=== PATIENT | female | born 2000 ===

== ENCOUNTER 2021-10-19 23:33 | Emergency (ER) | payer MEDICAID, SELFPAY ==
[2021-10-19 23:55] LABS: Glucose, Whole Blood 195 mg/dL (60-115)
--- NOTE | 2021-10-19 23:58 | ECG_ITS ---
Test Reason : CHEST PAIN Blood Pressure : / mmHG Vent. Rate : 106 BPM Atrial Rate : 106 BPM P-R Int : 120 ms QRS Dur : 082 ms QT Int : 368 ms P-R-T Axes : 074 085 017 degrees QTc Int : 488 ms Sinus tachycardia Otherwise normal ECG No previous ECGs available Referred By: Senthil Quintero Electronically Signed By:Orion Ortiz
[2021-10-19 23:59] VITALS: BP 152/102; PULSE 92; RESP 20; TEMP 36.1; O2SAT 100; BMI 28.3
--- NOTE | 2021-10-20 00:02 | ED_ITS ---
HPI - General Adult General Chief complaint: Nausea/Vomiting/Diarrhea Stated complaint: Vomiting Time Seen by Provider: 10/19/21 23:57 Source: patient Mode of arrival: ambulatory Limitations: no limitations History of Present Illness HPI narrative: 21-year-old female came in for evaluation of vomiting and anxiety. Patient is known to smoke marijuana, patient was evaluated for vomiting at [facility] yesterday, patient felt better but in the morning after she smoked marijuana just started vomiting again today, patient also suffer from anxiety with hyperventilation syndrome and stiffness of her joint when she has it, while patient in the ED start get anxious and hyperventilating, patient witnessed to have syncopal episode in the waiting room, patient was brought into room 17, patient appears very anxious, hyperventilating. Related Data Allergies Allergy/AdvReac Type Severity Reaction Status Date / Time No Known Allergies Allergy Verified 10/19/21 23:57 Review of Systems Review of Systems: All other systems are reviewed and are negative Constitutional: Reports as per HPI and Reports no additional constitutional complaints Eyes: Reports as per HPI and Reports no additional eye complaints Reports system reviewed and no additional complaints, except as documented Cardiovascular: Reports as per HPI and Reports no additional cardiovascular complaints Respiratory: Reports as per HPI and Reports no additional respiratory complaints Gastrointestinal: Reports as per HPI and Reports no additional gastrointestinal complaints Genitourinary: Reports no additional female genitourinary complaints Musculoskeletal: Reports no additional musculoskeletal complaints Skin/Breast: Reports system reviewed and no additional complaints, except as docu Psychiatric: Reports no additional psychiatric complaints Endocrine: Reports no additional endocrine complaints Hematologic/Lymphatic: Reports no additional hematologic/lymphatic complaints Allergic/Immunologic: Reports no additional allergic/immunologic complaints Reports system reviewed and no additional complaints, except as documented and Reports Abnormal speech present [facility] Past Medical History Medical History Anxiety Social History Social History (Updated 10/20/21 @ 07:51 by Oriana Webber DO) Patient Tobacco Use Status: Never used Tobacco Use of substances other than those prescribed or required for medical reasons: Yes Substance Use Type: Marijuana Advance Directives: No Physical Exam Vital Signs: Vital Signs: Last Vital Signs Temp 98.8 F 10/20/21 00:10 Pulse 95 10/20/21 00:10 Resp 14 10/20/21 00:10 BP 129/64 10/20/21 00:10 Pulse Ox 96 10/20/21 00:10 BMI result Body Mass Index 28.3 Vital signs have been reviewed as appeared to be correct. Blood pressure normal. Heart rate normal. Respiration rate normal. Temperature normal. Oxygen saturation normal. Appearance: Anxious, hyperventilating. Head: Normal external exam. Normocephalic. Atraumatic. No Lopez signs noted. No raccoon eyes noted Eyes: PERRLA. EOMI. Conjunctiva and sclera normal. Eyelids normal. ENT: TM's Normal. Pharynx normal. Uvula midline. Moist mucous membranes. No trismus noted. No drooling noted. No muffled voice noted. Neck: Normal inspection. Neck supple. FROM. No adenopathy. Thyroid Normal. No meningeal signs. No neck mass noted. CVS: Normal heart rate and rhythm. Heart sound normal. No murmurs noted. Pulses normal throughout. Respiratory: No respiratory distress. Painless inspiration. Breath sounds normal. No wheezes/rales/rhonchi noted. Chest nontender. No accessory muscle usage noted or decreased air movement noted. Abdomen: Soft and nontender. Bowel sounds normal in all 4 quadrants. No distention noted. No organomegaly noted. No visible injury noted. Back: No CVA tenderness. Full range of motion noted. Skin: Skin warm and dry. Normal skin color. Normal skin turgor. No rashes/lesions/lacerations noted. Extremities: No lower extremity edema. Extremities exhibit normal range of motion. Extremities nontender. Neuro: Oriented X 3. Cranial nerve exam: II-XII are grossly intact No motor deficit. No sensory deficit. Reflexes normal. Course Course Course Narrative: Assessment and plan. 21-year-old female history of anxiety and marijuana use with marijuana induced vomiting, patient was evaluated yesterday a [facility], patient appear anxious with hyperventilation and diffuse muscle spasm in the hands and feet, patient is improving with IV fluid and Ativan. Leukocytosis is likely secondary to anxiety and hyperventilation. Medical Decision Making Lab Data Lab results reviewed: Yes I reviewed the patient's lab results. Result diagrams: 10/20/21 00:05 10/20/21 00:05 Labs: Lab Results 10/19/21 10/20/21 10/20/21 Range/Units 23:51 00:05 00:05 WBC 22.4 H (4.8-10.8) X10*3/uL RBC 5.47 (4.20-5.50) X10*6/uL Hgb 16.2 H (12.0-16.0) g/dl Hct 46.1 (37.0-47.0) % MCV 84.3 (80.0-98.0) fL MCH 29.6 (27.0-33.0) pg MCHC 35.1 H (31.0-35.0) g/dl RDW 12.3 (11.0-16.0) % Plt Count 453 H (160-400) X10*3/uL MPV 10.0 (9.4-12.3) fL Immature Gran % (Auto) 0.3 (0.0-0.4) % Neut % (Auto) 82.7 H (45-73) % Lymph % (Auto) 11.2 L (20-40) % Wood % (Auto) 5.5 (2-11) % Eos % (Auto) 0.0 (0-4) % Baso % (Auto) 0.3 (0-2) % Lymph # (Auto) 2.5 (1.2-4.9) X10*3/uL [place] # (Auto) 1.2 (0.1-1.2) X10*3/uL Eos # (Auto) 0.0 (0.0-0.4) X10*3/uL Baso # (Auto) 0.1 (0.0-0.2) X10*3/uL Abs Immat Gran (auto) 0.06 H (0.00-0.03) X10*3/uL Absolute Neuts (auto) 18.5 H (2.0-8.3) x10*3/uL Absolute Nucleated RBC 0.000 (0.0-0.012) X10*3/uL Nucleated RBC % (auto) 0.0 (0.0-0.2) /100WBC Sodium 141 (135-145) mmol/L Potassium 3.6 (3.3-5.1) mmol/L Chloride 97 (96-108) mmol/L Carbon Dioxide 26 (22-29) mmol/L Anion Gap 22 H (12-20) BUN 10 (9-16) mg/dL Creatinine 0.95 (0.5-1.4) mg/dL Estim Creat Clear Calc 95.4 Estimated GFR > 60 POC Glucose 195 H (60-115) mg/dL Random Glucose 168 H (60-115) mg/dL Calcium 10.9 H (8.4-10.2) mg/dL Total Bilirubin 0.9 (0.0-1.0) mg/dL Direct Bilirubin 0.3 (0.0-0.5) mg/dL AST 38 H (5-31) U/L ALT 33 H (0-31) U/L Alkaline Phosphatase 103 (39-117) U/L Troponin I High Sens (<3.5-17.0) ng/L Total Protein 9.2 H (6.5-8.0) g/dL Albumin 5.1 H (3.5-5.0) g/dL Lipase 13 (8-78) U/L 10/20/21 Range/Units 00:05 WBC (4.8-10.8) X10*3/uL RBC (4.20-5.50) X10*6/uL Hgb (12.0-16.0) g/dl Hct (37.0-47.0) % MCV (80.0-98.0) fL MCH (27.0-33.0) pg MCHC (31.0-35.0) g/dl RDW (11.0-16.0) % Plt Count (160-400) X10*3/uL MPV (9.4-12.3) fL Immature Gran % (Auto) (0.0-0.4) % Neut % (Auto) (45-73) % Lymph % (Auto) (20-40) % [place] % (Auto) (2-11) % Eos % (Auto) (0-4) % Baso % (Auto) (0-2) % Lymph # (Auto) (1.2-4.9) X10*3/uL [place] # (Auto) (0.1-1.2) X10*3/uL Eos # (Auto) (0.0-0.4) X10*3/uL Baso # (Auto) (0.0-0.2) X10*3/uL Abs Immat Gran (auto) (0.00-0.03) X10*3/uL Absolute Neuts (auto) (2.0-8.3) x10*3/uL Absolute Nucleated RBC (0.0-0.012) X10*3/uL Nucleated RBC % (auto) (0.0-0.2) /100WBC Sodium (135-145) mmol/L Potassium (3.3-5.1) mmol/L Chloride (96-108) mmol/L Carbon Dioxide (22-29) mmol/L Anion Gap (12-20) BUN (9-16) mg/dL Creatinine (0.5-1.4) mg/dL Estim Creat Clear Calc Estimated GFR POC Glucose (60-115) mg/dL Random Glucose (60-115) mg/dL Calcium (8.4-10.2) mg/dL Total Bilirubin (0.0-1.0) mg/dL Direct Bilirubin (0.0-0.5) mg/dL AST (5-31) U/L ALT (0-31) U/L Alkaline Phosphatase (39-117) U/L Troponin I High Sens < 3.5 (<3.5-17.0) ng/L Total Protein (6.5-8.0) g/dL Albumin (3.5-5.0) g/dL Lipase (8-78) U/L Discharge Plan Discharge Clinical Impression: Drug-induced nausea and vomiting, Anxiety Patient Disposition: Home, Self-Care Instructions: Anxiety (ED) Referrals: Physician,Nonstaff [Primary Care Provider] - 2 days Stand Alone Forms: Work/School Release Interventions: ED Discharge Assessment Last Done: 10/20/21 02:53 Discharge Date/Time: 10/20/21 02:55
[2021-10-20] MEDS: ondansetron HCL 4 MG/2 ML VIAL IVPUSH (00:06)
[2021-10-20] MEDS: LORazepam 2 MG/ML VIAL 1 MG IVPUSH (00:06)
[2021-10-20] MEDS: 0.9 % Sodium Chloride 1,000 ML 999 ML IVCONT ×2 (00:06→01:28)
[2021-10-20] MEDS: Famotidine/PF 20 MG/2 ML VIAL IVPUSH (00:06)
[2021-10-20 00:10] VITALS: BP 129/64; PULSE 95; RESP 14; TEMP 37.1; O2SAT 96
[2021-10-20 00:11] LABS: MANUAL DIFF FLAG NO
[2021-10-20 00:12] LABS: Basophils Absolute Auto 0.1 X10*3/uL (0.0-0.2); Basophils Percent Auto 0.3 % (0-2); Hematocrit 46.1 % (37.0-47.0); Hemoglobin 16.2 g/dl (12.0-16.0); Imm Gran Abs Auto 0.06 X10*3/uL (0.00-0.03); Imm Gran Pct Auto 0.3 % (0.0-0.4); Lymphocytes Absolute Auto 2.5 X10*3/uL (1.2-4.9); Lymphocytes Percent Auto 11.2 % (20-40); Mean Corpuscular HGB Conc 35.1 g/dl (31.0-35.0); Mean Corpuscular Hemoglobin 29.6 pg (27.0-33.0); Mean Corpuscular Volume 84.3 fL (80.0-98.0); Monocytes Absolute Auto 1.2 X10*3/uL (0.1-1.2); Monocytes Percent Auto 5.5 % (2-11); Neutrophils Absolute Auto 18.5 x10*3/uL (2.0-8.3); Neutrophils Percent Auto 82.7 % (45-73); Platelet Count 453 X10*3/uL (160-400); Red Blood Count 5.47 X10*6/uL (4.20-5.50); Red Cell Distribution Width 12.3 % (11.0-16.0); White Blood Count 22.4 X10*3/uL (4.8-10.8)
[2021-10-20 00:35] LABS: Alanine Aminotransferase 33 U/L (0-31); Albumin Level 5.1 g/dL (3.5-5.0); Alkaline Phosphatase 103 U/L (39-117); Anion Gap 22 (12-20); Aspartate Amino Transferase 38 U/L (5-31); Bilirubin Direct 0.3 mg/dL (0.0-0.5); Bilirubin Total 0.9 mg/dL (0.0-1.0); Blood Urea Nitrogen 10 mg/dL (9-16); Calcium 10.9 mg/dL (8.4-10.2); Carbon Dioxide 26 mmol/L (22-29); Chloride 97 mmol/L (96-108); Creatinine Clr Calc Pharmacy 95.4; Estimated Glomerular Filt Rate > 60; Glucose Random 168 mg/dL (60-115); Lipase 13 U/L (8-78); Potassium 3.6 mmol/L (3.3-5.1); Sodium 141 mmol/L (135-145); Total Protein 9.2 g/dL (6.5-8.0)
[2021-10-20 00:46] LABS: Troponin-I High Sensitivity < 3.5 ng/L (<3.5-17.0)
== END 2021-10-20 02:55 | disposition home or self-care (01) ==
PROVIDERS: Emergency Provider Emergency Medicine
DX: T40.711A Poisoning by cannabis, accidental (unintentional), initial encounter (principal); R11.2 Nausea with vomiting, unspecified; Y92.9 Unspecified place or not applicable; F41.9 Anxiety disorder, unspecified
CPT/HCPCS: 36415; 80048; 80076; 82947; 83690; 84484; 85025; 93005; 96361; 96374; 96375; 99283; 99284; J2060; J2405

== ENCOUNTER 2021-10-20 06:49 | Emergency (ER) | payer MEDICAID, SELFPAY ==
[2021-10-20 07:09] VITALS: BP 141/104; PULSE 95; RESP 18; TEMP 37; O2SAT 98; BMI 28.3
--- NOTE | 2021-10-20 07:28 | ED_ITS ---
HPI - Nausea/Vomiting/Diarrhea General Chief complaint: Nausea/Vomiting/Diarrhea Stated complaint: Vomiting Time Seen by Provider: 10/20/21 07:12 Source: patient and old records reviewed Mode of arrival: ambulatory Limitations: no limitations History of Present Illness MD elicited complaint: nausea and vomiting Pertinent past history: cyclical vomiting Onset (ago): day(s) (3) Description of vomiting: watery Associated nausea: Yes Associated abdominal pain: No Severity: moderate Exacerbating factors: other (anxiety) Relieving factors: none Context: marijuana use and other (hx of cyclical vomiting brought on by anxiety and depression) Associated symptoms: loss of appetite, nausea/vomiting and anxiety Treatment prior to arrival: other (went to [facility] yesterday received fluids, last night in our ED zofran and ativan) Related Data Previous Rx's Medication Instructions Recorded ondansetron 4 mg disintegrating 4 mg PO Q8H PRN #20 tab 10/20/21 tablet promethazine 25 mg rectal 25 mg NM Q6H PRN #12 ea 10/20/21 suppository Allergies Allergy/AdvReac Type Severity Reaction Status Date / Time No Known Allergies Allergy Verified 10/19/21 23:57 Review of Systems Review of Systems: Constitutional : No Fever, No Chills ENT/Mouth : No Ear Pain, No Nasal Congestion, No sore throat Eyes: No Eye Pain, No Swelling, No Redness Cardiovascular : No Chest Pain, No SOB Respiratory : No Cough, No Sputum, No Dyspnea Gastrointestinal : pos Nausea, pos Vomiting, No Diarrhea, No Hematochezia, No Melena Genitourinary : No Dysuria, No Urinary Frequency, No Hematuria Musculoskeletal : No Myalgias Skin : No Skin Lesions, No rash Neuro : pos diffuse Weakness, No Numbness, No Paresthesias, No Dizziness, No Headache Psych : positive Anxiety, positive Depression, no SI/HI Heme/Lymph: No Lymphadenopathy Endocrine : No Polyuria, No Polydipsia All other systems reviewed and are negative Gastrointestinal: Gastrointestinal: Reports nausea PMFSH Past Medical History Medical History Anxiety Social History Social History (Updated 10/20/21 @ 07:51 by Oriana Webber DO) Patient Tobacco Use Status: Never used Tobacco Use of substances other than those prescribed or required for medical reasons: Yes Substance Use Type: Marijuana Advance Directives: No Physical Exam Vital Signs: Vital Signs: Last Vital Signs Temp 98.6 F 10/20/21 07:09 Pulse 95 10/20/21 07:09 Resp 18 10/20/21 07:09 BP 141/104 H 10/20/21 07:09 Pulse Ox 98 10/20/21 07:09 BMI result Body Mass Index 28.3 Appearance: Alert. Oriented X3. No acute distress. Very anxious and tearful Eyes: Pupils equal, round and reactive to light. ENT: Pharynx normal. Neck: Normal inspection. Neck supple. CVS: Normal heart rate and rhythm. Pulses normal. Respiratory: No respiratory distress. Breath sounds normal. Abdomen: Soft and non-tender. Skin: Skin warm and dry. Normal skin color. Normal skin turgor. Extremities: No lower extremity edema. No calf ttp Neuro: Oriented X 3. No motor deficit. No sensory deficit. CN2-12 intact Psych: crying, anxious, frustrated at some times Course Course Course Narrative: repleted K has not vomited in the ED medically cleared for BHN at this time patient states she feels much better and doesn't want to wait for BHN she wants to go home MDM - Nausea/Vomiting/Diarrhea MDM Narrative Medical decision making narrative: 21 yo female with hx of anxiety and cyclical vomiting brought on by anxiety comes in and states she has severe anxiety/depression due to her living situation but she has safe housing - she is not on any medications. She reports no SI. At this time this is her 3rd visit in 3 days will obtain basic labs, hydrate, IM haldol for vomiting, BHN consult given her severe anxiety and patient has had to go inpatient for this in the past. I have not seen her vomit and I suspect this is mostly anxiety/depression. Lab Data Result diagrams: 10/20/21 07:56 10/20/21 07:56 Labs: Lab Results 10/20/21 10/20/21 10/20/21 Range/Units 07:56 07:56 07:56 WBC 17.2 H (4.8-10.8) X10*3/uL RBC 4.58 (4.20-5.50) X10*6/uL Hgb 13.5 (12.0-16.0) g/dl Hct 38.8 (37.0-47.0) % MCV 84.7 (80.0-98.0) fL MCH 29.5 (27.0-33.0) pg MCHC 34.8 (31.0-35.0) g/dl RDW 12.5 (11.0-16.0) % Plt Count 330 D (160-400) X10*3/uL MPV 10.0 (9.4-12.3) fL Immature Gran % (Auto) 0.5 H (0.0-0.4) % Neut % (Auto) 78.9 H (45-73) % Lymph % (Auto) 13.7 L (20-40) % [place] % (Auto) 6.6 (2-11) % Eos % (Auto) 0.1 (0-4) % Baso % (Auto) 0.2 (0-2) % Lymph # (Auto) 2.4 (1.2-4.9) X10*3/uL [place] # (Auto) 1.1 (0.1-1.2) X10*3/uL Eos # (Auto) 0.0 (0.0-0.4) X10*3/uL Baso # (Auto) 0.0 (0.0-0.2) X10*3/uL Abs Immat Gran (auto) 0.08 H (0.00-0.03) X10*3/uL Absolute Neuts (auto) 13.6 H (2.0-8.3) x10*3/uL Absolute Nucleated RBC 0.000 (0.0-0.012) X10*3/uL Nucleated RBC % (auto) 0.0 (0.0-0.2) /100WBC Sodium 140 (135-145) mmol/L Potassium 3.1 L (3.3-5.1) mmol/L Chloride 102 (96-108) mmol/L Carbon Dioxide 26 (22-29) mmol/L Anion Gap 15 (12-20) BUN 8 L (9-16) mg/dL Creatinine 0.69 (0.5-1.4) mg/dL Estim Creat Clear Calc 131.2 Estimated GFR > 60 Random Glucose 122 H (60-115) mg/dL Calcium 9.6 D (8.4-10.2) mg/dL Magnesium 2.0 (1.6-2.6) mg/dL Total Bilirubin 0.7 (0.0-1.0) mg/dL Direct Bilirubin 0.3 (0.0-0.5) mg/dL AST 32 H (5-31) U/L ALT 25 (0-31) U/L Alkaline Phosphatase 86 (39-117) U/L Total Protein 7.6 (6.5-8.0) g/dL Albumin 4.3 (3.5-5.0) g/dL Lipase 16 (8-78) U/L Beta HCG, Quant < 2 mIU/mL Urine Color Urine Appearance Urine pH (5.0-8.0) Ur Specific [place] (1.005-1.025) Urine Protein (NEG-TRACE) MG/DL Urine Glucose (UA) (NEG) MG/DL Urine Ketones (NEG) MG/DL Urine Blood (NEG) Urine Nitrite (NEG) Ur Leukocyte Esterase (NEG) Urine Opiates Screen (Not Detect) Urine Fentanyl Screen (Not Detect) Ur Barbiturates Screen (Not Detect) Ur Phencyclidine Scrn (Not Detect) Ur Amphetamines Screen (Not Detect) U Benzodiazepines Scrn (Not Detect) Urine Cocaine Screen (Not Detect) U Marijuana (THC) Screen (Not Detect) COVID-19 (ETHAN) Negative (Negative) COVID-19 Clin Com See Note 10/20/21 10/20/21 Range/Units 10:18 10:18 WBC (4.8-10.8) X10*3/uL RBC (4.20-5.50) X10*6/uL Hgb (12.0-16.0) g/dl Hct (37.0-47.0) % MCV (80.0-98.0) fL MCH (27.0-33.0) pg MCHC (31.0-35.0) g/dl RDW (11.0-16.0) % Plt Count (160-400) X10*3/uL MPV (9.4-12.3) fL Immature Gran % (Auto) (0.0-0.4) % Neut % (Auto) (45-73) % Lymph % (Auto) (20-40) % [place] % (Auto) (2-11) % Eos % (Auto) (0-4) % Baso % (Auto) (0-2) % Lymph # (Auto) (1.2-4.9) X10*3/uL [place] # (Auto) (0.1-1.2) X10*3/uL Eos # (Auto) (0.0-0.4) X10*3/uL Baso # (Auto) (0.0-0.2) X10*3/uL Abs Immat Gran (auto) (0.00-0.03) X10*3/uL Absolute Neuts (auto) (2.0-8.3) x10*3/uL Absolute Nucleated RBC (0.0-0.012) X10*3/uL Nucleated RBC % (auto) (0.0-0.2) /100WBC Sodium (135-145) mmol/L Potassium (3.3-5.1) mmol/L Chloride (96-108) mmol/L Carbon Dioxide (22-29) mmol/L Anion Gap (12-20) BUN (9-16) mg/dL Creatinine (0.5-1.4) mg/dL Estim Creat Clear Calc Estimated GFR Random Glucose (60-115) mg/dL Calcium (8.4-10.2) mg/dL Magnesium (1.6-2.6) mg/dL Total Bilirubin (0.0-1.0) mg/dL Direct Bilirubin (0.0-0.5) mg/dL AST (5-31) U/L ALT (0-31) U/L Alkaline Phosphatase (39-117) U/L Total Protein (6.5-8.0) g/dL Albumin (3.5-5.0) g/dL Lipase (8-78) U/L Beta HCG, Quant mIU/mL Urine Color YELLOW Urine Appearance CLEAR Urine pH 6.5 (5.0-8.0) Ur Specific [place] 1.010 (1.005-1.025) Urine Protein NEG (NEG-TRACE) MG/DL Urine Glucose (UA) NEG (NEG) MG/DL Urine Ketones 15 (NEG) MG/DL Urine Blood NEG (NEG) Urine Nitrite NEG (NEG) Ur Leukocyte Esterase NEG (NEG) Urine Opiates Screen Not Detected (Not Detect) Urine Fentanyl Screen Not Detected (Not Detect) Ur Barbiturates Screen Not Detected (Not Detect) Ur Phencyclidine Scrn Not Detected (Not Detect) Ur Amphetamines Screen Not Detected (Not Detect) U Benzodiazepines Scrn Not Detected (Not Detect) Urine Cocaine Screen POSITIVE H (Not Detect) U Marijuana (THC) Screen POSITIVE H (Not Detect) COVID-19 ([facility]AN) (Negative) COVID-19 Clin Com Discharge Plan Discharge Clinical Impression: Anxiety, Acute hypokalemia Patient Disposition: Home, Self-Care Instructions: Hypokalemia (ED), Acute Nausea and Vomiting (ED), Anxiety (ED) Additional Instructions: you tested positive for marijuana but also cocaine - please be careful of where you get your marijuana from Prescriptions: New promethazine 25 mg suppository 25 mg NM Q6H PRN (Reason: nausea and vomiting) Qty: 12 RF: 0 ondansetron 4 mg tablet,disintegrating 4 mg PO Q8H PRN (Reason: nausea and vomiting) Qty: 20 RF: 0 Referrals: [facility] [Physician] - 2 days
[2021-10-20] MEDS: diphenhydrAMINE HCL 50 MG/ML VIAL 25 MG IVPUSH (08:04)
[2021-10-20] MEDS: Haloperidol Lactate 5 MG/ML VIAL IM (08:05)
[2021-10-20] MEDS: 0.9 % Sodium Chloride 1,000 ML 999 ML IVCONT (08:05)
[2021-10-20 08:14] LABS: Basophils Percent Auto 0.2 % (0-2); Eosinophils Percent Auto 0.1 % (0-4); Hematocrit 38.8 % (37.0-47.0); Hemoglobin 13.5 g/dl (12.0-16.0); Imm Gran Abs Auto 0.08 X10*3/uL (0.00-0.03); Imm Gran Pct Auto 0.5 % (0.0-0.4); Lymphocytes Absolute Auto 2.4 X10*3/uL (1.2-4.9); Lymphocytes Percent Auto 13.7 % (20-40); MANUAL DIFF FLAG NO; Mean Corpuscular HGB Conc 34.8 g/dl (31.0-35.0); Mean Corpuscular Hemoglobin 29.5 pg (27.0-33.0); Mean Corpuscular Volume 84.7 fL (80.0-98.0); Monocytes Absolute Auto 1.1 X10*3/uL (0.1-1.2); Monocytes Percent Auto 6.6 % (2-11); Neutrophils Absolute Auto 13.6 x10*3/uL (2.0-8.3); Neutrophils Percent Auto 78.9 % (45-73); Platelet Count 330 X10*3/uL (160-400); Red Blood Count 4.58 X10*6/uL (4.20-5.50); Red Cell Distribution Width 12.5 % (11.0-16.0); White Blood Count 17.2 X10*3/uL (4.8-10.8)
[2021-10-20 08:35] LABS: COVID-19 Test Negative (Negative); IDNOW Serial# 08D9AD1C
[2021-10-20 08:36] LABS: Alanine Aminotransferase 25 U/L (0-31); Albumin Level 4.3 g/dL (3.5-5.0); Alkaline Phosphatase 86 U/L (39-117); Anion Gap 15 (12-20); Aspartate Amino Transferase 32 U/L (5-31); Bilirubin Direct 0.3 mg/dL (0.0-0.5); Bilirubin Total 0.7 mg/dL (0.0-1.0); Blood Urea Nitrogen 8 mg/dL (9-16); Calcium 9.6 mg/dL (8.4-10.2); Carbon Dioxide 26 mmol/L (22-29); Chloride 102 mmol/L (96-108); Creatinine Clr Calc Pharmacy 131.2; Estimated Glomerular Filt Rate > 60; Glucose Random 122 mg/dL (60-115); Lipase 16 U/L (8-78); Potassium 3.1 mmol/L (3.3-5.1); Sodium 140 mmol/L (135-145); Total Protein 7.6 g/dL (6.5-8.0)
[2021-10-20 08:41] LABS: HCG Quantitative < 2 mIU/mL
[2021-10-20] MEDS: Potassium Chloride ER 20 MEQ TAB.ER.PRT PO (08:47)
[2021-10-20] MEDS: Potassium Chloride/H20 10 MEQ/100 ML PIGGYBACK 100 MEQ IV ×2 (08:48→10:17)
--- NOTE | 2021-10-20 08:53 | PC.NURSE ---
pt placed on heart monitor while receiving potassium. states her nausea is a little better. Pt reminded she needs to provide a urine sample.
[2021-10-20 10:53] LABS: Appearance Urine CLEAR; Color Urine YELLOW; Glucose Urine UA NEG (NEG); Leukocyte Esterase Urine NEG (NEG); Nitrite Urine NEG (NEG); PH 6.5 (5.0-8.0); Urine Blood NEG (NEG); Urine Ketones 15 MG/DL (NEG); Urine Protein NEG (NEG-TRACE)
[2021-10-20 11:12] LABS: Amphetamine Screen Urine Not Detected (Not Detect); Barbiturates, Urine Not Detected (Not Detect); Benzodiazepines Screen Urine Not Detected (Not Detect); Cannabinoid Screen Urine POSITIVE (Not Detect); Cocaine Screen Urine POSITIVE (Not Detect); Fentanyl, urine Not Detected (Not Detect); Opiate Screen Urine Not Detected (Not Detect); Phencyclidine Screen Urine Not Detected (Not Detect)
== END 2021-10-20 15:13 | disposition home or self-care (01) ==
PROVIDERS: Emergency Provider Emergency Medicine
DX: F41.9 Anxiety disorder, unspecified (principal); E87.6 Hypokalemia; F32.A Depression, unspecified; Z79.899 Other long term (current) drug therapy; Z20.822 Contact with and (suspected) exposure to COVID-19
CPT/HCPCS: 36415; 80048; 80076; 80307; 81003; 83690; 83735; 84702; 85025; 87635; 96361; 96365; 96366; 96372; 96375; 99285; J1200

== ENCOUNTER 2021-11-29 00:42 | Emergency (ER) | payer MEDICAID, SELFPAY ==
[2021-11-29 00:51] VITALS: BP 143/84; BP 170/106; PULSE 88; RESP 20; TEMP 37.9; O2SAT 95; O2SAT 98; BMI 29.9
--- NOTE | 2021-11-29 01:02 | ED.NAVMDI ---
HPI - Nausea/Vomiting/Diarrhea General Chief complaint: General Medical Stated complaint: WEAKNESS,AMS,COVID+ Time Seen by Provider: 11/29/21 00:54 Source: patient Mode of arrival: EMS Limitations: no limitations History of Present Illness HPI Narrative: Patient's anxiety med around into his cyclic vomiting already been vaccinated against COVID including booster dose started vomiting with diarrhea today did home test for COVID which was positive Related Data Previous Rx's Medication Instructions Recorded ondansetron 4 mg disintegrating 4 mg PO Q8H PRN #20 tab 10/20/21 tablet promethazine 25 mg rectal 25 mg [place] Q6H PRN #12 ea 10/20/21 suppository Allergies Allergy/AdvReac Type Severity Reaction Status Date / Time No Known Allergies Allergy Verified 10/19/21 23:57 Review of Systems Review of Systems: Yes all other systems are reviewed and are negative [facility] Past Medical History Medical History Anxiety Social History Social History Patient Tobacco Use Status: Never used Tobacco Substance Use Type: Marijuana Advance Directives: No Advance Directives Information Provided: Yes Physical Exam Vital Signs: Vital Signs: Last Vital Signs Temp 100.2 F 11/29/21 00:51 Pulse 88 11/29/21 00:51 Resp 20 11/29/21 00:51 BP 143/84 H 11/29/21 00:51 Pulse Ox 98 11/29/21 00:51 BMI result Body Mass Index 29.9 Appearance: Alert. Oriented X3. No acute distress. Anxious febrile temperature 100.2 degrees Eyes: No pallor/ icterus ENT: Pharynx normal. Oral Mucosa moist Neck: Normal inspection. Neck supple. CVS: Normal heart rate and rhythm. Pulses normal. Respiratory: No respiratory distress. Equal air entry bilateral, no wheezing/rales/rhonchi Abdomen: Soft and nontender. Bowel sounds are present, no mass palpable, no CVA tenderness Skin: Skin warm and dry. Normal skin color. Normal skin turgor. Extremities: No lower extremity edema. No calf tenderness Neuro: Oriented X 3 MDM - Nausea/Vomiting/Diarrhea MDM Narrative Medical decision making narrative: Patient has cyclic vomiting syndrome with COVID-19 with chronic leukocytosis during episodes of vomiting as in the past abdomen is soft nontender will check for lactic acid and procalcitonin. Medical Records Attestation: I reviewed the patient's medical records. Lab Data Attestation: I reviewed the patient's lab results. Result diagrams: 11/29/21 01:33 11/29/21 01:33 Labs: Lab Results 11/29/21 11/29/21 Range/Units 01:33 01:33 WBC 22.6 H (4.8-10.8) X10*3/uL RBC 4.84 (4.20-5.50) X10*6/uL Hgb 14.2 (12.0-16.0) g/dl Hct 40.3 (37.0-47.0) % MCV 83.3 (80.0-98.0) fL MCH 29.3 (27.0-33.0) pg MCHC 35.2 H (31.0-35.0) g/dl RDW 12.8 (11.0-16.0) % Plt Count 381 (160-400) X10*3/uL MPV 10.4 (9.4-12.3) fL Immature Gran % (Auto) 0.5 H (0.0-0.4) % Neut % (Auto) 85.5 H (45-73) % Lymph % (Auto) 8.1 L (20-40) % [place] % (Auto) 5.8 (2-11) % Eos % (Auto) 0.0 (0-4) % Baso % (Auto) 0.1 (0-2) % Lymph # (Auto) 1.8 (1.2-4.9) X10*3/uL [place] # (Auto) 1.3 H (0.1-1.2) X10*3/uL Eos # (Auto) 0.0 (0.0-0.4) X10*3/uL Baso # (Auto) 0.0 (0.0-0.2) X10*3/uL Abs Immat Gran (auto) 0.12 H (0.00-0.03) X10*3/uL Absolute Neuts (auto) 19.3 H (2.0-8.3) x10*3/uL Absolute Nucleated RBC 0.000 (0.0-0.012) X10*3/uL Nucleated RBC % (auto) 0.0 (0.0-0.2) /100WBC COVID-19 ([facility]AN) Positive A (Negative) COVID-19 Clin Com See Note Discharge Plan Discharge Clinical Impression: COVID-19, Cyclic vomiting syndrome Leukocytosis Qualifiers: Leukocytosis type: leukemoid reaction Qualified Code(s): D72.823 - Leukemoid reaction Patient Disposition: Home, Self-Care Instructions: Acute Nausea and Vomiting (ED), Leukocytosis (ED), COVID-19 (Coronavirus Disease 2019) (ED) Additional Instructions: Drink plenty of fluids Stop using marijuana Take medication for anxiety Social distancing Report to the ER if increased shortness of breath Prescriptions: No Action promethazine 25 mg suppository 25 mg [place] Q6H PRN (Reason: nausea and vomiting) Qty: 12 RF: 0 ondansetron 4 mg tablet,disintegrating 4 mg PO Q8H PRN (Reason: nausea and vomiting) Qty: 20 RF: 0
[2021-11-29 01:38] LABS: MANUAL DIFF FLAG NO
[2021-11-29 01:39] LABS: Basophils Percent Auto 0.1 % (0-2); Hematocrit 40.3 % (37.0-47.0); Hemoglobin 14.2 g/dl (12.0-16.0); Imm Gran Abs Auto 0.12 X10*3/uL (0.00-0.03); Imm Gran Pct Auto 0.5 % (0.0-0.4); Lymphocytes Absolute Auto 1.8 X10*3/uL (1.2-4.9); Lymphocytes Percent Auto 8.1 % (20-40); Mean Corpuscular HGB Conc 35.2 g/dl (31.0-35.0); Mean Corpuscular Hemoglobin 29.3 pg (27.0-33.0); Mean Corpuscular Volume 83.3 fL (80.0-98.0); Mean Platelet Volume 10.4 fL (9.4-12.3); Monocytes Absolute Auto 1.3 X10*3/uL (0.1-1.2); Monocytes Percent Auto 5.8 % (2-11); Neutrophils Absolute Auto 19.3 x10*3/uL (2.0-8.3); Neutrophils Percent Auto 85.5 % (45-73); Platelet Count 381 X10*3/uL (160-400); Red Blood Count 4.84 X10*6/uL (4.20-5.50); Red Cell Distribution Width 12.8 % (11.0-16.0); White Blood Count 22.6 X10*3/uL (4.8-10.8)
[2021-11-29 01:44] LABS: COVID-19 Test Positive (Negative)
[2021-11-29] MEDS: 0.9 % Sodium Chloride 1,000 ML 999 ML IV ×2 (02:00)
[2021-11-29] MEDS: Acetaminophen 325 MG TABLET 650 MG PO (02:00)
[2021-11-29] MEDS: Prochlorperazine Edisylate 10 MG/2 ML VIAL IVPUSH (02:33)
[2021-11-29 02:44] LABS: Alanine Aminotransferase 10 U/L (0-31); Albumin Level 4.2 g/dL (3.5-5.0); Alkaline Phosphatase 80 U/L (39-117); Anion Gap 15 (12-20); Aspartate Amino Transferase 12 U/L (5-31); Bilirubin Direct 0.2 mg/dL (0.0-0.5); Bilirubin Total 0.5 mg/dL (0.0-1.0); Blood Urea Nitrogen 8 mg/dL (9-16); Calcium 9.1 mg/dL (8.4-10.2); Carbon Dioxide 20 mmol/L (22-29); Chloride 108 mmol/L (96-108); Creatinine Clr Calc Pharmacy 125.8; Estimated Glomerular Filt Rate > 60; Glucose Random 129 mg/dL (60-115); Lipase 6 U/L (8-78); Potassium 3.1 mmol/L (3.3-5.1); Sodium 140 mmol/L (135-145); Total Protein 7.4 g/dL (6.5-8.0)
[2021-11-29 03:03] LABS: Procalcitonin < 0.02 ng/mL
--- NOTE | 2021-11-29 04:07 | ED.GENADULT ---
HPI - General Adult General Chief complaint: General Medical Stated complaint: WEAKNESS,AMS,COVID+ Time Seen by Provider: 11/29/21 00:54 Source: patient Mode of arrival: EMS Limitations: no limitations Related Data Previous Rx's Medication Instructions Recorded ondansetron 4 mg disintegrating 4 mg PO Q8H PRN #20 tab 10/20/21 tablet promethazine 25 mg rectal 25 mg NE Q6H PRN #12 ea 10/20/21 suppository Allergies Allergy/AdvReac Type Severity Reaction Status Date / Time No Known Allergies Allergy Verified 10/19/21 23:57 [facility] Past Medical History Medical History Anxiety Social History Social History Patient Tobacco Use Status: Never used Tobacco Substance Use Type: Marijuana Advance Directives: No Advance Directives Information Provided: Yes Physical Exam Vital Signs: Vital Signs: Last Vital Signs Temp 100.2 F 11/29/21 00:51 Pulse 88 11/29/21 00:51 Resp 20 11/29/21 00:51 BP 143/84 H 11/29/21 00:51 Pulse Ox 98 11/29/21 00:51 BMI result Body Mass Index 29.9 Course Course Course Narrative: 0412: I assumed care of this patient from my colleague, Dr. Bateman at 2:00 a.m.. The patient's laboratory evaluation did reveal positive COVID-19, elevated WBC 25009, slightly low potassium at 3.1, low bicarb of 20, elevated glucose of 129. Procalcitonin was below detectable limits. At this time these values are consistent with vomiting and viral illness. The patient will be discharged home with printed and verbal instructions. Medical Decision Making Lab Data Result diagrams: 11/29/21 01:11/29/21 02:13 Labs: Lab Results 11/29/21 11/29/21 11/29/21 Range/Units : 01: 02:13 WBC 22.6 H (4.8-10.8) X10*3/uL RBC 4.84 (4.20-5.50) X10*6/uL Hgb 14.2 (12.0-16.0) g/dl Hct 40.3 (37.0-47.0) % MCV 83.3 (80.0-98.0) fL MCH 29.3 (27.0-33.0) pg MCHC 35.2 H (31.0-35.0) g/dl RDW 12.8 (11.0-16.0) % Plt Count 381 (160-400) X10*3/uL MPV 10.4 (9.4-12.3) fL Immature Gran % (Auto) 0.5 H (0.0-0.4) % Neut % (Auto) 85.5 H (45-73) % Lymph % (Auto) 8.1 L (20-40) % [place] % (Auto) 5.8 (2-11) % Eos % (Auto) 0.0 (0-4) % Baso % (Auto) 0.1 (0-2) % Lymph # (Auto) 1.8 (1.2-4.9) X10*3/uL [place] # (Auto) 1.3 H (0.1-1.2) X10*3/uL Eos # (Auto) 0.0 (0.0-0.4) X10*3/uL Baso # (Auto) 0.0 (0.0-0.2) X10*3/uL Abs Immat Gran (auto) 0.12 H (0.00-0.03) X10*3/uL Absolute Neuts (auto) 19.3 H (2.0-8.3) x10*3/uL Absolute Nucleated RBC 0.000 (0.0-0.012) X10*3/uL Nucleated RBC % (auto) 0.0 (0.0-0.2) /100WBC Sodium 140 (135-145) mmol/L Potassium 3.1 L (3.3-5.1) mmol/L Chloride 108 (96-108) mmol/L Carbon Dioxide 20 L (22-29) mmol/L Anion Gap 15 (12-20) BUN 8 L (9-16) mg/dL Creatinine 0.74 (0.5-1.4) mg/dL Estim Creat Clear Calc 125.8 Estimated GFR > 60 Random Glucose 129 H (60-115) mg/dL Lactic Acid (0.5-2.0) mmol/L Calcium 9.1 (8.4-10.2) mg/dL Total Bilirubin 0.5 (0.0-1.0) mg/dL Direct Bilirubin 0.2 (0.0-0.5) mg/dL AST 12 D (5-31) U/L ALT 10 (0-31) U/L Alkaline Phosphatase 80 (39-117) U/L Total Protein 7.4 (6.5-8.0) g/dL Albumin 4.2 (3.5-5.0) g/dL Lipase 6 L (8-78) U/L Procalcitonin ng/mL COVID-19 (ETHAN) Positive A (Negative) COVID-19 Clin Com See Note 11/29/21 11/29/21 Range/Units 02:13 02:13 WBC (4.8-10.8) X10*3/uL RBC (4.20-5.50) X10*6/uL Hgb (12.0-16.0) g/dl Hct (37.0-47.0) % MCV (80.0-98.0) fL MCH (27.0-33.0) pg MCHC (31.0-35.0) g/dl RDW (11.0-16.0) % Plt Count (160-400) X10*3/uL MPV (9.4-12.3) fL Immature Gran % (Auto) (0.0-0.4) % Neut % (Auto) (45-73) % Lymph % (Auto) (20-40) % [place] % (Auto) (2-11) % Eos % (Auto) (0-4) % Baso % (Auto) (0-2) % Lymph # (Auto) (1.2-4.9) X10*3/uL [place] # (Auto) (0.1-1.2) X10*3/uL Eos # (Auto) (0.0-0.4) X10*3/uL Baso # (Auto) (0.0-0.2) X10*3/uL Abs Immat Gran (auto) (0.00-0.03) X10*3/uL Absolute Neuts (auto) (2.0-8.3) x10*3/uL Absolute Nucleated RBC (0.0-0.012) X10*3/uL Nucleated RBC % (auto) (0.0-0.2) /100WBC Sodium (135-145) mmol/L Potassium (3.3-5.1) mmol/L Chloride (96-108) mmol/L Carbon Dioxide (22-29) mmol/L Anion Gap (12-20) BUN (9-16) mg/dL Creatinine (0.5-1.4) mg/dL Estim Creat Clear Calc Estimated GFR Random Glucose (60-115) mg/dL Lactic Acid 1.0 (0.5-2.0) mmol/L Calcium (8.4-10.2) mg/dL Total Bilirubin (0.0-1.0) mg/dL Direct Bilirubin (0.0-0.5) mg/dL AST (5-31) U/L ALT (0-31) U/L Alkaline Phosphatase (39-117) U/L Total Protein (6.5-8.0) g/dL Albumin (3.5-5.0) g/dL Lipase (8-78) U/L Procalcitonin < 0.02 ng/mL COVID-19 (ETHAN) (Negative) COVID-19 Clin Com Discharge Plan Discharge Clinical Impression: COVID-19, Cyclic vomiting syndrome Leukocytosis Qualifiers: Leukocytosis type: leukemoid reaction Qualified Code(s): D72.823 - Leukemoid reaction Patient Disposition: Home, Self-Care Instructions: Acute Nausea and Vomiting (ED), Leukocytosis (ED), COVID-19 (Coronavirus Disease 2019) (ED) Additional Instructions: Drink plenty of fluids Stop using marijuana Take medication for anxiety Social distancing Report to the ER if increased shortness of breath Prescriptions: No Action promethazine 25 mg suppository 25 mg NE Q6H PRN (Reason: nausea and vomiting) Qty: 12 RF: 0 ondansetron 4 mg tablet,disintegrating 4 mg PO Q8H PRN (Reason: nausea and vomiting) Qty: 20 RF: 0
[2021-11-29 04:24] VITALS: BP 129/68; PULSE 102; RESP 20; TEMP 36.5; O2SAT 99
== END 2021-11-29 04:35 | disposition home or self-care (01) ==
PROVIDERS: Internal Medicine; Emergency Provider Emergency Medicine Emergency Medical Services
DX: U07.1 COVID-19 (principal); R11.15 Cyclical vomiting syndrome unrelated to migraine; D72.823 Leukemoid reaction; F12.90 Cannabis use, unspecified, uncomplicated
CPT/HCPCS: 36415; 80048; 80076; 83605; 83690; 84145; 85025; 87040; 87635; 96361; 96374; 99283; 99284

== ENCOUNTER 2021-12-01 01:10 | Emergency (ER) | payer MEDICAID, SELFPAY ==
--- NOTE | ~2021-12-01 | XR_ITS ---
EXAMINATION: XR CHEST CLINICAL INFORMATION: Chest pain COMPARISON: None TECHNIQUE: Frontal view of the chest was obtained. FINDINGS: The lungs are well expanded. There is no focal consolidation, edema, or effusion. No pneumothorax. The cardiomediastinal silhouette is within normal limits. No acute osseous abnormality. XR/XR chest 1V IMPRESSION: Clear lungs.
--- NOTE | 2021-12-01 01:25 | ECG_ITS ---
Test Reason : CHEST PAIN Blood Pressure : / mmHG Vent. Rate : 070 BPM Atrial Rate : 070 BPM P-R Int : 144 ms QRS Dur : 092 ms QT Int : 396 ms P-R-T Axes : 038 068 010 degrees QTc Int : 427 ms Sinus rhythm with marked sinus arrhythmia Otherwise normal ECG When compared with ECG of 19-OCT-2021 23:57, Vent. rate has decreased BY 36 BPM QT has shortened Referred By: Siomara Allison Electronically Signed By:Orion Ortiz
[2021-12-01 01:29] VITALS: BP 172/85; PULSE 92; RESP 14; TEMP 36.9; O2SAT 100; BMI 29.9
--- NOTE | 2021-12-01 01:32 | ED.SOB ---
HPI - SOB/Dyspnea General Chief Complaint: Nausea/Vomiting/Diarrhea Stated Complaint: chest pain Time Seen by Provider: 12/01/21 01:26 History of Present Illness HPI Narrative: Patient is a 21-year-old female with a history of anxiety history of COVID infection. Recently diagnosed on November 29. Presented with sudden onset of increased respiratory rate. Altered mental status. Appeared extremely anxious. Patient unable to give detailed history. History of anxiety in the past. Positive history of marijuana use Related Data Previous Rx's Medication Instructions Recorded ondansetron 4 mg disintegrating 4 mg PO Q8H PRN #20 tab 10/20/21 tablet promethazine 25 mg rectal 25 mg DC Q6H PRN #12 ea 10/20/21 suppository Allergies Allergy/AdvReac Type Severity Reaction Status Date / Time No Known Allergies Allergy Verified 10/19/21 23:57 Review of Systems Review of Systems: Unable to obtain review systems secondary to patient's condition PMFSH Past Medical History Medical History Anxiety Social History Social History Alcohol intake: never Patient Tobacco Use Status: Never used Tobacco Use of substances other than those prescribed or required for medical reasons: No Substance Use Type: Marijuana Advance Directives: No Patient : Yes Physical Exam Vital Signs: Vital Signs: Last Vital Signs Temp 98.4 F 12/01/21 01:29 Pulse 108 H 12/01/21 04:07 Resp 14 12/01/21 01:29 BP 165/115 H 12/01/21 04:07 Pulse Ox 100 12/01/21 04:07 Oxygen Flow Rate 2 12/01/21 01:29 BMI result Body Mass Index 29.9 Appearance: Sick-appearing breathing heavily, Eyes: Pupils equal, round and reactive to light. ENT: Pharynx normal. Neck: Normal inspection. Neck supple. No lymph nodes noted. No crepitus CVS: Normal heart rate and rhythm. Pulses normal. Normal S1 and S2 Respiratory: Increased respiratory rate but clear bilaterally to auscultation Abdomen: Soft and nontender. No rigidity. No distention. good BS x4 Skin: Skin warm and dry. Normal skin color. Normal skin turgor. Extremities: No lower extremity edema. Neurovascular intact to all extremities. No Lacerations. No Rash Neuro: Oriented X 0 moving all extremities No sensory deficit. MDM - SOB/Dyspnea MDM Narrative Medical decision making narrative: Patient's symptom improved with Ativan. History of anxiety. White count was elevated the history of the same in the past. Urine showed no signs of infection. Electrolytes are unremarkable. Patient in no distress. Will discharge patient home. Patient's EKG showed a sinus pattern heart rate was 70 DC QRS QT within normal limits there is no acute ST segment elevation. Medical Records Attestation: I reviewed the patient's medical records. Lab Data Result diagrams: 12/01/21 01:43 12/01/21 01:43 Labs: Lab Results 12/01/21 12/01/21 12/01/21 Range/Units 01:18 01:43 01:43 WBC 21.4 H (4.8-10.8) X10*3/uL RBC 5.04 (4.20-5.50) X10*6/uL Hgb 15.0 (12.0-16.0) g/dl Hct 43.5 (37.0-47.0) % MCV 86.3 (80.0-98.0) fL MCH 29.8 (27.0-33.0) pg MCHC 34.5 (31.0-35.0) g/dl RDW 12.6 (11.0-16.0) % Plt Count 403 H (160-400) X10*3/uL MPV 10.1 (9.4-12.3) fL Immature Gran % (Auto) 0.7 H (0.0-0.4) % Neut % (Auto) 72.6 (45-73) % Lymph % (Auto) 20.3 (20-40) % [place] % (Auto) 5.0 (2-11) % Eos % (Auto) 1.0 (0-4) % Baso % (Auto) 0.4 (0-2) % Lymph # (Auto) 4.4 (1.2-4.9) X10*3/uL [place] # (Auto) 1.1 (0.1-1.2) X10*3/uL Eos # (Auto) 0.2 (0.0-0.4) X10*3/uL Baso # (Auto) 0.1 (0.0-0.2) X10*3/uL Abs Immat Gran (auto) 0.14 H (0.00-0.03) X10*3/uL Absolute Neuts (auto) 15.6 H (2.0-8.3) x10*3/uL Absolute Nucleated RBC 0.000 (0.0-0.012) X10*3/uL Nucleated RBC % (auto) 0.0 (0.0-0.2) /100WBC Hold Purple Top SEE NOTE PT (9.9-13.0) SEC INR (0.9-1.1) Sodium (135-145) mmol/L Potassium (3.3-5.1) mmol/L Chloride (96-108) mmol/L Carbon Dioxide (22-29) mmol/L Anion Gap (12-20) BUN (9-16) mg/dL Creatinine (0.5-1.4) mg/dL Estim Creat Clear Calc Estimated GFR POC Glucose 138 H (60-115) mg/dL Random Glucose (60-115) mg/dL Calcium (8.4-10.2) mg/dL Magnesium (1.6-2.6) mg/dL Total Bilirubin (0.0-1.0) mg/dL AST (5-31) U/L ALT (0-31) U/L Alkaline Phosphatase (39-117) U/L Total Creatine Kinase (26-140) U/L Total Protein (6.5-8.0) g/dL Albumin (3.5-5.0) g/dL Beta HCG, Quant mIU/mL Urine Color Urine Appearance Urine pH (5.0-8.0) Ur Specific [place] (1.005-1.025) Urine Protein (NEG-TRACE) MG/DL Urine Glucose (UA) (NEG) MG/DL Urine Ketones (NEG) MG/DL Urine Blood (NEG) Urine Nitrite (NEG) Ur Leukocyte Esterase (NEG) 12/01/21 12/01/21 12/01/21 Range/Units 01:43 01:43 02:11 WBC (4.8-10.8) X10*3/uL RBC (4.20-5.50) X10*6/uL Hgb (12.0-16.0) g/dl Hct (37.0-47.0) % MCV (80.0-98.0) fL MCH (27.0-33.0) pg MCHC (31.0-35.0) g/dl RDW (11.0-16.0) % Plt Count (160-400) X10*3/uL MPV (9.4-12.3) fL Immature Gran % (Auto) (0.0-0.4) % Neut % (Auto) (45-73) % Lymph % (Auto) (20-40) % [place] % (Auto) (2-11) % Eos % (Auto) (0-4) % Baso % (Auto) (0-2) % Lymph # (Auto) (1.2-4.9) X10*3/uL [place] # (Auto) (0.1-1.2) X10*3/uL Eos # (Auto) (0.0-0.4) X10*3/uL Baso # (Auto) (0.0-0.2) X10*3/uL Abs Immat Gran (auto) (0.00-0.03) X10*3/uL Absolute Neuts (auto) (2.0-8.3) x10*3/uL Absolute Nucleated RBC (0.0-0.012) X10*3/uL Nucleated RBC % (auto) (0.0-0.2) /100WBC Hold Purple Top PT 10.7 (9.9-13.0) SEC INR 0.9 (0.9-1.1) Sodium 141 (135-145) mmol/L Potassium 3.5 (3.3-5.1) mmol/L Chloride 105 (96-108) mmol/L Carbon Dioxide 21 L (22-29) mmol/L Anion Gap 19 (12-20) BUN 8 L (9-16) mg/dL Creatinine 0.77 (0.5-1.4) mg/dL Estim Creat Clear Calc 121.0 Estimated GFR > 60 POC Glucose (60-115) mg/dL Random Glucose 140 H (60-115) mg/dL Calcium 10.0 D (8.4-10.2) mg/dL Magnesium 2.1 (1.6-2.6) mg/dL Total Bilirubin 0.3 (0.0-1.0) mg/dL AST 15 (5-31) U/L ALT 14 (0-31) U/L Alkaline Phosphatase 89 (39-117) U/L Total Creatine Kinase 79 Cancelled (26-140) U/L Total Protein 8.0 (6.5-8.0) g/dL Albumin 4.6 (3.5-5.0) g/dL Beta HCG, Quant < 2 Cancelled mIU/mL Urine Color Urine Appearance Urine pH (5.0-8.0) Ur Specific [place] (1.005-1.025) Urine Protein (NEG-TRACE) MG/DL Urine Glucose (UA) (NEG) MG/DL Urine Ketones (NEG) MG/DL Urine Blood (NEG) Urine Nitrite (NEG) Ur Leukocyte Esterase (NEG) 12/01/21 Range/Units 02:52 WBC (4.8-10.8) X10*3/uL RBC (4.20-5.50) X10*6/uL Hgb (12.0-16.0) g/dl Hct (37.0-47.0) % MCV (80.0-98.0) fL MCH (27.0-33.0) pg MCHC (31.0-35.0) g/dl RDW (11.0-16.0) % Plt Count (160-400) X10*3/uL MPV (9.4-12.3) fL Immature Gran % (Auto) (0.0-0.4) % Neut % (Auto) (45-73) % Lymph % (Auto) (20-40) % [place] % (Auto) (2-11) % Eos % (Auto) (0-4) % Baso % (Auto) (0-2) % Lymph # (Auto) (1.2-4.9) X10*3/uL [place] # (Auto) (0.1-1.2) X10*3/uL Eos # (Auto) (0.0-0.4) X10*3/uL Baso # (Auto) (0.0-0.2) X10*3/uL Abs Immat Gran (auto) (0.00-0.03) X10*3/uL Absolute Neuts (auto) (2.0-8.3) x10*3/uL Absolute Nucleated RBC (0.0-0.012) X10*3/uL Nucleated RBC % (auto) (0.0-0.2) /100WBC Hold Purple Top PT (9.9-13.0) SEC INR (0.9-1.1) Sodium (135-145) mmol/L Potassium (3.3-5.1) mmol/L Chloride (96-108) mmol/L Carbon Dioxide (22-29) mmol/L Anion Gap (12-20) BUN (9-16) mg/dL Creatinine (0.5-1.4) mg/dL Estim Creat Clear Calc Estimated GFR POC Glucose (60-115) mg/dL Random Glucose (60-115) mg/dL Calcium (8.4-10.2) mg/dL Magnesium (1.6-2.6) mg/dL Total Bilirubin (0.0-1.0) mg/dL AST (5-31) U/L ALT (0-31) U/L Alkaline Phosphatase (39-117) U/L Total Creatine Kinase (26-140) U/L Total Protein (6.5-8.0) g/dL Albumin (3.5-5.0) g/dL Beta HCG, Quant mIU/mL Urine Color DK YELLOW Urine Appearance CLEAR Urine pH 6.0 (5.0-8.0) Ur Specific [place] >= 1.030 H (1.005-1.025) Urine Protein NEG (NEG-TRACE) MG/DL Urine Glucose (UA) NEG (NEG) MG/DL Urine Ketones 5 (NEG) MG/DL Urine Blood NEG (NEG) Urine Nitrite NEG (NEG) Ur Leukocyte Esterase NEG (NEG) Discharge Plan Discharge Clinical Impression: Anxiety Patient Disposition: Home, Self-Care Instructions: Anxiety (ED) Prescriptions: No Action promethazine 25 mg suppository 25 mg DC Q6H PRN (Reason: nausea and vomiting) Qty: 12 RF: 0 ondansetron 4 mg tablet,disintegrating 4 mg PO Q8H PRN (Reason: nausea and vomiting) Qty: 20 RF: 0 Referrals: Physician,Unknown J [Primary Care Provider] - 2 days Interventions: ED Discharge Assessment Last Done: 12/01/21 03:47
[2021-12-01] MEDS: ondansetron HCL 4 MG/2 ML VIAL IVPUSH (01:47)
[2021-12-01] MEDS: LORazepam 2 MG/ML VIAL IVPUSH (01:47)
[2021-12-01] MEDS: 0.9 % Sodium Chloride 1,000 ML 999 ML IV ×2 (01:48→01:49)
[2021-12-01 01:54] LABS: Glucose, Whole Blood 138 mg/dL (60-115)
[2021-12-01 01:54] LABS: MANUAL DIFF FLAG NO
[2021-12-01 01:56] LABS: Basophils Absolute Auto 0.1 X10*3/uL (0.0-0.2); Basophils Percent Auto 0.4 % (0-2); Eosinophils Absolute Auto 0.2 X10*3/uL (0.0-0.4); Hematocrit 43.5 % (37.0-47.0); Imm Gran Abs Auto 0.14 X10*3/uL (0.00-0.03); Imm Gran Pct Auto 0.7 % (0.0-0.4); Lymphocytes Absolute Auto 4.4 X10*3/uL (1.2-4.9); Lymphocytes Percent Auto 20.3 % (20-40); Mean Corpuscular HGB Conc 34.5 g/dl (31.0-35.0); Mean Corpuscular Hemoglobin 29.8 pg (27.0-33.0); Mean Corpuscular Volume 86.3 fL (80.0-98.0); Mean Platelet Volume 10.1 fL (9.4-12.3); Monocytes Absolute Auto 1.1 X10*3/uL (0.1-1.2); Neutrophils Absolute Auto 15.6 x10*3/uL (2.0-8.3); Neutrophils Percent Auto 72.6 % (45-73); Platelet Count 403 X10*3/uL (160-400); Red Blood Count 5.04 X10*6/uL (4.20-5.50); Red Cell Distribution Width 12.6 % (11.0-16.0); White Blood Count 21.4 X10*3/uL (4.8-10.8)
[2021-12-01 02:16] LABS: Alanine Aminotransferase 14 U/L (0-31); Albumin Level 4.6 g/dL (3.5-5.0); Alkaline Phosphatase 89 U/L (39-117); Anion Gap 19 (12-20); Aspartate Amino Transferase 15 U/L (5-31); Bilirubin Total 0.3 mg/dL (0.0-1.0); Blood Urea Nitrogen 8 mg/dL (9-16); Carbon Dioxide 21 mmol/L (22-29); Chloride 105 mmol/L (96-108); Estimated Glomerular Filt Rate > 60; Glucose Random 140 mg/dL (60-115); Magnesium 2.1 mg/dL (1.6-2.6); Potassium 3.5 mmol/L (3.3-5.1); Sodium 141 mmol/L (135-145)
[2021-12-01 02:22] LABS: HCG Quantitative < 2 mIU/mL
[2021-12-01 02:36] LABS: INTERNATIONAL NORM RATIO 0.9 (0.9-1.1); Prothrombin Time 10.7 SEC (9.9-13.0)
[2021-12-01 03:26] LABS: Appearance Urine CLEAR; Color Urine DK YELLOW; Glucose Urine UA NEG (NEG); Leukocyte Esterase Urine NEG (NEG); Nitrite Urine NEG (NEG); Specific Gravity - Urine >= 1.030 (1.005-1.025); Urine Blood NEG (NEG); Urine Ketones 5 MG/DL (NEG); Urine Protein NEG (NEG-TRACE)
[2021-12-01] MEDS: Ondansetron ODT 4 MG TAB.RAPDIS TRANSLINGU (03:45)
[2021-12-01 04:07] VITALS: BP 165/115; PULSE 108; O2SAT 100
--- NOTE | 2021-12-01 04:46 | PC.NURSE ---
Addendum entered by Hannah Hauser 12/01/21 04:48: Patients potassium level was 3.5 and all other electrolytes were within normal limits. Oxygen saturation at 99 perecent on room air. Patient ask for cup of water at discharge which RN gave her and she vomited up the water. She was medicated with sublingual zofran and waited 10 min. Patient reluctant to leave insisting that her potassium was low and it was explained that it was not. Original Note: Patient questioned what her potassium level was and kept stating that we needed to test her potassium level. Potassium level was 3.
== END 2021-12-01 05:25 | disposition home or self-care (01) ==
PROVIDERS: Physician Assistant Medical; Emergency Provider Emergency Medicine Emergency Medical Services
DX: R11.2 Nausea with vomiting, unspecified (principal); R07.89 Other chest pain; F41.1 Generalized anxiety disorder; F43.0 Acute stress reaction; Z79.899 Other long term (current) drug therapy
CPT/HCPCS: 36415; 71045; 80053; 81003; 82550; 82947; 83735; 84702; 85025; 85610; 93005; 96361; 96374; 96375; 99284; 99285; J2060; J2405

== ENCOUNTER 2022-01-09 09:42 | Emergency (ER) | payer MEDICAID, SELFPAY ==
[2022-01-09] MEDS: LORazepam 2 MG/ML VIAL 1 MG IVPUSH ×2 (09:54→09:56)
[2022-01-09] MEDS: ondansetron HCL 4 MG/2 ML VIAL IVPUSH (09:55)
[2022-01-09] MEDS: 0.9 % Sodium Chloride 1,000 ML 999 ML IV (09:55)
[2022-01-09 09:57] VITALS: BP 130/94; BP 136/77; PULSE 100; PULSE 68; RESP 12; TEMP 36.4; O2SAT 100; O2SAT 97; BMI 31.0
[2022-01-09 10:07] LABS: MANUAL DIFF FLAG NO
[2022-01-09 10:09] LABS: Basophils Percent Auto 0.3 % (0-2); Eosinophils Percent Auto 0.1 % (0-4); Hemoglobin 13.9 g/dl (12.0-16.0); Imm Gran Abs Auto 0.05 X10*3/uL (0.00-0.03); Imm Gran Pct Auto 0.4 % (0.0-0.4); Lymphocytes Absolute Auto 1.5 X10*3/uL (1.2-4.9); Lymphocytes Percent Auto 10.6 % (20-40); Mean Corpuscular HGB Conc 34.8 g/dl (31.0-35.0); Mean Corpuscular Hemoglobin 29.6 pg (27.0-33.0); Mean Corpuscular Volume 85.3 fL (80.0-98.0); Monocytes Absolute Auto 0.7 X10*3/uL (0.1-1.2); Monocytes Percent Auto 4.8 % (2-11); Neutrophils Absolute Auto 11.6 x10*3/uL (2.0-8.3); Neutrophils Percent Auto 83.8 % (45-73); Platelet Count 387 X10*3/uL (160-400); Red Blood Count 4.69 X10*6/uL (4.20-5.50); Red Cell Distribution Width 12.5 % (11.0-16.0); White Blood Count 13.9 X10*3/uL (4.8-10.8)
--- NOTE | 2022-01-09 10:18 | ED.AMS ---
HPI - Altered Mental Status General Chief Complaint: Altered Mental Status Stated Complaint: NOT VERBALLY RESP,HYPEVENT,POSTURING PER EMS Time Seen by Provider: 01/09/22 09:49 Source: EMS Mode of arrival: EMS Limitations: altered mental status History of Present Illness HPI narrative: 21-year-old female who was brought to the emergency department by ambulance for evaluation nausea and vomiting. Information was obtained from the paramedics since the patient was hyperventilating and was unable to answer questions. According to the paramedics the patient has had nausea and vomiting for 3 days. This often happens around her menstrual periods. She also complained of feeling very fatigued, weak, short of breath and lightheaded. Paramedics state that the patient was recently hospitalized for similar symptoms and had a low potassium. The patient was given Ativan 2 mg IV and Zofran 4 mg IV with improvement of her hyperventilation syndrome. She was able to give me a history. She states that she has had continual vomiting for 3 days. She states that she has nausea and diffuse abdominal pain which she describes as a moderate cramping sensation. She denied fever, chills, rhinorrhea, sore throat, cough, chest pain, shortness of breath, diarrhea. The patient states that she is tired of vomiting all the time. She continues to smoke marijuana multiple times daily and states that she stop smoking marijuana for 6 months and continued to vomit despite quitting. Related Data Previous Rx's Medication Instructions Recorded ondansetron 4 mg disintegrating 4 mg PO Q8H PRN #20 tab 10/20/21 tablet promethazine 25 mg rectal 25 mg SD Q6H PRN #12 ea 10/20/21 suppository Allergies Allergy/AdvReac Type Severity Reaction Status Date / Time No Known Allergies Allergy Verified 10/19/21 23:57 Review of Systems Review of Systems: Yes all other systems are reviewed and are negative [facility] Past Medical History [facility] Narrative: Past medical history: Anxiety, hyperventilation syndrome, COVID-19 infection 11/29/2021, marijuana use, cyclic vomiting syndrome. Social history: The patient denies tobacco use. She denies alcohol use. She smokes marijuana multiple times daily. Medical History Anxiety Social History Social History Alcohol intake: never Patient Tobacco Use Status: Never used Tobacco Substance Use Type: Marijuana Advance Directives: No Advance Directives Information Provided: No Patient : No Physical Exam ED Vital Signs: Vital Signs - 24 hr 01/09/22 09:57 01/09/22 14:13 Temperature 97.5 F Pulse Rate 68 72 Respiratory Rate 12 14 Blood Pressure 136/77 106/59 L Pulse Oximetry 97 97 BMI result Body Mass Index 31.0 Const Other: Awake female, the patient is hyperventilating, she has carpal pedal spasm and is not able to speak, she does respond to verbal commands. HENMT Head: Yes normal to inspection, Yes normocephalic and Yes atraumatic Ears: external ears normal General nose exam: Normal external nose present Face and sinus: Yes normal facial exam Mouth: Normal oral and palatal mucosa present Throat: Yes posterior oropharynx normal Eyes General: appearance normal, both eyes and all related structures Pupils: Equal, round and reactive pupils present Neck Neck: Yes normal visual inspection, Yes no lymphadenopathy, Yes trachea midline and Yes supple Chest Chest palpation & inspection: normal inspection of the chest and normal palpation of entire chest wall Resp Effort & Inspection: tachypneic Auscultation: clear to auscultation bilaterally Cardio Rate: tachycardic Rhythm: regular rhythm Heart sounds: S1 normal heart sound present, S2 normal heart sound present and no murmurs GI Inspection: Yes normal to inspection Palpation (GI): Soft to palpation, nontender and no guarding Auscultation: normal bowel sounds General: Yes no CVA tenderness Back/Spine/Pelvis Back: no CVA tenderness Skin General skin exam: no rashes or lesions noted Neuro Other: Patient is altered secondary to hyperventilation, she has carpal pedal spasm, she does follow simple commands Cranial nerves: Yes Equal, round and reactive pupils present Extrem Other: Carpal pedal spasm, neurovascular intact Psych Other: Very anxious appearing, hyperventilating, carpal pedal spasm, nonverbal but does respond to verbal commands Course Course Course Narrative: 21-year-old female presents emergency department for evaluation of nausea and vomiting x3 days who was altered secondary to hyperventilation/anxiety attack. Patient has had similar presentations in the past and she has a diagnosis of cyclic vomiting syndrome caused by marijuana use. The patient's examination is consistent with acute hyperventilation syndrome. She was ordered to get Ativan 2 mg IV, Zofran 4 mg IV and normal saline x1 1600: Laboratory evaluation: WBC elevated 13.9, potassium was low at 3.0, CO2 was low at 19, glucose was elevated 142, bilirubin is elevated 1.5. Lipase was normal at 14. COVID was negative. Serum quantitative beta-hCG was negative. The patient did improve after receiving the IV Ativan Zofran however she continues to complain of nausea therefore she was given droperidol 1.25 mg IV. The patient is concerned that her potassium was low and this is made her feel bad in the past. She was ordered to get potassium chloride 10 mEq IV over 1 hour x2 and potassium chloride 40 mEq orally. At the end of my shift, patient's care will be turned over to my colleague, Dr. Bateman. MDM - Altered Mental Status Lab Data Result diagrams: 01/09/22 10:01 01/09/22 10:01 Labs: Lab Results 01/09/22 01/09/22 01/09/22 Range/Units 10:01 10:01 10:01 WBC 13.9 H (4.8-10.8) X10*3/uL RBC 4.69 (4.20-5.50) X10*6/uL Hgb 13.9 (12.0-16.0) g/dl Hct 40.0 (37.0-47.0) % MCV 85.3 (80.0-98.0) fL MCH 29.6 (27.0-33.0) pg MCHC 34.8 (31.0-35.0) g/dl RDW 12.5 (11.0-16.0) % Plt Count 387 (160-400) X10*3/uL MPV 10.0 (9.4-12.3) fL Immature Gran % (Auto) 0.4 (0.0-0.4) % Neut % (Auto) 83.8 H (45-73) % Lymph % (Auto) 10.6 L (20-40) % [place] % (Auto) 4.8 (2-11) % Eos % (Auto) 0.1 (0-4) % Baso % (Auto) 0.3 (0-2) % Lymph # (Auto) 1.5 (1.2-4.9) X10*3/uL [place] # (Auto) 0.7 (0.1-1.2) X10*3/uL Eos # (Auto) 0.0 (0.0-0.4) X10*3/uL Baso # (Auto) 0.0 (0.0-0.2) X10*3/uL Abs Immat Gran (auto) 0.05 H (0.00-0.03) X10*3/uL Absolute Neuts (auto) 11.6 H (2.0-8.3) x10*3/uL Absolute Nucleated RBC 0.000 (0.0-0.012) X10*3/uL Nucleated RBC % (auto) 0.0 (0.0-0.2) /100WBC Sodium 138 (135-145) mmol/L Potassium 3.0 L (3.3-5.1) mmol/L Chloride 100 (96-108) mmol/L Carbon Dioxide 19 L (22-29) mmol/L Anion Gap 22 H (12-20) BUN 7 L (9-16) mg/dL Creatinine 0.80 (0.5-1.4) mg/dL Estim Creat Clear Calc 114.3 Estimated GFR > 60 Random Glucose 142 H (60-115) mg/dL Calcium 9.8 (8.4-10.2) mg/dL Total Bilirubin 1.5 H (0.0-1.0) mg/dL AST 13 (5-31) U/L ALT 10 (0-31) U/L Alkaline Phosphatase 79 (39-117) U/L Total Protein 7.9 (6.5-8.0) g/dL Albumin 4.6 (3.5-5.0) g/dL Lipase 14 (8-78) U/L Beta HCG, Quant < 2 mIU/mL COVID-19 (ETHAN) Negative (Negative) COVID-19 Clin Com See Note Discharge Plan Discharge Clinical Impression: Cyclic vomiting syndrome, Abdominal pain, Dehydrated hereditary stomatocytosis, Acute hypokalemia Patient Disposition: Still a Patient Prescriptions: No Action promethazine 25 mg suppository 25 mg SD Q6H PRN (Reason: nausea and vomiting) Qty: 12 0RF ondansetron 4 mg tablet,disintegrating 4 mg PO Q8H PRN (Reason: nausea and vomiting) Qty: 20 0RF
[2022-01-09 10:24] LABS: Alanine Aminotransferase 10 U/L (0-31); Albumin Level 4.6 g/dL (3.5-5.0); Alkaline Phosphatase 79 U/L (39-117); Anion Gap 22 (12-20); Aspartate Amino Transferase 13 U/L (5-31); Bilirubin Total 1.5 mg/dL (0.0-1.0); Blood Urea Nitrogen 7 mg/dL (9-16); Calcium 9.8 mg/dL (8.4-10.2); Carbon Dioxide 19 mmol/L (22-29); Chloride 100 mmol/L (96-108); Creatinine Clr Calc Pharmacy 114.3; Estimated Glomerular Filt Rate > 60; Glucose Random 142 mg/dL (60-115); Lipase 14 U/L (8-78); Sodium 138 mmol/L (135-145); Total Protein 7.9 g/dL (6.5-8.0)
[2022-01-09 10:28] LABS: HCG Quantitative < 2 mIU/mL
[2022-01-09 10:31] LABS: COVID-19 Test Negative (Negative)
[2022-01-09 14:13] VITALS: BP 106/59; PULSE 72; RESP 14; O2SAT 97
--- NOTE | 2022-01-09 14:56 | PC.NURSE ---
PATIENT AWAKE AT THIS TIME, SPEAKING CLEARLY AND ORIENTED. FAMILY AT BEDSIDE. PROVIDED UPDATE ON PLAN OF CARE, PROVIDER AWARE. NO OBVIOUS DISTRESS. WILL CONTINUE TO MONITOR
[2022-01-09] MEDS: Potassium Chloride Packet 20 MEQ PACKET 40 MEQ PO (15:55)
[2022-01-09 16:09] VITALS: BP 159/98; PULSE 114; RESP 28; TEMP 37.1; O2SAT 100
[2022-01-09] MEDS: Potassium Chloride/H20 10 MEQ/100 ML PIGGYBACK 100 MEQ IV ×2 (16:55→18:16)
[2022-01-09 19:01] LABS: UPreg QC Valid YES; Urine Pregnancy NEGATIVE (NEGATIVE)
[2022-01-09 19:36] VITALS: BP 105/60; PULSE 70; RESP 16; O2SAT 98
== END 2022-01-09 19:40 | disposition home or self-care (01) ==
PROVIDERS: Emergency Provider Emergency Medicine Emergency Medical Services
DX: R11.15 Cyclical vomiting syndrome unrelated to migraine (principal); R10.9 Unspecified abdominal pain; E86.0 Dehydration; E87.6 Hypokalemia; F12.90 Cannabis use, unspecified, uncomplicated; Z20.822 Contact with and (suspected) exposure to COVID-19; Z79.899 Other long term (current) drug therapy
CPT/HCPCS: 80053; 81025; 83690; 84702; 85025; 87635; 96374; 96376; 99284; J1790; J2060; J2405

== ENCOUNTER 2022-01-11 00:21 | Inpatient (IN) | payer MEDICAID, SELFPAY ==
[2022-01-11] VITALS (8 sets, daily range): BP systolic 115–168; BP diastolic 68–109; PULSE 65–90; RESP 12–18; TEMP 36.5–37.4; O2SAT 99–100; BMI 29.9
[2022-01-11 00:34] LABS: MANUAL DIFF FLAG NO
[2022-01-11 00:41] LABS: Basophils Absolute Auto 0.1 X10*3/uL (0.0-0.2); Basophils Percent Auto 0.5 % (0-2); Eosinophils Percent Auto 0.2 % (0-4); Hematocrit 41.6 % (37.0-47.0); Hemoglobin 14.3 g/dl (12.0-16.0); Imm Gran Abs Auto 0.06 X10*3/uL (0.00-0.03); Imm Gran Pct Auto 0.3 % (0.0-0.4); Lymphocytes Absolute Auto 4.2 X10*3/uL (1.2-4.9); Lymphocytes Percent Auto 24.2 % (20-40); Mean Corpuscular HGB Conc 34.4 g/dl (31.0-35.0); Mean Corpuscular Hemoglobin 29.8 pg (27.0-33.0); Mean Corpuscular Volume 86.7 fL (80.0-98.0); Mean Platelet Volume 9.9 fL (9.4-12.3); Monocytes Absolute Auto 1.1 X10*3/uL (0.1-1.2); Monocytes Percent Auto 6.4 % (2-11); Neutrophils Absolute Auto 11.8 x10*3/uL (2.0-8.3); Neutrophils Percent Auto 68.4 % (45-73); Platelet Count 383 X10*3/uL (160-400); Red Cell Distribution Width 12.3 % (11.0-16.0); White Blood Count 17.2 X10*3/uL (4.8-10.8)
[2022-01-11 00:54] LABS: Anion Gap 17 (12-20); Blood Urea Nitrogen 5 mg/dL (9-16); Calcium 10.1 mg/dL (8.4-10.2); Carbon Dioxide 25 mmol/L (22-29); Chloride 102 mmol/L (96-108); Creatinine Clr Calc Pharmacy 125.8; Estimated Glomerular Filt Rate > 60; Glucose Random 115 mg/dL (60-115); Lipase 13 U/L (8-78); Potassium 3.1 mmol/L (3.3-5.1); Sodium 141 mmol/L (135-145)
[2022-01-11 01:04] LABS: Alanine Aminotransferase 10 U/L (0-31); Albumin Level 4.6 g/dL (3.5-5.0); Alkaline Phosphatase 77 U/L (39-117); Aspartate Amino Transferase 14 U/L (5-31); Bilirubin Direct 0.6 mg/dL (0.0-0.5); Bilirubin Total 1.7 mg/dL (0.0-1.0); Total Protein 7.9 g/dL (6.5-8.0)
--- NOTE | 2022-01-11 03:11 | ED_ITS ---
HPI - Nausea/Vomiting/Diarrhea General Chief complaint: Nausea/Vomiting/Diarrhea Stated complaint: Vomiting Time Seen by Provider: 01/11/22 00:49 Source: patient Mode of arrival: ambulatory Limitations: no limitations History of Present Illness HPI Narrative: Patient comes to emergency room complaining of nausea vomiting. Patient denies diarrhea. Patient is known to have cyclical vomiting secondary to marijuana abuse. Patient was seen here yesterday for the same issue. Patient states that after she went home, throughout the day she was feeling well, at night she started vomiting again and came to the hospital. Patient denies abdominal pain, just discomfort from vomiting. No fever chills Related Data Previous Rx's Medication Instructions Recorded ondansetron 4 mg disintegrating 4 mg PO Q8H PRN #20 tab 10/20/21 tablet promethazine 25 mg rectal 25 mg MO Q6H PRN #12 ea 10/20/21 suppository metoclopramide HCl 10 mg tablet 10 mg PO Q6H PRN #20 tab 01/09/22 (Reglan) Allergies Allergy/AdvReac Type Severity Reaction Status Date / Time No Known Allergies Allergy Verified 01/11/22 00:23 Review of Systems Review of Systems: Constitutional : No Weight loss, No Fever, No Chills, No Night Sweats, No Fatigue, No Malaise ENT/Mouth : No Hearing loss, No Ear Pain, No Nasal Congestion, No Sinus Pain, No Hoarseness, No sore throat, No Rhinorrhea, No Swallowing Difficulty Eyes: No Eye Pain, No Swelling, No Redness, No Foreign Body, No Discharge, No Vision Changes Cardiovascular : No Chest Pain, No SOB, No Dyspnea on Exertion, No Orthopnea, No Edema, No Palpitations Respiratory : No Cough, No Sputum, No Wheezing, No Smoke Exposure, No Dyspnea Gastrointestinal : Complaining of nausea and vomiting, No Diarrhea, No Constipation, No abdominal Pain, No Hematochezia, No Melena Genitourinary : no irregular bleeding, No Dysuria, No Urinary Frequency, No Hematuria, No Urinary Incontinence, No Urgency, No Flank Pain, No Urinary Flow Changes, No Hesitancy Musculoskeletal : No joint pain, No Myalgias, No Joint Swelling Skin : No Skin Lesions, No rash Neuro : No Weakness, No Numbness, No Paresthesias, No Loss of Consciousness, No Dizziness, No Headache Psych : No Anxiety/Panic, No Depression, No SI/HI/AH/VH, admits to marijuana abuse Heme/Lymph: No Bruising, No Bleeding,No Lymphadenopathy Endocrine : No Polyuria, No Polydipsia, No Temperature Intolerance [facility] Past Medical History Medical History Anxiety Cyclical vomiting Social History Social History Alcohol intake: never Patient Tobacco Use Status: Never used Tobacco Substance Use Type: Marijuana Advance Directives: No Patient : No Physical Exam Vital Signs: Vital Signs: Last Vital Signs Temp 99.0 F 01/11/22 04:19 Pulse 79 01/11/22 05:01 Resp 16 01/11/22 05:01 BP 146/90 H 01/11/22 05:01 Pulse Ox 100 01/11/22 05:01 BMI result Body Mass Index 29.9 Const: Other: Appearance: Alert. Oriented X3. Seems uncomfortable Eyes: Pupils equal, round and reactive to light. ENT: Pharynx normal. Neck: Normal inspection. Neck supple. No lymph nodes noted. No crepitus CVS: Normal heart rate and rhythm. Pulses normal. Normal S1 and S2 Respiratory: No respiratory distress. Breath sounds normal. No Wheezing. No rales Abdomen: Soft and nontender. No rigidity. No distention. Skin: Skin warm , a bit clammy, pale Extremities: No lower extremity edema. No Lacerations. No Rash Neuro: Oriented X 3. No motor deficit. No sensory deficit. Moving all extermities. No slurred speech. Course Course Course Narrative: Patient is being given IV fluids, 10 mEq of potassium, Zofran. Then we will reassess and p.o. challenge the patient. Patient received referral IV. Patient was p.o. challenged, patient continues vomiting. Patient will be admitted for cyclical vomiting. MDM - Nausea/Vomiting/Diarrhea Lab Data Result diagrams: 01/11/22 00:30 01/11/22 00:30 Labs: Lab Results 01/11/22 01/11/22 Range/Units 00:30 00:30 WBC 17.2 H (4.8-10.8) X10*3/uL RBC 4.80 (4.20-5.50) X10*6/uL Hgb 14.3 (12.0-16.0) g/dl Hct 41.6 (37.0-47.0) % MCV 86.7 (80.0-98.0) fL MCH 29.8 (27.0-33.0) pg MCHC 34.4 (31.0-35.0) g/dl RDW 12.3 (11.0-16.0) % Plt Count 383 (160-400) X10*3/uL MPV 9.9 (9.4-12.3) fL Immature Gran % (Auto) 0.3 (0.0-0.4) % Neut % (Auto) 68.4 (45-73) % Lymph % (Auto) 24.2 (20-40) % [place] % (Auto) 6.4 (2-11) % Eos % (Auto) 0.2 (0-4) % Baso % (Auto) 0.5 (0-2) % Lymph # (Auto) 4.2 (1.2-4.9) X10*3/uL [place] # (Auto) 1.1 (0.1-1.2) X10*3/uL Eos # (Auto) 0.0 (0.0-0.4) X10*3/uL Baso # (Auto) 0.1 (0.0-0.2) X10*3/uL Abs Immat Gran (auto) 0.06 H (0.00-0.03) X10*3/uL Absolute Neuts (auto) 11.8 H (2.0-8.3) x10*3/uL Absolute Nucleated RBC 0.000 (0.0-0.012) X10*3/uL Nucleated RBC % (auto) 0.0 (0.0-0.2) /100WBC Sodium 141 (135-145) mmol/L Potassium 3.1 L (3.3-5.1) mmol/L Chloride 102 (96-108) mmol/L Carbon Dioxide 25 (22-29) mmol/L Anion Gap 17 (12-20) BUN 5 L (9-16) mg/dL Creatinine 0.74 (0.5-1.4) mg/dL Estim Creat Clear Calc 125.8 Estimated GFR > 60 Random Glucose 115 (60-115) mg/dL Calcium 10.1 (8.4-10.2) mg/dL Total Bilirubin 1.7 H (0.0-1.0) mg/dL Direct Bilirubin 0.6 H (0.0-0.5) mg/dL AST 14 (5-31) U/L ALT 10 (0-31) U/L Alkaline Phosphatase 77 (39-117) U/L Total Protein 7.9 (6.5-8.0) g/dL Albumin 4.6 (3.5-5.0) g/dL Lipase 13 (8-78) U/L Discharge Plan Discharge Clinical Impression: Cyclical vomiting, Acute hypokalemia Patient Disposition: Admitted As Inpatient Prescriptions: No Action metoclopramide HCl [Reglan] 10 mg tablet 10 mg PO Q6H PRN (Reason: nausea and vomiting) Qty: 20 0RF promethazine 25 mg suppository 25 mg MO Q6H PRN (Reason: nausea and vomiting) Qty: 12 0RF ondansetron 4 mg tablet,disintegrating 4 mg PO Q8H PRN (Reason: nausea and vomiting) Qty: 20 0RF
[2022-01-11] MEDS: 0.9 % Sodium Chloride 1,000 ML 999 ML IVCONT (03:36)
[2022-01-11] MEDS: ondansetron HCL 4 MG/2 ML VIAL IVPUSH (03:38)
[2022-01-11] MEDS: Potassium Chloride/H20 10 MEQ/100 ML PIGGYBACK 100 MEQ IV (03:38)
--- NOTE | 2022-01-11 05:45 | P.HPHOSP_ITS ---
History of Present Illness Date of Service: 01/11/22 Chief Complaint: nausea/vomiting 21-year-old female with a past medical history of anxiety, history of cyclic vomiting syndrome secondary to cannabis use; presented to the hospital today with a chief complaint of nausea and vomiting. Patient reports that over the past few days she has been having nausea vomiting and unable to keep anything down. Complains of post vomiting abdominal discomfort. Denies any diarrhea. Denies any chest pain or palpitations. Denies any urinary symptoms. Denies any fever chills cough. Patient reported that she was recently presented to the ER on 01/09 and was subsequently discharged home; initially was doing okay but started to have symptoms again for the past couple days. Hence presented for further evaluatio n. Review of all other systems is negative except mentioned above ER course: Per ER team patient noted to have multiple source of vomiting; was given symptomatic management with no significant improvement. Failed p.o. challenge. Admitted to the hospital for Further management PMFSH Medical History Anxiety Cyclical vomiting Pertinent family history: reviewed Social History Alcohol intake: never Patient Tobacco Use Status: Never used Tobacco Substance Use Type: Marijuana Advance Directives: No Patient : No Meds Allergies Allergy/AdvReac Type Severity Reaction Status Date / Time No Known Allergies Allergy Verified 01/11/22 00:23 Physical Exam Vital Signs and Narrative: Vital Signs: Last Vital Signs Temp 99.0 F 01/11/22 04:19 Pulse 79 01/11/22 05:01 Resp 16 01/11/22 05:01 BP 146/90 H 01/11/22 05:01 Pulse Ox 100 01/11/22 05:01 BMI result Body Mass Index 29.9 Gen: Appears be in no acute distress HEENT: NCAT, Moist mucosa. Pulmonary: Vesicular breath sounds, fair air entry CVS: Normal S1-S2 Abdomen: BS+, Soft, Nontender Extremities: Warm well perfused Neuro: Alert and awake. Results Labs CBC and Chem 7: 01/11/22 00:30 01/11/22 00:30 Labs: Laboratory Results - last 24 hr 01/11/22 01/11/22 00:30 00:30 MCV 86.7 MCH 29.8 MCHC 34.4 RDW 12.3 Plt Count 383 MPV 9.9 Immature Gran % (Auto) 0.3 Neut % (Auto) 68.4 Lymph % (Auto) 24.2 [place] % (Auto) 6.4 Eos % (Auto) 0.2 Baso % (Auto) 0.5 Lymph # (Auto) 4.2 [place] # (Auto) 1.1 Eos # (Auto) 0.0 Baso # (Auto) 0.1 Abs Immat Gran (auto) 0.06 H Absolute Neuts (auto) 11.8 H Absolute Nucleated RBC 0.000 Nucleated RBC % (auto) 0.0 Anion Gap 17 Estim Creat Clear Calc 125.8 Estimated GFR > 60 Random Glucose 115 Calcium 10.1 Total Bilirubin 1.7 H Direct Bilirubin 0.6 H AST 14 ALT 10 Alkaline Phosphatase 77 Total Protein 7.9 Albumin 4.6 Lipase 13 Assessment and Plan (1) Cyclical vomiting: Status: Acute Plan 21-year-old female with a past medical history of anxiety, history of cyclic vomiting syndrome secondary to cannabis use; presented to the hospital today with a chief complaint of nausea and vomiting. admitted for following Cyclic vomiting syndrome: NPO IV fluids Zofran p.r.n. Supportive care Advanced diet as tolerated Hypokalemia: Repleted in the ER. Follow-up BMP. DVT prophylaxis: Lovenox Code status: Full code Quality Stroke Does the patient have a stroke diagnosis?: No VTE Prior VTE?: No VTE Risk Level:: Medical - moderate - high VTE Device Contraindication: Treatment Not Indicated VTE Drug Contraindication: N/A - Med Ordered
[2022-01-11] MEDS: Dextrose 5 % and 0.45 % NaCl 1,000 ML 75 ML IVCONT (05:54)
[2022-01-11] MEDS: Enoxaparin Sodium 40 MG/0.4 ML SYRINGE SUBCUT (06:01)
[2022-01-11 07:28] LABS: Magnesium 1.9 mg/dL (1.6-2.6)
[2022-01-11] MEDS: 0.9 % Sodium Chloride Flush 3 ML SYRINGE IVFLUSH (08:08)
--- NOTE | 2022-01-11 08:08 | PC.NURSE ---
pt a/o x 3 o sob/christin noted skin pink warm dry speaks in full sentences. amb (i) gait steady to br and btb. no n/v. pt seen by dr. vo aware of plan of care. pt ate 50% of breakfast
[2022-01-11 08:22] LABS: Appearance Urine CLOUDY; Color Urine YELLOW; Glucose Urine UA NEG (NEG); Leukocyte Esterase Urine NEG (NEG); Nitrite Urine NEG (NEG); Specific Gravity - Urine 1.015 (1.005-1.025); UACC Culture Trigger NO; Urine Blood 1+ (NEG); Urine Ketones >=80 MG/DL (NEG); Urine Protein 1+ MG/DL (NEG-TRACE)
--- NOTE | 2022-01-11 08:23 | PHA.MEDREC ---
Pharmacy Consult ? Medication Reconciliation Pharmacy has completed the medication reconciliation. Patient has RX bottle. She recently started the Abilify and Lexapro. Leeanna Dsouza, StacyD
[2022-01-11 08:24] LABS: UPreg QC Valid YES; Urine Pregnancy NEGATIVE (NEGATIVE)
[2022-01-11 08:30] LABS: Amorphous Sediment Urine 4+ /LPF; Mucus Urine TRACE /LPF; RBC Urine 0-2 /HPF (0); Squamous Epithelial Cell Urine TRACE /LPF; WBC Urine 0 /HPF (0-4)
--- NOTE | 2022-01-11 09:23 | P.DS_ITS ---
DS: Providers Provider Date of Service: 01/11/22 Date of admission: 01/11/22 05:43 Primary care physician: Nonstaff Physician DS: Diagnosis Discharge Diagnosis (1) Cyclical vomiting: Status: Acute DS: Summary Hospital Course Hospital Course: Chief Complaint:? nausea/vomiting 21-year-old female with a past medical history of anxiety, history of cyclic vomiting syndrome secondary to cannabis use; presented to the hospital today with a chief complaint of nausea and vomiting.? Patient reports that over the past few days she has been having nausea vomiting and unable to keep anything down.? Complains of post vomiting abdominal discomfort.? Denies any diarrhea.? Denies any chest pain or palpitations.? Denies any urinary symptoms.? Denies any fever chills cough.? Patient reported that she was recently presented to the ER on 01/09 and was subsequently discharged home; initially was doing okay but started to have symptoms again for the past couple days.? Hence presented for further evaluation.? Review of all other systems is negative except mentioned above Hospital course: patient was admitted due to cyclical vomiting episode associated with cannabis use and was treated symptomatically with hydration and antiemetics and has rapidly improved and is tolerating diet and which is to go home. She get these episodes frequently and usually manages at home but his time didn't get better. She has rapidly improve here and wishes to go home. We discussed the need to refrain from using cannabis and she voices understanding and will work on it. Time Spent with Patient Time attestation: Total time spent providing and/or coordinating discharge services: Discharge coordination time: Greater than 30 minutes Quality: Stroke Does the patient have a stroke diagnosis?: No Physical Exam Vital Signs: Vital Signs: Last Vital Signs Temp 99.1 F 01/11/22 07:03 Pulse 80 01/11/22 09:21 Resp 15 01/11/22 09:21 BP 147/88 H 01/11/22 09:21 Pulse Ox 100 01/11/22 09:21 BMI result Body Mass Index 29.9 DS: Data Data Completed and Pending Labs on day of discharge: Laboratory Results - last 24 hr 01/11/22 01/11/22 01/11/22 00:30 00:30 06:45 WBC 17.2 H RBC 4.80 Hgb 14.3 Hct 41.6 MCV 86.7 MCH 29.8 MCHC 34.4 RDW 12.3 Plt Count 383 MPV 9.9 Immature Gran % (Auto) 0.3 Neut % (Auto) 68.4 Lymph % (Auto) 24.2 [place] % (Auto) 6.4 Eos % (Auto) 0.2 Baso % (Auto) 0.5 Lymph # (Auto) 4.2 [place] # (Auto) 1.1 Eos # (Auto) 0.0 Baso # (Auto) 0.1 Abs Immat Gran (auto) 0.06 H Absolute Neuts (auto) 11.8 H Absolute Nucleated RBC 0.000 Nucleated RBC % (auto) 0.0 Sodium 141 Potassium 3.1 L Chloride 102 Carbon Dioxide 25 Anion Gap 17 BUN 5 L Creatinine 0.74 Estim Creat Clear Calc 125.8 Estimated GFR > 60 Random Glucose 115 Calcium 10.1 Magnesium 1.9 Total Bilirubin 1.7 H Direct Bilirubin 0.6 H AST 14 ALT 10 Alkaline Phosphatase 77 Total Protein 7.9 Albumin 4.6 Lipase 13 Urine Color Urine Appearance Urine pH Ur Specific [place] Urine Protein Urine Glucose (UA) Urine Ketones Urine Blood Urine Nitrite Ur Leukocyte Esterase Urine RBC Urine WBC Ur Squamous Epith Cells Amorphous Sediment Urine Bacteria Urine Mucus Urine Test 01/11/22 01/11/22 08:14 08:15 WBC RBC Hgb Hct MCV MCH MCHC RDW Plt Count MPV Immature Gran % (Auto) Neut % (Auto) Lymph % (Auto) [place] % (Auto) Eos % (Auto) Baso % (Auto) Lymph # (Auto) [place] # (Auto) Eos # (Auto) Baso # (Auto) Abs Immat Gran (auto) Absolute Neuts (auto) Absolute Nucleated RBC Nucleated RBC % (auto) Sodium Potassium Chloride Carbon Dioxide Anion Gap BUN Creatinine Estim Creat Clear Calc Estimated GFR Random Glucose Calcium Magnesium Total Bilirubin Direct Bilirubin AST ALT Alkaline Phosphatase Total Protein Albumin Lipase Urine Color YELLOW Urine Appearance CLOUDY Urine pH 7.0 Ur Specific [place] 1.015 Urine Protein 1+ H Urine Glucose (UA) NEG Urine Ketones >=80 Urine Blood 1+ H Urine Nitrite NEG Ur Leukocyte Esterase NEG Urine RBC 0-2 Urine WBC 0 Ur Squamous Epith Cells TRACE Amorphous Sediment 4+ Urine Bacteria NONE Urine Mucus TRACE Urine Test NEGATIVE Discharge Plan Discharge Anticipated Discharge Date/Time: 01/11/22 09:21 Patient Disposition: Home, Self-Care Discharge Diagnosis: Cyclical vomiting's syndrome Referrals: Physician,Nonstaff [Physician] - 1 Week Discharge Medications: Continued metoclopramide HCl [Reglan] 10 mg tablet 10 mg PO Q6H PRN (Reason: nausea and vomiting) Qty: 20 0RF escitalopram oxalate [Lexapro] 10 mg Tablet 10 mg PO BEDTIME 0RF aripiprazole 5 mg Tablet 5 mg PO BEDTIME 0RF No Action lorazepam [Ativan] 1 mg tablet 1 mg PO TID PRN (Reason: anxiety, nausea/vomiting) Qty: 14 0RF ondansetron 4 mg tablet,disintegrating 4 mg PO Q6-8H PRN (Reason: nausea and vomiting) Qty: 20 0RF Discharge Orders: Discharge Order (Routine); Ordered 01/11/22 Ordered By: Kennedy Gaytan Diet: advance to usual diet Activity on Discharge: As tolerated Stand Alone Forms: Patient Portal Discharge page Care Plan Goals: prevent rehospitalization from cyclical vomitting Health Concerns: recurrent cyclical vomitting syndrome Plan of Treatment: Avoid using cannabis and follow up with your Doctor sylvester week Assessment: as above Discharge Date/Time: 01/11/22 10:46
[2022-01-11 10:17] LABS: Anion Gap 12 (12-20); Carbon Dioxide 27 mmol/L (22-29); Chloride 103 mmol/L (96-108); Potassium 3.5 mmol/L (3.3-5.1); Sodium 138 mmol/L (135-145)
--- NOTE | 2022-01-11 11:10 | MHC.CM.PN ---
Patient discharged home before being seen by case management.
== END 2022-01-11 10:46 | disposition home or self-care (01) | DRG 249 ==
LOC: HO.ED 05:59 → HO.EDOVER 06:07
PROVIDERS: Admitting Provider Hospitalist; Emergency Provider Emergency Medicine; PCP Nurse Practitioner Family; Visit Provider Internal Medicine
DX: R11.2 Nausea with vomiting, unspecified (principal); E87.6 Hypokalemia; F12.90 Cannabis use, unspecified, uncomplicated; F41.9 Anxiety disorder, unspecified; Z79.899 Other long term (current) drug therapy
CPT/HCPCS: 36415; 80048; 80051; 80076; 81001; 81025; 83690; 83735; 85025; 96361; 96374; 96375; 99285; J1650; J1790; J2405

== ENCOUNTER 2022-01-12 02:32 | Emergency (ER) | payer MEDICAID, SELFPAY ==
[2022-01-12 02:53] VITALS: BP 148/107; PULSE 84; RESP 22; TEMP 37.2; O2SAT 100; BMI 29.9
--- NOTE | 2022-01-12 03:04 | ED_ITS ---
HPI - Nausea/Vomiting/Diarrhea General Chief complaint: Nausea/Vomiting/Diarrhea Stated complaint: vomiting Time Seen by Provider: 01/12/22 03:02 Source: patient Mode of arrival: ambulatory Limitations: no limitations History of Present Illness HPI Narrative: Patient with cyclic vomiting syndrome been here multiple times for vomiting was seen here yesterday for same comes back as a patient smokes marijuana unable to hold down any liquids Related Data Home Medications Medication Instructions Recorded Confirmed aripiprazole 5 mg tablet 5 mg PO BEDTIME 01/11/22 01/11/22 escitalopram oxalate 10 mg tablet 10 mg PO BEDTIME 01/11/22 01/11/22 (Lexapro) Previous Rx's Medication Instructions Recorded metoclopramide HCl 10 mg tablet 10 mg PO Q6H PRN #20 tab 01/09/22 (Reglan) lorazepam 1 mg tablet (Ativan) 1 mg PO TID PRN #14 tab 01/12/22 ondansetron 4 mg disintegrating 4 mg PO Q6-8H PRN #20 tab 01/12/22 tablet Allergies Allergy/AdvReac Type Severity Reaction Status Date / Time No Known Allergies Allergy Verified 01/11/22 00:23 Review of Systems Review of Systems: Yes all other systems are reviewed and are negative PMFSH Past Medical History Medical History Anxiety Cyclical vomiting Social History Social History Alcohol intake: never Patient Tobacco Use Status: Never used Tobacco Substance Use Type: Marijuana Advance Directives: No Patient : No Physical Exam Vital Signs: Vital Signs: Last Vital Signs Temp 97.7 F 01/12/22 06:00 Pulse 85 01/12/22 06:00 Resp 16 01/12/22 06:00 BP 111/52 L 01/12/22 06:00 Pulse Ox 97 01/12/22 06:00 BMI result Body Mass Index 29.9 Appearance: Alert. Oriented X3. Anxious Eyes: No pallor icterus ENT: Pharynx normal. Oral Mucosa moist Neck: Normal inspection. Neck supple. CVS: Normal heart rate and rhythm. Pulses normal. Respiratory: No respiratory distress. Equal air entry bilateral, Abdomen: Soft, mild diffuse tenderness Bowel sounds are present, no mass palpable, no CVA tenderness Skin: Skin warm and dry. Normal skin color. Normal skin turgor. Extremities: No lower extremity edema. No calf tenderness Neuro: Oriented X 3. MDM - Nausea/Vomiting/Diarrhea MDM Narrative Medical decision making narrative: Patient feeling much better after IV hydration and medications for nausea vomiting advised to stop smoking marijuana Lab Data Attestation: I reviewed the patient's lab results. Result diagrams: 01/12/22 03:09 01/12/22 03:09 Labs: Lab Results 01/12/22 01/12/22 Range/Units 03:09 03:09 WBC 18.6 H (4.8-10.8) X10*3/uL RBC 4.57 (4.20-5.50) X10*6/uL Hgb 13.5 (12.0-16.0) g/dl Hct 39.1 (37.0-47.0) % MCV 85.6 (80.0-98.0) fL MCH 29.5 (27.0-33.0) pg MCHC 34.5 (31.0-35.0) g/dl RDW 12.1 (11.0-16.0) % Plt Count 364 (160-400) X10*3/uL MPV 10.1 (9.4-12.3) fL Immature Gran % (Auto) 0.3 (0.0-0.4) % Neut % (Auto) 83.2 H (45-73) % Lymph % (Auto) 11.1 L (20-40) % [place] % (Auto) 4.8 (2-11) % Eos % (Auto) 0.2 (0-4) % Baso % (Auto) 0.4 (0-2) % Lymph # (Auto) 2.1 (1.2-4.9) X10*3/uL [place] # (Auto) 0.9 (0.1-1.2) X10*3/uL Eos # (Auto) 0.0 (0.0-0.4) X10*3/uL Baso # (Auto) 0.1 (0.0-0.2) X10*3/uL Abs Immat Gran (auto) 0.06 H (0.00-0.03) X10*3/uL Absolute Neuts (auto) 15.5 H (2.0-8.3) x10*3/uL Absolute Nucleated RBC 0.000 (0.0-0.012) X10*3/uL Nucleated RBC % (auto) 0.0 (0.0-0.2) /100WBC Sodium 138 (135-145) mmol/L Potassium 3.3 (3.3-5.1) mmol/L Chloride 104 (96-108) mmol/L Carbon Dioxide 19 L (22-29) mmol/L Anion Gap 18 (12-20) BUN 4 L (9-16) mg/dL Creatinine 0.71 (0.5-1.4) mg/dL Estim Creat Clear Calc 131.1 Estimated GFR > 60 Random Glucose 156 H (60-115) mg/dL Calcium 9.9 (8.4-10.2) mg/dL Total Bilirubin 1.6 H (0.0-1.0) mg/dL Direct Bilirubin 0.6 H (0.0-0.5) mg/dL AST 17 (5-31) U/L ALT 20 (0-31) U/L Alkaline Phosphatase 77 (39-117) U/L Total Protein 7.6 (6.5-8.0) g/dL Albumin 4.4 (3.5-5.0) g/dL Lipase 16 (8-78) U/L Discharge Plan Discharge Clinical Impression: Cyclical vomiting, Cannabinoid hyperemesis syndrome Patient Disposition: Home, Self-Care Instructions: Cannabis Abuse (ED), Cyclic Vomiting Syndrome (ED) Additional Instructions: Take medication as prescribed. stop Smoking marijuana Ativan for anxiety Prescriptions: New lorazepam [Ativan] 1 mg tablet 1 mg PO TID PRN (Reason: anxiety, nausea/vomiting) Qty: 14 0RF ondansetron 4 mg tablet,disintegrating 4 mg PO Q6-8H PRN (Reason: nausea and vomiting) Qty: 20 0RF No Action metoclopramide HCl [Reglan] 10 mg tablet 10 mg PO Q6H PRN (Reason: nausea and vomiting) Qty: 20 0RF escitalopram oxalate [Lexapro] 10 mg Tablet 10 mg PO BEDTIME 0RF aripiprazole 5 mg Tablet 5 mg PO BEDTIME 0RF
[2022-01-12 03:11] VITALS: BP 157/100; PULSE 67; RESP 16; O2SAT 100
[2022-01-12 03:12] LABS: MANUAL DIFF FLAG NO
[2022-01-12 03:13] LABS: Basophils Absolute Auto 0.1 X10*3/uL (0.0-0.2); Basophils Percent Auto 0.4 % (0-2); Eosinophils Percent Auto 0.2 % (0-4); Hematocrit 39.1 % (37.0-47.0); Hemoglobin 13.5 g/dl (12.0-16.0); Imm Gran Abs Auto 0.06 X10*3/uL (0.00-0.03); Imm Gran Pct Auto 0.3 % (0.0-0.4); Lymphocytes Absolute Auto 2.1 X10*3/uL (1.2-4.9); Lymphocytes Percent Auto 11.1 % (20-40); Mean Corpuscular HGB Conc 34.5 g/dl (31.0-35.0); Mean Corpuscular Hemoglobin 29.5 pg (27.0-33.0); Mean Corpuscular Volume 85.6 fL (80.0-98.0); Mean Platelet Volume 10.1 fL (9.4-12.3); Monocytes Absolute Auto 0.9 X10*3/uL (0.1-1.2); Monocytes Percent Auto 4.8 % (2-11); Neutrophils Absolute Auto 15.5 x10*3/uL (2.0-8.3); Neutrophils Percent Auto 83.2 % (45-73); Platelet Count 364 X10*3/uL (160-400); Red Blood Count 4.57 X10*6/uL (4.20-5.50); Red Cell Distribution Width 12.1 % (11.0-16.0); White Blood Count 18.6 X10*3/uL (4.8-10.8)
[2022-01-12] MEDS: LORazepam 2 MG/ML VIAL IVPUSH (03:16)
[2022-01-12] MEDS: 0.9 % Sodium Chloride 1,000 ML 999 ML IV (03:16)
[2022-01-12] MEDS: Prochlorperazine Edisylate 10 MG/2 ML VIAL IVPUSH (03:16)
[2022-01-12 03:41] LABS: Alanine Aminotransferase 20 U/L (0-31); Albumin Level 4.4 g/dL (3.5-5.0); Alkaline Phosphatase 77 U/L (39-117); Anion Gap 18 (12-20); Aspartate Amino Transferase 17 U/L (5-31); Bilirubin Direct 0.6 mg/dL (0.0-0.5); Bilirubin Total 1.6 mg/dL (0.0-1.0); Blood Urea Nitrogen 4 mg/dL (9-16); Calcium 9.9 mg/dL (8.4-10.2); Carbon Dioxide 19 mmol/L (22-29); Chloride 104 mmol/L (96-108); Creatinine Clr Calc Pharmacy 131.1; Estimated Glomerular Filt Rate > 60; Glucose Random 156 mg/dL (60-115); Lipase 16 U/L (8-78); Potassium 3.3 mmol/L (3.3-5.1); Sodium 138 mmol/L (135-145); Total Protein 7.6 g/dL (6.5-8.0)
[2022-01-12 04:55] VITALS: BP 132/75; PULSE 84; RESP 16; TEMP 37.2; O2SAT 98
[2022-01-12 06:00] VITALS: BP 111/52; PULSE 85; RESP 16; TEMP 36.5; O2SAT 97
[2022-01-12 07:42] VITALS: BP 145/82; PULSE 97; RESP 14; O2SAT 99
== END 2022-01-12 08:08 | disposition home or self-care (01) ==
PROVIDERS: Emergency Provider Internal Medicine
DX: R11.15 Cyclical vomiting syndrome unrelated to migraine (principal); R11.2 Nausea with vomiting, unspecified; F12.90 Cannabis use, unspecified, uncomplicated
CPT/HCPCS: 36415; 80048; 80076; 83690; 85025; 96361; 96374; 96375; 99284; J2060

== ENCOUNTER 2022-01-13 22:43 | Emergency (ER) | payer MEDICAID, SELFPAY ==
[2022-01-13 23:01] VITALS: BP 161/103; PULSE 82; RESP 18; TEMP 36.9; O2SAT 100; BMI 28.9
[2022-01-14 00:59] LABS: MANUAL DIFF FLAG NO
[2022-01-14 01:00] LABS: Basophils Absolute Auto 0.1 X10*3/uL (0.0-0.2); Basophils Percent Auto 0.3 % (0-2); Eosinophils Percent Auto 0.2 % (0-4); Hematocrit 39.8 % (37.0-47.0); Hemoglobin 14.3 g/dl (12.0-16.0); Imm Gran Abs Auto 0.07 X10*3/uL (0.00-0.03); Imm Gran Pct Auto 0.4 % (0.0-0.4); Lymphocytes Absolute Auto 2.8 X10*3/uL (1.2-4.9); Lymphocytes Percent Auto 16.7 % (20-40); Mean Corpuscular HGB Conc 35.9 g/dl (31.0-35.0); Mean Corpuscular Volume 83.4 fL (80.0-98.0); Monocytes Absolute Auto 1.2 X10*3/uL (0.1-1.2); Monocytes Percent Auto 7.1 % (2-11); Neutrophils Absolute Auto 12.7 x10*3/uL (2.0-8.3); Neutrophils Percent Auto 75.3 % (45-73); Platelet Count 394 X10*3/uL (160-400); Red Blood Count 4.77 X10*6/uL (4.20-5.50); Red Cell Distribution Width 12.1 % (11.0-16.0); White Blood Count 16.8 X10*3/uL (4.8-10.8)
[2022-01-14] MEDS: 0.9 % Sodium Chloride 1,000 ML 999 ML IV ×2 (01:00)
--- NOTE | 2022-01-14 01:00 | PC.NURSE ---
Iv placed and labs collected and sent. Reported to MIKAYLA Holguin.
[2022-01-14 01:16] LABS: Alanine Aminotransferase 19 U/L (0-31); Albumin Level 4.6 g/dL (3.5-5.0); Alkaline Phosphatase 77 U/L (39-117); Anion Gap 16 (12-20); Aspartate Amino Transferase 15 U/L (5-31); Bilirubin Total 1.8 mg/dL (0.0-1.0); Blood Urea Nitrogen 7 mg/dL (9-16); Calcium 10.2 mg/dL (8.4-10.2); Carbon Dioxide 28 mmol/L (22-29); Chloride 98 mmol/L (96-108); Creatinine Clr Calc Pharmacy 130.7; Estimated Glomerular Filt Rate > 60; Glucose Random 116 mg/dL (60-115); Potassium 2.8 mmol/L (3.3-5.1); Sodium 139 mmol/L (135-145); Total Protein 7.9 g/dL (6.5-8.0)
--- NOTE | 2022-01-14 01:18 | ED_ITS ---
HPI - General Adult General Chief complaint: Nausea/Vomiting/Diarrhea Stated complaint: vomiting Time Seen by Provider: 01/14/22 00:17 Source: patient Mode of arrival: ambulatory History of Present Illness HPI narrative: 21-year-old female with presentation for persistent nausea vomiting for 7 days and patient endorses she last smoked marijuana 7 days ago. Otherwise, she denies any fever, chills, shortness of breath, chest pain/palpitations, GI or symptoms. Related Data Home Medications Medication Instructions Recorded Confirmed aripiprazole 5 mg tablet 5 mg PO BEDTIME 01/11/22 01/11/22 escitalopram oxalate 10 mg tablet 10 mg PO BEDTIME 01/11/22 01/11/22 (Lexapro) Previous Rx's Medication Instructions Recorded metoclopramide HCl 10 mg tablet 10 mg PO Q6H PRN #20 tab 01/09/22 (Reglan) lorazepam 1 mg tablet (Ativan) 1 mg PO TID PRN #14 tab 01/12/22 ondansetron 4 mg disintegrating 4 mg PO Q6-8H PRN #20 tab 01/12/22 tablet Allergies Allergy/AdvReac Type Severity Reaction Status Date / Time No Known Allergies Allergy Verified 01/13/22 23:01 Review of Systems Review of Systems: Pertinent positives and negatives as stated in HPI 10 point review systems is otherwise negative. PMFSH Past Medical History Source: nursing notes reviewed Medical History Anxiety Cyclical vomiting Social History Social History Alcohol intake: never Patient Tobacco Use Status: Never used Tobacco Substance Use Type: Marijuana Advance Directives: No Advance Directives Information Provided: Yes Patient : No Physical Exam ED Vital Signs: Vital Signs - 24 hr 01/13/22 23:01 01/14/22 02:34 Temperature 98.4 F 98.3 F Pulse Rate 82 61 Respiratory Rate 18 41 H Blood Pressure 161/103 H 167/90 H Pulse Oximetry 100 100 BMI result Body Mass Index 28.9 VITAL SIGNS: Reviewed. GENERAL: Well developed, well nourished, in no acute distress. HEAD: Normocephalic/atraumatic EYES: PERRLA, EOMI EARS: Ext canals without abnormality OROPHARYNX: no oral lesions noted, posterior pharynx clear, dry mucosa NECK: Supple, no adenopathy LUNGS: Normal breath sounds. No adventitious sounds or accessory muscle use. SpO2<100> CARDIOVASCULAR: Regular rate and rhythm without noted murmurs ABDOMEN: Soft, non-tender, non-distended with bowel sounds. SKIN: Inspection of the skin reveals no rashes NEUROLOGIC: Alert and oriented x 4. Strength and sensation to light touch were grossly intact x 4. Course Course Course Narrative: 21-year-old female with history and clinical presentation consistent with cyclical vomiting likely secondary to cannabis use. Patient has been seen here 4 times since 01/09/2022. Patient will receive IV fluid resuscitation, antie metics, as well as potassium repletion. On review of all investigations the leukocytosis secondary to stress response from the nausea and vomiting, patient responded well to IV fluid resuscitation and antiemetics and is now tolerating oral intake. She will be provided with a GI cocktail and oral potassium and discharged home in stable condition. Medical Decision Making Lab Data Result diagrams: 01/14/22 00:54 01/14/22 00:54 Labs: Lab Results 01/14/22 01/14/22 01/14/22 Range/Units 00:54 00:54 02:05 WBC 16.8 H (4.8-10.8) X10*3/uL RBC 4.77 (4.20-5.50) X10*6/uL Hgb 14.3 (12.0-16.0) g/dl Hct 39.8 (37.0-47.0) % MCV 83.4 (80.0-98.0) fL MCH 30.0 (27.0-33.0) pg MCHC 35.9 H (31.0-35.0) g/dl RDW 12.1 (11.0-16.0) % Plt Count 394 (160-400) X10*3/uL MPV 10.0 (9.4-12.3) fL Immature Gran % (Auto) 0.4 (0.0-0.4) % Neut % (Auto) 75.3 H (45-73) % Lymph % (Auto) 16.7 L (20-40) % [place] % (Auto) 7.1 (2-11) % Eos % (Auto) 0.2 (0-4) % Baso % (Auto) 0.3 (0-2) % Lymph # (Auto) 2.8 (1.2-4.9) X10*3/uL [place] # (Auto) 1.2 (0.1-1.2) X10*3/uL Eos # (Auto) 0.0 (0.0-0.4) X10*3/uL Baso # (Auto) 0.1 (0.0-0.2) X10*3/uL Abs Immat Gran (auto) 0.07 H (0.00-0.03) X10*3/uL Absolute Neuts (auto) 12.7 H (2.0-8.3) x10*3/uL Absolute Nucleated RBC 0.000 (0.0-0.012) X10*3/uL Nucleated RBC % (auto) 0.0 (0.0-0.2) /100WBC Sodium 139 (135-145) mmol/L Potassium 2.8 L (3.3-5.1) mmol/L Chloride 98 (96-108) mmol/L Carbon Dioxide 28 (22-29) mmol/L Anion Gap 16 (12-20) BUN 7 L D (9-16) mg/dL Creatinine 0.70 (0.5-1.4) mg/dL Estim Creat Clear Calc 130.7 Estimated GFR > 60 Random Glucose 116 H (60-115) mg/dL Calcium 10.2 (8.4-10.2) mg/dL Total Bilirubin 1.8 H (0.0-1.0) mg/dL AST 15 (5-31) U/L ALT 19 (0-31) U/L Alkaline Phosphatase 77 (39-117) U/L Total Protein 7.9 (6.5-8.0) g/dL Albumin 4.6 (3.5-5.0) g/dL Urine Color DK YELLOW Urine Appearance HAZY Urine pH 7.5 (5.0-8.0) Ur Specific [place] 1.015 (1.005-1.025) Urine Protein 2+ H (NEG-TRACE) MG/DL Urine Glucose (UA) NEG (NEG) MG/DL Urine Ketones >=80 (NEG) MG/DL Urine Blood NEG (NEG) Urine Nitrite NEG (NEG) Ur Leukocyte Esterase NEG (NEG) Urine RBC 0-2 (0) /HPF Urine WBC 0 (0-4) /HPF Ur Squamous Epith Cells 1+ /LPF Amorphous Sediment TRACE /LPF Urine Bacteria TRACE /LPF Urine Mucus 4+ /LPF Urine Test (NEGATIVE) 01/14/22 Range/Units 02:05 WBC (4.8-10.8) X10*3/uL RBC (4.20-5.50) X10*6/uL Hgb (12.0-16.0) g/dl Hct (37.0-47.0) % MCV (80.0-98.0) fL MCH (27.0-33.0) pg MCHC (31.0-35.0) g/dl RDW (11.0-16.0) % Plt Count (160-400) X10*3/uL MPV (9.4-12.3) fL Immature Gran % (Auto) (0.0-0.4) % Neut % (Auto) (45-73) % Lymph % (Auto) (20-40) % [place] % (Auto) (2-11) % Eos % (Auto) (0-4) % Baso % (Auto) (0-2) % Lymph # (Auto) (1.2-4.9) X10*3/uL [place] # (Auto) (0.1-1.2) X10*3/uL Eos # (Auto) (0.0-0.4) X10*3/uL Baso # (Auto) (0.0-0.2) X10*3/uL Abs Immat Gran (auto) (0.00-0.03) X10*3/uL Absolute Neuts (auto) (2.0-8.3) x10*3/uL Absolute Nucleated RBC (0.0-0.012) X10*3/uL Nucleated RBC % (auto) (0.0-0.2) /100WBC Sodium (135-145) mmol/L Potassium (3.3-5.1) mmol/L Chloride (96-108) mmol/L Carbon Dioxide (22-29) mmol/L Anion Gap (12-20) BUN (9-16) mg/dL Creatinine (0.5-1.4) mg/dL Estim Creat Clear Calc Estimated GFR Random Glucose (60-115) mg/dL Calcium (8.4-10.2) mg/dL Total Bilirubin (0.0-1.0) mg/dL AST (5-31) U/L ALT (0-31) U/L Alkaline Phosphatase (39-117) U/L Total Protein (6.5-8.0) g/dL Albumin (3.5-5.0) g/dL Urine Color Urine Appearance Urine pH (5.0-8.0) Ur Specific [place] (1.005-1.025) Urine Protein (NEG-TRACE) MG/DL Urine Glucose (UA) (NEG) MG/DL Urine Ketones (NEG) MG/DL Urine Blood (NEG) Urine Nitrite (NEG) Ur Leukocyte Esterase (NEG) Urine RBC (0) /HPF Urine WBC (0-4) /HPF Ur Squamous Epith Cells /LPF Amorphous Sediment /LPF Urine Bacteria /LPF Urine Mucus /LPF Urine Test NEGATIVE (NEGATIVE) Discharge Plan Discharge Clinical Impression: Cyclical vomiting, Hypokalemia Patient Disposition: Home, Self-Care Instructions: Hypokalemia (ED), Potassium Content of Foods List (ED), Acute Nausea and Vomiting (ED) Additional Instructions: 1. Stop taking marijuana. 2. Continue to increase fluid hydration especially with water. 3. Follow-up with your primary care provider. Return to the ER for worsening symptoms. Prescriptions: No Action metoclopramide HCl [Reglan] 10 mg tablet 10 mg PO Q6H PRN (Reason: nausea and vomiting) Qty: 20 0RF escitalopram oxalate [Lexapro] 10 mg Tablet 10 mg PO BEDTIME 0RF aripiprazole 5 mg Tablet 5 mg PO BEDTIME 0RF lorazepam [Ativan] 1 mg tablet 1 mg PO TID PRN (Reason: anxiety, nausea/vomiting) Qty: 14 0RF ondansetron 4 mg tablet,disintegrating 4 mg PO Q6-8H PRN (Reason: nausea and vomiting) Qty: 20 0RF
[2022-01-14] MEDS: diphenhydrAMINE HCL 50 MG/ML VIAL 25 MG IVPUSH (01:19)
[2022-01-14] MEDS: ondansetron HCL 4 MG/2 ML VIAL IVPUSH (01:20)
[2022-01-14] MEDS: Metoclopramide HCl 10 MG/2 ML VIAL IVPUSH (01:20)
--- NOTE | 2022-01-14 01:27 | PC.NURSE ---
iv inserted w/o difficulty, site intact, pt medicated as per emar.
[2022-01-14] MEDS: Potassium Chloride/H20 10 MEQ/100 ML PIGGYBACK 100 MEQ IV ×2 (02:01→02:50)
[2022-01-14 02:13] LABS: Appearance Urine HAZY; Color Urine DK YELLOW; Glucose Urine UA NEG (NEG); Leukocyte Esterase Urine NEG (NEG); Nitrite Urine NEG (NEG); PH 7.5 (5.0-8.0); Specific Gravity - Urine 1.015 (1.005-1.025); UACC Culture Trigger NO; Urine Blood NEG (NEG); Urine Ketones >=80 MG/DL (NEG); Urine Protein 2+ MG/DL (NEG-TRACE)
[2022-01-14 02:14] LABS: UPreg QC Valid YES; Urine Pregnancy NEGATIVE (NEGATIVE)
[2022-01-14 02:21] LABS: WBC Urine 0 /HPF (0-4)
[2022-01-14 02:22] LABS: Amorphous Sediment Urine TRACE /LPF; Bacteria Urine TRACE /LPF; Mucus Urine 4+ /LPF; RBC Urine 0-2 /HPF (0); Squamous Epithelial Cell Urine 1+ /LPF
[2022-01-14 02:34] VITALS: BP 167/90; PULSE 61; RESP 41; TEMP 36.8; O2SAT 100
[2022-01-14 02:50] VITALS: PULSE 81; RESP 18; O2SAT 99
--- NOTE | 2022-01-14 03:31 | PC.NURSE ---
po challange and pt tolerating well. pt awaiting for dispo
[2022-01-14] MEDS: Potassium Chloride ER 20 MEQ TAB.ER.PRT 60 MEQ PO (04:04)
[2022-01-14] MEDS: Lidocaine HCl Viscous 2 % 15 ML SOLUTION 10 ML MUCOUS MEM (04:04)
[2022-01-14] MEDS: Magnesium Hydrox/Alum Hydrox 30 ML ORAL.SUSP PO (04:04)
== END 2022-01-14 04:12 | disposition home or self-care (01) ==
PROVIDERS: Emergency Provider Student in an Organized Health Care Education/Training Program
DX: R11.15 Cyclical vomiting syndrome unrelated to migraine (principal); E87.6 Hypokalemia; F12.90 Cannabis use, unspecified, uncomplicated; Z79.899 Other long term (current) drug therapy
CPT/HCPCS: 36415; 80053; 81001; 81025; 85025; 96361; 96365; 96375; 99283; 99284; J1200; J2405; J2765

== ENCOUNTER 2022-01-16 15:39 | Emergency (ER) | payer MEDICAID, SELFPAY ==
--- NOTE | ~2022-01-16 | XR_ITS ---
EXAMINATION: XR CHEST CLINICAL INFORMATION: Shortness of breath COMPARISON: Previous chest x-ray most recent November 2021 TECHNIQUE: Frontal view of the chest was obtained. FINDINGS: No significant abnormality is noted involving the heart, lungs, mediastinum, bony thorax or soft tissues. XR/XR chest 1V IMPRESSION: Unremarkable examination.
[2022-01-16 15:48] VITALS: BP 142/87; PULSE 104; RESP 20; O2SAT 100; BMI 25.8
--- NOTE | 2022-01-16 16:03 | ED.SEIZURE ---
HPI - Seizure General Chief Complaint: General Medical Stated Complaint: vomiting/seizure Time Seen by Provider: 01/16/22 16:02 Source: patient and family Mode of arrival: ambulatory Limitations: altered mental status History of Present Illness HPI Narrative: 21 year old female past medical histoy significant for anxiety, seziures, cyclic vomiting presnts to the ED with what mom things is a panic attack, anxiety attack. Patient is not answering any of my questions. Mom states daughter was vomiting, a lot this morning. She has a history of cyclic vomiting but according to mother she has not smoked in 10 days. Patient appears diaphoretic, tachypneic, tachycardic upon her arrival. Mom tells me that this does not appear to be like her typical seizure. She never fell, hit her head or loss consciousness. Immediately upon her arrival we put her on 2 L of oxygen for comfort. Mom tells me she is finishing her., she has been on it for 9 days. She tells me at times this happens after her menses. Patient is answering my review of systems with a head nod yes or no. However not speaking in sentences. MD complaint: other (Vomiting/Panic) Onset (ago): day(s) Witnessed: No Trauma: No Seizure History: Yes Place: Home Possible Precipitating Event: none Related Data Home Medications Medication Instructions Recorded Confirmed aripiprazole 5 mg tablet 5 mg PO BEDTIME 01/11/22 01/11/22 escitalopram oxalate 10 mg tablet 10 mg PO BEDTIME 01/11/22 01/11/22 (Lexapro) Previous Rx's Medication Instructions Recorded metoclopramide HCl 10 mg tablet 10 mg PO Q6H PRN #20 tab 01/09/22 (Reglan) lorazepam 1 mg tablet (Ativan) 1 mg PO TID PRN #14 tab 01/12/22 ondansetron 4 mg disintegrating 4 mg PO Q6-8H PRN #20 tab 01/12/22 tablet Allergies Allergy/AdvReac Type Severity Reaction Status Date / Time No Known Allergies Allergy Verified 01/16/22 15:55 Review of Systems Review of Systems: Constitutional : No Weight loss, No Fever, No Chills, No Fatigue, No Malaise ENT/Mouth : No sore throat, No Rhinorrhea Eyes: No Eye Pain, No Swelling, No Redness Cardiovascular : No Chest Pain, No SOB, No Dyspnea on Exertion, No Orthopnea, No Edema, No Palpitations Respiratory : No Cough, No Sputum, No Wheezing Gastrointestinal : No Nausea, No Vomiting, No Diarrhea, No Constipation, No abdominal Pain, No Hematochezia, No Melena Genitourinary : No Dysuria, No Urinary Frequency, No Hematuria, Musculoskeletal : No joint pain, No Myalgias, No Joint Swelling Skin : No Skin Lesions, No rash Neuro : No Weakness, No Numbness, No Dizziness, No Headache Psych : No Anxiety/Panic, No Depression All other systems reviewed and are negative Yes all other systems are reviewed and are negative FORMERLY [facility], [facility] Past Medical History Attestation statement: The following information was validated with the patient. Source: old records reviewed and nursing notes reviewed Medical History Anxiety Cyclical vomiting Seizure Social History Social History Alcohol intake: never Patient Tobacco Use Status: Never used Tobacco Substance Use Type: Marijuana Advance Directives: No Advance Directives Information Provided: No Patient : No Physical Exam Vital Signs: Vital Signs: Last Vital Signs Temp 98.3 F 01/16/22 21:43 Pulse 77 01/16/22 21:43 Resp 11 L 01/16/22 21:43 BP 124/89 01/16/22 21:43 Pulse Ox 100 01/16/22 21:43 BMI result Body Mass Index 25.8 VSS Appearance: Alert.? Oriented X3.? No acute distress.? Head: Normocephalic, atraumatic, no step-offs or deformities Eyes: Pupils equal, round and reactive to light.? ENT: Pharynx normal.? Neck: Normal inspection.? Neck supple.? CVS: Normal heart rate and rhythm.? Pulses normal.? Respiratory: No respiratory distress.? Breath sounds normal.? Abdomen: Soft and nontender.? Skin: Skin warm and dry.? Normal skin color.? Normal skin turgor.? Extremities: No lower extremity edema.? No calf ttp. 5/5 strength to bilateral upper and lower extremities Back: No midline tenderness, no C-spine tenderness, full range of motion, no CVA tenderness bilaterally Neuro: Oriented X 3.? No motor deficit.? No sensory deficit. CN 2-12 intact Course Reevaluation(s) Reevaluation #1: Patient was given 2 mg of Ativan IV, patient agreed to this for anxiety/panic. When this is given patient's desatted while she was sleeping, put her on a non-rebreather. She is saturating 100% now. She has no complaints of chest pain or shortness of breath. She is much more alert, and awake at this time. Much more calm. This is likely anxiety/panic. Unlikely PE or ACS. Patient is noted to have a leukocytosis likely secondary to vomiting. Unlikely infectious. No acute electrolyte abnormalities. She is slightly dehydrated will be hydrated with fluids. Total bilirubin slightly chronically elevated. Pending drug tox. Time: 17:40 Reevaluation #2: Drug tox positive for marijuana. UA clean. Dimer negative unlikely PE.. At this time patient improving. Neuro exam nonfocal. Vital signs are stable. Patient feeling better, ambulating around department with no issues. I will advise patient to not drive as this can be dangerous until she follows up with Neurology. 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 Eating, drinking, walking around. This time I feel comfortable with discharge home with PCP and neurology follow-up. Time: 22:27 MDM - Seizure MDM Narrative Medical decision making narrative: 1604 21 yo f pmhx anxiety, cyclic vomiting, seziure presents to ED w/ what mom thinks is a panic attack anxiety s/p large volume of vomit. No head trauma. I immediately evaluated patient upon her arrival. She does not appear to be postictal however she does appear to be hyperventilating, tachycardic. She appears to be having an acute panic attack. Patient is still insert my questions with yes or no answers. Mom tells me that this happens frequently. Unlikely that this was a seizure however will continue to monitor. PE anxious individual initially hyperventilating, tachycardic. Following commands. Neuro nonfocal. Lungs clear regular rate and rhythm. Plan at this time is basic labs, drug tox, EKG, chest x-ray. Medical Records Attestation: I reviewed the patient's medical records. Lab Data Attestation: I reviewed the patient's lab results. Result diagrams: 01/16/22 16:16 01/16/22 16:16 Labs: Lab Results 01/16/22 01/16/22 01/16/22 Range/Units 16:16 16:16 16:33 WBC 17.6 H (4.8-10.8) X10*3/uL RBC 5.39 (4.20-5.50) X10*6/uL Hgb 16.1 H (12.0-16.0) g/dl Hct 45.2 (37.0-47.0) % MCV 83.9 (80.0-98.0) fL MCH 29.9 (27.0-33.0) pg MCHC 35.6 H (31.0-35.0) g/dl RDW 12.6 (11.0-16.0) % Plt Count 443 H (160-400) X10*3/uL MPV 10.4 (9.4-12.3) fL Immature Gran % (Auto) 0.4 (0.0-0.4) % Neut % (Auto) 67.3 (45-73) % Lymph % (Auto) 22.7 (20-40) % [place] % (Auto) 9.1 (2-11) % Eos % (Auto) 0.2 (0-4) % Baso % (Auto) 0.3 (0-2) % Lymph # (Auto) 4.0 (1.2-4.9) X10*3/uL [place] # (Auto) 1.6 H (0.1-1.2) X10*3/uL Eos # (Auto) 0.0 (0.0-0.4) X10*3/uL Baso # (Auto) 0.1 (0.0-0.2) X10*3/uL Abs Immat Gran (auto) 0.07 H (0.00-0.03) X10*3/uL Absolute Neuts (auto) 11.9 H (2.0-8.3) x10*3/uL Absolute Nucleated RBC 0.000 (0.0-0.012) X10*3/uL Nucleated RBC % (auto) 0.0 (0.0-0.2) /100WBC D-Dimer High Sensitivty NG/ML Sodium 139 (135-145) mmol/L Potassium 3.4 D (3.3-5.1) mmol/L Chloride 93 L (96-108) mmol/L Carbon Dioxide 28 (22-29) mmol/L Anion Gap 21 H (12-20) BUN 7 L (9-16) mg/dL Creatinine 0.94 (0.5-1.4) mg/dL Estim Creat Clear Calc 95.7 Estimated GFR > 60 Random Glucose 113 (60-115) mg/dL Calcium 11.6 H D (8.4-10.2) mg/dL Magnesium 2.0 (1.6-2.6) mg/dL Total Bilirubin 1.9 H (0.0-1.0) mg/dL AST 30 D (5-31) U/L ALT 54 H (0-31) U/L Alkaline Phosphatase 90 (39-117) U/L Total Protein 8.7 H (6.5-8.0) g/dL Albumin 5.0 (3.5-5.0) g/dL Urine Color Urine Appearance Urine pH (5.0-8.0) Ur Specific [place] (1.005-1.025) Urine Protein (NEG-TRACE) MG/DL Urine Glucose (UA) (NEG) MG/DL Urine Ketones (NEG) MG/DL Urine Blood (NEG) Urine Nitrite (NEG) Ur Leukocyte Esterase (NEG) Urine RBC (0) /HPF Urine WBC (0-4) /HPF Ur Squamous Epith Cells /LPF Urine Bacteria /LPF Urine Mucus /LPF Urine Test (NEGATIVE) Urine Opiates Screen (Not Detect) Urine Fentanyl Screen (Not Detect) Ur Barbiturates Screen (Not Detect) Ur Phencyclidine Scrn (Not Detect) Ur Amphetamines Screen (Not Detect) U Benzodiazepines Scrn (Not Detect) Urine Cocaine Screen (Not Detect) U Marijuana (THC) Screen (Not Detect) Ethyl Alcohol < 10 mg/dL 01/16/22 01/16/22 01/16/22 Range/Units 17:48 17:48 17:48 WBC (4.8-10.8) X10*3/uL RBC (4.20-5.50) X10*6/uL Hgb (12.0-16.0) g/dl Hct (37.0-47.0) % MCV (80.0-98.0) fL MCH (27.0-33.0) pg MCHC (31.0-35.0) g/dl RDW (11.0-16.0) % Plt Count (160-400) X10*3/uL MPV (9.4-12.3) fL Immature Gran % (Auto) (0.0-0.4) % Neut % (Auto) (45-73) % Lymph % (Auto) (20-40) % [place] % (Auto) (2-11) % Eos % (Auto) (0-4) % Baso % (Auto) (0-2) % Lymph # (Auto) (1.2-4.9) X10*3/uL [place] # (Auto) (0.1-1.2) X10*3/uL Eos # (Auto) (0.0-0.4) X10*3/uL Baso # (Auto) (0.0-0.2) X10*3/uL Abs Immat Gran (auto) (0.00-0.03) X10*3/uL Absolute Neuts (auto) (2.0-8.3) x10*3/uL Absolute Nucleated RBC (0.0-0.012) X10*3/uL Nucleated RBC % (auto) (0.0-0.2) /100WBC D-Dimer High Sensitivty NG/ML Sodium (135-145) mmol/L Potassium (3.3-5.1) mmol/L Chloride (96-108) mmol/L Carbon Dioxide (22-29) mmol/L Anion Gap (12-20) BUN (9-16) mg/dL Creatinine (0.5-1.4) mg/dL Estim Creat Clear Calc Estimated GFR Random Glucose (60-115) mg/dL Calcium (8.4-10.2) mg/dL Magnesium (1.6-2.6) mg/dL Total Bilirubin (0.0-1.0) mg/dL AST (5-31) U/L ALT (0-31) U/L Alkaline Phosphatase (39-117) U/L Total Protein (6.5-8.0) g/dL Albumin (3.5-5.0) g/dL Urine Color DK YELLOW Urine Appearance HAZY Urine pH 7.0 (5.0-8.0) Ur Specific [place] 1.015 (1.005-1.025) Urine Protein 2+ H (NEG-TRACE) MG/DL Urine Glucose (UA) 100 H (NEG) MG/DL Urine Ketones >=80 (NEG) MG/DL Urine Blood NEG (NEG) Urine Nitrite NEG (NEG) Ur Leukocyte Esterase NEG (NEG) Urine RBC 1-4 (0) /HPF Urine WBC 1-4 (0-4) /HPF Ur Squamous Epith Cells 3+ /LPF Urine Bacteria 1+ /LPF Urine Mucus 1+ /LPF Urine Test NEGATIVE (NEGATIVE) Urine Opiates Screen Not Detected (Not Detect) Urine Fentanyl Screen Not Detected (Not Detect) Ur Barbiturates Screen Not Detected (Not Detect) Ur Phencyclidine Scrn Not Detected (Not Detect) Ur Amphetamines Screen Not Detected (Not Detect) U Benzodiazepines Scrn Not Detected (Not Detect) Urine Cocaine Screen Not Detected (Not Detect) U Marijuana (THC) Screen POSITIVE H (Not Detect) Ethyl Alcohol mg/dL 01/16/22 Range/Units 21:21 WBC (4.8-10.8) X10*3/uL RBC (4.20-5.50) X10*6/uL Hgb (12.0-16.0) g/dl Hct (37.0-47.0) % MCV (80.0-98.0) fL MCH (27.0-33.0) pg MCHC (31.0-35.0) g/dl RDW (11.0-16.0) % Plt Count (160-400) X10*3/uL MPV (9.4-12.3) fL Immature Gran % (Auto) (0.0-0.4) % Neut % (Auto) (45-73) % Lymph % (Auto) (20-40) % [place] % (Auto) (2-11) % Eos % (Auto) (0-4) % Baso % (Auto) (0-2) % Lymph # (Auto) (1.2-4.9) X10*3/uL [place] # (Auto) (0.1-1.2) X10*3/uL Eos # (Auto) (0.0-0.4) X10*3/uL Baso # (Auto) (0.0-0.2) X10*3/uL Abs Immat Gran (auto) (0.00-0.03) X10*3/uL Absolute Neuts (auto) (2.0-8.3) x10*3/uL Absolute Nucleated RBC (0.0-0.012) X10*3/uL Nucleated RBC % (auto) (0.0-0.2) /100WBC D-Dimer High Sensitivty < 150 NG/ML Sodium (135-145) mmol/L Potassium (3.3-5.1) mmol/L Chloride (96-108) mmol/L Carbon Dioxide (22-29) mmol/L Anion Gap (12-20) BUN (9-16) mg/dL Creatinine (0.5-1.4) mg/dL Estim Creat Clear Calc Estimated GFR Random Glucose (60-115) mg/dL Calcium (8.4-10.2) mg/dL Magnesium (1.6-2.6) mg/dL Total Bilirubin (0.0-1.0) mg/dL AST (5-31) U/L ALT (0-31) U/L Alkaline Phosphatase (39-117) U/L Total Protein (6.5-8.0) g/dL Albumin (3.5-5.0) g/dL Urine Color Urine Appearance Urine pH (5.0-8.0) Ur Specific [place] (1.005-1.025) Urine Protein (NEG-TRACE) MG/DL Urine Glucose (UA) (NEG) MG/DL Urine Ketones (NEG) MG/DL Urine Blood (NEG) Urine Nitrite (NEG) Ur Leukocyte Esterase (NEG) Urine RBC (0) /HPF Urine WBC (0-4) /HPF Ur Squamous Epith Cells /LPF Urine Bacteria /LPF Urine Mucus /LPF Urine Test (NEGATIVE) Urine Opiates Screen (Not Detect) Urine Fentanyl Screen (Not Detect) Ur Barbiturates Screen (Not Detect) Ur Phencyclidine Scrn (Not Detect) Ur Amphetamines Screen (Not Detect) U Benzodiazepines Scrn (Not Detect) Urine Cocaine Screen (Not Detect) U Marijuana (THC) Screen (Not Detect) Ethyl Alcohol mg/dL Critical Care Time Critical Care Time Critical Care Time: No Discharge Plan Discharge Clinical Impression: Panic, Cyclical vomiting Patient Disposition: Home, Self-Care Instructions: Panic Disorder (ED), Anxiety (ED) Additional Instructions: Take your medications as prescribed. If you were prescribed antibiotics today, it is important that you take your medication to their entirety, do not skip any doses, do not finish them early. Follow-up with your primary care provider this week. Call and schedule an appointment with a neurologist as soon as possible. Please do not drive until you have been cleared by a neurologist. Return to the emergency department with new or worsening symptoms. In case of emergency call 911 Prescriptions: No Action metoclopramide HCl [Reglan] 10 mg tablet 10 mg PO Q6H PRN (Reason: nausea and vomiting) Qty: 20 0RF escitalopram oxalate [Lexapro] 10 mg Tablet 10 mg PO BEDTIME 0RF aripiprazole 5 mg Tablet 5 mg PO BEDTIME 0RF lorazepam [Ativan] 1 mg tablet 1 mg PO TID PRN (Reason: anxiety, nausea/vomiting) Qty: 14 0RF ondansetron 4 mg tablet,disintegrating 4 mg PO Q6-8H PRN (Reason: nausea and vomiting) Qty: 20 0RF Referrals: Physician,Unknown J [Primary Care Provider] - 2 days Omkar Collazo MD [Physician] - 1 week Stand Alone Forms: Work/School Release
[2022-01-16 16:17] VITALS: BP 126/87; PULSE 122; RESP 25; O2SAT 98
--- NOTE | 2022-01-16 16:18 | PC.NURSE ---
at arrival to room pt's eyes are rolling back but pt is able to follow some commands, opens eye on command, lifts head. RR is in upper 30's sebastian coached to decrease. Mom states current presentation x [address] on monitopr. mast applied to increase Co2. skin pwd. carple pedal spasms improving with time and decrease RR.
[2022-01-16] MEDS: LORazepam 2 MG/ML VIAL IVPUSH (16:24)
[2022-01-16 16:26] LABS: MANUAL DIFF FLAG NO
[2022-01-16 16:27] LABS: Basophils Absolute Auto 0.1 X10*3/uL (0.0-0.2); Basophils Percent Auto 0.3 % (0-2); Eosinophils Percent Auto 0.2 % (0-4); Hematocrit 45.2 % (37.0-47.0); Hemoglobin 16.1 g/dl (12.0-16.0); Imm Gran Abs Auto 0.07 X10*3/uL (0.00-0.03); Imm Gran Pct Auto 0.4 % (0.0-0.4); Lymphocytes Percent Auto 22.7 % (20-40); Mean Corpuscular HGB Conc 35.6 g/dl (31.0-35.0); Mean Corpuscular Hemoglobin 29.9 pg (27.0-33.0); Mean Corpuscular Volume 83.9 fL (80.0-98.0); Mean Platelet Volume 10.4 fL (9.4-12.3); Monocytes Absolute Auto 1.6 X10*3/uL (0.1-1.2); Monocytes Percent Auto 9.1 % (2-11); Neutrophils Absolute Auto 11.9 x10*3/uL (2.0-8.3); Neutrophils Percent Auto 67.3 % (45-73); Platelet Count 443 X10*3/uL (160-400); Red Blood Count 5.39 X10*6/uL (4.20-5.50); Red Cell Distribution Width 12.6 % (11.0-16.0); SCAN SMEAR FLAG 1; White Blood Count 17.6 X10*3/uL (4.8-10.8)
--- NOTE | 2022-01-16 16:34 | PC.NURSE ---
pt's O2 dropping to high 60's when resting; on 2L NC
[2022-01-16 16:40] VITALS: BP 123/64; PULSE 81; RESP 8; O2SAT 100
[2022-01-16 16:43] LABS: Alanine Aminotransferase 54 U/L (0-31); Alkaline Phosphatase 90 U/L (39-117); Anion Gap 21 (12-20); Aspartate Amino Transferase 30 U/L (5-31); Bilirubin Total 1.9 mg/dL (0.0-1.0); Blood Urea Nitrogen 7 mg/dL (9-16); Calcium 11.6 mg/dL (8.4-10.2); Carbon Dioxide 28 mmol/L (22-29); Chloride 93 mmol/L (96-108); Creatinine Clr Calc Pharmacy 95.7; Estimated Glomerular Filt Rate > 60; Glucose Random 113 mg/dL (60-115); Potassium 3.4 mmol/L (3.3-5.1); Sodium 139 mmol/L (135-145); Total Protein 8.7 g/dL (6.5-8.0)
[2022-01-16 17:10] LABS: Ethanol < 10 mg/dL
[2022-01-16 17:58] LABS: Appearance Urine HAZY; Color Urine DK YELLOW; Glucose Urine UA 100 MG/DL (NEG); Leukocyte Esterase Urine NEG (NEG); Nitrite Urine NEG (NEG); Specific Gravity - Urine 1.015 (1.005-1.025); UACC Culture Trigger NO; Urine Blood NEG (NEG); Urine Ketones >=80 MG/DL (NEG); Urine Protein 2+ MG/DL (NEG-TRACE)
[2022-01-16 18:13] LABS: Bacteria Urine 1+ /LPF; Mucus Urine 1+ /LPF; Squamous Epithelial Cell Urine 3+ /LPF
[2022-01-16 18:16] LABS: Amphetamine Screen Urine Not Detected (Not Detect); Barbiturates, Urine Not Detected (Not Detect); Benzodiazepines Screen Urine Not Detected (Not Detect); Cannabinoid Screen Urine POSITIVE (Not Detect); Cocaine Screen Urine Not Detected (Not Detect); Fentanyl, urine Not Detected (Not Detect); Opiate Screen Urine Not Detected (Not Detect); Phencyclidine Screen Urine Not Detected (Not Detect)
[2022-01-16 20:50] LABS: UPreg QC Valid YES; Urine Pregnancy NEGATIVE (NEGATIVE)
[2022-01-16 21:43] VITALS: BP 124/89; PULSE 77; RESP 11; TEMP 36.8; O2SAT 100
[2022-01-16 21:54] LABS: D Dimer High Sensitivity < 150 NG/ML
[2022-01-16 22:28] VITALS: BP 124/94; PULSE 94; RESP 20; TEMP 37.1; O2SAT 100
== END 2022-01-16 23:16 | disposition home or self-care (01) ==
PROVIDERS: Physician Assistant; Emergency Provider Internal Medicine
DX: R11.15 Cyclical vomiting syndrome unrelated to migraine (principal); F41.0 Panic disorder [episodic paroxysmal anxiety]; F41.9 Anxiety disorder, unspecified; F12.90 Cannabis use, unspecified, uncomplicated; Z79.899 Other long term (current) drug therapy
CPT/HCPCS: 36415; 71045; 80053; 80307; 81001; 81025; 82077; 83735; 85025; 85379; 96374; 99284; J2060

== ENCOUNTER 2022-04-16 03:29 | Emergency (ER) | payer MEDICAID, SELFPAY ==
[2022-04-16] MEDS: 0.9 % Sodium Chloride 1,000 ML 999 ML IV (03:38)
[2022-04-16] MEDS: LORazepam 2 MG/ML VIAL 1 MG IVPUSH (03:38)
--- NOTE | 2022-04-16 03:40 | ED_ITS ---
HPI - Anxiety General Chief Complaint: Psychiatric Symptoms Stated Complaint: passed out? Time Seen by Provider: 04/16/22 03:31 Source: patient Mode of arrival: ambulatory Limitations: other (panic attack hyperventilating) History of Present Illness complaint: anxiety Onset (ago): day(s) Symptoms: perioral numbness/tingling, dry mouth, sense of impending doom and muscle cramps Severity: severe Quality: constant Place: home History of similar episodes: Yes Provoking factors: emotional stress and other (drug use) Relieving factors: nothing Exacerbating factors: other (cocaine/ETOH) Associated symptoms: shortness of breath Related Data Home Medications Medication Instructions Recorded Confirmed aripiprazole 5 mg tablet 5 mg PO BEDTIME 01/11/22 01/11/22 escitalopram oxalate 10 mg tablet 10 mg PO BEDTIME 01/11/22 01/11/22 (Lexapro) Previous Rx's Medication Instructions Recorded metoclopramide HCl 10 mg tablet 10 mg PO Q6H PRN #20 tab 01/09/22 (Reglan) lorazepam 1 mg tablet (Ativan) 1 mg PO TID PRN #14 tab 01/12/22 ondansetron 4 mg disintegrating 4 mg PO Q6-8H PRN #20 tab 01/12/22 tablet Allergies Allergy/AdvReac Type Severity Reaction Status Date / Time No Known Allergies Allergy Verified 01/16/22 15:55 Review of Systems Review of Systems: ROS unable to be obtained due to panic attack and hyperventilating PMFSH Past Medical History Attestation statement: The following information was validated with the patient. Medical History Anxiety Cyclical vomiting Seizure Social History Social History Alcohol intake: never Patient Tobacco Use Status: Never used Tobacco Substance Use Type: Marijuana Advance Directives: No Advance Directives Information Provided: Yes Physical Exam Vital Signs: Vital Signs: Last Vital Signs Temp 98.9 F 04/16/22 03:46 Pulse 119 H 04/16/22 03:46 Resp 22 H 04/16/22 03:46 BP 154/97 H 04/16/22 03:46 Pulse Ox 96 04/16/22 03:46 BMI result Body Mass Index 31.7 Appearance: Following with her eyes, shaking head yes or no, hyperventilating, carpopedal spasms, mild acute distress. Eyes: Pupils equal, round and reactive to light. ENT: Pharynx normal. Neck: Normal inspection. Neck supple. CVS: tachycardic heart rate and rhythm. Pulses normal. Respiratory: No respiratory distress. Breath sounds normal. Abdomen: Soft and non-tender. Skin: Skin warm and dry. Normal skin color. Extremities: No lower extremity edema. Neuro: cannot participate in exam but moves all extremities and during event was told to get up from the wheelchair on her own to the strethcer and she did. Course Course Course Narrative: patient now admits to drinking and using cocaine, depressed and anxious has s uperficial linear abrasion to R thigh chronically elevated WBC count repleted K Physician observation started at 413am. Patient placed in physician observation because the patient needed more time for [facility] to assess the need for psych admission. At the time observation was started the patient's vitals were stable, patient is alert and oriented but slightly anxious she is improved from ativan, Neuro: nonfocal, CV RRR, Lungs clear MDM - Anxiety MDM Narrative Medical decision making narrative: 21 yo female with hx of anxiety, cyclical vomiting syndrome comes in with panic attack she is awake during event at this time will need basic labs, IV ativan. Anticipate DC home once she improves Lab Data Result diagrams: 04/16/22 03:40 04/16/22 03:40 Labs: Lab Results 04/16/22 04/16/22 04/16/22 Range/Units 03:40 03:40 03:40 WBC 19.9 H (4.8-10.8) X10*3/uL RBC 5.14 (4.20-5.50) X10*6/uL Hgb 14.8 (12.0-16.0) g/dl Hct 42.5 (37.0-47.0) % MCV 82.7 (80.0-98.0) fL MCH 28.8 (27.0-33.0) pg MCHC 34.8 (31.0-35.0) g/dl RDW 12.7 (11.0-16.0) % Plt Count 430 H (160-400) X10*3/uL MPV 9.6 (9.4-12.3) fL Immature Gran % (Auto) 0.5 H (0.0-0.4) % Neut % (Auto) 82.4 H (45-73) % Lymph % (Auto) 11.5 L (20-40) % Dougherty % (Auto) 5.4 (2-11) % Eos % (Auto) 0.0 (0-4) % Baso % (Auto) 0.2 (0-2) % Lymph # (Auto) 2.3 (1.2-4.9) X10*3/uL Dougherty # (Auto) 1.1 (0.1-1.2) X10*3/uL Eos # (Auto) 0.0 (0.0-0.4) X10*3/uL Baso # (Auto) 0.0 (0.0-0.2) X10*3/uL Abs Immat Gran (auto) 0.10 H (0.00-0.03) X10*3/uL Absolute Neuts (auto) 16.4 H (2.0-8.3) x10*3/uL Absolute Nucleated RBC 0.000 (0.0-0.012) X10*3/uL Nucleated RBC % (auto) 0.0 (0.0-0.2) /100WBC Sodium 140 (135-145) mmol/L Potassium 3.0 L (3.3-5.1) mmol/L Chloride 98 (96-108) mmol/L Carbon Dioxide 25 (22-29) mmol/L Anion Gap 20 (12-20) BUN 13 D (9-16) mg/dL Creatinine 0.85 (0.5-1.4) mg/dL Estim Creat Clear Calc 112.8 Estimated GFR > 60 Random Glucose 166 H (60-115) mg/dL Calcium 10.4 H D (8.4-10.2) mg/dL Beta HCG, Quant < 2 mIU/mL Ethyl Alcohol mg/dL COVID-19 ([facility]AN) Negative (Negative) COVID-19 Clin Com See Note 04/16/22 Range/Units 03:40 WBC (4.8-10.8) X10*3/uL RBC (4.20-5.50) X10*6/uL Hgb (12.0-16.0) g/dl Hct (37.0-47.0) % MCV (80.0-98.0) fL MCH (27.0-33.0) pg MCHC (31.0-35.0) g/dl RDW (11.0-16.0) % Plt Count (160-400) X10*3/uL MPV (9.4-12.3) fL Immature Gran % (Auto) (0.0-0.4) % Neut % (Auto) (45-73) % Lymph % (Auto) (20-40) % Dougherty % (Auto) (2-11) % Eos % (Auto) (0-4) % Baso % (Auto) (0-2) % Lymph # (Auto) (1.2-4.9) X10*3/uL Dougherty # (Auto) (0.1-1.2) X10*3/uL Eos # (Auto) (0.0-0.4) X10*3/uL Baso # (Auto) (0.0-0.2) X10*3/uL Abs Immat Gran (auto) (0.00-0.03) X10*3/uL Absolute Neuts (auto) (2.0-8.3) x10*3/uL Absolute Nucleated RBC (0.0-0.012) X10*3/uL Nucleated RBC % (auto) (0.0-0.2) /100WBC Sodium (135-145) mmol/L Potassium (3.3-5.1) mmol/L Chloride (96-108) mmol/L Carbon Dioxide (22-29) mmol/L Anion Gap (12-20) BUN (9-16) mg/dL Creatinine (0.5-1.4) mg/dL Estim Creat Clear Calc Estimated GFR Random Glucose (60-115) mg/dL Calcium (8.4-10.2) mg/dL Beta HCG, Quant mIU/mL Ethyl Alcohol < 10 mg/dL COVID-19 (ETHAN) (Negative) COVID-19 Clin Com Discharge Plan Discharge Clinical Impression: Panic attack, Cocaine abuse, Acute hypokalemia Depression Qualifiers: Depression Type: unspecified Qualified Code(s): F32.A - Depression, unspecified Patient Disposition: Still a Patient Additional Instructions: return to ED for any worsening symptoms or concerns Prescriptions: No Action metoclopramide HCl [Reglan] 10 mg tablet 10 mg PO Q6H PRN (Reason: nausea and vomiting) Qty: 20 0RF escitalopram oxalate [Lexapro] 10 mg Tablet 10 mg PO BEDTIME 0RF aripiprazole 5 mg Tablet 5 mg PO BEDTIME 0RF lorazepam [Ativan] 1 mg tablet 1 mg PO TID PRN (Reason: anxiety, nausea/vomiting) Qty: 14 0RF ondansetron 4 mg tablet,disintegrating 4 mg PO Q6-8H PRN (Reason: nausea and vomiting) Qty: 20 0RF Stand Alone Forms: Work/School Release
[2022-04-16 03:45] LABS: MANUAL DIFF FLAG NO
[2022-04-16 03:46] VITALS: BP 154/97; PULSE 119; RESP 22; TEMP 37.2; O2SAT 96; BMI 31.7
[2022-04-16 03:48] LABS: Basophils Percent Auto 0.2 % (0-2); Hematocrit 42.5 % (37.0-47.0); Hemoglobin 14.8 g/dl (12.0-16.0); Imm Gran Pct Auto 0.5 % (0.0-0.4); Lymphocytes Absolute Auto 2.3 X10*3/uL (1.2-4.9); Lymphocytes Percent Auto 11.5 % (20-40); Mean Corpuscular HGB Conc 34.8 g/dl (31.0-35.0); Mean Corpuscular Hemoglobin 28.8 pg (27.0-33.0); Mean Corpuscular Volume 82.7 fL (80.0-98.0); Mean Platelet Volume 9.6 fL (9.4-12.3); Monocytes Absolute Auto 1.1 X10*3/uL (0.1-1.2); Monocytes Percent Auto 5.4 % (2-11); Neutrophils Absolute Auto 16.4 x10*3/uL (2.0-8.3); Neutrophils Percent Auto 82.4 % (45-73); Platelet Count 430 X10*3/uL (160-400); Red Blood Count 5.14 X10*6/uL (4.20-5.50); Red Cell Distribution Width 12.7 % (11.0-16.0); White Blood Count 19.9 X10*3/uL (4.8-10.8)
[2022-04-16 04:02] LABS: COVID-19 Test Negative (Negative)
[2022-04-16 04:05] LABS: Anion Gap 20 (12-20); Blood Urea Nitrogen 13 mg/dL (9-16); Calcium 10.4 mg/dL (8.4-10.2); Carbon Dioxide 25 mmol/L (22-29); Chloride 98 mmol/L (96-108); Creatinine Clr Calc Pharmacy 112.8; Estimated Glomerular Filt Rate > 60; Glucose Random 166 mg/dL (60-115); Sodium 140 mmol/L (135-145)
[2022-04-16 04:13] LABS: HCG Quantitative < 2 mIU/mL
[2022-04-16] MEDS: ondansetron HCL 4 MG/2 ML VIAL IVPUSH (04:49)
[2022-04-16] MEDS: Metoclopramide HCl 10 MG/2 ML VIAL IVPUSH (05:24)
[2022-04-16] MEDS: diphenhydrAMINE HCL 50 MG/ML VIAL 25 MG IVPUSH (05:24)
--- NOTE | 2022-04-16 05:34 | PC.NURSE ---
Patient is alert and oriented x3, anxious, but cooperative. She is able to make her needs known. Lorazepam administered with some effect-patient reports she is less anxious. Patient reports she took cocaine and had some beer 2 days ago, since then patient reports feeling anxious with intermittent panic episodes, experiencing nausea and frequent vomiting. Zofran IV push given to patient with minimal effect. Patient requesting additional medication for nausea and anxiety-provider notified-Reglan IV and Benadryl IV push administered -effect pending. Patient was not able to tolerate Potassium tabs. informed.
[2022-04-16 06:02] LABS: Ethanol < 10 mg/dL
[2022-04-16] MEDS: Potassium Chloride Packet 20 MEQ PACKET 40 MEQ PO (06:02)
--- NOTE | 2022-04-16 08:46 | ECG_ITS ---
Test Reason : ANXIETY Blood Pressure : / mmHG Vent. Rate : 095 BPM Atrial Rate : 095 BPM P-R Int : 136 ms QRS Dur : 088 ms QT Int : 392 ms P-R-T Axes : 066 071 005 degrees QTc Int : 492 ms Normal sinus rhythm with sinus arrhythmia Cannot rule out Inferior infarct , age undetermined Abnormal ECG When compared with ECG of 01-DEC-2021 01:59, QT has lengthened Referred By: Alyssa De La Garza Electronically Signed By:CHRISTA STRATTON MD
[2022-04-16 09:35] LABS: Appearance Urine HAZY; Color Urine YELLOW; Glucose Urine UA NEG (NEG); Leukocyte Esterase Urine NEG (NEG); Nitrite Urine NEG (NEG); Specific Gravity - Urine 1.015 (1.005-1.025); UACC Culture Trigger NO; Urine Blood NEG (NEG); Urine Ketones >=80 MG/DL (NEG); Urine Protein 1+ MG/DL (NEG-TRACE)
[2022-04-16 09:47] LABS: Mucus Urine 3+ /LPF; Squamous Epithelial Cell Urine 2+ /LPF
[2022-04-16 09:48] LABS: RBC Urine 0-2 /HPF (0); WBC Urine 0 /HPF (0-4)
[2022-04-16] MEDS: Prochlorperazine Edisylate 10 MG/2 ML VIAL IVPUSH (09:56)
--- NOTE | 2022-04-16 10:01 | PC.NURSE ---
Pt has been cleared for d/c to follow up with out pt psych services. pt has been tolerating po ice chips however she dry heaves when she tries juice or soda. plan is for more po challenge after compazine.
[2022-04-16 10:03] LABS: Amphetamine Screen Urine Not Detected (Not Detect); Barbiturates, Urine Not Detected (Not Detect); Benzodiazepines Screen Urine Not Detected (Not Detect); Cannabinoid Screen Urine POSITIVE (Not Detect); Cocaine Screen Urine POSITIVE (Not Detect); Fentanyl, urine Not Detected (Not Detect); Opiate Screen Urine Not Detected (Not Detect); Phencyclidine Screen Urine Not Detected (Not Detect)
[2022-04-16] MEDS: Haloperidol Lactate 5 MG/ML VIAL 2.5 MG IM (11:02)
--- NOTE | 2022-04-16 11:03 | PC.NURSE ---
Pt has continued with intermittent vomiting.
[2022-04-16] MEDS: Magnesium Hydrox/Alum Hydrox 30 ML ORAL.SUSP PO (12:37)
[2022-04-16] MEDS: Lidocaine HCl Viscous 2 % 15 ML SOLUTION 10 ML MUCOUS MEM (12:37)
[2022-04-16] MEDS: Sucralfate Oral Suspension 1 GM/10 ML ORAL.SUSP PO (12:37)
== END 2022-04-16 13:46 | disposition home or self-care (01) ==
PROVIDERS: Student in an Organized Health Care Education/Training Program; Emergency Provider Emergency Medicine
DX: F32.A Depression, unspecified (principal); F41.0 Panic disorder [episodic paroxysmal anxiety]; F14.10 Cocaine abuse, uncomplicated; E87.6 Hypokalemia; R11.15 Cyclical vomiting syndrome unrelated to migraine; S70.311A Abrasion, right thigh, initial encounter; X78.9XXA Intentional self-harm by unspecified sharp object, initial encounter; F41.9 Anxiety disorder, unspecified; Z20.822 Contact with and (suspected) exposure to COVID-19; Z79.899 Other long term (current) drug therapy; Y93.9 Activity, unspecified; Y92.019 Unspecified place in single-family (private) house as the place of occurrence of the external cause; Y99.9 Unspecified external cause status
CPT/HCPCS: 36415; 80048; 80307; 81001; 82077; 84702; 85025; 87635; 93005; 96361; 96372; 96374; 96375; 99284; 99285; J1200; J2060; J2405; J2765

== ENCOUNTER 2022-04-17 00:18 | Emergency (ER) | payer MEDICAID, SELFPAY ==
[2022-04-17 00:28] VITALS: BP 148/88; PULSE 104; RESP 18; O2SAT 98; BMI 29.0
--- NOTE | 2022-04-17 00:52 | ED.GENADULT ---
HPI - General Adult General Chief complaint: General Medical Stated complaint: drug use ? Time Seen by Provider: 04/17/22 00:52 Source: patient Mode of arrival: ambulatory Limitations: no limitations History of Present Illness HPI narrative: 21-year-old female history of cyclical vomiting, seizure, anxiety presenting to the emergency department with complaints of nausea, vomiting, anxiety/panic attacks x2 days. Patient tells me that she has been feeling nauseous and has vomited a few times, she tells me she has not vomited too much however her main concern is the nausea. Patient also tells me that she has been having panic attacks. She tells me she was having 1 as she was being rolled into the emergency department. Initially when she came in father told staff that they wanted her evaluated for ?pseudoseizures ?however this was not the story I obtained. Patient tells me she feels better, she tells me she feels like she was having a panic attack. She tells me she drinks socially however she has not drank today, high last drink was a murphy a few days ago. Denies any drug use and tobacco. Denies visual, auditory and tactile hallucinations. Denies suicidal and homicidal ideation. Patient denies chest pain, shortness of breath, abdominal pain, headache, dizziness, fevers, chills, weakness Onset (ago): day(s) (2) Relieving factors: none Exacerbating factors: none Associated symptoms: denies other symptoms Treatments prior to arrival: none Related Data Home Medications Medication Instructions Recorded Confirmed aripiprazole 5 mg tablet 5 mg PO BEDTIME 01/11/22 01/11/22 escitalopram oxalate 10 mg tablet 10 mg PO BEDTIME 01/11/22 01/11/22 (Lexapro) Previous Rx's Medication Instructions Recorded metoclopramide HCl 10 mg tablet 10 mg PO Q6H PRN #20 tab 01/09/22 (Reglan) lorazepam 1 mg tablet (Ativan) 1 mg PO TID PRN #14 tab 01/12/22 ondansetron 4 mg disintegrating 4 mg PO Q6-8H PRN #20 tab 01/12/22 tablet omeprazole 40 mg capsule,delayed 40 mg PO DAILY 14 Days #14 cap 04/16/22 release Allergies Allergy/AdvReac Type Severity Reaction Status Date / Time No Known Allergies Allergy Verified 01/16/22 15:55 Review of Systems Review of Systems: Constitutional : No Weight loss, No Fever, No Chills, No Fatigue, No Malaise ENT/Mouth : No sore throat, No Rhinorrhea Eyes: No Eye Pain, No Swelling, No Redness Cardiovascular : No Chest Pain, No SOB, No Dyspnea on Exertion, No Orthopnea, No Edema, No Palpitations Respiratory : No Cough, No Sputum, No Wheezing Gastrointestinal : + Nausea, + Vomiting, No Diarrhea, No Constipation, No abdominal Pain, No Hematochezia, No Melena Genitourinary : No Dysuria, No Urinary Frequency, No Hematuria, Musculoskeletal : No joint pain, No Myalgias, No Joint Swelling Skin : No Skin Lesions, No rash Neuro : No Weakness, No Numbness, No Dizziness, No Headache Psych : No Anxiety/Panic, No Depression All other systems reviewed and are negative Yes all other systems are reviewed and are negative [facility] Past Medical History Attestation statement: The following information was validated with the patient. Source: old records reviewed and nursing notes reviewed Medical History Anxiety Cyclical vomiting Seizure Social History Social History Alcohol intake: current Alcohol intake frequency: holidays/special occasions only Alcohol type: beer Patient Tobacco Use Status: Never used Tobacco Use of substances other than those prescribed or required for medical reasons: No Substance Use Type: Marijuana Advance Directives: No Advance Directives Information Provided: No Patient : No Physical Exam ED Vital Signs: Vital Signs - 24 hr 04/17/22 00:28 04/17/22 02:00 Pulse Rate 104 H 90 Respiratory Rate 18 18 Blood Pressure 148/88 H 125/73 Pulse Oximetry 98 98 BMI result Body Mass Index 29.0 Vital signs stable Appearance: Alert.? Oriented X3.? No acute distress.? Head: Normocephalic, atraumatic, no step-offs or deformities Eyes: Pupils equal, round and reactive to light.? ENT: Pharynx normal.? Neck: Normal inspection.? Neck supple.? CVS: Normal heart rate and rhythm.? Pulses normal.? Respiratory: No respiratory distress.? Breath sounds normal.? Abdomen: Soft and nontender.? Skin: Skin warm and dry.? Normal skin color.? Normal skin turgor.? Extremities: No lower extremity edema.? No calf ttp. 5/5 strength to bilateral upper and lower extremities Neuro: Oriented X 3.? No motor deficit.? No sensory deficit. CN 2-12 intact Course Reevaluation(s) Reevaluation #1: Patient with a slightly elevated leukocytosis, likely secondary to nausea/vomiting, patient has vomited x2 here in the department. Potassium 3.1 will give 40 of p.o. potassium. Patient's bilirubin elevated 1.9 however this appears to be her baseline, no pain to palpation of abdomen. Urine toxicology positive for cocaine and marijuana, I suspect that this is cyclic vomiting based off patient's presentation, history. COVID negative. Patient feels much better after fluids, Zofran, and Atarax. Time: 02:17 Reevaluation #2: Educated patient on diagnosis and treatment plan. I advised her to follow-up with psychiatry and therapy and/or N for her anxiety/panic attacks. Patient is currently on Lexapro, I will not make any changes to her medication, this should be done by her primary prescriber. Advised her to return with new or worsening symptoms and to have follow-up laboratory studies to ensure that her potassium went up. Patient has hypokalemia however asymptomatic at this time. She was repleted here in the emergency department. Patient reporting that she feels much better repeated examination with a benign abdomen, no pain with palpation, normoactive bowel sounds. Patient appears comfortable. Alert and oriented x4. At this time I feel comfortable with discharge home likely diagnosis cyclic vomiting. Time: 02:24 Medical Decision Making [facility] Narrative Medical decision making narrative: [age] yo f presents w/ acute panic attack, nausea, vomiting X2 days. Patient telling me that she knows what she just had was a panic attack, now she is much calmer, normal respiratory rate appears to be in no acute distress, speaking to me calmly. Tells me she would like medication for anxiety, will give her Atarax. Physical examination benign. No abdominal tenderness to palpation. Unlikely cholecystitis, pancreatitis or appendicitis. Likely cyclic vomiting. Plan at this time is labs, urine, gandhi, fluids, zofran. At this time patient has a benign abdomen exam, no need for imaging. Medical Records Medical records reviewed: Yes I reviewed the patient's medical records. Lab Data Lab results reviewed: Yes I reviewed the patient's lab results. Result diagrams: 04/17/22 01:27 04/17/22 01:46 Labs: Lab Results 04/17/22 04/17/22 04/17/22 Range/Units 01: 01:27 01:37 WBC 16.5 H (4.8-10.8) X10*3/uL RBC 4.87 (4.20-5.50) X10*6/uL Hgb 14.1 (12.0-16.0) g/dl Hct 40.8 (37.0-47.0) % MCV 83.8 (80.0-98.0) fL MCH 29.0 (27.0-33.0) pg MCHC 34.6 (31.0-35.0) g/dl RDW 12.7 (11.0-16.0) % Plt Count 320 D (160-400) X10*3/uL MPV 9.4 (9.4-12.3) fL Immature Gran % (Auto) 0.4 (0.0-0.4) % Neut % (Auto) 75.9 H (45-73) % Lymph % (Auto) 16.0 L (20-40) % [place] % (Auto) 7.1 (2-11) % Eos % (Auto) 0.2 (0-4) % Baso % (Auto) 0.4 (0-2) % Lymph # (Auto) 2.7 (1.2-4.9) X10*3/uL [place] # (Auto) 1.2 (0.1-1.2) X10*3/uL Eos # (Auto) 0.0 (0.0-0.4) X10*3/uL Baso # (Auto) 0.1 (0.0-0.2) X10*3/uL Abs Immat Gran (auto) 0.07 H (0.00-0.03) X10*3/uL Absolute Neuts (auto) 12.6 H (2.0-8.3) x10*3/uL Absolute Nucleated RBC 0.000 (0.0-0.012) X10*3/uL Nucleated RBC % (auto) 0.0 (0.0-0.2) /100WBC Sodium (135-145) mmol/L Potassium (3.3-5.1) mmol/L Chloride (96-108) mmol/L Carbon Dioxide (22-29) mmol/L Anion Gap (12-20) BUN (9-16) mg/dL Creatinine (0.5-1.4) mg/dL Estim Creat Clear Calc Estimated GFR Random Glucose (60-115) mg/dL Calcium (8.4-10.2) mg/dL Magnesium (1.6-2.6) mg/dL Total Bilirubin (0.0-1.0) mg/dL AST (5-31) U/L ALT (0-31) U/L Alkaline Phosphatase (39-117) U/L Total Protein (6.5-8.0) g/dL Albumin (3.5-5.0) g/dL Urine Opiates Screen Not Detected (Not Detect) Urine Fentanyl Screen Not Detected (Not Detect) Ur Barbiturates Screen Not Detected (Not Detect) Ur Phencyclidine Scrn Not Detected (Not Detect) Ur Amphetamines Screen Not Detected (Not Detect) U Benzodiazepines Scrn Not Detected (Not Detect) Urine Cocaine Screen POSITIVE H (Not Detect) U Marijuana (THC) Screen POSITIVE H (Not Detect) Ethyl Alcohol mg/dL COVID-19 (ETHAN) Negative (Negative) COVID-19 Clin Com See Note 04/17/22 04/17/22 Range/Units 01:46 01:46 WBC (4.8-10.8) X10*3/uL RBC (4.20-5.50) X10*6/uL Hgb (12.0-16.0) g/dl Hct (37.0-47.0) % MCV (80.0-98.0) fL MCH (27.0-33.0) pg MCHC (31.0-35.0) g/dl RDW (11.0-16.0) % Plt Count (160-400) X10*3/uL MPV (9.4-12.3) fL Immature Gran % (Auto) (0.0-0.4) % Neut % (Auto) (45-73) % Lymph % (Auto) (20-40) % Dod[place]idge % (Auto) (2-11) % Eos % (Auto) (0-4) % Baso % (Auto) (0-2) % Lymph # (Auto) (1.2-4.9) X10*3/uL [place] # (Auto) (0.1-1.2) X10*3/uL Eos # (Auto) (0.0-0.4) X10*3/uL Baso # (Auto) (0.0-0.2) X10*3/uL Abs Immat Gran (auto) (0.00-0.03) X10*3/uL Absolute Neuts (auto) (2.0-8.3) x10*3/uL Absolute Nucleated RBC (0.0-0.012) X10*3/uL Nucleated RBC % (auto) (0.0-0.2) /100WBC Sodium 138 (135-145) mmol/L Potassium 3.1 L (3.3-5.1) mmol/L Chloride 98 (96-108) mmol/L Carbon Dioxide 30 H (22-29) mmol/L Anion Gap 13 (12-20) BUN 10 (9-16) mg/dL Creatinine 0.80 (0.5-1.4) mg/dL Estim Creat Clear Calc 118.7 Estimated GFR > 60 Random Glucose 123 H (60-115) mg/dL Calcium 9.5 D (8.4-10.2) mg/dL Magnesium 2.2 (1.6-2.6) mg/dL Total Bilirubin 1.9 H (0.0-1.0) mg/dL AST 16 D (5-31) U/L ALT 17 (0-31) U/L Alkaline Phosphatase 87 (39-117) U/L Total Protein 7.7 (6.5-8.0) g/dL Albumin 4.5 (3.5-5.0) g/dL Urine Opiates Screen (Not Detect) Urine Fentanyl Screen (Not Detect) Ur Barbiturates Screen (Not Detect) Ur Phencyclidine Scrn (Not Detect) Ur Amphetamines Screen (Not Detect) U Benzodiazepines Scrn (Not Detect) Urine Cocaine Screen (Not Detect) U Marijuana (THC) Screen (Not Detect) Ethyl Alcohol < 10 mg/dL COVID-19 (ETHAN) (Negative) COVID-19 Clin Com Critical Care Time Critical Care Time Critical Care Time: No Discharge Plan Discharge Clinical Impression: Cyclical vomiting, Hypokalemia, Anxiety, Cocaine abuse, Marijuana abuse Patient Disposition: Home, Self-Care Instructions: Potassium Content of Foods List (ED), Hypokalemia (ED), Acute Nausea and Vomiting (ED), Polysubstance Abuse (ED) Additional Instructions: Take your medications as prescribed. If you were prescribed antibiotics today, it is important that you take your medication to their entirety, do not skip any doses, do not finish them early. Follow-up with your primary care provider this week. Return to the emergency department with new or worsening symptoms. Such as fevers, chills, chest pain, shortness of breath, nausea, vomiting, dizziness, headache, vision changes, lethargy In case of emergency call 911 I suspect that your nausea and and vomiting is likely secondary to marijuana/drug use. This is called cyclic vomiting. Please drink plenty of fluids. Your potassium was noted to be low, your repleted with oral potassium, I advise you to get follow-up laboratory studies to check your potassium in 1-3 days. Prescriptions: No Action metoclopramide HCl [Reglan] 10 mg tablet 10 mg PO Q6H PRN (Reason: nausea and vomiting) Qty: 20 0RF escitalopram oxalate [Lexapro] 10 mg Tablet 10 mg PO BEDTIME 0RF aripiprazole 5 mg Tablet 5 mg PO BEDTIME 0RF omeprazole 40 mg capsule,delayed release(DR/EC) 40 mg PO DAILY 14 Days Qty: 14 0RF lorazepam [Ativan] 1 mg tablet 1 mg PO TID PRN (Reason: anxiety, nausea/vomiting) Qty: 14 0RF ondansetron 4 mg tablet,disintegrating 4 mg PO Q6-8H PRN (Reason: nausea and vomiting) Qty: 20 0RF Referrals: [facility] [Provider Group] - 1 day
[2022-04-17 01:34] LABS: Basophils Absolute Auto 0.1 X10*3/uL (0.0-0.2); Basophils Percent Auto 0.4 % (0-2); Eosinophils Percent Auto 0.2 % (0-4); Hematocrit 40.8 % (37.0-47.0); Hemoglobin 14.1 g/dl (12.0-16.0); Imm Gran Abs Auto 0.07 X10*3/uL (0.00-0.03); Imm Gran Pct Auto 0.4 % (0.0-0.4); Lymphocytes Absolute Auto 2.7 X10*3/uL (1.2-4.9); MANUAL DIFF FLAG NO; Mean Corpuscular HGB Conc 34.6 g/dl (31.0-35.0); Mean Corpuscular Volume 83.8 fL (80.0-98.0); Mean Platelet Volume 9.4 fL (9.4-12.3); Monocytes Absolute Auto 1.2 X10*3/uL (0.1-1.2); Monocytes Percent Auto 7.1 % (2-11); Neutrophils Absolute Auto 12.6 x10*3/uL (2.0-8.3); Neutrophils Percent Auto 75.9 % (45-73); Platelet Count 320 X10*3/uL (160-400); Red Blood Count 4.87 X10*6/uL (4.20-5.50); Red Cell Distribution Width 12.7 % (11.0-16.0); White Blood Count 16.5 X10*3/uL (4.8-10.8)
[2022-04-17] MEDS: 0.9 % Sodium Chloride 1,000 ML 999 ML IV (01:42)
[2022-04-17 01:50] LABS: COVID-19 Test Negative (Negative); IDNOW Serial# 9DB6401D
[2022-04-17] MEDS: ondansetron HCL 4 MG/2 ML VIAL IVPUSH (01:59)
[2022-04-17 02:00] VITALS: BP 125/73; PULSE 90; RESP 18; O2SAT 98
[2022-04-17 02:05] LABS: Ethanol < 10 mg/dL
[2022-04-17] MEDS: hydrOXYzine HCL 25 MG TABLET PO (02:07)
[2022-04-17 02:08] LABS: Alanine Aminotransferase 17 U/L (0-31); Albumin Level 4.5 g/dL (3.5-5.0); Alkaline Phosphatase 87 U/L (39-117); Anion Gap 13 (12-20); Aspartate Amino Transferase 16 U/L (5-31); Bilirubin Total 1.9 mg/dL (0.0-1.0); Blood Urea Nitrogen 10 mg/dL (9-16); Calcium 9.5 mg/dL (8.4-10.2); Carbon Dioxide 30 mmol/L (22-29); Chloride 98 mmol/L (96-108); Creatinine Clr Calc Pharmacy 118.7; Estimated Glomerular Filt Rate > 60; Glucose Random 123 mg/dL (60-115); Magnesium 2.2 mg/dL (1.6-2.6); Potassium 3.1 mmol/L (3.3-5.1); Sodium 138 mmol/L (135-145); Total Protein 7.7 g/dL (6.5-8.0)
[2022-04-17 02:08] LABS: Amphetamine Screen Urine Not Detected (Not Detect); Barbiturates, Urine Not Detected (Not Detect); Benzodiazepines Screen Urine Not Detected (Not Detect); Cannabinoid Screen Urine POSITIVE (Not Detect); Cocaine Screen Urine POSITIVE (Not Detect); Fentanyl, urine Not Detected (Not Detect); Opiate Screen Urine Not Detected (Not Detect); Phencyclidine Screen Urine Not Detected (Not Detect)
--- NOTE | 2022-04-17 02:08 | PC.NURSE ---
pt a&ox3, vss, 20G IV placed right AC, medicated per provider order. urine sample obtained and sent to lab.
[2022-04-17 02:17] LABS: Appearance Urine HAZY; Color Urine DK YELLOW; Glucose Urine UA NEG (NEG); Leukocyte Esterase Urine NEG (NEG); Nitrite Urine NEG (NEG); UACC Culture Trigger NO; Urine Blood TRACE (NEG); Urine Ketones 40 MG/DL (NEG); Urine Protein 1+ MG/DL (NEG-TRACE)
[2022-04-17 02:23] LABS: Bacteria Urine 1+ /LPF; Calcium Phosphate Crystals Ur TRACE /LPF; Mucus Urine TRACE /LPF; Squamous Epithelial Cell Urine 1+ /LPF; WBC Urine 0-2 /HPF (0-4)
[2022-04-17] MEDS: Potassium Chloride Packet 20 MEQ PACKET 40 MEQ PO (03:07)
== END 2022-04-17 03:10 | disposition home or self-care (01) ==
PROVIDERS: Physician Assistant; Emergency Provider Emergency Medicine Emergency Medical Services
DX: R11.15 Cyclical vomiting syndrome unrelated to migraine (principal); E87.6 Hypokalemia; F41.9 Anxiety disorder, unspecified; F14.10 Cocaine abuse, uncomplicated; F12.10 Cannabis abuse, uncomplicated; Z20.822 Contact with and (suspected) exposure to COVID-19; Z79.899 Other long term (current) drug therapy
CPT/HCPCS: 36415; 80053; 80307; 81001; 82077; 83735; 85025; 87635; 96361; 96374; 99284; J2405

== ENCOUNTER 2022-04-17 06:43 | Observation (INO) | payer MEDICAID, SELFPAY ==
[2022-04-17] VITALS (7 sets, daily range): BP systolic 121–195; BP diastolic 65–109; PULSE 81–108; RESP 16–28; TEMP 36.4–37.4; O2SAT 100; BMI 25.0
--- NOTE | 2022-04-17 07:40 | ECG_ITS ---
Test Reason : SYNCOPE Blood Pressure : / mmHG Vent. Rate : 100 BPM Atrial Rate : 100 BPM P-R Int : 130 ms QRS Dur : 092 ms QT Int : 362 ms P-R-T Axes : 065 075 006 degrees QTc Int : 466 ms Poor data quality, interpretation may be adversely affected Normal sinus rhythm Possible Inferior infarct (cited on or before 16-APR-2022) Abnormal ECG When compared with ECG of 16-APR-2022 08:45, No significant change was found Referred By: Alyssa De La Garza Electronically Signed By:CHRISTA STRATTON MD
[2022-04-17] MEDS: 0.9 % Sodium Chloride 1,000 ML 999 ML IV (07:50)
[2022-04-17 07:59] LABS: Basophils Absolute Auto 0.1 X10*3/uL (0.0-0.2); Basophils Percent Auto 0.4 % (0-2); Eosinophils Percent Auto 0.2 % (0-4); Hematocrit 40.4 % (37.0-47.0); Hemoglobin 13.8 g/dl (12.0-16.0); Imm Gran Abs Auto 0.12 X10*3/uL (0.00-0.03); Imm Gran Pct Auto 0.7 % (0.0-0.4); Lymphocytes Absolute Auto 2.9 X10*3/uL (1.2-4.9); Lymphocytes Percent Auto 15.8 % (20-40); MANUAL DIFF FLAG SCAN; Mean Corpuscular HGB Conc 34.2 g/dl (31.0-35.0); Mean Corpuscular Hemoglobin 28.5 pg (27.0-33.0); Mean Corpuscular Volume 83.3 fL (80.0-98.0); Mean Platelet Volume 9.6 fL (9.4-12.3); Monocytes Absolute Auto 1.6 X10*3/uL (0.1-1.2); Monocytes Percent Auto 8.7 % (2-11); Neutrophils Absolute Auto 13.5 x10*3/uL (2.0-8.3); Neutrophils Percent Auto 74.2 % (45-73); Platelet Count 328 X10*3/uL (160-400); Red Blood Count 4.85 X10*6/uL (4.20-5.50); Red Cell Distribution Width 12.6 % (11.0-16.0); SCAN SMEAR FLAG 1; White Blood Count 18.1 X10*3/uL (4.8-10.8)
--- NOTE | 2022-04-17 08:11 | ED.PSYCH ---
HPI - Psych General Chief Complaint: Syncope Stated Complaint: vomiting nonstop, anxiety Time Seen by Provider: 04/17/22 07:20 Source: patient and family Mode of arrival: ambulatory History of Present Illness HPI Narrative: 21-year-old female with severe anxiety, was seen and discharged yesterday evaluated by behavioral team which determined that she was a candidate further urgent care program, however patient continued with what is suspected to be behavioral related nausea and vomiting but finally able to get her to tolerate p.o. meds later in the afternoon after receiving 2.5 mg of Haldol. As per patient this morning she states that we did not help her and that she was back at 03:00 o'clock in the morning with continued nausea and vomiting, and is now back again with persistent nausea and vomiting as well as significant anxiety. Patient does have a history of both alcohol and cocaine use. Related Data Home Medications Medication Instructions Recorded Confirmed aripiprazole 5 mg tablet 5 mg PO BEDTIME 01/11/22 01/11/22 escitalopram oxalate 10 mg tablet 10 mg PO BEDTIME 01/11/22 01/11/22 (Lexapro) Previous Rx's Medication Instructions Recorded metoclopramide HCl 10 mg tablet 10 mg PO Q6H PRN #20 tab 01/09/22 (Reglan) lorazepam 1 mg tablet (Ativan) 1 mg PO TID PRN #14 tab 01/12/22 ondansetron 4 mg disintegrating 4 mg PO Q6-8H PRN #20 tab 01/12/22 tablet omeprazole 40 mg capsule,delayed 40 mg PO DAILY 14 Days #14 cap 04/16/22 release Allergies Allergy/AdvReac Type Severity Reaction Status Date / Time No Known Allergies Allergy Verified 01/16/22 15:55 Review of Systems Review of Systems: Pertinent positives and negatives as stated in HPI 10 point review of systems is otherwise negative. [facility] Past Medical History Source: nursing notes reviewed Medical History Anxiety Cyclical vomiting Seizure Social History Social History Alcohol intake: current Alcohol intake frequency: a few times a week Alcohol type: beer Patient Tobacco Use Status: Never used Tobacco Use of substances other than those prescribed or required for medical reasons: Yes Substance Use Type: Crack/Cocaine and Marijuana Substance Use Frequency: Recent Binge Substance Use Frequency Other:: 2 Last Used Substance: Days (ago) Advance Directives: No Advance Directives Information Provided: No Physical Exam Vital Signs: Vital Signs: Last Vital Signs Temp 97.8 F 04/17/22 07:07 Pulse 98 04/17/22 08:28 Resp 20 04/17/22 08:28 BP 145/102 H 04/17/22 08:28 Pulse Ox 100 04/17/22 08:59 BMI result Body Mass Index 25.0 VITAL SIGNS: Reviewed. GENERAL: Well developed, well nourished, in anxiety distress. HEAD: Normocephalic/atraumatic EYES: PERRLA, EOMI EARS: Ext canals without abnormality OROPHARYNX: no oral lesions noted, posterior pharynx clear LUNGS: Normal breath sounds. No adventitious sounds or accessory muscle use CARDIOVASCULAR: Regular rate and rhythm without noted murmurs ABDOMEN: Soft, epigastric discomfort, non-distended with bowel sounds. MUSCULOSKELETAL: No tenderness, deformities, or effusions noted on gross inspection. EXTREMITIES: No cyanosis, clubbing or edema. SKIN: Inspection of the skin reveals no rashes NEUROLOGIC: Alert and oriented x 3. Strength and sensation to light touch were grossly intact x 4, cranial nerves 2-12 grossly intact PSYCH: Tearful, anxious, rolling around in the bed Course Course Course Narrative: This is a 21-year-old female with history and clinical presentation consistent with inability to cope outside of the hospital, despite evaluation yesterday stating that she was a candidate for urgent Care, it is my opinion that this patient should not be allowed to be discharged as given her extensive nausea and vomiting she is at increased risk for significant electrolyte abnormalities. I have consulted with the care team for initial screening, we will complete initial lab work to include ADAMS and BAL, patient to receive Zyprexa by IM only for her inability to tolerate oral intake not as a medication restraint. Review of initial EKG does not demonstrate QT prolongation. Review of all investigations without acute findings and electrolytes appear to be within normal range today likely because patient has been seen here multiple times within the past 24 hours. Patient is responded well to IM Zyprexa, however believe that this is a short lived solution given the fast turn around to the emergency room. Consult has been placed for the care team and will place 1 for the behavioral team as well. I discussed this case with the inpatient hospitalist who accepts admission for intractable nausea and vomiting (likely cyclical), extreme anxiety. MDM - Psych Lab Data Result diagrams: 04/17/22 07:40 04/17/22 07:40 Labs: Lab Results 04/17/22 04/17/22 04/17/22 Range/Units 07:40 07:40 07:40 WBC 18.1 H (4.8-10.8) X10*3/uL RBC 4.85 (4.20-5.50) X10*6/uL Hgb 13.8 (12.0-16.0) g/dl Hct 40.4 (37.0-47.0) % MCV 83.3 (80.0-98.0) fL MCH 28.5 (27.0-33.0) pg MCHC 34.2 (31.0-35.0) g/dl RDW 12.6 (11.0-16.0) % Plt Count 328 (160-400) X10*3/uL MPV 9.6 (9.4-12.3) fL Immature Gran % (Auto) 0.7 H (0.0-0.4) % Neut % (Auto) 74.2 H (45-73) % Lymph % (Auto) 15.8 L (20-40) % [place] % (Auto) 8.7 (2-11) % Eos % (Auto) 0.2 (0-4) % Baso % (Auto) 0.4 (0-2) % Lymph # (Auto) 2.9 (1.2-4.9) X10*3/uL [place] # (Auto) 1.6 H (0.1-1.2) X10*3/uL Eos # (Auto) 0.0 (0.0-0.4) X10*3/uL Baso # (Auto) 0.1 (0.0-0.2) X10*3/uL Abs Immat Gran (auto) 0.12 H (0.00-0.03) X10*3/uL Absolute Neuts (auto) 13.5 H (2.0-8.3) x10*3/uL Absolute Nucleated RBC 0.000 (0.0-0.012) X10*3/uL Nucleated RBC % (auto) 0.0 (0.0-0.2) /100WBC Smear Tech's Comments VERIFIED Sodium 138 (135-145) mmol/L Potassium 3.3 (3.3-5.1) mmol/L Chloride 102 (96-108) mmol/L Carbon Dioxide 22 (22-29) mmol/L Anion Gap 17 (12-20) BUN 8 L (9-16) mg/dL Creatinine 0.75 (0.5-1.4) mg/dL Estim Creat Clear Calc 105.8 Estimated GFR > 60 Random Glucose 123 H (60-115) mg/dL Calcium 9.2 (8.4-10.2) mg/dL Magnesium 2.0 (1.6-2.6) mg/dL Total Bilirubin 2.0 H (0.0-1.0) mg/dL AST 21 (5-31) U/L ALT 16 (0-31) U/L Alkaline Phosphatase 87 (39-117) U/L Total Protein 7.7 (6.5-8.0) g/dL Albumin 4.4 (3.5-5.0) g/dL Urine Color Urine Appearance Urine pH (5.0-8.0) Ur Specific [place] (1.005-1.025) Urine Protein (NEG-TRACE) MG/DL Urine Glucose (UA) (NEG) MG/DL Urine Ketones (NEG) MG/DL Urine Blood (NEG) Urine Nitrite (NEG) Ur Leukocyte Esterase (NEG) Urine RBC (0) /HPF Urine WBC (0-4) /HPF Ur Squamous Epith Cells /LPF Urine Bacteria /LPF Urine Mucus /LPF Urine Test (NEGATIVE) Urine Opiates Screen (Not Detect) Urine Fentanyl Screen (Not Detect) Ur Barbiturates Screen (Not Detect) Ur Phencyclidine Scrn (Not Detect) Ur Amphetamines Screen (Not Detect) U Benzodiazepines Scrn (Not Detect) Urine Cocaine Screen (Not Detect) U Marijuana (THC) Screen (Not Detect) Ethyl Alcohol mg/dL COVID-19 (ETHAN) Negative (Negative) COVID-19 Clin Com See Note 04/17/22 04/17/22 04/17/22 Range/Units 07:40 08:17 08:17 WBC (4.8-10.8) X10*3/uL RBC (4.20-5.50) X10*6/uL Hgb (12.0-16.0) g/dl Hct (37.0-47.0) % MCV (80.0-98.0) fL MCH (27.0-33.0) pg MCHC (31.0-35.0) g/dl RDW (11.0-16.0) % Plt Count (160-400) X10*3/uL MPV (9.4-12.3) fL Immature Gran % (Auto) (0.0-0.4) % Neut % (Auto) (45-73) % Lymph % (Auto) (20-40) % [place] % (Auto) (2-11) % Eos % (Auto) (0-4) % Baso % (Auto) (0-2) % Lymph # (Auto) (1.2-4.9) X10*3/uL [place] # (Auto) (0.1-1.2) X10*3/uL Eos # (Auto) (0.0-0.4) X10*3/uL Baso # (Auto) (0.0-0.2) X10*3/uL Abs Immat Gran (auto) (0.00-0.03) X10*3/uL Absolute Neuts (auto) (2.0-8.3) x10*3/uL Absolute Nucleated RBC (0.0-0.012) X10*3/uL Nucleated RBC % (auto) (0.0-0.2) /100WBC Smear Tech's Comments Sodium (135-145) mmol/L Potassium (3.3-5.1) mmol/L Chloride (96-108) mmol/L Carbon Dioxide (22-29) mmol/L Anion Gap (12-20) BUN (9-16) mg/dL Creatinine (0.5-1.4) mg/dL Estim Creat Clear Calc Estimated GFR Random Glucose (60-115) mg/dL Calcium (8.4-10.2) mg/dL Magnesium (1.6-2.6) mg/dL Total Bilirubin (0.0-1.0) mg/dL AST (5-31) U/L ALT (0-31) U/L Alkaline Phosphatase (39-117) U/L Total Protein (6.5-8.0) g/dL Albumin (3.5-5.0) g/dL Urine Color YELLOW Urine Appearance HAZY Urine pH 7.0 (5.0-8.0) Ur Specific [place] 1.015 (1.005-1.025) Urine Protein 1+ H (NEG-TRACE) MG/DL Urine Glucose (UA) NEG (NEG) MG/DL Urine Ketones >=80 (NEG) MG/DL Urine Blood 2+ H (NEG) Urine Nitrite NEG (NEG) Ur Leukocyte Esterase NEG (NEG) Urine RBC 15-29 H (0) /HPF Urine WBC 0 (0-4) /HPF Ur Squamous Epith Cells 1+ /LPF Urine Bacteria TRACE /LPF Urine Mucus 1+ /LPF Urine Test NEGATIVE (NEGATIVE) Urine Opiates Screen (Not Detect) Urine Fentanyl Screen (Not Detect) Ur Barbiturates Screen (Not Detect) Ur Phencyclidine Scrn (Not Detect) Ur Amphetamines Screen (Not Detect) U Benzodiazepines Scrn (Not Detect) Urine Cocaine Screen (Not Detect) U Marijuana (THC) Screen (Not Detect) Ethyl Alcohol < 10 mg/dL COVID-19 (ETHAN) (Negative) COVID-19 Clin Com 04/17/22 Range/Units 08:17 WBC (4.8-10.8) X10*3/uL RBC (4.20-5.50) X10*6/uL Hgb (12.0-16.0) g/dl Hct (37.0-47.0) % MCV (80.0-98.0) fL MCH (27.0-33.0) pg MCHC (31.0-35.0) g/dl RDW (11.0-16.0) % Plt Count (160-400) X10*3/uL MPV (9.4-12.3) fL Immature Gran % (Auto) (0.0-0.4) % Neut % (Auto) (45-73) % Lymph % (Auto) (20-40) % [place] % (Auto) (2-11) % Eos % (Auto) (0-4) % Baso % (Auto) (0-2) % Lymph # (Auto) (1.2-4.9) X10*3/uL [place] # (Auto) (0.1-1.2) X10*3/uL Eos # (Auto) (0.0-0.4) X10*3/uL Baso # (Auto) (0.0-0.2) X10*3/uL Abs Immat Gran (auto) (0.00-0.03) X10*3/uL Absolute Neuts (auto) (2.0-8.3) x10*3/uL Absolute Nucleated RBC (0.0-0.012) X10*3/uL Nucleated RBC % (auto) (0.0-0.2) /100WBC Smear Tech's Comments Sodium (135-145) mmol/L Potassium (3.3-5.1) mmol/L Chloride (96-108) mmol/L Carbon Dioxide (22-29) mmol/L Anion Gap (12-20) BUN (9-16) mg/dL Creatinine (0.5-1.4) mg/dL Estim Creat Clear Calc Estimated GFR Random Glucose (60-115) mg/dL Calcium (8.4-10.2) mg/dL Magnesium (1.6-2.6) mg/dL Total Bilirubin (0.0-1.0) mg/dL AST (5-31) U/L ALT (0-31) U/L Alkaline Phosphatase (39-117) U/L Total Protein (6.5-8.0) g/dL Albumin (3.5-5.0) g/dL Urine Color Urine Appearance Urine pH (5.0-8.0) Ur Specific [place] (1.005-1.025) Urine Protein (NEG-TRACE) MG/DL Urine Glucose (UA) (NEG) MG/DL Urine Ketones (NEG) MG/DL Urine Blood (NEG) Urine Nitrite (NEG) Ur Leukocyte Esterase (NEG) Urine RBC (0) /HPF Urine WBC (0-4) /HPF Ur Squamous Epith Cells /LPF Urine Bacteria /LPF Urine Mucus /LPF Urine Test (NEGATIVE) Urine Opiates Screen Not Detected (Not Detect) Urine Fentanyl Screen Not Detected (Not Detect) Ur Barbiturates Screen Not Detected (Not Detect) Ur Phencyclidine Scrn Not Detected (Not Detect) Ur Amphetamines Screen Not Detected (Not Detect) U Benzodiazepines Scrn Not Detected (Not Detect) Urine Cocaine Screen POSITIVE H (Not Detect) U Marijuana (THC) Screen POSITIVE H (Not Detect) Ethyl Alcohol mg/dL COVID-19 (ETHAN) (Negative) COVID-19 Clin Com Discharge Plan Discharge Clinical Impression: Intractable cyclical vomiting with nausea, Anxiety and depression, Substance use disorder Patient Disposition: Admitted As Inpatient Prescriptions: No Action metoclopramide HCl [Reglan] 10 mg tablet 10 mg PO Q6H PRN (Reason: nausea and vomiting) Qty: 20 0RF escitalopram oxalate [Lexapro] 10 mg Tablet 10 mg PO BEDTIME 0RF aripiprazole 5 mg Tablet 5 mg PO BEDTIME 0RF omeprazole 40 mg capsule,delayed release(DR/EC) 40 mg PO DAILY 14 Days Qty: 14 0RF lorazepam [Ativan] 1 mg tablet 1 mg PO TID PRN (Reason: anxiety, nausea/vomiting) Qty: 14 0RF ondansetron 4 mg tablet,disintegrating 4 mg PO Q6-8H PRN (Reason: nausea and vomiting) Qty: 20 0RF
[2022-04-17 08:15] LABS: COVID-19 Test Negative (Negative); Ethanol < 10 mg/dL
[2022-04-17 08:22] LABS: Alanine Aminotransferase 16 U/L (0-31); Albumin Level 4.4 g/dL (3.5-5.0); Alkaline Phosphatase 87 U/L (39-117); Anion Gap 17 (12-20); Aspartate Amino Transferase 21 U/L (5-31); Blood Urea Nitrogen 8 mg/dL (9-16); Calcium 9.2 mg/dL (8.4-10.2); Carbon Dioxide 22 mmol/L (22-29); Chloride 102 mmol/L (96-108); Creatinine Clr Calc Pharmacy 105.8; Estimated Glomerular Filt Rate > 60; Glucose Random 123 mg/dL (60-115); Potassium 3.3 mmol/L (3.3-5.1); Sodium 138 mmol/L (135-145); Total Protein 7.7 g/dL (6.5-8.0)
[2022-04-17 08:32] LABS: SLIDE REVIEW VERIFIED
[2022-04-17 08:38] LABS: Appearance Urine HAZY; Color Urine YELLOW; Glucose Urine UA NEG (NEG); Leukocyte Esterase Urine NEG (NEG); Nitrite Urine NEG (NEG); Specific Gravity - Urine 1.015 (1.005-1.025); UACC Culture Trigger NO; Urine Blood 2+ (NEG); Urine Ketones >=80 MG/DL (NEG); Urine Protein 1+ MG/DL (NEG-TRACE)
[2022-04-17 08:39] LABS: Urine Pregnancy NEGATIVE (NEGATIVE)
[2022-04-17 08:40] LABS: Amphetamine Screen Urine Not Detected (Not Detect); Barbiturates, Urine Not Detected (Not Detect); Benzodiazepines Screen Urine Not Detected (Not Detect); Cannabinoid Screen Urine POSITIVE (Not Detect); Cocaine Screen Urine POSITIVE (Not Detect); Fentanyl, urine Not Detected (Not Detect); Opiate Screen Urine Not Detected (Not Detect); Phencyclidine Screen Urine Not Detected (Not Detect); UPreg QC Valid YES
[2022-04-17 08:45] LABS: Mucus Urine 1+ /LPF; Squamous Epithelial Cell Urine 1+ /LPF
[2022-04-17 08:47] LABS: WBC Urine 0 /HPF (0-4)
[2022-04-17 08:48] LABS: Bacteria Urine TRACE /LPF
[2022-04-17] MEDS: OLANZapine 10 MG VIAL 5 MG IM (08:48)
--- NOTE | 2022-04-17 09:31 | PC.NURSE ---
Pt A&Ox4, very anxious, N/V which has been an ongoing issue for a few days. This is her 3rd visit in 24 hours. Pt offers no complaints of pain at this time. IV established, medicated as per MAR orders. Call mehta within reach. Will continue to monitor.
[2022-04-17] MEDS: diphenhydrAMINE HCL 50 MG/ML VIAL 25 MG IVPUSH (10:22)
[2022-04-17] MEDS: Metoclopramide HCl 10 MG/2 ML VIAL IVPUSH (10:23)
[2022-04-17] MEDS: ondansetron HCL 4 MG/2 ML VIAL IVPUSH ×2 (10:23→19:19)
--- NOTE | 2022-04-17 11:54 | PHA.MEDREC ---
Pharmacy Consult ? Medication Reconciliation Pharmacy has completed the medication reconciliation. Spoke with patient in the ED, patient has not taken her medications in approximately 1 week.
--- NOTE | 2022-04-17 14:19 | PM.IMHP ---
History of Present Illness Date of Service: 04/17/22 Attending physician on admission: Gina Orozco Chief Complaint: intractable nausea vomiting 21-year-old female with history of severe anxiety, cyclic vomiting syndrome secondary to cannabis use- she came to the hospital yesterday if due to intractable nausea vomiting and went home: subsequently started to having tractable nausea vomiting again and came to the hospital. She says that she is having nausea vomiting from 3-4 days, she use the marijuana and cocaine as well as alcohol beers 3-4 days back. Patient has severe anxiety problem but is currently denies any suicidal ideation. she says anything she eats- she throw up even could not able to take p.o. medication. in the emergency room patient was given Reglan, Zofran, hydralazine and requested for observation admission secondary to above persistent cyclic vomiting. patient denies any chest pain or shortness of breath or abdominal pain or fever or chills or cough or phlegm or weakness or numbness. Review of Systems Review of Systems: As above. Yes all other systems are reviewed and are negative [facility] Medical History Anxiety Cyclical vomiting Seizure Pertinent family history: Denies any family history of any medical diseases. Social History Alcohol intake: current Alcohol intake frequency: a few times a week Alcohol type: beer Patient Tobacco Use Status: Never used Tobacco Use of substances other than those prescribed or required for medical reasons: Yes Substance Use Type: Crack/Cocaine and Marijuana Substance Use Frequency: Recent Binge Substance Use Frequency Other:: 2 Last Used Substance: Days (ago) Advance Directives: No Advance Directives Information Provided: No Meds Allergies Allergy/AdvReac Type Severity Reaction Status Date / Time No Known Allergies Allergy Verified 01/16/22 15:55 Active Medications: Current Medications Folic Acid (Folic Acid 1 Mg Tablet) 1 mg PO DAILY SHABBIR Lactated Ringer's (Lr) 1,000 mls @ 80 mls/hr IVCONT .[id number] SHABBIR Ondansetron HCl (Ondansetron Hcl 4 Mg/2 Ml Vial) 4 mg IVPUSH Q6H PRN PRN Reason: Nausea Pharmacy Consult (Consult Rx Perform Med Rec) 1 each MISCELLANE ONCE PRN PRN Reason: Consult order Sodium Chloride (0.9 % Sodium Chloride Flush 3 Ml Syringe) 3 ml IVFLUSH QSHIFT SHABBIR Thiamine HCl (Thiamine Hcl 100 Mg Tablet) 100 mg PO DAILY SHABBIR Home Medications Medication Instructions Recorded Confirmed Last Taken Type amitriptyline 75 mg tablet 1 tab PO BEDTIME 04/17/22 04/17/22 04/10/22 History aripiprazole 5 mg tablet 1 tab PO BEDTIME 04/17/22 04/17/22 04/10/22 History escitalopram oxalate 20 mg tablet 1 tab PO DAILY 04/17/22 04/17/22 04/10/22 History omeprazole 20 mg capsule,delayed 20 mg PO BID@0630,1630 04/17/22 04/17/22 04/10/22 History release Physical Exam Vital Signs and Narrative: Vital Signs: Last Vital Signs Temp 98.2 F 04/17/22 13:03 Pulse 102 H 04/17/22 13:03 Resp 16 04/17/22 13:03 BP 169/86 H 04/17/22 13:03 Pulse Ox 100 04/17/22 13:03 BMI result Body Mass Index 25.0 Appearance: Alert.? Oriented X3.? not in distress.? Eyes: Pupils equal, round and reactive to light.? Sclera nonicteric.? ENT: Pharynx normal.? Moist mucous somewhat dry. cvs: rrr, [id number] , no murmur res: clear to auscultation ,no rhonchii or wheezing abd: no rebound or guarding ,nt, bs present. ext pulses present , no cyanosis . neuro: axo3 , nonfocal. Results Labs CBC and Chem 7: 04/17/22 07:40 04/17/22 07:40 Labs: Laboratory Results - last 24 hr 04/17/22 04/17/22 04/17/22 07:40 07:40 07:40 MCV 83.3 MCH 28.5 MCHC 34.2 RDW 12.6 Plt Count 328 MPV 9.6 Immature Gran % (Auto) 0.7 H Neut % (Auto) 74.2 H Lymph % (Auto) 15.8 L [place] % (Auto) 8.7 Eos % (Auto) 0.2 Baso % (Auto) 0.4 Lymph # (Auto) 2.9 [place] # (Auto) 1.6 H Eos # (Auto) 0.0 Baso # (Auto) 0.1 Abs Immat Gran (auto) 0.12 H Absolute Neuts (auto) 13.5 H Absolute Nucleated RBC 0.000 Nucleated RBC % (auto) 0.0 Smear Tech's Comments VERIFIED Anion Gap 17 Estim Creat Clear Calc 105.8 Estimated GFR > 60 Random Glucose 123 H Calcium 9.2 Magnesium 2.0 Total Bilirubin 2.0 H AST 21 ALT 16 Alkaline Phosphatase 87 Total Protein 7.7 Albumin 4.4 Urine Color Urine Appearance Urine pH Ur Specific [place] Urine Protein Urine Glucose (UA) Urine Ketones Urine Blood Urine Nitrite Ur Leukocyte Esterase Urine RBC Urine WBC Ur Squamous Epith Cells Urine Bacteria Urine Mucus Urine Test Urine Opiates Screen Urine Fentanyl Screen Ur Barbiturates Screen Ur Phencyclidine Scrn Ur Amphetamines Screen U Benzodiazepines Scrn Urine Cocaine Screen U Marijuana (THC) Screen Ethyl Alcohol COVID-19 (ETHAN) Negative COVID-19 Clin Com See Note 04/17/22 04/17/22 04/17/22 07:40 08:17 08:17 MCV MCH MCHC RDW Plt Count MPV Immature Gran % (Auto) Neut % (Auto) Lymph % (Auto) [place] % (Auto) Eos % (Auto) Baso % (Auto) Lymph # (Auto) [place] # (Auto) Eos # (Auto) Baso # (Auto) Abs Immat Gran (auto) Absolute Neuts (auto) Absolute Nucleated RBC Nucleated RBC % (auto) Smear Tech's Comments Anion Gap Estim Creat Clear Calc Estimated GFR Random Glucose Calcium Magnesium Total Bilirubin AST ALT Alkaline Phosphatase Total Protein Albumin Urine Color YELLOW Urine Appearance HAZY Urine pH 7.0 Ur Specific [place] 1.015 Urine Protein 1+ H Urine Glucose (UA) NEG Urine Ketones >=80 Urine Blood 2+ H Urine Nitrite NEG Ur Leukocyte Esterase NEG Urine RBC 15-29 H Urine WBC 0 Ur Squamous Epith Cells 1+ Urine Bacteria TRACE Urine Mucus 1+ Urine Test NEGATIVE Urine Opiates Screen Urine Fentanyl Screen Ur Barbiturates Screen Ur Phencyclidine Scrn Ur Amphetamines Screen U Benzodiazepines Scrn Urine Cocaine Screen U Marijuana (THC) Screen Ethyl Alcohol < 10 COVID-19 (ETHAN) COVID-19 Clin Com 04/17/22 08:17 MCV MCH MCHC RDW Plt Count MPV Immature Gran % (Auto) Neut % (Auto) Lymph % (Auto) [place] % (Auto) Eos % (Auto) Baso % (Auto) Lymph # (Auto) [place] # (Auto) Eos # (Auto) Baso # (Auto) Abs Immat Gran (auto) Absolute Neuts (auto) Absolute Nucleated RBC Nucleated RBC % (auto) Smear Tech's Comments Anion Gap Estim Creat Clear Calc Estimated GFR Random Glucose Calcium Magnesium Total Bilirubin AST ALT Alkaline Phosphatase Total Protein Albumin Urine Color Urine Appearance Urine pH Ur Specific [place] Urine Protein Urine Glucose (UA) Urine Ketones Urine Blood Urine Nitrite Ur Leukocyte Esterase Urine RBC Urine WBC Ur Squamous Epith Cells Urine Bacteria Urine Mucus Urine Test Urine Opiates Screen Not Detected Urine Fentanyl Screen Not Detected Ur Barbiturates Screen Not Detected Ur Phencyclidine Scrn Not Detected Ur Amphetamines Screen Not Detected U Benzodiazepines Scrn Not Detected Urine Cocaine Screen POSITIVE H U Marijuana (THC) Screen POSITIVE H Ethyl Alcohol COVID-19 (ETHAN) COVID-19 Clin Com Assessment and Plan (1) Anxiety: Status: Acute (2) Cocaine abuse: Status: Acute (3) Marijuana abuse: Status: Acute (4) Cyclical vomiting: Status: Acute Plan 21-year-old female with a past medical history of anxiety, history of cyclic vomiting syndrome secondary to cannabis use; presented to the hospital today with a chief complaint of nausea and vomiting.? ?admitted for following Cyclic vomiting syndrome: U tox is positive for marijuana and cocaine try clears IV fluids Zofran p.r.n. Supportive care Advanced diet as tolerated boderline potassium levels :? will replete potassium level severe anxiety: Continue home medications discussed with care team in detail-did not express SI psych evaluation also pending alcohol use: Last drink was 4 days back, added CIWA, thiamine and folic acid elevated blood pressure and leukocytosis : leukocytosis is elevated chronically no new symptoms of fever or any urinary complaints or shortness of breath or cough or abdominal pain. blood pressure probably elevated secondary to cocaine use: in continue monitor, if needed may need use antihypertensive. DVT prophylaxis:? low risk, ambulatory,[facility]. Code status:? Full code above management discussed with patient detail and she understand in agreement with the plan, time spent 70 minute. Quality Stroke Does the patient have a stroke diagnosis?: No VTE Prior VTE?: No VTE Risk Level:: Medical - low VTE Device Contraindication: N/A - Device Ordered VTE Drug Contraindication: N/A - Med Ordered
[2022-04-17] MEDS: Folic Acid 1 MG TABLET PO (15:22)
[2022-04-17] MEDS: Thiamine HCL 100 MG TABLET PO (15:23)
[2022-04-17] MEDS: Potassium Chloride/H20 10 MEQ/100 ML PIGGYBACK 100 MEQ IV ×2 (15:23→21:37)
[2022-04-17] MEDS: Lactated Ringers 1,000 ML 80 ML IVCONT (15:23)
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
--- NOTE | 2022-04-17 17:20 | PC.NURSE ---
assumed care of this pt at 1730. pt alert, oriented, vss. LR running at 80 ml/hr. no complaints
[2022-04-17] MEDS: Omeprazole 20 MG CAPSULE.DR PO (18:29)
[2022-04-17] MEDS: 0.9 % Sodium Chloride Flush 3 ML SYRINGE IVFLUSH (21:23)
[2022-04-17] MEDS: Prochlorperazine Edisylate 10 MG/2 ML VIAL 5 MG IVPUSH (21:23)
[2022-04-17] MEDS: LORazepam 2 MG/ML VIAL 0.5 MG IVPUSH (21:48)
[2022-04-17] MEDS: Escitalopram Oxalate 20 MG TABLET PO (22:21)
[2022-04-18 04:00] VITALS: BP 124/56; PULSE 93; RESP 18; TEMP 36.6; O2SAT 98
[2022-04-18] MEDS: Prochlorperazine Edisylate 10 MG/2 ML VIAL 5 MG IVPUSH (05:47)
[2022-04-18] MEDS: hydrOXYzine HCL 25 MG TABLET PO ×2 (05:49→13:02)
[2022-04-18] MEDS: Lactated Ringers 1,000 ML 80 ML IVCONT (05:52)
[2022-04-18 06:44] LABS: Hematocrit 39.3 % (37.0-47.0); Hemoglobin 13.2 g/dl (12.0-16.0); Mean Corpuscular HGB Conc 33.6 g/dl (31.0-35.0); Mean Corpuscular Hemoglobin 28.6 pg (27.0-33.0); Mean Corpuscular Volume 85.1 fL (80.0-98.0); Mean Platelet Volume 9.6 fL (9.4-12.3); Platelet Count 300 X10*3/uL (160-400); Red Blood Count 4.62 X10*6/uL (4.20-5.50); Red Cell Distribution Width 12.5 % (11.0-16.0); White Blood Count 12.9 X10*3/uL (4.8-10.8)
[2022-04-18 06:55] LABS: Anion Gap 13 (12-20); Blood Urea Nitrogen 5 mg/dL (9-16); Carbon Dioxide 24 mmol/L (22-29); Chloride 103 mmol/L (96-108); Estimated Glomerular Filt Rate > 60; Glucose Random 102 mg/dL (60-115); Potassium 3.2 mmol/L (3.3-5.1); Sodium 137 mmol/L (135-145)
[2022-04-18 07:18] VITALS: BP 137/94; PULSE 83; RESP 20; TEMP 36.9; O2SAT 98
--- NOTE | 2022-04-18 07:47 | HO.PM.IMPN ---
Subjective Subjective Date of Service: 04/18/22 Interval History: Persistent nausea vomiting Physical Exam Vital Signs: Vital Signs: Last Vital Signs Temp 98.5 F 04/18/22 07:18 Pulse 83 04/18/22 07:18 Resp 20 04/18/22 07:18 BP 137/94 H 04/18/22 07:18 Pulse Ox 98 04/18/22 07:18 BMI result Body Mass Index 25.0 Objective Data Active Medications Amitriptyline HCl (Amitriptyline Hcl 25 Mg Tablet) 75 mg PO BEDTIME [facility] Last Admin: 04/17/22 21:50 Dose: Not Given Documented by: JOSE MARIA Non-Admin Reason: vomiting Aripiprazole (Aripiprazole 5 Mg Tablet) 5 mg PO BEDTIME [facility] Last Admin: 04/17/22 21:51 Dose: Not Given Documented by: JOSE MARIA Non-Admin Reason: vomiting Escitalopram Oxalate (Escitalopram Oxalate 20 Mg Tablet) 20 mg PO BEDTIME [facility] Folic Acid (Folic Acid 1 Mg Tablet) 1 mg PO DAILY [facility] Last Admin: 04/17/22 15:22 Dose: 1 mg Documented by: YAZ Hydroxyzine HCl (Hydroxyzine Hcl 25 Mg Tablet) 25 mg PO Q6H PRN PRN Reason: anxiety/restlessness Last Admin: 04/18/22 05:49 Dose: 25 mg Documented by: JOSE MARIA Lactated Ringer's (Lr) 1,000 mls @ 80 mls/hr IVCONT .[id number] [facility] Last Admin: 04/18/22 05:52 Dose: 80 mls/hr Documented by: JOSE MARIA Ketorolac Tromethamine (Ketorolac Tromethamine 15 Mg/Ml Vial) 15 mg IVPUSH Q6H PRN PRN Reason: Pain, Mild (Pain Scale 1-3) Omeprazole (Omeprazole 20 Mg Capsule.Dr) 20 mg PO BID@0630,1630 [facility] Last Admin: 04/18/22 05:53 Dose: Not Given Documented by: JOSE MARIA Non-Admin Reason: vomiting Ondansetron HCl (Ondansetron Hcl 4 Mg/2 Ml Vial) 4 mg IVPUSH Q6H PRN PRN Reason: Nausea Last Admin: 04/17/22 19:19 Dose: 4 mg Documented by: CHAPIS Pharmacy Consult (Consult Rx Perform Med Rec) 1 each MISCELLANE ONCE PRN PRN Reason: Consult order Potassium Chloride (Potassium Chloride Packet 20 Meq Packet) 40 meq PO ONCE ONE Stop: 04/18/22 07:45 Sodium Chloride (0.9 % Sodium Chloride Flush 3 Ml Syringe) 3 ml IVFLUSH QSHIFT [facility] Last Admin: 04/17/22 21:23 Dose: 3 ml Documented by: JOSE MARIA Thiamine HCl (Thiamine Hcl 100 Mg Tablet) 100 mg PO DAILY [facility] Last Admin: 04/17/22 15:23 Dose: 100 mg Documented by: YAZ Labs CBC & Chem 7: 04/18/22 06:21 04/18/22 06:21 Labs: Laboratory Results - last 24 hr 04/17/22 04/17/22 04/17/22 07:40 07:40 07:40 MCV 83.3 MCH 28.5 MCHC 34.2 RDW 12.6 Plt Count 328 MPV 9.6 Immature Gran % (Auto) 0.7 H Neut % (Auto) 74.2 H Lymph % (Auto) 15.8 L [place] % (Auto) 8.7 Eos % (Auto) 0.2 Baso % (Auto) 0.4 Lymph # (Auto) 2.9 [place] # (Auto) 1.6 H Eos # (Auto) 0.0 Baso # (Auto) 0.1 Abs Immat Gran (auto) 0.12 H Absolute Neuts (auto) 13.5 H Absolute Nucleated RBC 0.000 Nucleated RBC % (auto) 0.0 Smear Tech's Comments VERIFIED Anion Gap 17 Estim Creat Clear Calc 105.8 Estimated GFR > 60 Random Glucose 123 H Calcium 9.2 Magnesium 2.0 Total Bilirubin 2.0 H AST 21 ALT 16 Alkaline Phosphatase 87 Total Protein 7.7 Albumin 4.4 Urine Color Urine Appearance Urine pH Ur Specific [place] Urine Protein Urine Glucose (UA) Urine Ketones Urine Blood Urine Nitrite Ur Leukocyte Esterase Urine RBC Urine WBC Ur Squamous Epith Cells Urine Bacteria Urine Mucus Urine Test Urine Opiates Screen Urine Fentanyl Screen Ur Barbiturates Screen Ur Phencyclidine Scrn Ur Amphetamines Screen U Benzodiazepines Scrn Urine Cocaine Screen U Marijuana (THC) Screen Ethyl Alcohol COVID-19 (ETHAN) Negative COVID-19 Clin Com See Note 04/17/22 04/17/22 04/17/22 07:40 08:17 08:17 MCV MCH MCHC RDW Plt Count MPV Immature Gran % (Auto) Neut % (Auto) Lymph % (Auto) [place] % (Auto) Eos % (Auto) Baso % (Auto) Lymph # (Auto) [place] # (Auto) Eos # (Auto) Baso # (Auto) Abs Immat Gran (auto) Absolute Neuts (auto) Absolute Nucleated RBC Nucleated RBC % (auto) Smear Tech's Comments Anion Gap Estim Creat Clear Calc Estimated GFR Random Glucose Calcium Magnesium Total Bilirubin AST ALT Alkaline Phosphatase Total Protein Albumin Urine Color YELLOW Urine Appearance HAZY Urine pH 7.0 Ur Specific [place] 1.015 Urine Protein 1+ H Urine Glucose (UA) NEG Urine Ketones >=80 Urine Blood 2+ H Urine Nitrite NEG Ur Leukocyte Esterase NEG Urine RBC 15-29 H Urine WBC 0 Ur Squamous Epith Cells 1+ Urine Bacteria TRACE Urine Mucus 1+ Urine Test NEGATIVE Urine Opiates Screen Urine Fentanyl Screen Ur Barbiturates Screen Ur Phencyclidine Scrn Ur Amphetamines Screen U Benzodiazepines Scrn Urine Cocaine Screen U Marijuana (THC) Screen Ethyl Alcohol < 10 COVID-19 (ETHAN) COVID-19 Clin Com 04/17/22 04/18/22 04/18/22 08:17 06:21 06:21 MCV 85.1 MCH 28.6 MCHC 33.6 RDW 12.5 Plt Count 300 MPV 9.6 Immature Gran % (Auto) Neut % (Auto) Lymph % (Auto) [place] % (Auto) Eos % (Auto) Baso % (Auto) Lymph # (Auto) [place] # (Auto) Eos # (Auto) Baso # (Auto) Abs Immat Gran (auto) Absolute Neuts (auto) Absolute Nucleated RBC 0.000 Nucleated RBC % (auto) 0.0 Smear Tech's Comments Anion Gap 13 Estim Creat Clear Calc 124.0 Estimated GFR > 60 Random Glucose 102 Calcium 9.0 Magnesium Total Bilirubin AST ALT Alkaline Phosphatase Total Protein Albumin Urine Color Urine Appearance Urine pH Ur Specific [place] Urine Protein Urine Glucose (UA) Urine Ketones Urine Blood Urine Nitrite Ur Leukocyte Esterase Urine RBC Urine WBC Ur Squamous Epith Cells Urine Bacteria Urine Mucus Urine Test Urine Opiates Screen Not Detected Urine Fentanyl Screen Not Detected Ur Barbiturates Screen Not Detected Ur Phencyclidine Scrn Not Detected Ur Amphetamines Screen Not Detected U Benzodiazepines Scrn Not Detected Urine Cocaine Screen POSITIVE H U Marijuana (THC) Screen POSITIVE H Ethyl Alcohol COVID-19 (ETHAN) COVID-19 Clin Com Assessment and Plan Plan 21-year-old female with a past medical history of anxiety, history of cyclic vomiting syndrome secondary to cannabis use; presented to the hospital today with a chief complaint of nausea and vomiting.? ?admitted for following Cyclic vomiting syndrome: ? U tox is positive for marijuana and cocaine try clears IV fluids Zofran p.r.n. Supportive care Advanced diet as tolerated boderline potassium levels :? ?will replete potassium level ?severe anxiety: Continue home medications ?discussed with care team in detail-did not express SI ?psych evaluation also pending ?alcohol use:? Last drink was? 4 days back, added CIWA, thiamine and folic acid ?elevated blood pressure and leukocytosis :? leukocytosis is elevated? chronically ?no new symptoms of fever or any urinary complaints or shortness of breath or cough or abdominal pain. ? ?blood pressure probably elevated secondary to cocaine use: in continue monitor, if needed may need use antihypertensive. DVT prophylaxis:?? low risk, ambulatory,[facility] devices. Code status:? Full code Quality Stroke Does the patient have a stroke diagnosis?: No VTE Prior VTE?: No VTE Risk Level:: Medical - low VTE Device Contraindication: N/A - Device Ordered VTE Drug Contraindication: N/A - Med Ordered
[2022-04-18] MEDS: 0.9 % Sodium Chloride Flush 3 ML SYRINGE IVFLUSH (09:22)
[2022-04-18] MEDS: Potassium Chloride Packet 20 MEQ PACKET 40 MEQ PO (09:25)
[2022-04-18] MEDS: Folic Acid 1 MG TABLET PO (09:26)
[2022-04-18] MEDS: Thiamine HCL 100 MG TABLET PO (09:27)
--- NOTE | 2022-04-18 09:50 | MHC.CM.PN ---
CM met with Patient at bedside and addressed GANN with her, providing her with the original and placing a copy on the chart. 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 Home no services vs Care Team Interventions (Anxiety, Marijuana,Cocaine)is the goal and CM has initiated and will follow for dc planning. Patient has received Moderna/Covid vax X3 and PCP/TECHNICAL EDUCATION TEACHER is Ade Gonsales.
--- NOTE | 2022-04-18 10:07 | PC.NURSE ---
Pt feeling stressed as she is not aware of plan. Tollerating po clears at this time and denies nausea. The following were reported to who states plan to advance diet and have psych evaluate pt. This plan was relayed to pt with verbal understanding.
[2022-04-18 11:20] VITALS: BP 112/62; PULSE 88; RESP 20; TEMP 36.9; O2SAT 99
--- NOTE | 2022-04-18 12:17 | MHC.CM.PN ---
Patient has been medically cleared for dc to home today, self care.
--- NOTE | 2022-04-18 13:12 | PM.PSYCN ---
History of Present Illness Date of Service: 04/18/22 Chief Complaint: Intractable nausea vomiting Reason for Consult: Severe anxiety, possibly contributing to nausea and vomiting. Requesting physician: Gina Orozco Discussed with referring provider: Yes Sources of Information: patient interviewed, chart reviewed and crisis/core team assessment reviewed HPI Narrative: Patient is a 21-year-old single female, has presented to the ED 3 times in 24 hours with hyper emesis and anxiety. Has been seen by care team. Has not been found to meet inpatient level of care at this time. Patient was agreeable to meet with me this afternoon. She was sitting on the edge of her bed. She states that she has a history of childhood trauma, and that her symptoms have seemed to escalate recently. She has prescribed Lexapro, Abilify, amitriptyline. She has a supply at home. She states that she received prescription from a doctor at [facility] in [place], and prior to that she had been treated in [facility] or [facility], where she was living. She was tearful throughout encounter. She reports she has been using cannabis daily 3 g. She has also been using cocaine, last use approximately 5 days ago. States that she is seeking treatment, would like referral to providers, partial hospitalization program. Denies any suicidal ideation, either active or passive. Reports that she does engage in self-injurious behavior, hitting herself, punching myself in the legs . States that she feels safe, and that she is going back home to her parents today in [facility]. Describes them as supportive. Past Psychiatric History: History of treatment in [place]. States that she had a psychiatric provider and therapist. Denies IPLOC, PHP. Medical Evaluation Reviewed: Yes Personal & Social History: Lives with parents. Review of Systems Review of Systems Full review of systems was completed and was negative with the exception of pertinent positives noted in history of the presenting illness (HPI). [facility] Medical History Anxiety Cyclical vomiting Seizure Diagnostics Vital Signs (24Hr): Vital Signs - 24 hr 04/17/22 20:41 04/17/22 22:47 04/17/22 23:41 Temperature 99.0 F 99.3 F 97.6 F Pulse Rate 81 95 95 Respiratory Rate 16 18 18 Blood Pressure 132/80 195/109 H 121/65 Pulse Oximetry 100 100 100 04/18/22 04:00 04/18/22 07:18 04/18/22 11:20 Temperature 98 F 98.5 F 98.4 F Pulse Rate 93 83 88 Respiratory Rate 18 20 20 Blood Pressure 124/56 L 137/94 H 112/62 Pulse Oximetry 98 98 99 BMI result Body Mass Index 25.0 Labs Results: 04/18/22 06:21 04/18/22 06:21 Labs: Laboratory Results - last 48 hr 04/17/22 04/17/22 04/17/22 07:40 07:40 07:40 WBC 18.1 H RBC 4.85 Hgb 13.8 Hct 40.4 MCV 83.3 MCH 28.5 MCHC 34.2 RDW 12.6 Plt Count 328 MPV 9.6 Immature Gran % (Auto) 0.7 H Neut % (Auto) 74.2 H Lymph % (Auto) 15.8 L [place] % (Auto) 8.7 Eos % (Auto) 0.2 Baso % (Auto) 0.4 Lymph # (Auto) 2.9 [place] # (Auto) 1.6 H Eos # (Auto) 0.0 Baso # (Auto) 0.1 Abs Immat Gran (auto) 0.12 H Absolute Neuts (auto) 13.5 H Absolute Nucleated RBC 0.000 Nucleated RBC % (auto) 0.0 Smear Tech's Comments VERIFIED Sodium 138 Potassium 3.3 Chloride 102 Carbon Dioxide 22 Anion Gap 17 BUN 8 L Creatinine 0.75 Estim Creat Clear Calc 105.8 Estimated GFR > 60 Random Glucose 123 H Calcium 9.2 Magnesium 2.0 Total Bilirubin 2.0 H AST 21 ALT 16 Alkaline Phosphatase 87 Total Protein 7.7 Albumin 4.4 Urine Color Urine Appearance Urine pH Ur Specific [place] Urine Protein Urine Glucose (UA) Urine Ketones Urine Blood Urine Nitrite Ur Leukocyte Esterase Urine RBC Urine WBC Ur Squamous Epith Cells Urine Bacteria Urine Mucus Urine Test Urine Opiates Screen Urine Fentanyl Screen Ur Barbiturates Screen Ur Phencyclidine Scrn Ur Amphetamines Screen U Benzodiazepines Scrn Urine Cocaine Screen U Marijuana (THC) Screen Ethyl Alcohol COVID-19 (ETHAN) Negative COVID-19 Clin Com See Note 04/17/22 04/17/22 04/17/22 07:40 08:17 08:17 WBC RBC Hgb Hct MCV MCH MCHC RDW Plt Count MPV Immature Gran % (Auto) Neut % (Auto) Lymph % (Auto) [place] % (Auto) Eos % (Auto) Baso % (Auto) Lymph # (Auto) [place] # (Auto) Eos # (Auto) Baso # (Auto) Abs Immat Gran (auto) Absolute Neuts (auto) Absolute Nucleated RBC Nucleated RBC % (auto) Smear Tech's Comments Sodium Potassium Chloride Carbon Dioxide Anion Gap BUN Creatinine Estim Creat Clear Calc Estimated GFR Random Glucose Calcium Magnesium Total Bilirubin AST ALT Alkaline Phosphatase Total Protein Albumin Urine Color YELLOW Urine Appearance HAZY Urine pH 7.0 Ur Specific [place] 1.015 Urine Protein 1+ H Urine Glucose (UA) NEG Urine Ketones >=80 Urine Blood 2+ H Urine Nitrite NEG Ur Leukocyte Esterase NEG Urine RBC 15-29 H Urine WBC 0 Ur Squamous Epith Cells 1+ Urine Bacteria TRACE Urine Mucus 1+ Urine Test NEGATIVE Urine Opiates Screen Urine Fentanyl Screen Ur Barbiturates Screen Ur Phencyclidine Scrn Ur Amphetamines Screen U Benzodiazepines Scrn Urine Cocaine Screen U Marijuana (THC) Screen Ethyl Alcohol < 10 COVID-19 (ETHAN) COVID-19 Clin Com 04/17/22 04/18/22 04/18/22 08:17 06:21 06:21 WBC 12.9 H RBC 4.62 Hgb 13.2 Hct 39.3 MCV 85.1 MCH 28.6 MCHC 33.6 RDW 12.5 Plt Count 300 MPV 9.6 Immature Gran % (Auto) Neut % (Auto) Lymph % (Auto) [place] % (Auto) Eos % (Auto) Baso % (Auto) Lymph # (Auto) [place] # (Auto) Eos # (Auto) Baso # (Auto) Abs Immat Gran (auto) Absolute Neuts (auto) Absolute Nucleated RBC 0.000 Nucleated RBC % (auto) 0.0 Smear Tech's Comments Sodium 137 Potassium 3.2 L Chloride 103 Carbon Dioxide 24 Anion Gap 13 BUN 5 L Creatinine 0.64 Estim Creat Clear Calc 124.0 Estimated GFR > 60 Random Glucose 102 Calcium 9.0 Magnesium Total Bilirubin AST ALT Alkaline Phosphatase Total Protein Albumin Urine Color Urine Appearance Urine pH Ur Specific [place] Urine Protein Urine Glucose (UA) Urine Ketones Urine Blood Urine Nitrite Ur Leukocyte Esterase Urine RBC Urine WBC Ur Squamous Epith Cells Urine Bacteria Urine Mucus Urine Test Urine Opiates Screen Not Detected Urine Fentanyl Screen Not Detected Ur Barbiturates Screen Not Detected Ur Phencyclidine Scrn Not Detected Ur Amphetamines Screen Not Detected U Benzodiazepines Scrn Not Detected Urine Cocaine Screen POSITIVE H U Marijuana (THC) Screen POSITIVE H Ethyl Alcohol COVID-19 (ETHAN) COVID-19 Clin Com Mental Status Exam Mental Status Exam Narrative: Well-developed, well-nourished female, in NAD. No evidence of perceptual disturbances, denies SI/HI, denies AH/VH. No tics or tremors, ambulation observed, gait steady. Reports SIB, not observed at this time. Patient Appearance: Appropriate Patient Orientation: Person, Place, Time and Situation Level of Consciousness: Appropriate Patient Behavior: Appropriate, Cooperative, Good Eye Contact and Crying Mood Description: Anxious and Labile Affect Description: Anxious Patient Cognition Impaired: No Ability to Follow Directions: Good Speech Pattern: Clear, Appropriate and Coherent Memory Description: Intact Hallucinations: None Delusions: Not Present Thought Process: Intact Thought Content: positive for Intact Depressive Symptoms: Increased Anxiety Judgement: Fair (fair but adequate) Medications Medications Current Medications Amitriptyline HCl (Amitriptyline Hcl 25 Mg Tablet) 75 mg PO BEDTIME [facility] Last Admin: 04/17/22 21:50 Dose: Not Given Documented by: Aripiprazole (Aripiprazole 5 Mg Tablet) 5 mg PO BEDTIME [facility] Last Admin: 04/17/22 21:51 Dose: Not Given Documented by: Escitalopram Oxalate (Escitalopram Oxalate 20 Mg Tablet) 20 mg PO BEDTIME [facility] Folic Acid (Folic Acid 1 Mg Tablet) 1 mg PO DAILY [facility] Last Admin: 04/18/22 09:26 Dose: 1 mg Documented by: Hydroxyzine HCl (Hydroxyzine Hcl 25 Mg Tablet) 25 mg PO Q6H PRN PRN Reason: anxiety/restlessness Last Admin: 04/18/22 13:02 Dose: 25 mg Documented by: Lactated Ringer's (Lr) 1,000 mls @ 80 mls/hr IVCONT .[id number] [facility] Last Admin: 04/18/22 05:52 Dose: 80 mls/hr Documented by: Ketorolac Tromethamine (Ketorolac Tromethamine 15 Mg/Ml Vial) 15 mg IVPUSH Q6H PRN PRN Reason: Pain, Mild (Pain Scale 1-3) Omeprazole (Omeprazole 20 Mg Capsule.Dr) 20 mg PO BID@0630,1630 [facility] Last Admin: 04/18/22 05:53 Dose: Not Given Documented by: Ondansetron HCl (Ondansetron Hcl 4 Mg/2 Ml Vial) 4 mg IVPUSH Q6H PRN PRN Reason: Nausea Last Admin: 04/17/22 19:19 Dose: 4 mg Documented by: Pharmacy Consult (Consult Rx Perform Med Rec) 1 each MISCELLANE ONCE PRN PRN Reason: Consult order Sodium Chloride (0.9 % Sodium Chloride Flush 3 Ml Syringe) 3 ml IVFLUSH QSHIFT [facility] Last Admin: 04/18/22 09:22 Dose: 3 ml Documented by: Thiamine HCl (Thiamine Hcl 100 Mg Tablet) 100 mg PO DAILY [facility] Last Admin: 04/18/22 09:27 Dose: 100 mg Documented by: Allergies Allergies Allergy/AdvReac Type Severity Reaction Status Date / Time No Known Allergies Allergy Verified 01/16/22 15:55 Assessment & Plan Assessment & Plan (1) Anxiety and depression: Status: Acute Code(s): F41.9 - Anxiety disorder, unspecified; F32.A - Depression, unspecified Assessment and Plan: Patient reports she has a history of PTSD, anxiety. States she has childhood trauma, and she feels extremely anxious. Has had providers in the past, currently takes Lexapro, Abilify, amitriptyline. Denies any thought of SI, reports feels safe. Does engage in self-injurious behavior, ?punching myself in legs ?. Has been using large amounts of cannabis daily, along with cocaine. Has stopped both 5 days ago. (2) Substance use disorder: Status: Acute Code(s): F19.90 - Other psychoactive substance use, unspecified, uncomplicated Plan 21-year-old female, with increased anxiety, most likely related to hyperemesis/cannabis use, as well as PTSD symptoms. Does not require inpatient level of care at this time, no safety concerns at this time. Recommendations were as follows: 1. Patient was provided with printed information regarding hyperemesis cannabinoid syndrome. 2. The patient was provided crisis phone numbers. 3. Patient was provided phone number to [facility] partial hospitalization program. This information was shared with provider Dr. Orozco Thank you for this consultation. I spent minutes with the patient and/or on the patient floor today, greater than?50% of which was spent counseling/coordinating care.
--- NOTE | 2022-04-18 13:47 | P.DS_ITS ---
DS: Providers Provider Date of Service: 04/18/22 Date of admission: 04/17/22 14:13 Primary care physician: Ade Gonsales APRN Consults: 04/17/22 08:09 Consult to Care Team Stat Comment: Reason for consultation: Pt with 3rd visit within 24 hours, severe anxiety/nausea/vomiting can'tcope 04/17/22 10:16 BHN [Consult to Crisis] Stat Reason for consultation: Patient continues to be extremely anxious, cyclical vomiting 04/17/22 14:29 Consult to Psychiatry Routine Consulting Provider: Psych Covering Reason for consultation: severe anxiety possible contributing to nausea/vomiting Has provider been notified: No DS: Diagnosis Discharge Diagnosis (1) Anxiety: Status: Inactive (2) Cocaine abuse: Status: Inactive (3) Marijuana abuse: Status: Inactive (4) Cyclical vomiting: Status: Acute DS: Summary Hospital Course Hospital Course: 21-year-old female with history of severe anxiety, cyclic vomiting syndrome secondary to cannabis use- she came to the hospital yesterday if due to intractable nausea vomiting and went home: subsequently started to having trac table nausea vomiting again and came to the hospital. ? She says that she is having nausea vomiting from 3-4 days,? she use the marijuana and cocaine as well as alcohol beers 3-4 days back. ? Patient has severe anxiety problem but is currently denies any suicidal ideation. ?she says anything she eats- she throw up even could not able to take p.o. medication. ?in the emergency room patient was given Reglan, Zofran, hydralazine and requested for observation admission secondary to above? persistent cyclic vomiting. ?patient denies any chest pain or shortness of breath or abdominal pain or fever or chills or cough or phlegm or? weakness or numbness. Hospital course: patient came to the hospital because of cyclic vomiting probably related to marijuana use: Given bowel rest, hydration and antiemetic patient seems to be improved, tolerating diet. going home . severe anxiety: Seen by psych and care team recommended outpatient management. Information given to the patient. Above management discussed with the patient in detail length she understand and in agreement with the above plan, time spent 50 minutes and 50% time spent on counseling. Significant findings: As above. Procedures performed: None. Treatment and response: As above. Complications: None. Time Spent with Patient Time attestation: Total time spent providing and/or coordinating discharge services: Discharge coordination time: Greater than 30 minutes Quality: Safe Use of Opioids Does Pt have an Active Cancer Diagnosis on the Problem List?: No Quality: Stroke Does the patient have a stroke diagnosis?: No Physical Exam Vital Signs: Vital Signs: Last Vital Signs Temp 98.4 F 04/18/22 11:20 Pulse 88 04/18/22 11:20 Resp 20 04/18/22 11:20 BP 112/62 04/18/22 11:20 Pulse Ox 99 04/18/22 11:20 BMI result Body Mass Index 25.0 ? Appearance: Alert.? Oriented X3.? not in distress.? cvs: rrr, [id number] , no murmur res: clear to auscultation ,no rhonchii or wheezing abd: no rebound or guarding ,nt, bs present. ext pulses present , no cyanosis . neuro: axo3 , nonfocal. DS: Data Data Completed and Pending Labs on day of discharge: Laboratory Results - last 24 hr 04/18/22 04/18/22 06:21 06:21 WBC 12.9 H RBC 4.62 Hgb 13.2 Hct 39.3 MCV 85.1 MCH 28.6 MCHC 33.6 RDW 12.5 Plt Count 300 MPV 9.6 Absolute Nucleated RBC 0.000 Nucleated RBC % (auto) 0.0 Sodium 137 Potassium 3.2 L Chloride 103 Carbon Dioxide 24 Anion Gap 13 BUN 5 L Creatinine 0.64 Estim Creat Clear Calc 124.0 Estimated GFR > 60 Random Glucose 102 Calcium 9.0 Discharge Plan Discharge Patient Disposition: Home, Self-Care Discharge Diagnosis: cyclic vomiting secondary to marijuana use Referrals: Ade Gonsales APRN [Primary Care Provider] - 1 Week Discharge Medications: New ondansetron HCl 4 mg tablet 4 mg PO DAILY PRN (Reason: nausea and vomiting) 4 Days Qty: 4 0RF Continued amitriptyline 75 mg tablet 1 tab PO BEDTIME 0RF omeprazole 20 mg Capsule,Delayed Release(Dr/Ec) 20 mg PO BID@0630,1630 0RF escitalopram oxalate 20 mg tablet 1 tab PO DAILY 0RF aripiprazole 5 mg tablet 1 tab PO BEDTIME 0RF Discharge Orders: Discharge Order (Routine); Ordered 04/18/22 Ordered By: Gina Orozco Diet: advance to usual diet Activity on Discharge: As tolerated Stand Alone Forms: Patient Portal Discharge page Care Plan Goals: patient came to the hospital because of cyclic vomiting probably related to marijuana use: Given bowel rest, hydration and antiemetic patient seems to be improved, tolerating diet. going home today. Health Concerns: As above. Plan of Treatment: As above. Assessment: As above.
== END 2022-04-18 15:00 | disposition home or self-care (01) ==
LOC: HO.ED 10:16 → HO.EDOVER 14:22 → HO.IMC 19:58
PROVIDERS: Admitting Provider Internal Medicine; Emergency Provider Student in an Organized Health Care Education/Training Program; PCP Nurse Practitioner Family; Visit Provider Internal Medicine
DX: R11.15 Cyclical vomiting syndrome unrelated to migraine (principal); R11.0 Nausea; R55 Syncope and collapse; F41.8 Other specified anxiety disorders; F12.10 Cannabis abuse, uncomplicated; F14.10 Cocaine abuse, uncomplicated; F19.90 Other psychoactive substance use, unspecified, uncomplicated; F43.10 Post-traumatic stress disorder, unspecified; Z20.822 Contact with and (suspected) exposure to COVID-19; Z62.898 Other specified problems related to upbringing; Z79.899 Other long term (current) drug therapy
CPT/HCPCS: 36415; 80048; 80053; 80307; 81001; 81025; 82077; 83735; 85025; 85027; 87635; 93005; 96361; 96372; 96374; 96375; 96376; 99219; 99285; J1200; J2060; J2405; J2765

== ENCOUNTER 2022-06-01 14:16 | Emergency (ER) | payer MEDICAID, SELFPAY ==
[2022-06-01 14:23] VITALS: BP 174/124; PULSE 100; RESP 19; TEMP 36.6; O2SAT 100; BMI 26.6
--- NOTE | 2022-06-01 14:33 | ECG_ITS ---
Test Reason : syncopy and chest pain Blood Pressure : / mmHG Vent. Rate : 100 BPM Atrial Rate : 100 BPM P-R Int : 126 ms QRS Dur : 086 ms QT Int : 368 ms P-R-T Axes : 052 073 002 degrees QTc Int : 474 ms Normal sinus rhythm Cannot rule out Inferior infarct (cited on or before 16-APR-2022) Abnormal ECG When compared with ECG of 17-APR-2022 07:54, No significant change was found Referred By: Generic ED Physician Electronically Signed By:Orion Ortiz
[2022-06-01 14:41] LABS: Glucose, Whole Blood 161 mg/dL (60-115)
[2022-06-01 14:42] LABS: Basophils Percent Auto 0.2 % (0-2); Hematocrit 42.7 % (37.0-47.0); Hemoglobin 14.1 g/dl (12.0-16.0); Imm Gran Abs Auto 0.13 X10*3/uL (0.00-0.03); Imm Gran Pct Auto 0.5 % (0.0-0.4); Lymphocytes Absolute Auto 1.4 X10*3/uL (1.2-4.9); Lymphocytes Percent Auto 5.9 % (20-40); MANUAL DIFF FLAG SCAN; Mean Corpuscular Hemoglobin 26.9 pg (27.0-33.0); Mean Corpuscular Volume 81.3 fL (80.0-98.0); Mean Platelet Volume 9.5 fL (9.4-12.3); Monocytes Absolute Auto 0.5 X10*3/uL (0.1-1.2); Monocytes Percent Auto 2.1 % (2-11); Neutrophils Absolute Auto 21.8 x10*3/uL (2.0-8.3); Neutrophils Percent Auto 91.3 % (45-73); Platelet Count 426 X10*3/uL (160-400); Red Blood Count 5.25 X10*6/uL (4.20-5.50); Red Cell Distribution Width 13.5 % (11.0-16.0); SCAN SMEAR FLAG 1; White Blood Count 23.9 X10*3/uL (4.8-10.8)
[2022-06-01 15:00] LABS: Bilirubin Direct 0.2 mg/dL (0.0-0.5); Lipase 4 U/L (8-78)
[2022-06-01 15:03] LABS: Troponin-I High Sensitivity < 3.5 ng/L (<3.5-17.0)
--- NOTE | 2022-06-01 15:07 | PC.NURSE ---
Pt tearful and anxious in waiting room. Approching triage desk, requesting bed saying following:reports being unable to breath, sob, diff breathing. screaming and tearful in full sentences. airway patent. Hyper ventilating. Skin p/w/d.
[2022-06-01 15:09] LABS: SLIDE REVIEW VERIFIED
[2022-06-01] MEDS: Ondansetron ODT 4 MG TAB.RAPDIS TRANSLINGU (15:47)
[2022-06-01 16:21] LABS: Alanine Aminotransferase 29 U/L (0-31); Albumin Level 5.1 g/dL (3.5-5.0); Alkaline Phosphatase 106 U/L (39-117); Anion Gap 19 (12-20); Aspartate Amino Transferase 21 U/L (5-31); Bilirubin Total 0.5 mg/dL (0.0-1.0); Blood Urea Nitrogen 9 mg/dL (9-16); Carbon Dioxide 17 mmol/L (22-29); Chloride 105 mmol/L (96-108); Creatinine Clr Calc Pharmacy 119.6; Estimated Glomerular Filt Rate > 60; Glucose Random 176 mg/dL (60-115); Potassium 4.1 mmol/L (3.3-5.1); Sodium 137 mmol/L (135-145)
--- NOTE | 2022-06-01 17:24 | PC.NURSE ---
Pt had been self inducing vomiting while in [facility]. Pt began having a period of Unresponsiveness while sitting up on heater. Pt +response to painful stimuli, Opened eyes to commands. Able to stand and povit. fullerette aware. [facility] RN contacted. Pt moved to [facility].
--- NOTE | 2022-06-01 18:08 | ED_ITS ---
HPI - Nausea/Vomiting/Diarrhea General Chief complaint: Syncope Stated complaint: Vomiting/Chest pain Time Seen by Provider: 06/01/22 17:59 Source: patient Mode of arrival: ambulatory Limitations: no limitations History of Present Illness HPI Narrative: 22-year-old female presents to the emergency department with recurrent nausea and vomiting due to repeat cannabis use she does take long showers to help with the pain she has tried capsaicin the past without relief she denies fevers or chills she was concerned that her potassium was low she did pass out several hours ago. Patient looks much better she got some Zofran while she was waiting she is happy the plan to try Haldol IM as well as some Ativan IM and follow-up with her doctor. MD elicited complaint: nausea and vomiting Pertinent past history: cyclical vomiting Related Data Home Medications Medication Instructions Recorded Confirmed amitriptyline 75 mg tablet 1 tab PO BEDTIME 04/17/22 04/17/22 aripiprazole 5 mg tablet 1 tab PO BEDTIME 04/17/22 04/17/22 escitalopram oxalate 20 mg tablet 1 tab PO DAILY 04/17/22 04/17/22 omeprazole 20 mg capsule,delayed 20 mg PO BID@0630,1630 04/17/22 04/17/22 release Previous Rx's Medication Instructions Recorded ondansetron HCl 4 mg tablet 4 mg PO DAILY PRN nausea and 04/18/22 vomiting 4 days #4 tabs Allergies Allergy/AdvReac Type Severity Reaction Status Date / Time No Known Allergies Allergy Verified 01/16/22 15:55 Review of Systems Review of Systems: Review of systems: General: Patient denies any fever chills recent illness or falls Musculoskeletal: Denies back pain or body aches or other injuries HEENT: denies headache, runny nose, ear pain Respiratory: denies shortness of breath, cough Cardiovascular: no chest pain or palpitations : denies dysuria, frequency Abdomen: nausea vomiting denies abdominal pain Extremities: no swelling, no pain Skin: no diaphoresis Yes all other systems are reviewed and are negative [facility] Past Medical History Attestation statement: The following information was validated with the patient. Medical History Anxiety Cyclical vomiting Seizure Social History Social History Alcohol intake: current Alcohol intake frequency: a few times a week Alcohol type: beer Patient Tobacco Use Status: Never used Tobacco Substance Use Type: Crack/Cocaine and Marijuana Advance Directives: No Advance Directives Information Provided: No service: No Current occupational status: unemployed Physical Exam Vital Signs: Vital Signs: Last Vital Signs Temp 98 F 06/01/22 14:23 Pulse 100 06/01/22 14:23 Resp 19 06/01/22 14:23 BP 174/124 H 06/01/22 14:23 Pulse Ox 100 06/01/22 14:23 O2 Del Method 06/01/22 14:23 BMI result Body Mass Index 26.6 General: Well-appearing well-nourished in no signs of distress HEENT: Normocephalic atraumatic Neck: No signs of JVD, no masses no tenderness or lymphadenopathy Cardiovascular: Regular rate and rhythm Respiratory: Clear to auscultation bilaterally Abdomen: Soft nontender no masses Extremities: Normal pedal pulses no signs of edema Skin: Dry warm no rashes Back: No tenderness full ROM MDM - Nausea/Vomiting/Diarrhea Medical Records Attestation: I reviewed the patient's medical records. Lab Data Attestation: I reviewed the patient's lab results. Result diagrams: 06/01/22 14:38 06/01/22 14:37 Labs: Lab Results 06/01/22 06/01/22 06/01/22 Range/Units 14:27 14:37 14:38 WBC 23.9 H (4.8-10.8) X10*3/uL RBC 5.25 (4.20-5.50) X10*6/uL Hgb 14.1 (12.0-16.0) g/dl Hct 42.7 (37.0-47.0) % MCV 81.3 (80.0-98.0) fL MCH 26.9 L (27.0-33.0) pg MCHC 33.0 (31.0-35.0) g/dl RDW 13.5 (11.0-16.0) % Plt Count 426 H D (160-400) X10*3/uL MPV 9.5 (9.4-12.3) fL Immature Gran % (Auto) 0.5 H (0.0-0.4) % Neut % (Auto) 91.3 H (45-73) % Lymph % (Auto) 5.9 L (20-40) % [place] % (Auto) 2.1 (2-11) % Eos % (Auto) 0.0 (0-4) % Baso % (Auto) 0.2 (0-2) % Lymph # (Auto) 1.4 (1.2-4.9) X10*3/uL [place] # (Auto) 0.5 (0.1-1.2) X10*3/uL Eos # (Auto) 0.0 (0.0-0.4) X10*3/uL Baso # (Auto) 0.0 (0.0-0.2) X10*3/uL Abs Immat Gran (auto) 0.13 H (0.00-0.03) X10*3/uL Absolute Neuts (auto) 21.8 H (2.0-8.3) x10*3/uL Absolute Nucleated RBC 0.000 (0.0-0.012) X10*3/uL Nucleated RBC % (auto) 0.0 (0.0-0.2) /100WBC Smear Tech's Comments VERIFIED Sodium 137 (135-145) mmol/L Potassium 4.1 D (3.3-5.1) mmol/L Chloride 105 (96-108) mmol/L Carbon Dioxide 17 L (22-29) mmol/L Anion Gap 19 (12-20) BUN 9 D (9-16) mg/dL Creatinine 0.73 (0.5-1.4) mg/dL Estim Creat Clear Calc 119.6 Estimated GFR > 60 POC Glucose 161 H (60-115) mg/dL Random Glucose 176 H (60-115) mg/dL Calcium 10.0 D (8.4-10.2) mg/dL Total Bilirubin 0.5 (0.0-1.0) mg/dL Direct Bilirubin 0.2 (0.0-0.5) mg/dL AST 21 (5-31) U/L ALT 29 (0-31) U/L Alkaline Phosphatase 106 D (39-117) U/L Troponin I High Sens (<3.5-17.0) ng/L Total Protein 9.0 H (6.5-8.0) g/dL Albumin 5.1 H (3.5-5.0) g/dL Lipase 4 L (8-78) U/L 06/01/22 Range/Units 14:38 WBC (4.8-10.8) X10*3/uL RBC (4.20-5.50) X10*6/uL Hgb (12.0-16.0) g/dl Hct (37.0-47.0) % MCV (80.0-98.0) fL MCH (27.0-33.0) pg MCHC (31.0-35.0) g/dl RDW (11.0-16.0) % Plt Count (160-400) X10*3/uL MPV (9.4-12.3) fL Immature Gran % (Auto) (0.0-0.4) % Neut % (Auto) (45-73) % Lymph % (Auto) (20-40) % [place] % (Auto) (2-11) % Eos % (Auto) (0-4) % Baso % (Auto) (0-2) % Lymph # (Auto) (1.2-4.9) X10*3/uL [place] # (Auto) (0.1-1.2) X10*3/uL Eos # (Auto) (0.0-0.4) X10*3/uL Baso # (Auto) (0.0-0.2) X10*3/uL Abs Immat Gran (auto) (0.00-0.03) X10*3/uL Absolute Neuts (auto) (2.0-8.3) x10*3/uL Absolute Nucleated RBC (0.0-0.012) X10*3/uL Nucleated RBC % (auto) (0.0-0.2) /100WBC Smear Tech's Comments Sodium (135-145) mmol/L Potassium (3.3-5.1) mmol/L Chloride (96-108) mmol/L Carbon Dioxide (22-29) mmol/L Anion Gap (12-20) BUN (9-16) mg/dL Creatinine (0.5-1.4) mg/dL Estim Creat Clear Calc Estimated GFR POC Glucose (60-115) mg/dL Random Glucose (60-115) mg/dL Calcium (8.4-10.2) mg/dL Total Bilirubin (0.0-1.0) mg/dL Direct Bilirubin (0.0-0.5) mg/dL AST (5-31) U/L ALT (0-31) U/L Alkaline Phosphatase (39-117) U/L Troponin I High Sens < 3.5 (<3.5-17.0) ng/L Total Protein (6.5-8.0) g/dL Albumin (3.5-5.0) g/dL Lipase (8-78) U/L ECG Data Attestation: I personally reviewed and interpreted this ECG as follows: ECG interpretation date: 06/01/22 ECG interpretation time: 18:15 Interpretation: RAte 100 sinus tachycardia no signs of ischemia normal intervals no signs of brugada no LVH or needle like q waves no short [place] or delta wave for WPW or long QT or episilon wave with ARVC Discharge Plan Discharge Clinical Impression: Intractable cyclical vomiting with nausea, Cannabinoid hyperemesis syndrome, Dehydration, Anxiety and depression Patient Disposition: Home, Self-Care Additional Instructions: Please call to follow up with your doctor. Please stop smoking marijuana there are no health benefits to smoking marijuana. It is causing you to have low potassium and not function in life. Prescriptions: No Action amitriptyline 75 mg tablet 1 tab PO BEDTIME omeprazole 20 mg Capsule,Delayed Release(Dr/Ec) 20 mg PO BID@0630,1630 escitalopram oxalate 20 mg tablet 1 tab PO DAILY aripiprazole 5 mg tablet 1 tab PO BEDTIME ondansetron HCl 4 mg tablet 4 mg PO DAILY PRN (Reason: nausea and vomiting) 4 Days Qty: 4 0RF
[2022-06-01] MEDS: Haloperidol Lactate 5 MG/ML VIAL IM (18:39)
== END 2022-06-01 18:50 | disposition home or self-care (01) ==
PROVIDERS: Emergency Provider Student in an Organized Health Care Education/Training Program; PCP Nurse Practitioner Family
DX: F12.920 Cannabis use, unspecified with intoxication, uncomplicated (principal); R55 Syncope and collapse; R07.89 Other chest pain; R11.2 Nausea with vomiting, unspecified; F14.90 Cocaine use, unspecified, uncomplicated; Z79.899 Other long term (current) drug therapy
CPT/HCPCS: 36415; 80048; 80076; 82947; 83690; 84484; 85025; 93005; 96372; 99283; 99284

== ENCOUNTER 2022-06-02 16:57 | Emergency (ER) | payer MEDICAID, SELFPAY ==
[2022-06-02 17:15] VITALS: BP 170/107; BP 180/89; PULSE 110; RESP 18; TEMP 36.7; O2SAT 100; BMI 36.6
--- NOTE | 2022-06-02 18:25 | ED_ITS ---
HPI - General Adult General Chief complaint: Nausea/Vomiting/Diarrhea Stated complaint: anxiety ? seizure Time Seen by Provider: 06/02/22 17:04 Source: patient and EMS Mode of arrival: EMS Limitations: no limitations History of Present Illness HPI narrative: 22-year-old female came in for evaluation of anxiety. Has been feeling anxious with nausea and vomiting for 2 days since patient sniffed cocaine, patient use cocaine occasionally number IV, however patient smokes marijuana on a daily basis, patient was seen in the ED yesterday for vomiting patient was discharged after felt better after 1 injection of Haldol. Patient's symptoms improve with taking warm shower, patient used capsacian in the past with no relief. Related Data Home Medications Medication Instructions Recorded Confirmed amitriptyline 75 mg tablet 1 tab PO BEDTIME 04/17/22 04/17/22 aripiprazole 5 mg tablet 1 tab PO BEDTIME 04/17/22 04/17/22 escitalopram oxalate 20 mg tablet 1 tab PO DAILY 04/17/22 04/17/22 omeprazole 20 mg capsule,delayed 20 mg PO BID@0630,1630 04/17/22 04/17/22 release Previous Rx's Medication Instructions Recorded ondansetron HCl 4 mg tablet 4 mg PO DAILY PRN nausea and 04/18/22 vomiting 4 days #4 tabs ondansetron 4 mg disintegrating 4 mg PO Q6H #14 tabs 06/01/22 tablet Allergies Allergy/AdvReac Type Severity Reaction Status Date / Time No Known Allergies Allergy Verified 01/16/22 15:55 Review of Systems Review of Systems: All other systems are reviewed and are negative Constitutional: Reports as per HPI and Reports no additional constitutional complaints Eyes: Reports as per HPI and Reports no additional eye complaints Reports system reviewed and no additional complaints, except as documented Cardiovascular: Reports as per HPI and Reports no additional cardiovascular complaints Respiratory: Reports as per HPI and Reports no additional respiratory complaints Gastrointestinal: Reports as per HPI and Reports no additional gastrointestinal complaints Genitourinary: Reports no additional female genitourinary complaints Musculoskeletal: Reports no additional musculoskeletal complaints Skin/Breast: Reports system reviewed and no additional complaints, except as docu Psychiatric: Reports no additional psychiatric complaints Endocrine: Reports no additional endocrine complaints Hematologic/Lymphatic: Reports no additional hematologic/lymphatic complaints Allergic/Immunologic: Reports no additional allergic/immunologic complaints Reports system reviewed and no additional complaints, except as documented and Reports Abnormal speech present [facility] Past Medical History Medical History Anxiety Cyclical vomiting Seizure Social History Social History Alcohol intake: current Alcohol intake frequency: a few times a week Alcohol type: beer Patient Tobacco Use Status: Never used Tobacco Substance Use Type: Crack/Cocaine and Marijuana Advance Directives: No Advance Directives Information Provided: No service: No Current occupational status: unemployed Physical Exam ED Vital Signs: Vital Signs - 24 hr 06/02/22 17:15 06/02/22 20:56 Temperature 98.0 F 98 F Pulse Rate 110 H 94 Respiratory Rate 18 19 Blood Pressure 180/89 H 135/80 Pulse Oximetry 100 100 Oxygen Delivery Method Room Air Room Air BMI result Body Mass Index 36.6 Vital signs have been reviewed as appeared to be correct. Blood pressure normal. Heart rate normal. Respiration rate normal. Temperature normal. Oxygen saturation normal. Appearance: Anxious, Alert. Oriented X3. No acute distress. Head: Normal external exam. Normocephalic. Atraumatic. No Lopez signs noted. No raccoon eyes noted Eyes: PERRLA. EOMI. Conjunctiva and sclera normal. Eyelids normal. ENT: TM's Normal. Pharynx normal. Uvula midline. Moist mucous membranes. No trismus noted. No drooling noted. No muffled voice noted. Neck: Normal inspection. Neck supple. FROM. No adenopathy. Thyroid Normal. No meningeal signs. No neck mass noted. CVS: Normal heart rate and rhythm. Heart sound normal. No murmurs noted. Pulses normal throughout. Respiratory: No respiratory distress. Painless inspiration. Breath sounds normal. No wheezes/rales/rhonchi noted. Chest nontender. No accessory muscle usage noted or decreased air movement noted. Abdomen: Soft and nontender. Bowel sounds normal in all 4 quadrants. No distention noted. No organomegaly noted. No visible injury noted. Back: No CVA tenderness. Full range of motion noted. Skin: Skin warm and dry. Normal skin color. Normal skin turgor. No rashes/lesions/lacerations noted. Extremities: No lower extremity edema. Extremities exhibit normal range of motion. Extremities nontender. Neuro: Oriented X 3. Cranial nerve exam: II-XII are grossly intact No motor deficit. No sensory deficit. Reflexes normal. Course Course Course Narrative: Assessment and plan. 22-year-old female came in for persistent vomiting and anxiety after using marijuana and cocaine, patient was seen yesterday for similar symptoms and was d ischarged return for worsening of his same symptoms, today patient has no electrolytes abnormalities, with significant improvement of leukocytosis from yesterday, patient received Valium and IV fluid with improvement of patient's symptoms. Patient was instructed to refrain from smoking marijuana or using drugs. Medical Decision Making Lab Data Lab results reviewed: Yes I reviewed the patient's lab results. Result diagrams: 06/02/22 20:39 06/02/22 20:39 Labs: Lab Results 06/02/22 06/02/22 06/02/22 Range/Units 20:39 20:39 20:39 WBC 15.5 H (4.8-10.8) X10*3/uL RBC 4.77 (4.20-5.50) X10*6/uL Hgb 12.9 (12.0-16.0) g/dl Hct 39.2 (37.0-47.0) % MCV 82.2 (80.0-98.0) fL MCH 27.0 (27.0-33.0) pg MCHC 32.9 (31.0-35.0) g/dl RDW 13.9 (11.0-16.0) % Plt Count 345 (160-400) X10*3/uL MPV 9.3 L (9.4-12.3) fL Immature Gran % (Auto) 0.3 (0.0-0.4) % Neut % (Auto) 80.7 H (45-73) % Lymph % (Auto) 12.9 L (20-40) % [place] % (Auto) 5.7 (2-11) % Eos % (Auto) 0.1 (0-4) % Baso % (Auto) 0.3 (0-2) % Lymph # (Auto) 2.0 (1.2-4.9) X10*3/uL [place] # (Auto) 0.9 (0.1-1.2) X10*3/uL Eos # (Auto) 0.0 (0.0-0.4) X10*3/uL Baso # (Auto) 0.0 (0.0-0.2) X10*3/uL Abs Immat Gran (auto) 0.04 H (0.00-0.03) X10*3/uL Absolute Neuts (auto) 12.5 H (2.0-8.3) x10*3/uL Absolute Nucleated RBC 0.000 (0.0-0.012) X10*3/uL Nucleated RBC % (auto) 0.0 (0.0-0.2) /100WBC Sodium 138 (135-145) mmol/L Potassium 4.8 (3.3-5.1) mmol/L Chloride 106 (96-108) mmol/L Carbon Dioxide 25 (22-29) mmol/L Anion Gap 12 (12-20) BUN 11 (9-16) mg/dL Creatinine 0.75 (0.5-1.4) mg/dL Estim Creat Clear Calc 122.1 Estimated GFR > 60 Random Glucose 99 (60-115) mg/dL Calcium 8.8 D (8.4-10.2) mg/dL Total Bilirubin 0.8 (0.0-1.0) mg/dL Direct Bilirubin 0.3 (0.0-0.5) mg/dL AST 20 (5-31) U/L ALT 22 (0-31) U/L Alkaline Phosphatase 82 D (39-117) U/L Troponin I High Sens < 3.5 (<3.5-17.0) ng/L Total Protein 7.5 (6.5-8.0) g/dL Albumin 4.3 (3.5-5.0) g/dL Lipase 11 (8-78) U/L Urine Color Urine Appearance Urine pH (5.0-8.0) Ur Specific [place] (1.005-1.025) Urine Protein (NEG-TRACE) MG/DL Urine Glucose (UA) (NEG) MG/DL Urine Ketones (NEG) MG/DL Urine Blood (NEG) Urine Nitrite (NEG) Ur Leukocyte Esterase (NEG) Urine RBC (0) /HPF Urine WBC (0-4) /HPF Ur Squamous Epith Cells /LPF Urine Bacteria /LPF Urine Test (NEGATIVE) Urine Opiates Screen (Not Detect) Urine Fentanyl Screen (Not Detect) Ur Barbiturates Screen (Not Detect) Ur Phencyclidine Scrn (Not Detect) Ur Amphetamines Screen (Not Detect) U Benzodiazepines Scrn (Not Detect) Urine Cocaine Screen (Not Detect) U Marijuana (THC) Screen (Not Detect) 06/02/22 06/02/22 06/02/22 Range/Units 21:02 21:02 21:02 WBC (4.8-10.8) X10*3/uL RBC (4.20-5.50) X10*6/uL Hgb (12.0-16.0) g/dl Hct (37.0-47.0) % MCV (80.0-98.0) fL MCH (27.0-33.0) pg MCHC (31.0-35.0) g/dl RDW (11.0-16.0) % Plt Count (160-400) X10*3/uL MPV (9.4-12.3) fL Immature Gran % (Auto) (0.0-0.4) % Neut % (Auto) (45-73) % Lymph % (Auto) (20-40) % [place] % (Auto) (2-11) % Eos % (Auto) (0-4) % Baso % (Auto) (0-2) % Lymph # (Auto) (1.2-4.9) X10*3/uL [place] # (Auto) (0.1-1.2) X10*3/uL Eos # (Auto) (0.0-0.4) X10*3/uL Baso # (Auto) (0.0-0.2) X10*3/uL Abs Immat Gran (auto) (0.00-0.03) X10*3/uL Absolute Neuts (auto) (2.0-8.3) x10*3/uL Absolute Nucleated RBC (0.0-0.012) X10*3/uL Nucleated RBC % (auto) (0.0-0.2) /100WBC Sodium (135-145) mmol/L Potassium (3.3-5.1) mmol/L Chloride (96-108) mmol/L Carbon Dioxide (22-29) mmol/L Anion Gap (12-20) BUN (9-16) mg/dL Creatinine (0.5-1.4) mg/dL Estim Creat Clear Calc Estimated GFR Random Glucose (60-115) mg/dL Calcium (8.4-10.2) mg/dL Total Bilirubin (0.0-1.0) mg/dL Direct Bilirubin (0.0-0.5) mg/dL AST (5-31) U/L ALT (0-31) U/L Alkaline Phosphatase (39-117) U/L Troponin I High Sens (<3.5-17.0) ng/L Total Protein (6.5-8.0) g/dL Albumin (3.5-5.0) g/dL Lipase (8-78) U/L Urine Color YELLOW Urine Appearance CLEAR Urine pH 6.0 (5.0-8.0) Ur Specific [place] 1.025 (1.005-1.025) Urine Protein 2+ H (NEG-TRACE) MG/DL Urine Glucose (UA) NEG (NEG) MG/DL Urine Ketones >=80 (NEG) MG/DL Urine Blood NEG (NEG) Urine Nitrite NEG (NEG) Ur Leukocyte Esterase NEG (NEG) Urine RBC 0 (0) /HPF Urine WBC 0 (0-4) /HPF Ur Squamous Epith Cells 3+ /LPF Urine Bacteria 1+ /LPF Urine Test NEGATIVE (NEGATIVE) Urine Opiates Screen Not Detected (Not Detect) Urine Fentanyl Screen Not Detected (Not Detect) Ur Barbiturates Screen Not Detected (Not Detect) Ur Phencyclidine Scrn Not Detected (Not Detect) Ur Amphetamines Screen Not Detected (Not Detect) U Benzodiazepines Scrn POSITIVE H (Not Detect) Urine Cocaine Screen POSITIVE H (Not Detect) U Marijuana (THC) Screen POSITIVE H (Not Detect) Discharge Plan Discharge Clinical Impression: Cyclical vomiting, Anxiety and depression, Substance use disorder Patient Disposition: Home, Self-Care Instructions: Cyclic Vomiting Syndrome (ED) Prescriptions: No Action ondansetron 4 mg tablet,disintegrating 4 mg PO Q6H Qty: 14 0RF amitriptyline 75 mg tablet 1 tab PO BEDTIME omeprazole 20 mg Capsule,Delayed Release(Dr/Ec) 20 mg PO BID@0630,1630 escitalopram oxalate 20 mg tablet 1 tab PO DAILY aripiprazole 5 mg tablet 1 tab PO BEDTIME ondansetron HCl 4 mg tablet 4 mg PO DAILY PRN (Reason: nausea and vomiting) 4 Days Qty: 4 0RF
[2022-06-02] MEDS: diazePAM 10 MG/2 ML CARTRIDGE 5 MG IVPUSH (18:45)
[2022-06-02] MEDS: 0.9 % Sodium Chloride 1,000 ML 999 ML IV (18:51)
[2022-06-02 20:43] LABS: MANUAL DIFF FLAG NO
[2022-06-02 20:44] LABS: Basophils Percent Auto 0.3 % (0-2); Eosinophils Percent Auto 0.1 % (0-4); Hematocrit 39.2 % (37.0-47.0); Hemoglobin 12.9 g/dl (12.0-16.0); Imm Gran Abs Auto 0.04 X10*3/uL (0.00-0.03); Imm Gran Pct Auto 0.3 % (0.0-0.4); Lymphocytes Percent Auto 12.9 % (20-40); Mean Corpuscular HGB Conc 32.9 g/dl (31.0-35.0); Mean Corpuscular Volume 82.2 fL (80.0-98.0); Mean Platelet Volume 9.3 fL (9.4-12.3); Monocytes Absolute Auto 0.9 X10*3/uL (0.1-1.2); Monocytes Percent Auto 5.7 % (2-11); Neutrophils Absolute Auto 12.5 x10*3/uL (2.0-8.3); Neutrophils Percent Auto 80.7 % (45-73); Platelet Count 345 X10*3/uL (160-400); Red Blood Count 4.77 X10*6/uL (4.20-5.50); Red Cell Distribution Width 13.9 % (11.0-16.0); White Blood Count 15.5 X10*3/uL (4.8-10.8)
[2022-06-02 20:56] VITALS: BP 135/80; PULSE 94; RESP 19; TEMP 36.6; O2SAT 100
[2022-06-02 21:01] LABS: Alanine Aminotransferase 22 U/L (0-31); Albumin Level 4.3 g/dL (3.5-5.0); Alkaline Phosphatase 82 U/L (39-117); Anion Gap 12 (12-20); Aspartate Amino Transferase 20 U/L (5-31); Bilirubin Direct 0.3 mg/dL (0.0-0.5); Bilirubin Total 0.8 mg/dL (0.0-1.0); Blood Urea Nitrogen 11 mg/dL (9-16); Calcium 8.8 mg/dL (8.4-10.2); Carbon Dioxide 25 mmol/L (22-29); Chloride 106 mmol/L (96-108); Creatinine Clr Calc Pharmacy 122.1; Estimated Glomerular Filt Rate > 60; Glucose Random 99 mg/dL (60-115); Lipase 11 U/L (8-78); Potassium 4.8 mmol/L (3.3-5.1); Sodium 138 mmol/L (135-145); Total Protein 7.5 g/dL (6.5-8.0)
[2022-06-02 21:07] LABS: Troponin-I High Sensitivity < 3.5 ng/L (<3.5-17.0)
--- NOTE | 2022-06-02 21:08 | MHC.RECOVSUP ---
? Reason for consult:Recovery Support o Current location:[facility] [address] o Identified substance use concern:Cocaine - Support ? Intervention: o Community resources provided o Harm reduction discussion ? Plan: o Patient to follow up with [facility] after discharge ? Additional information:Had a harm reduction discussion, referred her to [facility], gave her community resources, and suggested a CSS program.
[2022-06-02 21:09] LABS: Appearance Urine CLEAR; Color Urine YELLOW; Glucose Urine UA NEG (NEG); Leukocyte Esterase Urine NEG (NEG); Nitrite Urine NEG (NEG); Specific Gravity - Urine 1.025 (1.005-1.025); UACC Culture Trigger NO; Urine Blood NEG (NEG); Urine Ketones >=80 MG/DL (NEG); Urine Protein 2+ MG/DL (NEG-TRACE)
[2022-06-02 21:10] LABS: Urine Pregnancy NEGATIVE (NEGATIVE)
[2022-06-02 21:11] LABS: UPreg QC Valid YES
[2022-06-02 21:13] LABS: Bacteria Urine 1+ /LPF; RBC Urine 0 /HPF (0); Squamous Epithelial Cell Urine 3+ /LPF; WBC Urine 0 /HPF (0-4)
[2022-06-02 21:24] LABS: Amphetamine Screen Urine Not Detected (Not Detect); Barbiturates, Urine Not Detected (Not Detect); Benzodiazepines Screen Urine POSITIVE (Not Detect); Cannabinoid Screen Urine POSITIVE (Not Detect); Cocaine Screen Urine POSITIVE (Not Detect); Fentanyl, urine Not Detected (Not Detect); Opiate Screen Urine Not Detected (Not Detect); Phencyclidine Screen Urine Not Detected (Not Detect)
== END 2022-06-02 22:29 | disposition home or self-care (01) ==
PROVIDERS: Emergency Provider Emergency Medicine; PCP Nurse Practitioner Family
DX: R11.15 Cyclical vomiting syndrome unrelated to migraine (principal); F41.9 Anxiety disorder, unspecified; F32.A Depression, unspecified; F19.90 Other psychoactive substance use, unspecified, uncomplicated; F12.90 Cannabis use, unspecified, uncomplicated; Z79.899 Other long term (current) drug therapy
CPT/HCPCS: 36415; 80048; 80076; 80307; 81001; 81025; 83690; 84484; 85025; 96361; 96374; 99283; 99284; J3360

== ENCOUNTER 2022-06-28 10:06 | Emergency (ER) | payer MEDICAID, SELFPAY ==
[2022-06-28 10:13] VITALS: BP 100/66; PULSE 121; RESP 19; TEMP 37.4; BMI 32.2
[2022-06-28] MEDS: Haloperidol Lactate 5 MG/ML VIAL IM (10:26)
[2022-06-28] MEDS: Midazolam HCl/PF 2 MG/2 ML VIAL IM ×2 (10:27→11:50)
--- NOTE | 2022-06-28 10:29 | PC.NURSE ---
pt thrashing in bed but able to redirected. pt calm with no staff in the room and family at bedside. pt medicated per emar for vomiting.
--- NOTE | 2022-06-28 10:31 | ED.NAVMDI ---
HPI - Nausea/Vomiting/Diarrhea General Chief complaint: Nausea/Vomiting/Diarrhea Stated complaint: vomiting Time Seen by Provider: 06/28/22 10:13 Source: patient, family and old records reviewed Mode of arrival: ambulatory Limitations: no limitations History of Present Illness HPI Narrative: 22 yo female with hx of cyclical vomiting, substance abuse though she reports that she is no longer using THC or cocaine. States she is on citalopram and abilify for her anxiety. She reports 2 days of her cyclical vomiting episodes. MD elicited complaint: nausea, vomiting, abdominal pain and other (anxiety) Pertinent past history: cyclical vomiting Onset (ago): day(s) (2) Description of vomiting: food contents and watery Associated nausea: Yes Associated abdominal pain: Yes Location of pain: epigastric Radiation: diffuse Pain consistency: constant Severity: similar to previous episodes Exacerbating factors: eating and movement Relieving factors: none Context: marijuana use and other (hx of similar bouts) Associated symptoms: malaise, nausea/vomiting and anxiety Related Data Home Medications Medication Instructions Recorded Confirmed amitriptyline 75 mg tablet 1 tab PO BEDTIME 04/17/22 04/17/22 aripiprazole 5 mg tablet 1 tab PO BEDTIME 04/17/22 04/17/22 escitalopram oxalate 20 mg tablet 1 tab PO DAILY 04/17/22 04/17/22 omeprazole 20 mg capsule,delayed 20 mg PO BID@0630,1630 04/17/22 04/17/22 release Previous Rx's Medication Instructions Recorded ondansetron HCl 4 mg tablet 4 mg PO DAILY PRN nausea and 04/18/22 vomiting 4 days #4 tabs ondansetron 4 mg disintegrating 4 mg PO Q6H #14 tabs 06/01/22 tablet Allergies Allergy/AdvReac Type Severity Reaction Status Date / Time No Known Allergies Allergy Verified 01/16/22 15:55 Review of Systems Review of Systems: Constitutional : No Weight loss, No Fever, No Chills ENT/Mouth : No sore throat, No Rhinorrhea Eyes: No Swelling, No Redness Cardiovascular : No Chest Pain, No SOB, NoEdema Respiratory : No Cough, No Sputum, No Wheezing Gastrointestinal : Positive Nausea, Positive Vomiting,no Diarrhea, positive abdominal Pain, No Hematochezia, No Melena Genitourinary : No Dysuria, No Urinary Frequency, No Hematuria, No Urgency Musculoskeletal : No joint pain, No Myalgias, No Joint Swelling Skin : No Skin Lesions, No rash Neuro : No Weakness, No Numbness, No Dizziness, No Headache Psych : pos Anxiety/Panic, No Depression Heme/Lymph: No Bruising, No Lymphadenopathy Endocrine : No Polyuria, No Polydipsia All other systems reviewed and are negative. Gastrointestinal: Gastrointestinal: Reports nausea PMFSH Past Medical History Attestation statement: The following information was validated with the patient. Medical History Anxiety Cyclical vomiting Seizure Social History Social History Alcohol intake: current Alcohol intake frequency: a few times a week Alcohol type: beer Patient Tobacco Use Status: Never used Tobacco Use of substances other than those prescribed or required for medical reasons: Yes Substance Use Type: Crack/Cocaine and Marijuana Advance Directives: No Advance Directives Information Provided: Yes Patient : No service: No Current occupational status: unemployed Physical Exam Vital Signs: Vital Signs: Last Vital Signs Temp 99.3 F 06/28/22 10:13 Pulse 108 H 06/28/22 13:48 Resp 16 06/28/22 13:48 BP 164/107 H 06/28/22 13:48 Pulse Ox 100 06/28/22 13:48 O2 Del Method 06/28/22 13:48 BMI result Body Mass Index 32.2 Appearance: Alert. Oriented X3. Anxious mild acute distress. Thrashing around Eyes: Pupils equal, round and reactive to light. ENT: Pharynx normal. Neck: Normal inspection. Neck supple. CVS: tachycardic heart rate and rhythm. Pulses normal. Respiratory: No respiratory distress. Breath sounds normal. Abdomen: Soft and moderate diffuse ttp no rebound Skin: Skin warm and dry. Normal skin color. Normal skin turgor. Extremities: No lower extremity edema. Neuro: Oriented X 3. No motor deficit. No sensory deficit. Course Course Course Narrative: now punching herself in the face stating she is SI and she is going to hurt herself. She only scratches herself and punched herself when the staff can see her. She is given IM versed again and referred to [facility] chronic leukocytosis - hx of same in past with similar presentation more calm after last dose of IM versed Physician observation started at 211pm Patient placed in physician observation because the patient needed more time for [facility] to assess the need for psych admission. At the time observation was started the patient's vitals were stable, patient is alert and oriented - responded well to 2nd dose of IM versed, Neuro: nonfocal, CV RRR, Lungs clear MDM - Nausea/Vomiting/Diarrhea MDM Narrative Medical decision making narrative: 22 yo female with hx of anxiety and substance abuse here with c/o 2 days of cyclical vomiting - at this time typical presentation will need labs, IM medications for vomiting - disp per results and findings. Lab Data Result diagrams: 06/28/22 13:38 06/28/22 13:38 Labs: Lab Results 06/28/22 06/28/22 Range/Units 13:38 13:38 WBC 22.9 H (4.8-10.8) X10*3/uL RBC 5.26 (4.20-5.50) X10*6/uL Hgb 14.2 (12.0-16.0) g/dl Hct 43.2 (37.0-47.0) % MCV 82.1 (80.0-98.0) fL MCH 27.0 (27.0-33.0) pg MCHC 32.9 (31.0-35.0) g/dl RDW 14.3 (11.0-16.0) % Plt Count 369 (160-400) X10*3/uL MPV 9.7 (9.4-12.3) fL Immature Gran % (Auto) 0.5 H (0.0-0.4) % Neut % (Auto) 89.9 H (45-73) % Lymph % (Auto) 5.7 L (20-40) % [place] % (Auto) 3.6 (2-11) % Eos % (Auto) 0.0 (0-4) % Baso % (Auto) 0.3 (0-2) % Lymph # (Auto) 1.3 (1.2-4.9) X10*3/uL [place] # (Auto) 0.8 (0.1-1.2) X10*3/uL Eos # (Auto) 0.0 (0.0-0.4) X10*3/uL Baso # (Auto) 0.1 (0.0-0.2) X10*3/uL Abs Immat Gran (auto) 0.12 H (0.00-0.03) X10*3/uL Absolute Neuts (auto) 20.6 H (2.0-8.3) x10*3/uL Absolute Nucleated RBC 0.000 (0.0-0.012) X10*3/uL Nucleated RBC % (auto) 0.0 (0.0-0.2) /100WBC Smear Tech's Comments VERIFIED Sodium 139 (135-145) mmol/L Potassium 4.1 (3.3-5.1) mmol/L Chloride 107 (96-108) mmol/L Carbon Dioxide 17 L (22-29) mmol/L Anion Gap 19 (12-20) BUN 10 (9-16) mg/dL Creatinine 0.64 (0.5-1.4) mg/dL Estim Creat Clear Calc 160.4 Estimated GFR > 60 Random Glucose 134 H (60-115) mg/dL Calcium 9.1 (8.4-10.2) mg/dL Magnesium 1.8 (1.6-2.6) mg/dL Total Bilirubin 0.7 (0.0-1.0) mg/dL Direct Bilirubin 0.4 (0.0-0.5) mg/dL AST 19 (5-31) U/L ALT 18 (0-31) U/L Alkaline Phosphatase 85 (39-117) U/L Total Protein 7.9 (6.5-8.0) g/dL Albumin 4.5 (3.5-5.0) g/dL Discharge Plan Discharge Clinical Impression: Cyclical vomiting, Anxiety and depression Depression Qualifiers: Depression Type: unspecified Qualified Code(s): F32.A - Depression, unspecified Patient Disposition: Still a Patient Prescriptions: No Action ondansetron 4 mg tablet,disintegrating 4 mg PO Q6H Qty: 14 0RF amitriptyline 75 mg tablet 1 tab PO BEDTIME omeprazole 20 mg Capsule,Delayed Release(Dr/Ec) 20 mg PO BID@0630,1630 escitalopram oxalate 20 mg tablet 1 tab PO DAILY aripiprazole 5 mg tablet 1 tab PO BEDTIME ondansetron HCl 4 mg tablet 4 mg PO DAILY PRN (Reason: nausea and vomiting) 4 Days Qty: 4 0RF
[2022-06-28 13:48] VITALS: BP 164/107; PULSE 108; RESP 16; O2SAT 100
[2022-06-28 13:49] LABS: Basophils Absolute Auto 0.1 X10*3/uL (0.0-0.2); Basophils Percent Auto 0.3 % (0-2); Hematocrit 43.2 % (37.0-47.0); Hemoglobin 14.2 g/dl (12.0-16.0); Imm Gran Abs Auto 0.12 X10*3/uL (0.00-0.03); Imm Gran Pct Auto 0.5 % (0.0-0.4); Lymphocytes Absolute Auto 1.3 X10*3/uL (1.2-4.9); Lymphocytes Percent Auto 5.7 % (20-40); MANUAL DIFF FLAG SCAN; Mean Corpuscular HGB Conc 32.9 g/dl (31.0-35.0); Mean Corpuscular Volume 82.1 fL (80.0-98.0); Mean Platelet Volume 9.7 fL (9.4-12.3); Monocytes Absolute Auto 0.8 X10*3/uL (0.1-1.2); Monocytes Percent Auto 3.6 % (2-11); Neutrophils Absolute Auto 20.6 x10*3/uL (2.0-8.3); Neutrophils Percent Auto 89.9 % (45-73); Platelet Count 369 X10*3/uL (160-400); Red Blood Count 5.26 X10*6/uL (4.20-5.50); Red Cell Distribution Width 14.3 % (11.0-16.0); SCAN SMEAR FLAG 1; White Blood Count 22.9 X10*3/uL (4.8-10.8)
[2022-06-28 14:07] LABS: SLIDE REVIEW VERIFIED
[2022-06-28 14:08] LABS: Alanine Aminotransferase 18 U/L (0-31); Albumin Level 4.5 g/dL (3.5-5.0); Alkaline Phosphatase 85 U/L (39-117); Anion Gap 19 (12-20); Aspartate Amino Transferase 19 U/L (5-31); Bilirubin Direct 0.4 mg/dL (0.0-0.5); Bilirubin Total 0.7 mg/dL (0.0-1.0); Blood Urea Nitrogen 10 mg/dL (9-16); Calcium 9.1 mg/dL (8.4-10.2); Carbon Dioxide 17 mmol/L (22-29); Chloride 107 mmol/L (96-108); Creatinine Clr Calc Pharmacy 160.4; Estimated Glomerular Filt Rate > 60; Glucose Random 134 mg/dL (60-115); Magnesium 1.8 mg/dL (1.6-2.6); Potassium 4.1 mmol/L (3.3-5.1); Sodium 139 mmol/L (135-145); Total Protein 7.9 g/dL (6.5-8.0)
[2022-06-28 14:15] LABS: HCG Quantitative < 2 mIU/mL
[2022-06-28 14:22] LABS: COVID-19 Test Negative (Negative); IDNOW Serial# 08D9AD1C
--- NOTE | 2022-06-28 14:56 | PC.NURSE ---
Smart sheet sent to [facility]
[2022-06-28] MEDS: Ondansetron ODT 4 MG TAB.RAPDIS TRANSLINGU (15:28)
[2022-06-28] MEDS: LORazepam 1 MG TABLET 2 MG PO (15:40)
[2022-06-28 16:29] LABS: Amphetamine Screen Urine Not Detected (Not Detect); Barbiturates, Urine Not Detected (Not Detect); Benzodiazepines Screen Urine POSITIVE (Not Detect); Cannabinoid Screen Urine POSITIVE (Not Detect); Cocaine Screen Urine Not Detected (Not Detect); Fentanyl, urine Not Detected (Not Detect); Opiate Screen Urine Not Detected (Not Detect); Phencyclidine Screen Urine Not Detected (Not Detect)
--- NOTE | 2022-06-28 16:38 | PC.NURSE ---
report given to marbella in [facility]
--- NOTE | 2022-06-28 18:38 | MHC.CARE ---
CARE Team attempts to engage pt in assessment, however, pt is not able to engage at this time, somnolent.
[2022-06-28 19:26] VITALS: BP 116/79; PULSE 122; RESP 18; O2SAT 98
== END 2022-06-28 20:26 | disposition home or self-care (01) ==
PROVIDERS: Emergency Medicine; Emergency Provider Emergency Medicine Emergency Medical Services; PCP Nurse Practitioner Family
DX: R11.15 Cyclical vomiting syndrome unrelated to migraine (principal); R19.7 Diarrhea, unspecified; F33.1 Major depressive disorder, recurrent, moderate; F41.1 Generalized anxiety disorder; F43.0 Acute stress reaction; F14.10 Cocaine abuse, uncomplicated; Z20.822 Contact with and (suspected) exposure to COVID-19; Z79.899 Other long term (current) drug therapy
CPT/HCPCS: 80048; 80076; 80307; 83735; 84702; 85025; 87635; 96372; 99284; 99285; J2250

== ENCOUNTER 2022-06-29 04:41 | Emergency (ER) | payer MEDICAID, SELFPAY ==
[2022-06-29 04:51] VITALS: BP 165/101; PULSE 98; RESP 16; TEMP 36.6; O2SAT 99; BMI 31.6
--- NOTE | 2022-06-29 05:22 | ED_ITS ---
HPI - General Adult General Chief complaint: Nausea/Vomiting/Diarrhea Stated complaint: vomiting x2 days Time Seen by Provider: 06/29/22 05:14 Source: patient Limitations: no limitations History of Present Illness HPI narrative: This is a 22-year-old female with a history of cyclic vomiting syndrome, which she states is associated with her menses, who was seen here yesterday for nausea and vomiting but later in the day apparently made some self-harming type gestures of hitting herself and had to be evaluated by Psychiatry, ultimately was discharged. Patient denies THC use. She has been vomiting for a few days. She denies any diarrhea. Denies any fever. She has some soreness from vomiting but otherwise denies abdominal pain. She denies any dysuria urinary frequency. She was prescribed ondansetron yesterday but states that it has not helped. She was also prescribed promethazine suppositories but not use these. Related Data Home Medications Medication Instructions Recorded Confirmed amitriptyline 75 mg tablet 1 tab PO BEDTIME 04/17/22 06/28/22 omeprazole 20 mg capsule,delayed 20 mg PO BID@0630,1630 04/17/22 06/28/22 release Previous Rx's Medication Instructions Recorded ondansetron 4 mg disintegrating 4 mg PO Q6-8H PRN nausea and 06/28/22 tablet vomiting #14 tabs promethazine 25 mg rectal 25 mg SC Q6H PRN nausea and 06/28/22 suppository (Promethegan) vomiting #12 ea Allergies Allergy/AdvReac Type Severity Reaction Status Date / Time No Known Allergies Allergy Verified 01/16/22 15:55 Review of Systems Review of Systems: Yes all other systems are reviewed and are negative Constitutional: Constitutional: Reports as per HPI and Denies fever(s) Eyes: Eyes: Reports as per HPI and Reports no additional eye complaints ENT: Reports system reviewed and no additional complaints, except as documented, Reports as per HPI, Denies nasal congestion, Denies nasal discharge and Denies sore throat Cardiovascular: Cardiovascular: Reports as per HPI, Denies chest pain and Denies dyspnea Respiratory: Respiratory: Reports as per HPI, Denies cough and Denies dyspnea Gastrointestinal: Gastrointestinal: Reports as per HPI, Denies abdominal pain, Denies diarrhea, Reports nausea and Reports vomiting Genitourinary: Genitourinary: Reports as per HPI, Denies hematuria, Denies urinary frequency and Denies dysuria Musculoskeletal: Musculoskeletal: Reports no additional musculoskeletal compl aints and Denies numbness Integumentary/Breasts: Skin/Breast: Reports as per HPI and Denies rash Neurologic: Reports as per HPI, Denies focal weakness and Denies numbness Psychiatric: Psychiatric: Reports no additional psychiatric complaints and Reports as per HPI Endocrine: Endocrine: Reports no additional endocrine complaints and Reports as per HPI Hematologic/Lymphatic: Hematologic/Lymphatic: Reports no additional hematologic/lymphatic complaints, Reports as per HPI and Reports other (No peripheral edema) [facility] Past Medical History Medical History Anxiety Cyclical vomiting Seizure Social History Social History Alcohol intake: unknown Patient Tobacco Use Status: Never used Tobacco Use of substances other than those prescribed or required for medical reasons: Yes Substance Use Type: Marijuana Substance Use Frequency: Daily Last Used Substance: Weeks (ago) Advance Directives: No service: No Current occupational status: unemployed Physical Exam ED Vital Signs: Vital Signs - 24 hr 06/29/22 04:51 06/29/22 06:25 Temperature 97.8 F Pulse Rate 98 106 H Respiratory Rate 16 18 Blood Pressure 165/101 H 171/106 H Pulse Oximetry 99 100 Oxygen Delivery Method Room Air Room Air BMI result Body Mass Index 31.6 Const General: no acute distress Orientation/consciousness: patient oriented x3 HENMT Head: Yes normal to inspection General nose exam: Normal external nose present Mouth: moist mucous membranes Throat: Yes posterior oropharynx normal, Yes tonsils normal and Yes uvula midline Eyes Eyelids: Yes eyelids normal Conjunctivae: conjunctivae normal Pupils: Equal, round and reactive pupils present Neck Neck: Yes supple Resp Effort & Inspection: normal respiratory effort Auscultation: clear to auscultation bilaterally Cardio Rate: regular rate Rhythm: regular rhythm Heart sounds: S1 normal heart sound present, S2 normal heart sound present, no gallops, no murmurs and no rubs GI Inspection: No distended Palpation (GI): Soft to palpation and nontender Auscultation: normal bowel sounds Skin General skin exam: other (Warm and dry) Neuro General: patient oriented x3 and CN's II-XI intact bilaterally Cranial nerves: Yes Equal, round and reactive pupils present Extrem General: Yes no pedal edema Psych Affect: normal affect Attitude: cooperative Medical Decision Making [facility] Narrative Medical decision making narrative: Patient with history of cyclic vomiting syndrome, denies marijuana use, was here yesterday. BUN and creatinine are normal. Potassium was borderline low. Patient was treated with Reglan IV, lorazepam, normal saline 1 L IV. Patient improving her symptoms, was able sit up, hold on appt use, felt comfortable going home. Patient was prescribed ondansetron sublingual and Phenergan suppositories yesterday, has these to take at home. Lab Data Lab results reviewed: Yes I reviewed the patient's lab results. Result diagrams: 06/29/22 05:28 Labs: Lab Results 06/29/22 Range/Units 05:28 Sodium 138 (135-145) mmol/L Potassium 3.3 (3.3-5.1) mmol/L Chloride 103 (96-108) mmol/L Carbon Dioxide 20 L (22-29) mmol/L Anion Gap 18 (12-20) BUN 10 (9-16) mg/dL Creatinine 0.75 (0.5-1.4) mg/dL Estim Creat Clear Calc 126.4 Estimated GFR > 60 Random Glucose 140 H (60-115) mg/dL Calcium 9.3 (8.4-10.2) mg/dL Discharge Plan Discharge Clinical Impression: Intractable cyclical vomiting with nausea Patient Disposition: Home, Self-Care Instructions: Acute Nausea and Vomiting (ED) Additional Instructions: Use the ondansetron and Phenergan suppositories as prescribed yesterday. Try to keep down clear liquids a little better at time, for example Gatorade or Pedialyte. Prescriptions: No Action promethazine [Promethegan] 25 mg suppository 25 mg SC Q6H PRN (Reason: nausea and vomiting) Qty: 12 0RF ondansetron 4 mg tablet,disintegrating 4 mg PO Q6-8H PRN (Reason: nausea and vomiting) Qty: 14 0RF amitriptyline 75 mg tablet 1 tab PO BEDTIME omeprazole 20 mg Capsule,Delayed Release(Dr/Ec) 20 mg PO BID@0630,1630
[2022-06-29] MEDS: LORazepam 1 MG TABLET PO (05:29)
[2022-06-29] MEDS: 0.9 % Sodium Chloride 1,000 ML 999 ML IV (05:38)
[2022-06-29] MEDS: Metoclopramide HCl 10 MG/2 ML VIAL IVPUSH (05:38)
[2022-06-29 05:48] LABS: Anion Gap 18 (12-20); Blood Urea Nitrogen 10 mg/dL (9-16); Calcium 9.3 mg/dL (8.4-10.2); Carbon Dioxide 20 mmol/L (22-29); Chloride 103 mmol/L (96-108); Creatinine Clr Calc Pharmacy 126.4; Estimated Glomerular Filt Rate > 60; Glucose Random 140 mg/dL (60-115); Potassium 3.3 mmol/L (3.3-5.1); Sodium 138 mmol/L (135-145)
[2022-06-29 06:25] VITALS: BP 171/106; PULSE 106; RESP 18; O2SAT 100
[2022-06-29] MEDS: Potassium Bicarbonate/Cit AC 25 MEQ TABLET.EFF PO (06:35)
== END 2022-06-29 06:41 | disposition home or self-care (01) ==
PROVIDERS: Emergency Provider Emergency Medicine; PCP Nurse Practitioner Family
DX: R11.15 Cyclical vomiting syndrome unrelated to migraine (principal); F12.90 Cannabis use, unspecified, uncomplicated
CPT/HCPCS: 36415; 80048; 96374; 99284; J2765

== ENCOUNTER 2022-08-16 08:29 | Emergency (ER) | payer MEDICAID, SELFPAY ==
[2022-08-16 08:33] VITALS: BP 136/97; PULSE 99; RESP 18; TEMP 36.3; O2SAT 98; BMI 34.0
--- OUTSIDE RECORDS SUMMARY | 2022-08-16 09:00 | XMS_ITS | Continuity of Care Document ---
:2000 Author Organization [facility] Address [address] [place] [address] Care Team Providers Name Role Phone ENID ULRICH Primary Care Physician Encounter BVT Date(s): 01/10/22 - 01/10/22 [facility] [address] [place] [address] Encounter Diagnosis Severe depression (Discharge Diagnosis) - 01/10/22 Discharge Disposition: Home Attending Physician: GILLIAN PRESLEY Allergies, Adverse Reactions, Alerts No Known Allergies Assessment and Plan Extracted from: Title: BFM: Severe depression Author: GILLIAN PRESLEY te: 01/10/22 Depression Screen?? PHQ 2?? PHQ 9?? Feeling Down, Depressed, Hopeless: Nearl y every day Trouble Falling or Staying Asleep: Nearl y every day Initial Depression Screen Score: 3 Feeling Tired or Little Energy: Nearly e very day ?? Poor Appetite or Overeating: Nearly ever y day ?? Thoughts Better Off or Hurting Self : Several days Assessment/Plan Ordered: Abilify 5 mg oral tablet, 5 mg = 1 tab( s), Oral, Daily, # 30 tab(s), 1 Refill(s), Pharmacy: [facility]/pharmacy #[id number], 1 tab(s) Oral Daily, 162, cm, 01/07/22 18:44:00 EST, Height/Length Dosing, 88.3, kg, 01/07/22 18:44:00 EST, Weight Dosing Lexapro 10 mg oral tablet, 10 mg = 1 ta b(s), Oral, Daily, # 30 tab(s), 1 Refill(s), Pharmacy: [facility]/pharmacy #[id number], 1 tab(s) Oral Daily, 162, cm, 01/07/22 18:44:00 EST, Height/Length Dosing, 88.3, kg, 01/07/22 18:44:00 EST, Weight Dosing ? Severe depression, anxiety -With recurrent thoughts of dying assoc iated with cyclic vomiting, without specific suicidal ideation -She is interested in trying medication s.?? She reported feeling no benefit from her medications including sertraline, so I recommended trying a different SSRI and she agreed.?? I noticed after the enc deborah that previous notes stated that s he did notice a benefit from sertraline on anxiety and vomiting.?? I also offered to combine with a second medication (Abilify) to increase and accelerate the eff ect on both depression and anxiety, and she was interested.?? To help her remember to take them,??she will set up??a daily alarm??at the end of the day??when her vomiting has calmed down and??she is??more likely to keep the medications down. -Start Lexapro 10 mg daily and Abilify 5 mg daily as above -Recommended??already prescribed??hydro xyzine??for panic attacks.?? I also explained that??Lexapro and Abilify??should reduce frequency and intensity of panic attacks if they are to help. -Warning signs discussed, call as neede d ?? Insomnia -I??explained to her that??lack of slee p??and associated fatigue??can often??exacerbate??mood disorders,??and strongly recommended??her to??try make an effort to take trazodone and Unisom??every night? ?since??she reports that the combination helps well with her sleep. ? Follow-up in 2 weeks with me (due to av ailability) ?? Part or all of this note was dictated u sing??trial court judge software.?? Unintended errors may be present. ? Future Appointments Functional Status 01/10/22 Recent Travel History No recent travel Family Member Travel History No recent travel COVID-19 Screening None Immunizations Given and Recorded Vaccine Date Status Refusal Reason SARS-COV-2 (COVID-19) vaccine, unspecifi 03/03/21 Recorde d SARS-COV-2 (COVID-19) vaccine, unspecifi 02/03/21 Recorde d influenza, inactivated 09/23/20 Given HPV, unspecified formulation 12/30/16 Recorded HPV, unspecified formulation 01/07/16 Recorded HPV, unspecified formulation 08/29/13 Recorded Medications Abilify 5 mg oral tablet 5 mg = 1 tab(s), Oral, Daily, # 30 tab(s), 1 Refill(s), Pharmacy: [facility]/pharmacy #[id number], 1 tab(s) Oral Daily, 162, cm, 01/07/22 18:44:00 EST, Height/Length Dosing, 88.3, kg, 01/07/22 18:44:00 EST, Weight Dosing Start Date: 01/10/22 Status: OrderedhydrOXYzine hydrochloride 50 mg oral tablet 50 mg = 1 tab(s), Oral, QID, PRN PRN for anxiety, # 120 tab(s), 2 Refill(s), Pharmacy: [facility] #[id number], 1 tab(s) Oral QID,PRN:for anxiety Start Date: 03/30/21 Status: OrderedLexapro 10 mg oral tablet 10 mg = 1 tab(s), Oral, Daily, # 30 tab(s), 1 Refill(s), Pharmacy: [facility]/pharmacy #[id number], 1 tab(s) OralDaily, 162, cm, 01/07/22 18:44:00 EST, Height/Length Dosing, 88.3, kg, 01/07/22 18:44:00 EST, WeightDosing Start Date: 01/10/22 Status: OrderedtraZODone 50 mg oral tablet 50 mg = 1 tab(s), Oral, Once a day (at bedtime), # 90 tab(s), 3 Refill(s), Pharmacy: [facility] #[id number], 1 tab(s) Oral Once a day (at bedtime) Start Date: 03/30/21 Status: OrderedZofran ODT 4 mg oral tablet, disintegrating 4 mg = 1 tab(s), Oral, TID, # 12 tab(s), 0 Refill(s), 01/14/22, Pharmacy: [facility] #[id number], 1 tab(s) Oral TID, 162, cm, 01/07/22 18:44:00 EST, Height/Length Dosing, 88.3, kg, 01/07/22 18:44:00 EST, Weight Dosing Start Date: 01/07/22 Stop Date: 01/14/22 Status: Ordered Problem List Condition Effective Dates Status Health Status Informant Acute anxiety(Confirmed) Active Cyclic vomiting syndrome(Confirmed) Active Dizziness(Confirmed) Active AKASH (generalized anxiety Active disorder)(Confirmed) Hx of fracture of right hip(Confirmed) Active Migraine(Confirmed) Active Nausea & vomiting(Confirmed) Active Social History Social History Type Response Smoking Status Former smoker, quit more wayne n 30 days ago; Tobacco use per day: 2 cigarettes daily; entered on: 05/31/21 Sex
--- OUTSIDE RECORDS SUMMARY | 2022-08-16 09:00 | XMS_ITS | Continuity of Care Document ---
:[address] [facility] Address [address] [place] [id number] Care Team Providers Name Role Phone ENID GONSALES Primary Care Physician Encounter BVT Date(s): 09/23/20 - 09/23/[address] [id number]- Discharge Disposition: Home Attending Physician: ENID GONSALES Admitting Physician: ENID GONSALES Allergies, Adverse Reactions, Alerts No Known Allergies Assessment and Plan Future AppointmentsFuture Scheduled TestsLaboratoryC-Reactive Protein 09/23/20 Immunizations Given and Recorded Vaccine Date Status Refusal Reason influenza, inactivated 09/23/20 Given Medications amitriptyline 75 mg oral tablet 75 mg = 1 tab(s), Oral, Once a day (at bedtime), # 90 tab(s), 3 Refill(s), Pharmacy: [facility] #[id number], 1 tab(s) Oral Once a day (at bedtime) Start Date: 09/23/20 Status: Orderedgabapentin 100 mg oral capsule 100 mg = 1 cap(s), Oral, BID Start Date: 09/23/20 Status: Orderedhaloperidol 2 mg oral tablet 2 mg = 1 tab(s), Oral, TID, PRN PRN Nausea/Vomiting, # 15 tab(s), 11 Refill(s), Pharmacy: [facility] #[id number], 1 tab(s) Oral TID,PRN:Nausea/Vomiting Start Date: 09/23/20 Status: Orderedondansetron 4 mg oral tablet 4 mg = 1 tab(s), Oral, q8hr, PRN PRN for nausea/vomiting, # 30 tab(s), 11 Refill(s), Pharmacy: [facility] #[id number], 1 tab(s) Oral q8hr,PRN:for nausea/vomiting Start Date: 09/23/20 Status: Orderedpotassium chloride 40 mEq/15 mL oral liquid 40 mEq = 15 mL, Oral, TID, # 1,350 mL, 0 Refill(s), Pharmacy: [facility] #[id number], 15 mL Oral TID Start Date: 09/23/20 Status: Ordered Problem List Condition Effective Dates Status Health Status Informant Acute anxiety(Confirmed) Active Cyclic vomiting syndrome(Confirmed) Active Dizziness(Confirmed) Active AKASH (generalized anxiety Active disorder)(Confirmed) Migraine(Confirmed) Active Nausea & vomiting(Confirmed) Active Results Laboratory List Name Date Automated Differential Standard 09/23/20 CBC w/Diff Standard 09/23/20 Comprehensive Metabolic Panel Standard (CMP Standard) 09/23/20 Lipid Panel Standard 09/23/20 TSH 09/23/20 Most recent to oldest [Reference Range]: 1 NRBC Auto Pct [0.00-0.20 %] 0.00 % (09/23/20 11:00 AM) Creatinine [0.50-0.90 mg/dL] 0.66 mg/dL (09/23/20 11:00 AM) AGAP [10.0-18.0 mmol/L] 22.7 mmol/L *HI* (09/23/20 11:00 AM) Glucose Lvl [70-100 mg/dL] 112 mg/dL *HI* (09/23/20 11:00 AM) Hct [34.1-44.9 %] 44.6 % (09/23/20 11:00 AM) Hgb [11.5-15.7 gm/dL] 14.8 gm/dL (09/23/20 11:00 AM) Lymph Auto [15.0-45.0 %] 12.4 % *LOW* (09/23/20 11:00 AM) MCH [25.6-32.2 pg] 25.0 pg *LOW* (09/23/20 11:00 AM) MCHC [32.3-36.5 gm/dL] 33.2 gm/dL (09/23/20 11:00 AM) MCV [79.4-94.8 fL] 75.5 fL *LOW* (09/23/20 11:00 AM) [place] Auto [4.0-14.0 %] 6.4 % (09/23/20 11:00 AM) MPV [9.4-12.4 fL] 10.3 fL (09/23/20 11:00 AM) Neutro Auto [50.0-75.0 %] 80.3 % *HI* (09/23/20 11 AM) Osmolality [268.0-291.0 mOsm/kg] 269.9 mOsm/kg (09/23/20 11:00 AM) Platelet [150-400 x10(3)/uL] 496 x10(3)/uL *HI* (09/23/20 11: AM) RBC [3.93-5.22 x10(6)/uL] 5.91 x10(6)/uL *HI* (09/23/20 11: AM) Sodium Lvl [136-145 mmol/L] 135 mmol/L *LOW* (09/23/20 11:00 AM) Total Protein [6.6-8.7 gm/dL] 8.8 gm/dL *HI* (09/23/20 11:00 AM) Trig [0.0-149.0 mg/dL] 99.0 mg/dL (09/23/20 11: AM) TSH [0.270-4.200 uIU/mL] 0.514 uIU/mL (09/23/20 11: AM) Albumin Lvl [3.50-5.20 gm/dL] 5.00 gm/dL (09/23/20 11:00 AM) Alk Phos [35-105 IntUnit/L] 108 IntUnit/L *HI* (09/23/20 11:00 AM) ALT [0-33 IntUnit/L] 26 IntUnit/L (09/23/20 11:00 AM) AST [0-32 IntUnit/L] 27 IntUnit/L (09/23/20 11:00 AM) Basophil Auto [0.0-2.0 %] 0.4 % (09/23/20 11: AM) Bili Total [0.0-1.3 mg/dL] 1.0 mg/dL (09/23/20 11:00 AM) CO2 [22-29 mmol/L] 26 mmol/L (09/23/20 11:00 AM) WBC [4.0-10.0 x10(3)/uL] 22.5 x10(3)/uL 1 *CRIT* (09/23/20 11:00 AM) BUN [6-23 mg/dL] 10 mg/dL (09/23/20 11:00 AM) Calcium Lvl [8.6-10.2 mg/dL] 9.8 mg/dL (09/23/20 11:00 AM) Chloride [98-107 mmol/L] 89 mmol/L *LOW* (09/23/20 11:00 AM) Potassium Lvl [3.5-5.1 mmol/L] 2.7 mmol/L 2 *CRIT* (09/23/20 11:00 AM) Cholesterol Total [0-200 mg/dL] 178 mg/dL (09/23/20 11:00 AM) Lymph Absolute [1.20-3.70 x10(3)/uL] 2.78 x10(3)/uL (09/23/20 11:00 AM) [place] Absolute [0.20-0.40 x10(3)/uL] 1.44 x10(3)/uL *HI* (09/23/20 11:00 AM) NRBC Absolute [0.00-0.01 x10(3)/uL] 0.00 x10(3)/uL (09/23/20 11:00 AM) HDL Cholesterol [40-60 mg/dL] 49 mg/dL (09/23/20 11:00 AM) Neutro Absolute [1.56-6.13 x10(3)/uL] 18.06 x10(3)/uL *HI* (09/23/20 11:00 AM) RDW-CV [11.7-14.4 %] 15.4 % *HI* (09/23/20 11:00 AM) GFR >60 mL/min/1.73 m2 *NA* (09/23/20 11:00 AM) GFR NonAfrican Guamanian >60 mL/min/1.73 m2 *NA* (09/23/20 11:00 AM) LDL Calculated 109 mg/dL *NA* (09/23/20 11:00 AM) Immature Gran % [0.00-2.30 %] 0.50 % (09/23/20 11:00 AM) Immature Gran Absolute 0.11 x10(3)/uL *NA* (09/23/20 11:00 AM) Basophil Absolute [0.00-0.10 x10(3)/uL] 0.08 x10(3)/uL (09/23/20 11:00 AM) 1Result Comment: Critical result notified/readback to Ade Gonsales at [facility] by mmr at 09/23/2020 12:13:41 [id number] Comment: Critical result notified/readback to Barb Carrasco at [facility] by BK at 09/23/2020 13:29:22 EST. Social History Social History Type Response Smoking Status Former smoker, quit more wayne n 30 days ago entered on: 09/23/20 Sex
--- OUTSIDE RECORDS SUMMARY | 2022-08-16 09:00 | XMS_ITS | Continuity of Care Document ---
:2000 Author Organization [facility] Address [address] [place] [id number]- Care Team Providers Name Role Phone ENID ULRICH Primary Care Physician Encounter BVT Date(s): 09/23/20 - 09/24/[address] [id number]- Encounter Diagnosis Acute anxiety (Discharge Diagnosis) - 09/23/20 Leukocytosis (Discharge Diagnosis) - 09/23/20 Acute hypokalemia (Discharge Diagnosis) - 09/23/20 Acute vomiting (Discharge Diagnosis) - 09/23/20 Cyclic vomiting syndrome (Discharge Diagnosis) - 09/23/20 Discharge Disposition: Home or Self Care Attending Physician: DINH MEI Admitting Physician: DINH MEI Allergies, Adverse Reactions, Alerts No Known Allergies Assessment and Plan Extracted from: Title: Discharge Note Author: Barb Huertas Date: 09/24/20 Discharge Plan Patient to discharge home with family.?? New prescription for??ondansetron has been sent. Patient to follow-up with PCP Ade kaur APRN??on??10/06/2020 at 1:50 PM. 1.??Cyclic vomiting syndrome??R11.15 ??Potentially due to daily marijuana use . Instructed not??to take previously presc ribed??haloperidol as needed for nausea due to??QT prolongation 2.??Acute vomiting??R11.10 ??Improved, no further vomiting since ye sterday. 3.??Acute hypokalemia??E87.6 ??Repleted??and improved. Instructed??patient to take??previously prescribed oral potassium??through today 4.??Leukocytosis??D72.829 ??Resolving.?? Febrile,??no clear infect ion.?? Likely related to??acute vomiting. 5.??Acute anxiety??F41.9 ??Patient states she feels well. Orders: capsaicin 0.075% topical cream, 1 arslan, T OP, TID, 0 Refill(s) capsaicin 0.075% topical cream, 1 arslan, Cream, TOP, TID, Start date: 09/24/20 9:00:00 EST ondansetron 4 mg oral tablet, 4 mg = 1 tab(s), Oral, q8hr, PRN PRN for nausea/vomiting, # 30 tab(s), 0 Refill(s), Pharmacy: [facility] #[id number], 1 tab(s) Oral q8hr,PRN:for nausea/vomiting Patient Discharge Condition Improved and stable. Discharge Disposition Discharge home. Greater than 30 minutes spent on this di scharge. ?? Due to computer program and transcriptio n software used, unintended errors may be present in the above documentation. Follow Up With When Contact Information ENID ADAMS AVER 10/06/2020 01:50 PM EST Additional Instructions: This is your fo llow up appointment after hospitalization @ the primary care providers office Extracted from: Title: Addendum *ED Author: CHE LIN Date: 09/23/20 Medical Decision Making Notes: 20-year-old female with history o f cyclic vomiting syndrome chronic anxiety, and use of marijuana taken in signout from Dr. Dinh with nausea, vomiting, hypokalemia and severe anxiety. K was r educed to 2.7. The patient has received Zofran and Ativan. She has been receiving 40 mEq of potassium IV. She is reported to have a reassuring physical examination. She has chronic leukocytosis which is thought reactive, today she has 22,500 white blood cell count deemed to be associated with demargination from vomiting. Electrocardiogram showed sinus tachycardia with no acute findings. The patient willis s been symptomatic for several days, and was last seen in the emergency department on 09/21/2020 for anxiety. In addition to the IV potassium the heather ent had received 40 mEq of oral potassium. She was doing fine with nausea after having received Zofran 4 mg IV, and tolerated the IV potassium along with lactated Ringer's and a cold pack. The original potassium of 2.7 had been d one on an outpatient basis through primary care and was part of the reason she was sent here for treatment. The repeated potassium here was 2.3 With a total of 80 mEq of oral and IV po tassium it is anticipated that she will have a repeat potassium of about 3.0 Unfortunately at approximately 1915 hrs. the patient began retching again and vomited. Latest K level of 3 is likely to drop shortly. This will require additional IV doses of KCL and appropriate monitoring. Patient received Haldol 5 mg IV, and IV fluid is continued. WBC has dropped to 20.5 from 22.5 earlie r today. Demargination from vomiting is the likely source. Monitor shows alteration between normal sinus rhythm and sinus tachycardia. After Haldol the patient has had no elif tional vomiting or retching. There has been some desaturation, oxygen via nasal cannula at 2 L was applied successfully raising the saturation. The patient has a large body habitus and is likely to have some desaturation on this basis. Case was discussed with Dr. Mei, who h as graciously accepted the patient for telemetry observation. Additional potassium has been ordered.. Reexamination/ Reevaluation Notes: ECG: Sinus tachycardia rate of 11 0, 75 degree axis, no acute ST findings.. Impression and Plan Diagnosis Acute hypokalemia (HUR26-TQ E87.6, Disch arge, Medical) Vomiting (PNED [id number], Reason For Visit, Emergency medicine, Medical) Acute anxiety (HAS46-HV F41.9, Discharge , Medical) Cyclic vomiting syndrome (SBJ20-GZ R11.1 5, Discharge, Medical) Plan Disposition: Admit time 09/23/2020 20:30 :00, Place in Observation Telemetry Unit, Patient care transitioned to: Time: 09/23/2020 20:30:00, DINH MEI. Extracted from: Title: Vomiting Author: Bao Dinh MD Date: 0 History of Present Illness This is a patient with a history of anxi ety, panic attacks, and cyclical vomiting syndrome. Of note, she also has chronic leukocytosis of unclear etiology which is currently being worked up by her PCP. Review of medical records indicates that this has been ongoing for some time, is currently at baseline, and further work-up for indication of inflammatory process is being evaluated as an outpatient. She was seen on 09/21/2020 at this emerge ncy department for similar symptoms. Had follow-up earlier today, she was endorsing continued vomiting, anxiety, tremors and laboratory testing indicated that her potassium was very low at 2.7. At this time, she was directed to the emergency department. Patient states that over the last 3 days she has had worsening tremors, anxiety, and panic attacks. She has also had worsening vomiting, making it difficult to tolerate oral intake of liquids or solids. She has had muscle tension and tingling sensation in her hands. She has had tachycardia, been feeling some mild palpitations, and feels some pressure in her chest due to the rapid heart rate. She state s that she often has vomiting or retchin g each day however this is been more significant than usual. She denies any significant bowel pain, pain with urination, fever or chills, cough, congestion, rhino rrhea, sick contacts. She does not feel that she could be . The patient presents with nausea, vomiti ng and Anxiety . The onset was 3 days ago. The degree a t present is moderate. The exacerbating factor is none. The relieving factor is none. Risk factors consist of Cyclical vomiting, MJ use, anxiety and panic attacks. . Therapy today: none. Review of Systems Constitutional symptoms: No fever, Skin symptoms: No jaundice, Eye symptoms: No recent vision problems, ENMT symptoms: No ear pain, Respiratory symptoms: No stridor, Cardiovascular symptoms: Tachycardia, No chest pain, Gastrointestinal symptoms: Nausea, vomit ing, No diarrhea, Genitourinary symptoms: No dysuria, no d ischarge. Musculoskeletal symptoms: No Claudicatio n, Neurologic symptoms: No numbness, Psychiatric symptoms: Negative except as documented in HPI. Endocrine symptoms: Negative except as d ocumented in HPI. Hematologic/Lymphatic symptoms: Bleeding tendency negative, Allergy/immunologic symptoms: No impaire d immunity, Health Status Allergies: Allergic Reactions (Selected) No Known Allergies. Medications: (Selected) Inpatient Medications Ordered Ativan: 0.5 mg = 0.25 mL, IV Push, q30mi n, PRN: Anxiety potassium chloride 20 mEq/100 mL: 20 mEq = 100 mL, 50 mL/hr, IV Piggyback, q2hr Prescriptions Prescribed amitriptyline 75 mg oral tablet: 75 mg = 1 tab(s), Oral, Once a day (at bedtime), 90 tab(s), 3 Refill(s) haloperidol 2 mg oral tablet: 2 mg = 1 t ab(s), Oral, TID, PRN: Nausea/Vomiting, 15 tab(s), 11 Refill(s) ondansetron 4 mg oral tablet: 4 mg = 1 t ab(s), Oral, q8hr, PRN: for nausea/vomiting, 30 tab(s), 11 Refill(s) potassium chloride 40 mEq/15 mL oral liq uid: 40 mEq = 15 mL, Oral, TID, 1,350 mL, 0 Refill(s). Past Medical/ Family/ Social History Family history: Not significant. Social history: Social & Psychosocial History Social History Alcohol Current, Beer, 1-2 times per week, 4 dri nks/episode average. Comment: pt states 5 beers a day (2018 03:01 - Love Ryan) Home/Environment Lives with Father, Mother, Siblings. Natalee ing situation Home/Independent. Substance Abuse Current, Marijuana, Several times per da y Comment: states she smokes a gram a day (12/10/2019 22:43 - Mildred Mcintosh RN) Tobacco 4 or less cigarettes(less than 1/4 pack) /day in last 30 days Tobacco Use:. 2 cigarettes daily per day. 'marijuana with tobacco' Tobacco Use:. Electronic Cigarette/Vaping Electronic Cigarette Use: Never. Psychosocial History No active psychosocial history has been recorded. Physical Examination Vital Signs Vital Signs 09/23/2020 14:16 EST Temperature Temporal 36.8 DegC Peripheral Pulse Rate 129 bpm HI Respiratory Rate 24 br/min HI Systolic Blood Pressure 176 mmHg HI Diastolic Blood Pressure 105 mmHg HI 09/23/2020 8:51 EST Temperature Temporal Artery 36.4 DegC Peripheral Pulse Rate 112 bpm HI Systolic Blood Pressure 128 mmHg Diastolic Blood Pressure 86 mmHg BP Site Right arm Pulse Site Radial artery . General: Moderate distress. Skin: Warm, dry. Head: Normocephalic, atraumatic. Neck: Supple. Eye: Pupils are equal, round and reactiv e to light, normal conjunctiva. Cardiovascular: Regular rate and rhythm. Respiratory: Respirations are non-labore d, Symmetrical chest wall expansion. Gastrointestinal: Soft, Nontender, Non d istended. Musculoskeletal: No deformity. Neurological: Alert and oriented to pers on, place, time, and situation, No focal neurological deficit observed. Psychiatric: Cooperative, Patient appear s very anxious.. Medical Decision Making This is a 20-year-old female with a past history of anxiety, cyclical vomiting who presents for tremors, anxiety, hypokalemia. Given the patient's presentation I am concerned about cyclical vomiting, an xiety. Did not feel that her presentatio n at this time is consistent with ACS. She is not desaturating, despite her tachycardia I have a low suspicion for PE in this patient. She does not appear toxic, does not have any focal symptoms of infe ction, no fevers, no chills. Her abdominal exam is very benign, I have a low suspicion for intra-abdominal process. She does not have pain in the abdomen consiste nt with intra-abdominal process, bowel o bstruction, pancreatitis. Given her history, and presentation, repeat laboratory testing including BMP will be performed. IV bolus, Zofran and Ativan for nausea a nd anxiety will be administered. We do h ave documented hypokalemia, the patient does have EKG changes as well as muscular symptoms consistent with hypokalemia. As result, IV potassium will be administer ed pending trial of oral repletion. I an ticipate that if the patient has improvement in her symptoms, repeat laboratory testing is reassuring, and she is able to tolerate oral intake she will likely be stable for discharge home. Patient CARE signed out to oncoming team at 3:30 PM pending reevaluation of symptoms and p.o. challenge. Results review: Lab results : Lab View 09/23/2020 11:00 EST WBC 22.5 x10(3)/uL CRIT RBC 5.91 x10(6)/uL HI Hgb 14.8 gm/dL Hct 44.6 % MCV 75.5 fL LOW MCH 25.0 pg LOW MCHC 33.2 gm/dL RDW-CV 15.4 % HI Platelet 496 x10(3)/uL HI MPV 10.3 fL Neutro Auto 80.3 % HI Lymph Auto 12.4 % LOW [place] Auto 6.4 % Basophil Auto 0.4 % Immature Gran % 0.50 % NRBC Auto Pct 0.00 % Neutro Absolute 18.06 x10(3)/uL HI Lymph Absolute 2.78 x10(3)/uL [place] Absolute 1.44 x10(3)/uL HI Basophil Absolute 0.08 x10(3)/uL Immature Gran Absolute 0.11 x10(3)/uL NA NRBC Absolute 0.00 x10(3)/uL Sodium Lvl 135 mmol/L LOW Potassium Lvl 2.7 mmol/L CRIT Chloride 89 mmol/L LOW CO2 26 mmol/L AGAP 22.7 mmol/L HI BUN 10 mg/dL Creatinine 0.66 mg/dL GFR >60 mL/min/1.73 m2 NA GFR NonAfrican Malaysian >60 mL/min/1.73 m2 NA Glucose Lvl 112 mg/dL HI Calcium Lvl 9.8 mg/dL Total Protein 8.8 gm/dL HI Albumin Lvl 5.00 gm/dL Alk Phos 108 IntUnit/L HI ALT 26 IntUnit/L AST 27 IntUnit/L Bili Total 1.0 mg/dL Osmolality 269.9 mOsm/kg Cholesterol Total 178 mg/dL HDL Cholesterol 49 mg/dL LDL Calculated 109 mg/dL NA Trig 99.0 mg/dL TSH 0.514 uIU/mL , Interpretation Hypokalemia, notable le ukocytosis that appears to be chronic.. Impression and Plan Diagnosis Acute vomiting (OLE20-CP R11.10, Dischar ge, Medical) Acute hypokalemia (HOE39-RQ E87.6, Disch [facility], Medical) Acute anxiety (VIP77-OB F41.9, Discharge , Medical) Future AppointmentsFuture Scheduled TestsLaboratoryC-Reactive Protein 09/23/20 Functional Status 09/24/20 History of Fall in Last 3 Months Holden No Mobility Max No limitation Ambulatory Devices None 09/23/20 Level of Assistance - Self Care-Mobility No change fro m baseline Bathing ADL Index Independent (2) Dressing ADL Index Independent (2) Toileting ADL Index Independent (2) Transferring Bed or Chair ADL Index Independent (2) Continence ADL Index Independent (2) Recent Travel History No recent travel Family Member Travel History No recent travel COVID-19 Screening None Immunizations Given and Recorded Vaccine Date Status Refusal Reason influenza, inactivated 09/23/20 Given Medications amitriptyline 75 mg oral tablet 75 mg = 1 tab(s), Oral, Once a day (at bedtime), # 90 tab(s), 3 Refill(s), Pharmacy: [facility] #[id number], 1 tab(s) Oral Once a day (at bedtime) Start Date: 09/23/20 Status: Orderedcapsaicin 0.075% topical cream 1 arslan, TOP, TID, 0 Refill(s) Start Date: 09/24/20 Status: Orderedgabapentin 100 mg oral capsule 100 mg = 1 cap(s), Oral, BID Start Date: 09/23/20 Status: Orderedhaloperidol 2 mg oral tablet 1 tab(s), Oral, TID, PRN NEEDED FOR NAUSEA OR VOMITING, # 15 tab(s), [facility] #[id number] Start Date: 09/25/20 Status: Orderedondansetron 4 mg oral tablet 4 mg = 1 tab(s), Oral, q8hr, PRN PRN for nausea/vomiting, # 30 tab(s), 0 Refill(s), Pharmacy: [facility] #[id number], 1 tab(s) Oral q8hr,PRN:for nausea/vomiting Start Date: 09/24/20 Status: Orderedpotassium chloride 40 mEq/15 mL oral liquid 40 mEq = 15 mL, Oral, TID, # 1,350 mL, 0 Refill(s), Pharmacy: [facility] #[id number], 15 mL Oral TID Start Date: 09/23/20 Status: Ordered Mental Status 09/24/20 Sensory Perception Max No impairment Level of Consciousness Alert Problem List Condition Effective Dates Status Health Status Informant Acute anxiety(Confirmed) Active Cyclic vomiting syndrome(Confirmed) Active Dizziness(Confirmed) Active AKASH (generalized anxiety Active disorder)(Confirmed) Migraine(Confirmed) Active Nausea & vomiting(Confirmed) Active Results Laboratory List Name Date Automated Differential Standard 09/24/20 Basic Metabolic Panel Standard (CP7 Standard) 09/24/20 CBC w/Diff Standard 09/24/20 Magnesium Level (Mg Level) 09/24/20 Phosphorus Level 09/24/20 Nares MRSA PCR 09/23/20 SARS-CoV-2 (COVID-19) PCR (BD MAX) (COVID-19 PCR (BD M AX)) 09/23/20 Automated Differential Standard 09/23/20 Basic Metabolic Panel Standard 09/23/20 CBC w/Diff Standard 09/23/20 Urinalysis Microscopic Standard 09/23/20 Urinalysis Standard 09/23/20 Basic Metabolic Panel Standard (BMP Standard) 09/23/20 Magnesium Level 09/23/20 Test Serum Standard (HCG Qualitative Serum S tandard) 09/23/20 Most recent to oldest 1 2 3 [Reference Range]: NRBC Auto Pct [0.00-0.20 %] 0.00 % 0.00 % (09/24/20 6:20 AM) (09/23/20 7:03 PM) Creatinine [0.50-0.90 mg/dL] 0.70 mg/dL 0.62 mg/dL 0.7 9 mg/dL (09/24/20 6:20 AM) (09/23/20 7:03 PM) (09/23/20 2:52 PM) UA Bacteria [None Seen] None Seen (09/23/20 4:25 PM) UA Bili [Negative] Small *ABN* (09/23/20 4:25 PM) UA Blood [Negative] Negative (09/23/20 4:25 PM) UA Color Yellow (09/23/20 4:25 PM) UA Glucose [Negative] Negative (09/23/20 4:25 PM) UA Ketones >=160 *NA* (09/23/20 4:25 PM) UA Leuk Est [Negative] Negative (09/23/20 4:25 PM) UA Nitrite [Negative] Negative (09/23/20 4:25 PM) UA Protein [Negative] Negative (09/23/20 4:25 PM) UA RBC [0-2] 0-2 (09/23/20 4:25 PM) UA Urobilinogen 1.0 *NA* (09/23/20 4:25 PM) UA WBC 0-2 (09/23/20 4:25 PM) AGAP [10.0-18.0 mmol/L] 14.4 mmol/L 16.0 mmol/L 23.3 mmo l/L (09/24/20 6:20 AM) (09/23/20 7:03 PM) *HI* (09/23/20 2:52 P M) Glucose Lvl [70-100 mg/dL] 113 mg/dL 95 mg/dL 116 m g/dL *HI* (09/23/20 7:03 PM) *HI* (09/24/20 6:20 AM) (09/23/20 2:5 2 PM) Hct [34.1-44.9 %] 36.0 % 37.3 % (09/24/20 6:20 AM) (09/23/20 7:03 PM) Hgb [11.5-15.7 gm/dL] 11.5 gm/dL 12.4 gm/dL (09/24/20 6:20 AM) (09/23/20 7:03 PM) Lymph Auto [15.0-45.0 %] 35.0 % 20.3 % (09/24/20 6:20 AM) (09/23/20 7:03 PM) Magnesium [1.60-2.60 mg/dL] 2.00 mg/dL 1.80 mg/dL (09/24/20 6:20 AM) (09/23/20 2:52 PM) MCH [25.6-32.2 pg] 24.5 pg 24.8 pg *LOW* *LOW* (09/24/20 6:20 AM) (09/23/20 7:03 PM) MCHC [32.3-36.5 gm/dL] 31.9 gm/dL 33.2 gm/dL *LOW* (09/23/20 7:03 PM) (09/24/20 6:20 AM) MCV [79.4-94.8 fL] 76.8 fL 74.7 fL *LOW* *LOW* (09/24/20 6:20 AM) (09/23/20 7:03 PM) [place] Auto [4.0-14.0 %] 10.4 % 8.7 % (09/24/20 6:20 AM) (09/23/20 7:03 PM) MPV [9.4-12.4 fL] 9.9 fL 9.7 fL (09/24/20 6:20 AM) (09/23/20 7:03 PM) Neutro Auto [50.0-75.0 %] 52.4 % 69.7 % (09/24/20 6:20 AM) (09/23/20 7:03 PM) Osmolality [268.0-291.0 270.0 mOsm/kg 270.1 mOsm/kg 262.7 mO sm/kg mOsm/kg] (09/24/20 6:20 AM) (09/23/20 7:03 PM) *LOW* (09/23/20 2:52 P M) Phosphorus [2.5-4.5 mg/dL] 2.7 mg/dL (09/24/20 6:20 AM) Platelet [150-400 x10(3)/uL] 321 x10(3)/uL 343 x10(3)/uL (09/24/20 6:20 AM) (09/23/20 7:03 PM) RBC [3.93-5.22 x10(6)/uL] 4.69 x10(6)/uL 4.99 x10(6)/uL (09/24/20 6:20 AM) (09/23/20 7:03 PM) Sodium Lvl [136-145 mmol/L] 136 mmol/L 136 mmol/L 131 mmol/L (09/24/20 6:20 AM) (09/23/20 7:03 PM) *LOW* (09/23/20 2:52 P M) UA pH 6.5 (09/23/20 4:25 PM) Basophil Auto [0.0-2.0 %] 0.7 % 0.4 % (09/24/20 6:20 AM) (09/23/20 7:03 PM) CO2 [22-29 mmol/L] 22 mmol/L 27 mmol/L 22 mmol/L (09/24/20 6:20 AM) (09/23/20 7:03 PM) (09/23/20 2:52 PM) Eos Auto [0.0-8.0 %] 1.1 % 0.2 % (09/24/20 6:20 AM) (09/23/20 7:03 PM) UA Spec Grav 1.015 (09/23/20 4:25 PM) WBC [4.0-10.0 x10(3)/uL] 12.1 x10(3)/uL 20.8 x10(3)/uL 1 *HI* *CRIT* (09/24/20 6:20 AM) (09/23/20 7:03 PM) BUN [6-23 mg/dL] 5 mg/dL 8 mg/dL 10 mg/dL *LOW* (09/23/20 7:03 PM) (09/23/20 2:5 2 PM) (09/24/20 6:20 AM) Calcium Lvl [8.6-10.2 mg/dL] 8.8 mg/dL 8.6 mg/dL 10. 2 mg/dL (09/24/20 6:20 AM) (09/23/20 7:03 PM) (09/23/20 2:52 PM) Chloride [98-107 mmol/L] 103 mmol/L 96 mmol/L 88 mmol /L (09/24/20 6:20 AM) *LOW* *LOW* (09/23/20 7:03 PM) (09/23/20 2:5 2 PM) Potassium Lvl [3.5-5.1 3.4 mmol/L 3.0 mmol/L 2.3 mmol/ L 2 mmol/L] *LOW* *LOW* *CRIT* (09/24/20 6:20 AM) (09/23/20 7:03 PM) (09/23/20 2:52 PM) MRSA Screen. [Negative] Negative (09/23/20 9:23 PM) Lymph Absolute [1.20-3.70 4.22 x10(3)/uL 4.21 x10(3)/uL x10(3)/uL] *HI* *HI* (09/24/20 6:20 AM) (09/23/20 7:03 PM) [place] Absolute [0.20-0.40 1.25 x10(3)/uL 1.81 x10(3)/uL x10(3)/uL] *HI* *HI* (09/24/20 6:20 AM) (09/23/20 7:03 PM) Eos Absolute [0.04-0.54 0.13 x10(3)/uL 0.04 x10(3)/uL x10(3)/uL] (09/24/20 6:20 AM) (09/23/20 7:03 PM) NRBC Absolute [0.00-0.01 0.00 x10(3)/uL 0.00 x10(3)/uL x10(3)/uL] (09/24/20 6:20 AM) (09/23/20 7:03 PM) UA Clarity Clear (09/23/20 4:25 PM) Neutro Absolute [1.56-6.13 6.32 x10(3)/uL 14.48 x10(3)/uL x10(3)/uL] *HI* *HI* (09/24/20 6:20 AM) (09/23/20 7:03 PM) RDW-CV [11.7-14.4 %] 15.3 % 14.8 % *HI* *HI* (09/24/20 6:20 AM) (09/23/20 7:03 PM) GFR >60 mL/min/1.73 m2 >60 mL/min/1.73 m2 >60 m L/min/1.73 m2 *NA* *NA* *NA* (09/24/20 6:20 AM) (09/23/20 7:03 PM) (09/23/20 2:52 PM) GFR NonAfrican Malaysian >60 mL/min/1.73 m2 >60 mL/min/1.73 m2 >6 0 mL/min/1.73 m2 *NA* *NA* *NA* (09/24/20 6:20 AM) (09/23/20 7:03 PM) (09/23/20 2:52 PM) Immature Gran % [0.00-2.30 0.40 % 0.70 % %] (09/24/20 6:20 AM) (09/23/20 7:03 PM) Immature Gran Absolute 0.05 x10(3)/uL 0.14 x10(3)/uL *NA* *NA* (09/24/20 6:20 AM) (09/23/20 7:03 PM) HCG Qualitative Serum Negative [Negative] (09/23/20 2:52 PM) Basophil Absolute [0.00-0.10 0.09 x10(3)/uL 0.08 x10(3)/uL x10(3)/uL] (09/24/20 6:20 AM) (09/23/20 7:03 PM) SARS-CoV-2 (COVID-19) PCR Negative (BD MAX) [Negative] (09/23/20 9:23 PM) Employed in healthcare? No *NA* (09/23/20 9:23 PM) Symptomatic as defined by No CDC? *NA* (09/23/20 9:23 PM) Hospitalized due to No COVID-19? *NA* (09/23/20 9:23 PM) In ICU? No *NA* (09/23/20 9:23 PM) Group care resident? No *NA* (09/23/20 9:23 PM) status? Not *NA* (09/23/20 9:23 PM) 1Result Comment: Critical result notified/readback to Angelita_ at ED_byCB _ at _09/23/2020 19:30:26 EST.2Result Comment: Critical result notified/readback to Claudia Sorto at ED by BK at 09/23/2020 15:29:11 EST. Vital Signs Most recent to oldest 1 2 3 [Reference Range]: Temperature Temporal 37.0 DegC 36.2 DegC 36.3 DegC [36.3-37.8 DegC] (09/24/20 1:24 PM) *LOW* (09/24/20 7: 33 AM) (09/24/20 11:26 AM) Temperature Temporal 96.8 DegF 97.7 DegF (DegF) (09/24/20 6:01 AM) (09/23/20 9:57 PM) Peripheral Pulse Rate 96 bpm 87 bpm 88 bpm [60-100 bpm] (09/24/20 1:24 PM) (09/24/20 11:26 AM) (09/24/20 10:39 AM) Heart Rate Monitored 113 bpm 109 bpm 107 bpm [60-100 bpm] *HI* *HI* *HI* (09/23/20 9:30 PM) (09/23/20 9:15 PM) (09/23/20 9:00 PM) Respiratory Rate [14-20 18 br/min 18 br/min 16 br/mi n br/min] (09/24/20 1:24 PM) (09/24/20 11:26 AM) (09/24/20 10:39 AM) Blood Pressure 132/75 mmHg 127/77 mmHg 126/72 mmHg [90-140/60-90 mmHg] (09/24/20 1:24 PM) (09/24/20 11:26 AM) (09/13 01/02 7:33 AM) Mean Arterial Pressure, 94 mmHg 94 mmHg 90 mmHg Cuff (09/24/20 1:24 PM) (09/24/20 11:26 AM) (09/24/20 7:33 AM) Mean Arterial Pressure 93 mmHg 126 mmHg 125 mmHg Cuff-Monitor (09/23/20 8:15 PM) (09/23/20 8:00 PM) (09/23/20 7:45 PM) BP Site Left arm Left arm Left arm (09/24/20 1:24 PM) (09/24/20 11:26 AM) (09/24/20 7:33 AM) Patient Position BP Sitting Sitting Sitting (09/24/20 1:24 PM) (09/24/20 11:26 AM) (09/24/20 7:33 AM) SpO2 [92-100 %] 99 % 100 % 100 % (09/24/20 1:24 PM) (09/24/20 11:26 AM) (09/24/20 7:33 AM) Oxygen Activity Initiate (09/23/20 8:15 PM) Height 162.560 cm (09/23/20 9:58 PM) Height/Length Estimated 165.100 cm (09/23/20 2:16 PM) Height/Length Dosing 162.560 cm 165.100 cm (09/23/20 9:58 PM) (09/23/20 2:22 PM) Weight 90.600 kg (09/23/20 9:58 PM) Weight Estimated 90.260 kg (09/23/20 2:16 PM) Weight Dosing 90.600 kg 90.260 kg (09/23/20 9:58 PM) (09/23/20 2:22 PM) Scale Type Bed scale (09/23/20 9:58 PM) Body Mass Index 34.280 kg/m2 (09/23/20 9:58 PM) Social History Social History Type Response Smoking Status Former smoker, quit more wayne n 30 days ago entered on: 09/23/20 Sex Hospital Discharge Instructions Patient [id number]/12/2020 13:16:44Nausea and Vomiting, Adult, [id number] Nausea and Vomiting, Adult Nausea is feeling sick to your stomach or feeling that you are about to throw up (vomit). Vomiting is when food in your stomach is thrown up and out of the mouth. Throwing up can make you feel weak. Itcan also make you lose too much water in your body (get dehydrated). If you lose too much water in your body, you may: ??? Feel tired. ??? Feel thirsty. ??? Have a dry mouth. ??? Have cracked lips. ??? Go pee (urinate) less often. Older adults and people with other diseases or a weak body defense system (immune system) are at higher risk for losing too much water in the body. If you feel sick to your stomach and you throw up, itis important to follow instructions from your doctor about how to take care of yourself. Follow these instructions at home: Watch your symptoms for any changes. Tell your doctor about them. Follow these instructions to care for yourself at home. Eating and drinking ??? Take an ORS (oral rehydration solution). This is a drink that is sold at pharmacies and stores. ??? Drink clear fluids in small amounts as you are able, such as: ??? Water. ??? Ice chips. ??? Fruit juice that has water added (diluted fruit juice). ??? Low-calorie sports drinks. ??? Eat bland, zgaa-au-nbrkvs foods in small amounts as you are able, such as: ??? Bananas. ??? Applesauce. ??? Rice. ??? Low-fat (lean) meats. ??? [employer]. ??? Crackers. ??? Avoid drinking fluids that have a lot of sugar or caffeine in them. This includes energy drinks,sports drinks, and soda. ??? Avoid alcohol. ??? Avoid spicy or fatty foods. General instructions ??? Take wpcb-nvg-eqhewcj and prescription medicines only as told by your doctor. ??? Drink enough fluid to keep your pee (urine) pale yellow. ??? Wash your hands often with soap and water. If you cannot use soap and water, use hand engraver hand soft metals. ??? Make sure that all people in your home wash their hands well and often. ??? Rest at home while you get better. ??? Watch your condition for any changes. ??? Take slow and deep breaths when you feel sick to your stomach. ??? Keep all follow-up visits as told by your doctor. This is important. Contact a doctor if: ??? Your symptoms get worse. ??? You have new symptoms. ??? You have a fever. ??? You cannot drink fluids without throwing up. ??? You feel sick to your stomach for more than 2 days. ??? You feel light-headed or dizzy. ??? You have a headache. ??? You have muscle cramps. ??? You have a rash. ??? You have pain while peeing. Get help right away if: ??? You have pain in your chest, neck, arm, or jaw. ??? You feel very weak or you pass out (faint). ??? You throw up again and again. ??? You have throw up that is bright red or looks like black coffee grounds. ??? You have bloody or black poop (stools) or poop that looks like tar. ??? You have a very bad headache, a stiff neck, or both. ??? You have very bad pain, cramping, or bloating in your belly (abdomen). ??? You have trouble breathing. ??? You are breathing very quickly. ??? Your heart is beating very quickly. ??? Your skin feels cold and clammy. ??? You feel confused. ??? You have signs of losing too much water in your body, such as: ??? Dark pee, very little pee, or no pee. ??? Cracked lips. ??? Dry mouth. ??? Sunken eyes. ??? Sleepiness. ??? Weakness. These symptoms may be an emergency. Do not wait to see if the symptoms will go away. Get medical help right away. Call your local emergency services (911 in the [place] Do not drive yourself to the hospital. Summary ??? Nausea is feeling sick to your stomach or feeling that you are about to throw up (vomit). Vomiting is when food in your stomach is thrown up and out of the mouth. ??? Follow instructions from your doctor about eating and drinking to keep from losing too much water in your body. ??? Take dnub-mcd-lbuqjlp and prescription medicines only as told by your doctor. ??? Contact your doctor if your symptoms get worse or you have new symptoms. ??? Keep all follow-up visits as told by your doctor. This is important. This information is not intended to replace advice given to you by your health care provider. Make sure you discuss any questions you have with your health care provider. Document Released: 04/17/2009 Document Revised: 02/21/2020 Document Reviewed: 04/09/2019 [employer] Patient Education ?? 2020 [employer]. 09/24/2020 13:16:44Cyclic Vomiting Syndrome, AdultCyclic Vomiting Syndrome, Adult Cyclic vomiting syndrome (CVS) is a condition that causes episodes of severe nausea and vomiting. Itcan last for hours or even days. Attacks may occur several times a month or several times a year. Between episodes of CVS, you may be otherwise healthy. CVS is also called abdominal migraine. What are the causes? The cause of this condition is not known. Although many of the episodes can happen for no obvious reason, you may have specific CVS triggers. Episodes may be triggered by: ??? An infection, especially colds and the flu. ??? Emotional stress, including excitement or anxiety about upcoming events, such as school, parties, or travel. ??? Certain foods or beverages, such as chocolate, cheese, alcohol, and food additives. ??? Motion sickness. ??? Eating a large meal before bed. ??? Being very tired. ??? Being too hot. What increases the risk? You are more likely to develop this condition if: ??? You get migraine headaches. ??? You have a family history of CVS or migraine headaches. What are the signs or symptoms? Symptoms tend to happen at the same time of day, and each episode tends to last about the same amount of time. Symptoms commonly start at night or when you wake up. Many people have warning signs (prodrome) before an episode, which may include slight nausea, sweating, and pale skin (pallor). The most common symptoms of a CVS attack include: ??? Severe vomiting. Vomiting may happen every 5???15 minutes. ??? Severe nausea. ??? Gagging (retching). Other symptoms may include: ??? Headache. ??? Dizziness. ??? Sensitivity to light. ??? Extreme thirst. ??? Abdominal pain. This can be severe. ??? Loose stools or diarrhea. ??? Fever. ??? Pale skin (pallor), especially on the face. ??? Weakness. ??? Exhaustion. ??? Sleepiness after a CVS episode. ??? Dehydration. This can cause: ??? Thirst. ??? Dry mouth. ??? Decreased urination. ??? Fatigue. How is this diagnosed? This condition may be diagnosed based on your symptoms, medical history, and family history of CVS or migraine. Your health care provider will ask whether you have had: ??? Episodes of severe nausea and vomiting that have happened a total of 5 or more times, or 3 or more times in the past 6 months. ??? Episodes that last for 1 hour or more, and occur 1 week apart or farther apart. ??? Episodes that are similar each time. ??? Normal health between episodes. Your health care provider will also do a physical exam. To rule out other conditions, you may have tests, such as: ??? Blood tests. ??? Urine tests. ??? Imaging tests. How is this treated? There is no cure for this condition, but treatment can help manage or prevent CVS episodes. Work with your health care provider to find the best treatment for you. Treatment may include: ??? Avoiding stress and CVS triggers. ??? Eating smaller, more frequent meals. ??? Taking medicines, such as: ??? Wxsk-gtq-vkoxjqi pain medicine. ??? Anti-nausea medicines. ??? Antacids. ??? Antihistamines. ??? Medicines for migraines. ??? Antidepressants. ??? Antibiotics. Severe nausea and vomiting may require you to stay at the hospital. You may need IV fluids to prevent or treat dehydration. Follow these instructions at home: During an episode ??? Take feul-oqh-uskhrgf and prescription medicines only as told by your health care provider. ??? Stay in bed and rest in a dark, quiet room. After an episode ??? Drink an oral rehydration solution (ORS), if directed by your health care provider. This is a drink that helps you replace fluids and the salts and minerals in your blood (electrolytes). It can be found at pharmacies and retail stores. ??? Drink small amounts of clear fluids slowly and gradually add more. ??? Drink clear fluids such as water or fruit juice that has water added (is diluted). You may also eat low-calorie popsicles. ??? Avoid drinking fluids that contain a lot of sugar or caffeine, such as sports drinks and soda. ??? Eat soft foods in small amounts every 3???4 hours. Eat your regular diet, but avoid spicy or fatty foods, such as iraqi fries and pizza. General instructions ??? Monitor your condition for any changes. ??? If you were prescribed an antibiotic medicine, take it as told by your health care provider. Do not stop taking the antibiotic even if you start to feel better. ??? Keep track of your attacks and symptoms, and pay attention to any triggers. Avoid those triggerswhen you can. ??? Keep all follow-up visits as told by your health care provider. This is important. Contact a health care provider if: ??? Your condition gets worse. ??? You cannot drink fluids without vomiting. ??? You have pain and trouble swallowing after an episode. Get help right away if: ??? You have blood in your vomit. ??? Your vomit looks like coffee grounds. ??? You have stools that are bloody or black, or stools that look like tar. ??? You have signs of dehydration, such as: ??? Sunken eyes. ??? Not making tears while crying. ??? Very dry mouth. ??? Cracked lips. ??? Decreased urine production. ??? Dark urine. Urine may be the color of tea. ??? Weakness. ??? Sleepiness. Summary ??? Cyclic vomiting syndrome (CVS) causes episodes of severe nausea and vomiting that can last for hours or even days. ??? Vomiting and diarrhea can make you feel weak and can lead to dehydration. If you notice signs ofdehydration, call your health care provider right away. ??? Treatment can help you manage or prevent CVS episodes. Work with your health care provider to find the best treatment for you. ??? Keep all follow-up visits as told by your health care provider. This is important. This information is not intended to replace advice given to you by your health care provider. Make sure you discuss any questions you have with your health care provider. Document Released: 12/15/2017 Document Revised: 02/19/2020 Document Reviewed: 12/15/2017 [employer]vier Patient Education ?? 2020 [employer] Follow Up Care09/23/2020 14:13:57With:ENID ULRICH Address:Unknown When:10/06/2020 13:50:00 Comments:This is your follow up appointment after hospitalization @ the primary care providers office
--- OUTSIDE RECORDS SUMMARY | 2022-08-16 09:00 | XMS_ITS | Continuity of Care Document ---
:2000 Author Organization [facility] Address [address] [place] [id number] Care Team Providers Name Role Phone Vipul VIGIL,, Jr Knott Primary Care Physician Encounter [facility] [id number] Date(s): 02/15/20 - 02/15/[address] [address]- Discharge Disposition: Left without being seen Allergies, Adverse Reactions, Alerts No Known Allergies Assessment and Plan Future Appointments Medications amitriptyline 50 mg oral tablet 50 mg = 1 tab(s), Oral, Once a day (at bedtime) Start Date: 12/11/19 Status: Orderedbenztropine 1 mg oral tablet 1 mg = 1 tab(s), Oral, BID, # 6 tab(s), 0 Refill(s) Start Date: 01/31/20 Stop Date: 02/03/20 Status: Orderedescitalopram 10 mg oral tablet 10 mg = 1 tab(s), Oral, Daily Start Date: 12/11/19 Status: Orderedhaloperidol 2 mg oral tablet 2 mg = 1 tab(s), Oral, TID, PRN PRN Nausea/Vomiting, # 15 tab(s), 0 Refill(s) Start Date: 02/02/20 Status: OrderedK-Dur 10 oral tablet, extended release 10 mEq = 1 tab(s), Oral, BID, # 6 tab(s), 0 Refill(s) Start Date: 01/31/20 Stop Date: 02/03/20 Status: Orderedondansetron 4 mg oral tablet 4 mg = 1 tab(s), Oral, q8hr, PRN PRN for nausea/vomiting, # 30 tab(s), 0 Refill(s), Pharmacy: [facility] #[id number], 1 tab(s) Oral q8hr,PRN:for nausea/vomiting Start Date: 12/11/19 Status: Orderedpotassium chloride 20 mEq, Oral, Daily Start Date: 12/10/19 Status: Ordered Problem List Condition Effective Dates Status Health Status Informant Cyclic vomiting syndrome(Confirmed) Active Dizziness(Confirmed) Active AKASH (generalized anxiety Active disorder)(Confirmed) Migraine(Confirmed) Active Nausea & vomiting(Confirmed) Active Social History Social History Type Response Smoking Status 4 or less cigarettes(less th an 1/4 pack)/day in last 30 days; Tobacco use per day: 2 cigarettes daily; entered on: 01/31/20 Sex
--- OUTSIDE RECORDS SUMMARY | 2022-08-16 09:00 | XMS_ITS | Continuity of Care Document ---
:[address] [facility] Address [address] [place] [address] Care Team Providers Name Role Phone ENID ULRICH Primary Care Physician Encounter [facility] Date(s): 03/21/22 - 03/21/22 [facility] [address] [facility] [place] [address] Discharge Disposition: Home Attending Physician: ENID ULRICH Allergies, Adverse Reactions, Alerts No Known Allergies Assessment and Plan Future Appointments Immunizations Given and Recorded Vaccine Date Status Refusal Reason SARS-COV-2 (COVID-19) vaccine, unspecifi 03/03/21 Recorde d SARS-COV-2 (COVID-19) vaccine, unspecifi 02/03/21 Recorde d influenza, inactivated 09/23/20 Given HPV, unspecified formulation 12/30/16 Recorded HPV, unspecified formulation 01/07/16 Recorded HPV, unspecified formulation 08/29/13 Recorded Medications Abilify 5 mg oral tablet 5 mg = 1 tab(s), Oral, Daily, # 90 tab(s), 0 Refill(s), Pharmacy: [facility] #[id number], 1 tab(s) Oral Daily, 162, cm, 01/07/22 18:44:00 EST, Height/Length Dosing, 88.3, kg, 01/07/22 18:44:00 EST, Weight Dosing Start Date: 01/25/22 Status: OrderedhydrOXYzine hydrochloride 50 mg oral tablet 50 mg = 1 tab(s), Oral, QID, PRN PRN for anxiety, # 120 tab(s), 2 Refill(s), Pharmacy: [facility] #[id number], 1 tab(s) Oral QID,PRN:for anxiety Start Date: 03/30/21 Status: OrderedLexapro 10 mg oral tablet 10 mg = 1 tab(s), Oral, Daily, # 90 tab(s), 0 Refill(s), [id number], 1 tab(s) Oral Daily, 162, cm, 01/07/22 18:44:00 EST, Height/Length Dosing, 88.3, kg, 01/07/22 18:44:00 EST, Weight Dosing Start Date: 01/25/22 Status: OrderedLexapro 20 mg oral tablet 20 mg = 1 tab(s), Oral, Daily, # 90 tab(s), 3 Refill(s), [id number], 1 tab(s) Oral Daily, 162, cm, 01/07/22 18:44:00 EST, Height/Length Dosing, 88.3, kg, 01/07/22 18:44:00 EST, Weight Dosing Start Date: 03/21/22 Status: OrderedLORazepam 0.5 mg oral tablet 0.5 mg = 1 tab(s), Oral, TID, PRN PRN for anxiety, # 12 tab(s), 0 Refill(s), 04/18/22, Pharmacy: [facility] #[id number], 1 tab(s) Oral TID,PRN:for anxiety, 162, cm, 01/07/22 18:44:00 EST, Height/Length Dosing, 88.3, kg, 01/07/22 18:44:00 EST, Giacomo... Start Date: 03/21/22 Stop Date: 04/18/22 Status: Orderedpropranolol 10 mg oral tablet 10 mg = 1 tab(s), Oral, BID, # 180 tab(s), 0 Refill(s), Pharmacy: [id number], 1 tab(s) Oral BID, 162, cm, 01/07/22 18:44:00 EST, Height/Length Dosing, 88.3, kg, 01/07/22 18:44:00 EST, Weight Dosing Start Date: 01/24/22 Status: OrderedtraZODone 50 mg oral tablet 50 mg = 1 tab(s), Oral, Once a day (at bedtime), # 90 tab(s), 3 Refill(s), [id number], 1 tab(s) Oral Once a day (at bedtime) Start Date: 03/30/21 Status: Ordered Problem List Condition Effective Dates Status Health Status Informant Acute anxiety(Confirmed) Active Cyclic vomiting syndrome(Confirmed) Active Dizziness(Confirmed) Active AKASH (generalized anxiety Active disorder)(Confirmed) Hx of fracture of right hip(Confirmed) Active Migraine(Confirmed) Active Nausea & vomiting(Confirmed) Active Vital Signs Most recent to oldest [Reference Range]: 1 Peripheral Pulse Rate [60-100 bpm] 123 bpm *HI* (03/21/22 1:05 PM) Blood Pressure [90-140/60-90 mmHg] 130/76 mmHg (03/21/22 1:05 PM) BP Site Left arm (03/21/22 1:05 PM) Pulse Site Pulse Oximetry (03/21/22 1:05 PM) SpO2 [92-100 %] 99 % (03/21/22 1:05 PM) Height 162 cm (03/21/22 1:05 PM) Height/Length Measured (inches) 63.8 in (03/21/22 1:05 PM) Weight 88.30 kg (03/21/22 1:05 PM) Weight Measured (lbs) 194.668 lb (03/21/22 1:05 PM) BSA Measured 1.99 m2 (03/21/22 1:05 PM) Body Mass Index 33.65 kg/m2 (03/21/22 1:05 PM) Social History Social History Type Response Smoking Status Former smoker, quit more wayne n 30 days ago; Tobacco use per day: 2 cigarettes daily; entered on: 05/31/21 Sex Care Team PersonnelName: ENID ULRICH Address: [address] [place] [id number]
--- OUTSIDE RECORDS SUMMARY | 2022-08-16 09:00 | XMS_ITS | Continuity of Care Document ---
:2000 Author Organization [facility] Address [address] [place] [id number]- Care Team Providers Name Role Phone ENID ULRICH Primary Care Physician Encounter BVT Date(s): 09/21/20 - 09/21/[address] [address]- Encounter Diagnosis Panic attack (Discharge Diagnosis) - 09/21/20 Discharge Disposition: Home or Self Care Attending Physician: Jami Lai MD Admitting Physician: Jami Lai MD Allergies, Adverse Reactions, Alerts No Known Allergies Assessment and Plan Extracted from: Title: Anxiety Author: Jami Lai MD Date: History of Present Illness This patient presents with chief complai nt of anxiety attack which began this morning. She called her friend who brought her to the ER. She is hyperventilating and complains of her hands feeling numb an d tingly. This is happened to her many t imes in the past, she reports she feels this way at least a little bit every day, especially in the morning. It is frequently accompanied by nausea and vomiting. She has history of panic attacks and cyc lic vomiting syndrome. She states she has to come to the ER about 4 or 5 times a year for this problem. Denies chance of , denies abdominal pain, denies dysuria or frequency. She complains of a n overwhelming sensation of dread. She states this episode feels just like all the others and she does not know how to make it stop. She does not see mental healt h counselor as an outpatient or a psychi atrist. She used to follow with a doll wigs hackler for her cyclic vomiting but has not in some time. Review of Systems Constitutional symptoms: No fever, no ch ills. Skin symptoms: No rash, Eye symptoms: Vision unchanged. ENMT symptoms: No sore throat, no nasal congestion. Respiratory symptoms: Negative except as documented in HPI. Cardiovascular symptoms: Negative except as documented in HPI. Gastrointestinal symptoms: Nausea, vomit ing, No abdominal pain, Genitourinary symptoms: No dysuria, no h ematuria. Musculoskeletal symptoms: No back pain, Neurologic symptoms: Dizziness, No heada sindy, Psychiatric symptoms: Anxiety. Hematologic/Lymphatic symptoms: Bleeding tendency negative, Additional review of systems informatio n: All other systems reviewed and otherwise negative. Health Status Allergies: Allergic Reactions (All) No Known Allergies. Medications: (Selected) Inpatient Medications Ordered Xanax: 0.5 mg = 1 tab(s), Oral, Once Zofran ODT: 4 mg = 1 tab(s), Oral, Once Prescriptions Prescribed K-Dur 10 oral tablet, extended release: 10 mEq = 1 tab(s), Oral, BID, for 3 day(s), 6 tab(s), 0 Refill(s) Phenergan 25 mg rectal suppository: 25 m g = 1 supp, Per rectum, q6hr, 1-2 suppositories every 6 hours as needed for sever nausea and vomiting., PRN: Nausea/Vomiting, 20 supp, 2 Refill(s) benztropine 1 mg oral tablet: 1 mg = 1 t ab(s), Oral, BID, for 3 day(s), 6 tab(s), 0 Refill(s) haloperidol 2 mg oral tablet: 2 mg = 1 t ab(s), Oral, TID, PRN: Nausea/Vomiting, 15 tab(s), 0 Refill(s) ondansetron 4 mg oral tablet: 4 mg = 1 t ab(s), Oral, q8hr, PRN: for nausea/vomiting, 30 tab(s), 0 Refill(s) Documented Medications Documented amitriptyline 50 mg oral tablet: 50 mg = 1 tab(s), Oral, Once a day (at bedtime) escitalopram 10 mg oral tablet: 10 mg = 1 tab(s), Oral, Daily potassium chloride: 20 mEq, Oral, Daily. Past Medical/ Family/ Social History Surgical history: No active procedure history items have b een selected or recorded.. Family history: Hypertension Mother . Social history: Social & Psychosocial History Social History Alcohol Current, Beer, 1-2 times per week, 4 dri nks/episode average. Comment: pt states 5 beers a day (2018 03:01 - Neda Ryanyn) Home/Environment Lives with Father, Mother, Siblings. Natalee [...] No active psychosocial history has been recorded. Problem list: Active Problems (5) Cyclic vomiting syndrome Dizziness AKASH (generalized anxiety disorder) Migraine Nausea & vomiting . Physical Examination Vital Signs Vital Signs 09/21/2020 4:55 EST Peripheral Pulse Rate 117 bpm HI Respiratory Rate 44 br/min HI Systolic Blood Pressure 134 mmHg Diastolic Blood Pressure 87 mmHg SpO2 100 % . Measurements 09/21/2020 4:58 EST Height/Length Dosing 165.100 cm Weight Dosing 91.500 kg 09/21/2020 4:55 EST Height/Length Estimated 165.100 cm Weight Estimated 91.500 kg . Basic Oxygen Information 09/21/2020 4:55 EST Oxygen Therapy Room a ir . General: Awake and alert, hyperventilati ng, crying, normal weight HEENT: Normocephalic, atraumatic, pupils equal, round, and reactive to light and accommodation, no nystagmus Neck: Trachea is midline, no lymphadenop athy Cardiovascular: S1-S2, regular rate and rhythm, no murmurs rubs or gallops Pulmonary: Clear to auscultation, no res piratory distress, no wheezes Abdomen: Soft, nontender, no masses, no rebound or guarding Extremities: Well perfused, no edema, no ntender, no deformity Neurologic: Face is symmetrical, speech is clear, moves all 4 with full power Psych: Anxious, tearful Skin: Warm and dry, no rashes Reexamination/ Reevaluation Vital signs Basic Oxygen Information 09/21/2020 4:55 EST Oxygen Therapy Room a ir Patient is doing much better as far as h er anxiety goes. She still retching a bit but she states that this is a daily occurrence. Home with instructions to follow-up with her primary care doctor and seek mental health help. Impression and Plan Diagnosis Panic attack ([id number] F41.0, Discharge, Medical) Plan Disposition: Discharged: Time 09/21/2020 07:05:00, to home. Patient was given the following educatio nal materials: Panic Attack, Panic Attack. Follow up with: ENID ULRICH Within 1 to 2 days. Counseled: Patient. Future AppointmentsFuture Scheduled TestsLaboratoryTSH 08/22/20 Functional Status 09/21/20 COVID-19 Screening None Medications amitriptyline 50 mg oral tablet 50 [...] nausea/vomiting, # 30 tab(s), 0 Refill(s), Pharmacy: [id number], 1 tab(s) Oral q8hr,PRN:for nausea/vomiting Start Date: 12/11/19 Status: OrderedPhenergan 25 mg rectal suppository 25 mg = 1 supp, Per rectum, q6hr, PRN PRN Nausea/Vomiting, 1-2 suppositories every 6 hours as neededfor sever nausea and vomiting., # 20 supp, 2 Refill(s), Pharmacy: [email or web address] #[id number], 1 supp Per rectum q6hr,PRN:Nausea/Vomiting,Instr:1-2 santiago... Start Date: 04/19/20 Status: Orderedpotassium chloride 20 mEq, Oral, Daily Start Date: 12/10/19 Status: Ordered Mental Status 09/21/20 Level of Consciousness Alert Problem List Condition Effective Dates Status Health Status Informant Cyclic vomiting syndrome(Confirmed) Active Dizziness(Confirmed) Active AKASH (generalized anxiety Active disorder)(Confirmed) Migraine(Confirmed) Active Nausea & vomiting(Confirmed) Active Results Laboratory List Name Date Serum Quant (hCG Serum Quant) 09/21/20 Most recent to oldest [Reference Range]: 1 Beta hCG Qnt [0.0-5.0 mIU/mL] <0.1 mIU/mL (09/21/20 5:26 AM) Vital Signs Most recent to oldest 1 2 3 [Reference Range]: Peripheral Pulse Rate [60-100 107 bpm 115 bpm 11 7 bpm bpm] *HI* *HI* *HI* (09/21/20 7:01 AM) (09/21/20 5:09 AM) (09/21/20 4:5 5 AM) Heart Rate Monitored [60-100 114 bpm bpm] *HI* (09/21/20 5:09 AM) Respiratory Rate [14-20 br/min] 20 br/min 44 br/min (09/21/20 5:09 AM) *HI* (09/21/20 4:55 AM) Blood Pressure [90-140/60-90 154/112 mmHg 165/97 mmHg 134 /87 mmHg mmHg] *HI* *HI* (09/21/20 4:55 AM ) (09/21/20 7:01 AM) (09/21/20 5:09 AM) Mean Arterial Pressure 126 mmHg 113 mmHg Cuff-Monitor (09/21/20 7:01 AM) (09/21/20 5:09 AM) SpO2 [92-100 %] 100 % 97 % 100 % (09/21/20 7:01 AM) (09/21/20 5:09 AM) (09/21/20 4:5 5 AM) Height/Length Estimated 165.100 cm (09/21/20 4:55 AM) Height/Length Dosing 165.100 cm (09/21/20 4:58 AM) Weight Estimated 91.500 kg (09/21/20 4:55 AM) Weight Dosing 91.500 kg (09/21/20 4:58 AM) Social History Social History Type Response Smoking Status 4 or less cigarettes(less th an 1/4 pack)/day in last 30 days; Tobacco use per day: 2 cigarettes daily; entered on: 01/31/20 Sex Hospital Discharge Instructions Patient Rltkvdslt03/09/2020 07:00:48Panic AttackPanic Attack A panic attack is a sudden episode of severe anxiety, fear, or discomfort that causes physical and emotional symptoms. The attack may be in response to something frightening, or it may occur for no known reason. Symptoms of a panic attack can be similar to symptoms of a heart attack or stroke. It is important to see your health care provider when you have a panic attack so that these conditions can be ruled out. A panic attack is a symptom of another condition. Most panic attacks go away with treatment of the underlying problem. If you have panic attacks often, you may have a condition called panic disorder. What are the causes? A panic attack may be caused by: ??? An extreme, life-threatening situation, such as a war or natural disaster. ??? An anxiety disorder, such as post-traumatic stress disorder. ??? Depression. ??? Certain medical conditions, including heart problems, neurological conditions, and infections. ??? Certain qplp-wqt-pzyvjaa and prescription medicines. ??? Illegal drugs that increase heart rate and blood pressure, such as methamphetamine. ??? Alcohol. ??? Supplements that increase anxiety. ??? Panic disorder. What increases the risk? You are more likely to develop this condition if: ??? You have an anxiety disorder. ??? You have another mental health condition. ??? You take certain medicines. ??? You use alcohol, illegal drugs, or other substances. ??? You are under extreme stress. ??? A life event is causing increased feelings of anxiety and depression. What are the signs or symptoms? A panic attack starts suddenly, usually lasts about 20 minutes, and occurs with one or more of the following: ??? A pounding heart. ??? A feeling that your heart is beating irregularly or faster than normal (palpitations). ??? Sweating. ??? Trembling or shaking. ??? Shortness of breath or feeling smothered. ??? Feeling choked. ??? Chest pain or discomfort. ??? Nausea or a strange feeling in your stomach. ??? Dizziness, feeling lightheaded, or feeling like you might faint. ??? Chills or hot flashes. ??? Numbness or tingling in your lips, hands, or feet. ??? Feeling confused, or feeling that you are not yourself. ??? Fear of losing control or being emotionally unstable. ??? Fear of dying. How is this diagnosed? A panic attack is diagnosed with an assessment by your health care provider. During the assessment your health care provider will ask questions about: ??? Your history of anxiety, depression, and panic attacks. ??? Your medical history. ??? Whether you drink alcohol, use illegal drugs, take supplements, or take medicines. Be honest about your substance use. Your health care provider may also: ??? Order blood tests or other kinds of tests to rule out serious medical conditions. ??? Refer you to a mental health professional for further evaluation. How is this treated? Treatment depends on the cause of the panic attack: ??? If the cause is a medical problem, your health care provider will either treat that problem or refer you to a specialist. ??? If the cause is emotional, you may be given anti-anxiety medicines or referred to a counselor. These medicines may reduce how often attacks happen, reduce how severe the attacks are, and lower anxiety. ??? If the cause is a medicine, your health care provider may tell you to stop the medicine, change your dose, or take a different medicine. ??? If the cause is a drug, treatment may involve letting the drug wear off and taking medicine to help the drug leave your body or to counteract its effects. Attacks caused by drug abuse may continue even if you stop using the drug. Follow these instructions at home: ??? Take fzkf-tgz-jdoozwe and prescription medicines only as told by your health care provider. ??? If you feel anxious, limit your caffeine intake. ??? Take good care of your physical and mental health by: ??? Eating a balanced diet that includes plenty of fresh fruits and vegetables, whole grains, lean meats, and low-fat dairy. ??? Getting plenty of rest. Try to get 7???8 hours of uninterrupted sleep each night. ??? Exercising regularly. Try to get 30 minutes of physical activity at least 5 days a week. ??? Not smoking. Talk to your health care provider if you need help quitting. ??? Limiting alcohol intake to no more than 1 drink a day for non women and 2 drinks a day for men. One drink equals 12 oz of beer, 5 oz of wine, or 1?? oz of hard liquor. ??? Keep all follow-up visits as told by your health care provider. This is important. Panic attacksmay have underlying physical or emotional problems that take time to accurately diagnose. Contact a health care provider if: ??? Your symptoms do not improve, or they get worse. ??? You are not able to take your medicine as prescribed because of side effects. Get help right away if: ??? You have serious thoughts about hurting yourself or others. ??? You have symptoms of a panic attack. Do not drive yourself to the hospital. Have someone else drive you or call an ambulance. If you ever feel like you may hurt yourself or others, or you have thoughts about taking your own life, get help right away. You can go to your nearest emergency department or call: ??? Your local emergency services (911 in the [place] ??? A suicide crisis helpline, such as the National Suicide Prevention Lifeline at . This is open 24 hours a day. Summary ??? A panic attack is a sign of a serious health or mental health condition. Get help right away. Donot drive yourself to the hospital. Have someone else drive you or call an ambulance. ??? Always see a health care provider to have the reasons for the panic attack correctly diagnosed. ??? If your panic attack was caused by a physical problem, follow your health care provider's suggestions for medicine, referral to a specialist, and lifestyle changes. ??? If your panic attack was caused by an emotional problem, follow through with counseling from a qualified mental health specialist. ??? If you feel like you may hurt yourself or others, call 911 and get help right away. This information is not intended to replace advice given to you by your health care provider. Make sure you discuss any questions you have with your health care provider. Document Released: 10/30/2006 Document Revised: 10/12/2018 Document Reviewed: 12/08/2017 [employer] Patient Education ?? 2019 [employer] Follow Up Care09/21/2020 04:37:32With:ENID ULRICH Address:Unknown When:1 to 2 days
--- OUTSIDE RECORDS SUMMARY | 2022-08-16 09:00 | XMS_ITS | Continuity of Care Document ---
:2000 Author Organization [facility] Address [address] [place] [id number]- Care Team Providers Name Role Phone Matthew [facility],Jr Primary Care Physician Encounter BVT Date(s): 01/31/20 - 01/31/[address] [id number]- Encounter Diagnosis Cyclic vomiting syndrome (Discharge Diagnosis) - 01/31/20 Discharge Disposition: Home or Self Care Attending Physician: YURY RIOJAS Admitting Physician: YURY RIOJAS Allergies, Adverse Reactions, Alerts No Known Allergies Assessment and Plan Extracted from: Title: General Medical Problem *ED Author: YURY RIOJAS te: 01/31/20 History of Present Illness 19-year-old female with history of cycli c vomiting presents for vomiting. This episode started yesterday, vomited several times and then improved a bit and then started vomiting again today and has not been able to stop. Patient with multiple ED visits for this in the past, often associated with some hypokalemia. She has the medications at home including Haldol, she took Haldol prior to arrival but vo mited them up immediately. She has a nor mal QTC. She denies abdominal pain. She reports this is similar to previous episodes. She reports anxiety. She is hyperventilating and reports cramping in her fingers. Review of Systems Constitutional symptoms: No fever, Skin symptoms: No rash, Eye symptoms: No recent vision problems, ENMT symptoms: No sore throat, Respiratory symptoms: No shortness of br eath, Cardiovascular symptoms: No chest pain, Gastrointestinal symptoms: Vomiting, No abdominal pain, Genitourinary symptoms: No dysuria, Musculoskeletal symptoms: No back pain, Neurologic symptoms: No headache, Psychiatric symptoms: Anxiety. Endocrine symptoms: No polyuria, Health Status Allergies: Allergic Reactions (Selected) No Known Allergies. Medications: (Selected) Prescriptions Prescribed K-Dur 10 oral tablet, extended release: 10 mEq = 1 tab(s), Oral, BID, for 3 day(s), 6 tab(s), 0 Refill(s) benztropine 1 mg oral tablet: 1 mg = 1 t ab(s), Oral, BID, for 3 day(s), 6 tab(s), 0 Refill(s) ondansetron 4 mg oral [...] or recorded.. Family history: Hypertension Mother . Problem list: Active Problems (5) Cyclic vomiting syndrome Dizziness AKASH (generalized anxiety disorder) Migraine Nausea & vomiting . Physical Examination General: Alert, anxious, Patient very an xious, hyperventilating, attempted calming voice which helped a little bit but patient still quite anxious. Skin: Warm, dry. Head: Atraumatic. Neck: Supple. Eye: Normal conjunctiva. Cardiovascular: Tachycardia, no murmurs rubs or gallops. Respiratory: Lungs are clear to ausculta tion, respirations are non-labored, breath sounds are equal. Gastrointestinal: Soft, Nontender, Non d istended, Normal bowel sounds. Neurological: Alert and oriented to pers on, place, time, and situation, No focal neurological deficit observed. Psychiatric: Mood and affect: Anxious. Medical Decision Making Rationale: 19-year-old female presents f or vomiting. Patient very anxious. Hyperventilating with some contractions of fingers, after failing soothing voice did temporarily apply nonrebreather at lower o xygen rate with good effect, then remove d as soon as possible. No abdominal tenderness. History of similar events in the past. Continues to smoke 1. Counseled against this. Check screening labs think th at needs to be repleted, expect some ashley angements given hyperventilation and vomiting. Treat with Haldol and Ativan, reassess. Labs with elevated white blood cell coun t, with low potassium, somewhat elevated anion gap, likely due to vomiting and hyperventilation. Patient getting fluids.. Results review: Lab results : Lab View 01/31/2020 1:16 EDT WBC 20.7 x10(3)/uL CRIT RBC 5.42 x10(6)/uL HI Hgb 13.7 gm/dL Hct 41.9 % MCV 77.3 fL LOW MCH 25.3 pg LOW MCHC 32.7 gm/dL RDW-CV 15.6 % HI Platelet 450 x10(3)/uL HI MPV 9.5 fL Neutro Auto 78.9 % HI Lymph Auto 13.6 % LOW Dunn Auto 5.4 % Eos Auto 0.6 % Basophil Auto 0.6 % Immature Gran % 0.90 % NRBC Auto Pct 0.00 % Neutro Absolute 16.35 x10(3)/uL HI Lymph Absolute 2.81 x10(3)/uL Dunn Absolute 1.11 x10(3)/uL HI Eos Absolute 0.12 x10(3)/uL Basophil Absolute 0.12 x10(3)/uL HI Immature Gran Absolute 0.18 x10(3)/uL NA NRBC Absolute 0.00 x10(3)/uL Sodium Lvl 138 mmol/L Potassium Lvl 3.1 mmol/L LOW Chloride 99 mmol/L CO2 16 mmol/L LOW AGAP 26.1 mmol/L HI BUN 3 mg/dL LOW Creatinine 0.63 mg/dL GFR >60 mL/min/1.73 m2 NA GFR NonAfrican Latvian >60 mL/min/1.73 m2 NA Glucose Lvl 191 mg/dL HI Calcium Lvl 9.6 mg/dL Total Protein 8.6 gm/dL Albumin Lvl 4.50 gm/dL Alk Phos 110 IntUnit/L HI ALT 18 IntUnit/L AST 20 IntUnit/L Bili Total 0.3 mg/dL Osmolality 277.4 mOsm/kg HCG Qualitative Serum Negative . Reexamination/ Reevaluation Time: 01/31/2020 01:46:00 . Notes: Patient has not had any dry heavi ng or vomiting since administration of first round of antiemetics. After she was given the oral potassium and Cogentin she vomited. Will give second round of antiemetics.. Time: 01/31/2020 05:07:00 . Notes: Patient without any vomiting or d ry heaving in hours. Appears safe for discharge as cyclic vomiting. Continue home medications. Additional verbal instructions given.. Impression and Plan Diagnosis Cyclic vomiting syndrome ([id number] R11.1 5, Discharge, Medical) Plan Prescriptions: Launch prescriptions Pharmacy: benztropine 1 mg oral tablet (Prescribe) : 1 mg = 1 tab(s), Oral, BID, for 3 day(s), 6 tab(s), 0 Refill(s), Launch prescriptions Pharmacy: K-Dur 10 oral tablet, extended release ( Prescribe): 10 mEq = 1 tab(s), Oral, BID, for 3 day(s), 6 tab(s), 0 Refill(s). Patient was given the following educatio nal materials: Cyclic Vomiting Syndrome, Adult, AA Blank Template (CUSTOM), Cannabis Hyperemesis Syndrome (Custom) (LIZ). Follow up with: Jr DUTTONLinsey 2 to 4 days. Counseled: Patient. Future Appointments Medications amitriptyline 50 mg oral tablet 50 mg = 1 tab(s), Oral, Once a day (at bedtime) Start Date: 12/11/19 Status: Orderedbenztropine 1 mg oral tablet 1 mg = 1 tab(s), Oral, BID, # 6 tab(s), 0 Refill(s) Start Date: 01/31/20 Stop Date: 02/03/20 Status: Orderedescitalopram 10 mg oral tablet 10 mg = 1 tab(s), Oral, Daily Start Date: 12/11/19 Status: OrderedK-Dur 10 oral tablet, extended release 10 mEq = 1 tab(s), Oral, BID, # 6 tab(s), 0 Refill(s) Start Date: 01/31/20 Stop Date: 02/03/20 Status: Orderedondansetron 4 mg oral tablet 4 mg = 1 tab(s), Oral, q8hr, PRN PRN for nausea/vomiting, # 30 tab(s), 0 Refill(s), Pharmacy: [id number], 1 tab(s) Oral q8hr,PRN:for nausea/vomiting Start Date: 12/11/19 Status: Orderedpotassium chloride 20 mEq, Oral, Daily Start Date: 12/10/19 Status: Ordered Mental Status 01/31/20 Level of Consciousness Alert Problem List Condition Effective Dates Status Health Status Informant Cyclic vomiting syndrome(Confirmed) Active Dizziness(Confirmed) Active AKASH (generalized anxiety Active disorder)(Confirmed) Migraine(Confirmed) Active Nausea & vomiting(Confirmed) Active Results Laboratory List Name Date Automated Differential Standard 01/31/20 CBC w/Diff Standard 01/31/20 Comprehensive Metabolic Panel Standard (CMP Standard) 01/31/20 Test Serum Standard 01/31/20 Most recent to oldest [Reference Range]: 1 NRBC Auto Pct [0.00-0.20 %] 0.00 % (01/31/20 1:16 AM) Creatinine [0.50-0.90 mg/dL] 0.63 mg/dL (01/31/20 1:16 AM) AGAP [10.0-18.0 mmol/L] 26.1 mmol/L *HI* (01/31/20 1:16 AM) Glucose Lvl [70-100 mg/dL] 191 mg/dL *HI* (01/31/20 1:16 AM) Hct [34.1-44.9 %] 41.9 % (01/31/20 1:16 AM) Hgb [11.5-15.7 gm/dL] 13.7 gm/dL (01/31/20 1:16 AM) Lymph Auto [15.0-45.0 %] 13.6 % *LOW* (01/31/20 1:16 AM) MCH [25.6-32.2 pg] 25.3 pg *LOW* (01/31/20 1:16 AM) MCHC [32.3-36.5 gm/dL] 32.7 gm/dL (01/31/20 1:16 AM) MCV [79.4-94.8 fL] 77.3 fL *LOW* (01/31/20 1:16 AM) Dunn Auto [4.0-14.0 %] 5.4 % (01/31/20 1:16 AM) MPV [9.4-12.4 fL] 9.5 fL (01/31/20 1:16 AM) Neutro Auto [50.0-75.0 %] 78.9 % *HI* (01/31/20 1:16 AM) Osmolality [268.0-291.0 mOsm/kg] 277.4 mOsm/kg (01/31/20 1:16 AM) Platelet [150-400 x10(3)/uL] 450 x10(3)/uL *HI* (01/31/20 1:16 AM) RBC [3.93-5.22 x10(6)/uL] 5.42 x10(6)/uL *HI* (01/31/20 1:16 AM) Sodium Lvl [136-145 mmol/L] 138 mmol/L (01/31/20 1:16 AM) Total Protein [6.6-8.7 gm/dL] 8.6 gm/dL (01/31/20 1:16 AM) Albumin Lvl [3.50-5.20 gm/dL] 4.50 gm/dL (01/31/20 1:16 AM) Alk Phos [35-105 IntUnit/L] 110 IntUnit/L *HI* (01/31/20 1:16 AM) ALT [0-33 IntUnit/L] 18 IntUnit/L (01/31/20 1:16 AM) AST [0-32 IntUnit/L] 20 IntUnit/L (01/31/20 1:16 AM) Basophil Auto [0.0-2.0 %] 0.6 % (01/31/20 1:16 AM) Bili Total [0.0-1.3 mg/dL] 0.3 mg/dL (01/31/20 1:16 AM) CO2 [22-29 mmol/L] 16 mmol/L *LOW* (01/31/20 1:16 AM) Eos Auto [0.0-8.0 %] 0.6 % (01/31/20 1:16 AM) WBC [4.0-10.0 x10(3)/uL] 20.7 x10(3)/uL 1 *CRIT* (01/31/20 1:16 AM) BUN [6-23 mg/dL] 3 mg/dL *LOW* (01/31/20 1:16 AM) Calcium Lvl [8.6-10.2 mg/dL] 9.6 mg/dL (01/31/20 1:16 AM) Chloride [98-107 mmol/L] 99 mmol/L (01/31/20 1:16 AM) Potassium Lvl [3.5-5.1 mmol/L] 3.1 mmol/L *LOW* (01/31/20 1:16 AM) Lymph Absolute [1.20-3.70 x10(3)/uL] 2.81 x10(3)/uL (01/31/20 1:16 AM) Dunn Absolute [0.20-0.40 x10(3)/uL] 1.11 x10(3)/uL *HI* (01/31/20 1:16 AM) Eos Absolute [0.04-0.54 x10(3)/uL] 0.12 x10(3)/uL (01/31/20 1:16 AM) NRBC Absolute [0.00-0.01 x10(3)/uL] 0.00 x10(3)/uL (01/31/20 1:16 AM) Neutro Absolute [1.56-6.13 x10(3)/uL] 16.35 x10(3)/uL *HI* (01/31/20 1:16 AM) RDW-CV [11.7-14.4 %] 15.6 % *HI* (01/31/20 1:16 AM) GFR >60 mL/min/1.73 m2 *NA* (01/31/20 1:16 AM) GFR NonAfrican Latvian >60 mL/min/1.73 m2 *NA* (01/31/20 1:16 AM) Immature Gran % [0.00-2.30 %] 0.90 % (01/31/20 1:16 AM) Immature Gran Absolute 0.18 x10(3)/uL *NA* (01/31/20 1:16 AM) HCG Qualitative Serum [Negative] Negative (01/31/20 1:16 AM) Basophil Absolute [0.00-0.10 x10(3)/uL] 0.12 x10(3)/uL *HI* (01/31/20 1:16 AM) 1Result Comment: Critical result notified/readback to Crystal Chong Shah _byLC01/31/2020 01:29:44 Vital Signs Most recent to oldest 1 2 3 [Reference Range]: Temperature Oral [35.8-37.3 34.7 DegC DegC] *LOW* (01/31/20 12:19 AM) Peripheral Pulse Rate [60-100 100 bpm 113 bpm 11 5 bpm bpm] (01/31/20 8:24 AM) *HI* *HI* (01/31/20 6:20 AM) (01/31/20 5:00 AM) Respiratory Rate [14-20 18 br/min 16 br/min 16 br/mi n br/min] (01/31/20 8:24 AM) (01/31/20 6:20 AM) (01/31/20 5:0 0 AM) Blood Pressure [90-140/60-90 153/86 mmHg 156/100 mmHg 157 /101 mmHg mmHg] *HI* *HI* *HI* (01/31/20 6:20 AM) (01/31/20 5:00 AM) (01/31/20 4:2 1 AM) Mean Arterial Pressure 105 mmHg 113 mmHg 88 mmHg Cuff-Monitor (01/31/20 6:20 AM) (01/31/20 5:00 AM) (01/31/20 3:0 0 AM) SpO2 [92-100 %] 100 % 100 % 100 % (01/31/20 8:24 AM) (01/31/20 6:20 AM) (01/31/20 5:0 0 AM) Height 165.100 cm (01/31/20 12:19 AM) Height/Length Dosing 165.100 cm (01/31/20 12:24 AM) Weight 91.500 kg 91.500 kg (01/31/20 8:24 AM) (01/31/20 12:19 AM) Weight Dosing 91.500 kg (01/31/20 12:24 AM) Social History Social History Type Response Smoking Status 4 or less cigarettes(less th an 1/4 pack)/day in last 30 days; Tobacco use per day: 2 cigarettes daily; entered on: 01/31/20 Sex Hospital Discharge Instructions Patient Qaogconeo99/20/2020 01:48:55Cannabis Hyperemesis Syndrome (Custom) (ASHLEYERKENN)What is cannabinoid hyperemesis syndrome? Cannabinoid hyperemesis syndrome (CHS) is a condition that leads to repeated and severe bouts of vomiting. It is rare and only occurs in daily long-term users of marijuana (cannabis). Usually marijuanaand other cannabinoids decrease nausea and vomiting, but in some high frequency long-term users, marijuana has the opposite effect. Marijuana is the dried leaves, hines, stems, and seeds from the Cannabis sativa plant. Hashish is made from the concentrated resins of the Cannabis stuarta's female flower. Marijuana has several active substances. These include tetrahydrocannabinol (THC) and related chemicals. These bind to moleculesfound in the brain. That causes the drug ???high?? and other effects that users feel. Your digestive tract also has a number of molecules that bind to THC and related substances. So marijuana also affects the digestive tract. For example, the drug can alter the time it takes the stomachto empty. It also affects the esophageal sphincter. That???s the tight band of muscle that opens andcloses to let food from the esophagus into the stomach. Long-term marijuana use can change the way the affected molecules respond and lead to the symptoms of CHS. Marijuana is the most widely used illegal drug in the [place] Young adults are the most frequent users.A small portion of these people develop CHS. It usually only happens in people who have regularly used marijuana for several years. Often CHS affects those who use the drug at least once a day. What causes cannabinoid hyperemesis syndrome? Marijuana has very complex effects on the body. Experts are still trying to learn exactly how it causes CHS in some people. In the brain, marijuana often has the opposite effect of CHS. It helps prevent nausea and vomiting. The drug is also good at stopping such symptoms in people having chemotherapy. In the digestive tract, marijuana seems to have the opposite effect. It actually makes you more likely to have nausea and vomiting. With first use, the signals from the brain may be more important. That may lead to anti-nausea effects at first. But with repeated use of marijuana, certain receptors in the brain may stop responding to the drug in the same way. That may cause the repeated bouts of vomiting found in people with CHS. It still isn???t clear why some heavy marijuana users get the syndrome. But others do not. What are the symptoms of cannabinoid hyperemesis syndrome? People with CHS suffer from repeated bouts of vomiting. In between these episodes are times without any symptoms. Healthcare providers usually divide these symptoms into 3 stages. They are the prodromal phase, the hyperemetic phase, and the recovery phase. During the prodromal phase, the main symptoms are usually school clerk nausea and belly (abdominal)pain. Some people also develop a fear of vomiting. Most people keep normal eating patterns during this time. Some people use more marijuana because they think it will help stop the nausea. This phase may last for months to years. The hyperemetic phase is next. Symptoms during this time may include: ??? Ongoing nausea ??? Repeated episodes of vomiting ??? Abdominal pain ??? Decreased food intake and weight loss ??? Symptoms of dehydration During this phase, vomiting is often intense and overwhelming. Many people take a lot of hot showersduring the day. They find that doing so eases their nausea. (That may be because of the effects of the hot temperature on a part of the brain called the hypothalamus. It has effects on both temperatureregulation and vomiting.) People often first seek medical care during this phase. The hyperemetic phase may continue until the person completely stops using marijuana. Then the recovery phrase starts. During this time, symptoms go away. Normal eating is possible again. This phase can last days to months. Symptoms usually come back if the person tries marijuana again. How is cannabinoid hyperemesis syndrome diagnosed? Many health problems can cause repeated vomiting. To make a diagnosis, your healthcare provider willask you about your symptoms and your past health. He or she will also do a physical exam, including an exam of your abdomen. Your healthcare provider may also need more tests to rule out other causes of the vomiting. That???sespecially the case for ones that may signal a health emergency. Based on your other symptoms, thesetests might include: ??? Blood tests for anemia and infection ??? Tests for electrolytes ??? Tests for pancreas and liver enzymes, to check these organs ??? test ??? Urine analysis, to test for infection or other urinary causes ??? Drug screen, to test for drug-related causes of vomiting ??? X-rays of the abdomen, to check for conditions like blockage ??? Upper endoscopy, to view the stomach and esophagus for possible causes of vomiting ??? Head CT scan, if a nervous system cause of vomiting seems likely ??? Abdominal CT scan, to check for health problems that might need surgery CHS was only recently discovered. So some healthcare providers may not know about it. As a result, they may fail to spot it for many years. They often confuse CHS with cyclical vomiting disorder. It???s a health problem that causes similar symptoms. A supervisor floor assembly might make the diagnosis. How is cannabinoid hyperemesis syndrome treated? If you have had severe vomiting, you might need to stay in the hospital for a short time. During thehyperemesis phase, you might need these treatments: ??? Fluid replacement for dehydration, given through an IV ??? Medicines to help decrease vomiting ??? Pain medicine ??? Proton-pump inhibitors, to treat stomach inflammation ??? Frequent hot showers Symptoms often ease after a day or two unless marijuana is used before this time. To fully recover, you need to stop using marijuana all together. Some people may get help from drug rehabilitation programs to help them quit. Cognitive behavioral therapy or family therapy can also help. If you stop using marijuana, your symptoms should not come back. What are the complications of cannabinoid hyperemesis syndrome? Very severe, prolonged vomiting may lead to dehydration. It may also lead to electrolyte problems inyour blood. If untreated, these can cause rare complications such as: ??? Brain swelling (cerebral edema) ??? Muscle spasms or weakness ??? Seizures ??? Kidney failure ??? Heart rhythm abnormalities ??? Shock Your healthcare team will quickly work to fix any dehydration or electrolyte problems. Doing so can help prevent these problems. What can I do to prevent cannabinoid hyperemesis syndrome? You can prevent CHS by not using marijuana in any form. You may be reluctant to believe that marijuana might be the underlying cause of your symptoms. That may be because you have used it for many years without having any problems. The syndrome may take several years to develop. The drug may help prevent nausea in new users who don???t use it often. But people with CHS need to completely quit using it. If they don???t, their symptoms will likely come back. Quitting marijuana may lead to other health benefits, like: ??? Better lung function ??? Improved memory and thinking skills ??? Better sleep ??? Decreased risk for depression and anxiety When should I call my healthcare provider? Call your healthcare provider if you have had severe vomiting for a day or more. Bangura points about cannabinoid hyperemesis syndrome ??? CHS is a condition that leads to repeated and severe bouts of vomiting. It results from long-term use of marijuana. ??? Most people self-treat using hot showers to help reduce their symptoms. ??? Some people with the syndrome may not be diagnosed for several years. Admitting to your healthcare provider that you use marijuana daily can significantly speed up the diagnosis and possibly avoid many invasive and expensive tests. ??? You might need to stay in the hospital to treat dehydration from CHS. ??? Symptoms start to go away within a day or two after stopping marijuana use. In people with CHS, symptoms almost always come back if they use the drug again. Next steps Tips to help you get the most from a visit to your healthcare provider: ??? Know the reason for your visit and what you want to happen. ??? Before your visit, write down questions you want answered. ??? Bring someone with you to help you ask questions and remember what your provider tells you. ??? At the visit, write down the name of a new diagnosis, and any new medicines, treatments, or tests. Also write down any new instructions your provider gives you. ??? Know why a new medicine or treatment is prescribed, and how it will help you. Also know what theside effects are. ??? Ask if your condition can be treated in other ways. ??? Know why a test or procedure is recommended and what the results could mean. ??? Know what to expect if you do not take the medicine or have the test or procedure. ??? If you have a follow-up appointment, write down the date, time, and purpose for that visit. ??? Know how you can contact your provider if you have questions. 01/31/2020 01:48:55AA Blank Template (CUSTOM)Please read all of the information that accompanies these instructions. You came to the emergency department with vomiting. You have been diagnosed with vomiting likely from cyclic vomiting syndrome. Please schedule a follow up appointment with your primary care doctor this is important. You have been given or prescribed medications during this visit that may make you tired or drowsy. Do not drive, do not operate machinery, do not care for others, do no consume alcohol until they are completely clear from your system and you feel normal or as directed by a physician. Take your home medications as prescribed. In order to show that this is not from marijuana use you should abstain from marijuana for 3 months to see if this helps with the cyclic vomiting Please seek medical care or return to the emergency department if you develop inability to tolerate food or drink, fevers, abdominal pain, or a new or concerning symptom. We are open 24 hours a day, 7 days a week. 01/31/2020 01:48:55Cyclic Vomiting Syndrome, AdultCyclic Vomiting Syndrome, Adult Cyclic [...] meals. ??? Taking medicines, such as: ??? Eoze-hpd-htlammr pain medicine. ??? Anti-nausea medicines. ??? Antacids. ??? Antihistamines. ??? Medicines for migraines. ??? Antidepressants. ??? Antibiotics. Severe nausea and vomiting may require you to stay at the hospital. You may need IV fluids to prevent or treat dehydration. Follow these instructions at home: During an episode ??? Take mufy-sou-frupvub and prescription medicines only as told by [...] avoid spicy or fatty foods, such as indonesian fries and pizza. General instructions ??? Monitor [...] care provider. Document Released: 12/15/2017 Document Revised: 12/15/2017 Document Reviewed: 12/15/2017 Elsevier Interactive Patient Education ?? 2019 [email or web address] Follow Up [facility]01/31/2020 00:15:42With:Jr Matthew [facility], Address:Unknown When:2 to 4 days
--- OUTSIDE RECORDS SUMMARY | 2022-08-16 09:01 | XMS_ITS | Continuity of Care Document ---
:2000 Author Organization [facility] Address [address] [place] [address] Care Team Providers Name Role Phone ENID ULRICH Primary Care Physician Encounter BVT Date(s): 09/23/20 - 09/23/20 [facility] [address] [facility] [place] [address] Encounter Diagnosis Flu vaccine need (Discharge Diagnosis) - 09/23/20 Discharge Disposition: Home Attending Physician: ENID ULRICH Allergies, Adverse Reactions, Alerts No Known Allergies Assessment and Plan Future AppointmentsFuture Scheduled TestsLaboratoryC-Reactive Protein 09/23/20 Immunizations Given and Recorded Vaccine Date Status Refusal Reason influenza, inactivated 09/23/20 Given Medications amitriptyline 75 mg oral tablet 75 mg = 1 tab(s), Oral, Once a day (at bedtime), # 90 tab(s), 3 Refill(s), Pharmacy: [facility] #[id number], 1 tab(s) Oral Once a day (at bedtime) Start Date: 09/23/20 Status: Orderedgabapentin 100 mg oral capsule 100 mg = 1 cap(s), Oral, BID Start Date: 09/23/20 Status: Orderedhaloperidol 2 mg oral tablet 2 mg = 1 tab(s), Oral, TID, PRN PRN Nausea/Vomiting, # 15 tab(s), 11 Refill(s), Pharmacy: [facility] #[id number], 1 tab(s) Oral TID,PRN:Nausea/Vomiting Start Date: 09/23/20 Status: Orderedondansetron 4 mg oral tablet 4 mg = 1 tab(s), Oral, q8hr, PRN PRN for nausea/vomiting, # 30 tab(s), 11 Refill(s), Pharmacy: [facility] #[id number], 1 tab(s) Oral q8hr,PRN:for nausea/vomiting Start Date: 09/23/20 Status: Orderedpotassium chloride 40 mEq/15 mL oral liquid 40 mEq = 15 mL, Oral, TID, # 1,350 mL, 0 Refill(s), Pharmacy: [facility] #[id number], 15 mL Oral TID Start Date: 09/23/20 Status: Ordered Problem List Condition Effective Dates Status Health Status Informant Acute anxiety(Confirmed) Active Cyclic vomiting syndrome(Confirmed) Active Dizziness(Confirmed) Active AKASH (generalized anxiety Active disorder)(Confirmed) Migraine(Confirmed) Active Nausea & vomiting(Confirmed) Active Vital Signs Most recent to oldest [Reference Range]: 1 Temperature Temporal Artery [36.3-37.8 DegC] 36.4 DegC (09/23/20 8:51 AM) Peripheral Pulse Rate [60-100 bpm] 112 bpm *HI* (09/23/20 8:51 AM) Blood Pressure [90-140/60-90 mmHg] 128/86 mmHg (09/23/20 8:51 AM) BP Site Right arm (09/23/20 8:51 AM) Pulse Site Radial artery (09/23/20 8:51 AM) Weight 90.4 kg (09/23/20 8:51 AM) Weight Measured (lbs) 198.88 lb (09/23/20 8:51 AM) Social History Social History Type Response Smoking Status Former smoker, quit more wayne n 30 days ago entered on: 09/23/20 Sex
--- OUTSIDE RECORDS SUMMARY | 2022-08-16 09:01 | XMS_ITS | Continuity of Care Document ---
:2000 Author Organization [facility] Address [address] [place] [id number] Care Team Providers Name Role Phone Vipul VIGIL,Jr Primary Care Physician Encounter BVT Date(s): 04/19/20 - 04/19/[address] [address]- Encounter Diagnosis Intractable nausea and vomiting (Discharge Diagnosis) - 04/19/20 Discharge Disposition: Home or Self Care Attending Physician: LINDA MAI Admitting Physician: LINDA MAI Allergies, Adverse Reactions, Alerts No Known Allergies Assessment and Plan Extracted from: Title: General Medical Problem *ED Author: LINDA MAI Date: 04/19/20 History of Present Illness Additional history: A 19-year-old female with history of cyclical vomiting with cannabinoid hyperemesis, presents to the emergency department with a CC of intractible nausea and vomiting, that began t veronica. The patient continues to visit the ED for anti-nausea medication for presumed cyclic vomiting syndrome. She was seen here approximately 2 months ago with an identical presentation. At that time e ED MD reviewed the pathophysiolocy of cyclic vomiting syndrome with the patient and she decided to slowly wean herself from cannibus. She returns today but denies cannibus use. She has phenergan at [facility] but was unable to keep it down. She d enies any recent injuries or ollness, such as fever, chills, chest pain, shortness of breath, cough, sore throat, runny nose, syncope, urinary complaints, .. Review of Systems Constitutional symptoms: Negative except as documented in HPI. Skin symptoms: Negative except as docume nted in HPI. Eye symptoms: Negative except as documen carl in HPI. ENMT symptoms: Negative except as docume nted in HPI. Respiratory symptoms: Negative except as documented in HPI. Cardiovascular symptoms: Negative except as documented in HPI. Gastrointestinal symptoms: Negative exce pt as documented in HPI. Genitourinary symptoms: Negative except as documented in HPI. Musculoskeletal symptoms: Negative excep t as documented in HPI. Neurologic symptoms: Negative except as documented in HPI. Psychiatric symptoms: Negative except as documented in HPI. Endocrine symptoms: Negative except as d ocumented in HPI. Hematologic/Lymphatic symptoms: Negative except as documented in HPI. Allergy/immunologic symptoms: Negative e xcept as documented in HPI. Additional review of systems informatio n: All other systems reviewed and otherwise negative. Health Status Allergies: No inactive allergies have been recorded .. Past Medical/ Family/ Social History Surgical history: No active procedure history items have b een selected or recorded.. Family history: Hypertension Mother . Problem list: Active Problems (5) Cyclic vomiting syndrome Dizziness AKASH (generalized anxiety disorder) Migraine Nausea & vomiting . Physical Examination Vital Signs Vital Signs 04/19/2020 14:40 EDT Temperature Temporal 36.3 DegC Peripheral Pulse Rate 110 bpm HI Respiratory Rate 30 br/min HI Systolic Blood Pressure 150 mmHg HI Diastolic Blood Pressure 82 mmHg SpO2 100 % . Measurements 04/19/2020 14:45 EDT Height/Length Dosing 165.100 cm Weight Dosing 91.500 kg 04/19/2020 14:40 EDT Height/Length Estimated 165.100 cm Weight Estimated 91.500 kg . General: Alert, no acute distress. Skin: Warm, dry, pink, intact. Head: Normocephalic, atraumatic. Neck: Supple, trachea midline, no tender ness. Eye: Pupils are equal, round and reactiv e to light, extraocular movements are intact, normal conjunctiva, vision grossly normal. Ears, nose, mouth and throat: Oral mucos a moist. Cardiovascular: Normal peripheral perfus ion. Respiratory: Respirations are non-labore d, Symmetrical chest wall expansion. Musculoskeletal: Normal ROM, normal stre ngth, no tenderness, no swelling, no deformity. Chest wall Genitourinary Neurological: Alert and oriented to pers on, place, time, and situation, No focal neurological deficit observed, normal sensory observed, normal motor observed, normal speech observed, normal coordination observed. Lymphatics: No lymphadenopathy. Psychiatric: Cooperative, appropriate mo od & affect, normal judgment, non-suicidal. Medical Decision Making Rationale: Reasonably well-appearing 19- year-old female who presented to the emergency care center with anxiety, nausea and vomiting that was intractable, beginning this morning. The patient last vomite d in the waiting room. When she was admi tted to the emergency care center, she has been sleeping on a stretcher. She is alert and oriented when disturbed. The patient is not experiencing any pain , fever or chills at this point. She states that she is not using cannabis. She is requesting IV antiemetic medication. She states that she prefers coming to the emergency department instead of using santiago ppositories. The patient feels she is dehydrated. 1 L of LR ordered, labs ordered. The patient was mildly tachycardiac on arrival, likely from her panic attack. Anticipate discharge.. Results review: Lab results : Lab View 04/19/2020 20:09 EDT WBC 20.7 x10(3)/uL CRIT RBC 4.47 x10(6)/uL Hgb 11.1 gm/dL LOW Hct 34.8 % MCV 77.9 fL LOW MCH 24.8 pg LOW MCHC 31.9 gm/dL LOW RDW-CV 14.4 % Platelet 346 x10(3)/uL MPV 10.1 fL Neutro Auto 86.9 % HI Lymph Auto 5.1 % LOW [place] Auto 2.8 % LOW Eos Auto 4.3 % Basophil Auto 0.3 % Immature Gran % 0.60 % NRBC Auto Pct 0.00 % Neutro Absolute 17.99 x10(3)/uL HI Lymph Absolute 1.06 x10(3)/uL LOW [place] Absolute 0.59 x10(3)/uL HI Eos Absolute 0.89 x10(3)/uL HI Basophil Absolute 0.07 x10(3)/uL Immature Gran Absolute 0.13 x10(3)/uL NA NRBC Absolute 0.00 x10(3)/uL Sodium Lvl 137 mmol/L Potassium Lvl 3.6 mmol/L Chloride 102 mmol/L CO2 19 mmol/L LOW AGAP 19.6 mmol/L HI BUN 6 mg/dL Creatinine 0.46 mg/dL LOW GFR >60 mL/min/1.73 m2 NA GFR NonAfrican Georgian >60 mL/min/1.73 m2 NA Glucose Lvl 150 mg/dL HI Calcium Lvl 8.9 mg/dL Osmolality 274.3 mOsm/kg 04/19/2020 16:32 EDT WBC 22.5 x10(3)/uL CRIT RBC 5.12 x10(6)/uL Hgb 12.7 gm/dL Hct 39.4 % MCV 77.0 fL LOW MCH 24.8 pg LOW MCHC 32.2 gm/dL LOW RDW-CV 14.5 % HI Platelet 435 x10(3)/uL HI MPV 10.1 fL Neutro Auto 80.6 % HI Lymph Auto 7.2 % LOW [place] Auto 5.0 % Eos Auto 6.0 % Basophil Auto 0.5 % Immature Gran % 0.70 % NRBC Auto Pct 0.00 % Neutro Absolute 18.16 x10(3)/uL HI Lymph Absolute 1.63 x10(3)/uL [place] Absolute 1.13 x10(3)/uL HI Eos Absolute 1.35 x10(3)/uL HI Basophil Absolute 0.11 x10(3)/uL HI Immature Gran Absolute 0.16 x10(3)/uL NA NRBC Absolute 0.00 x10(3)/uL UA Color Yellow UA Clarity Slightly Cloudy UA Spec Grav 1.025 UA Bili Negative UA pH 8.0 UA Urobilinogen 0.2 EU/dL UA Blood Trace-lysed UA Glucose Negative UA Ketones 40 mg/dL UA Protein 30 mg/dL UA Nitrite Negative UA Leuk Est Negative Urine Culture? No Micro? Indicated UA WBC 0-2 UA RBC 0-2 UA Bacteria Rare UA Squam Epi Moderate UA Amorph Phos Denise Identified Sodium Lvl 140 mmol/L Potassium Lvl 3.8 mmol/L Chloride 104 mmol/L CO2 15 mmol/L LOW AGAP 24.8 mmol/L HI BUN 8 mg/dL Creatinine 0.45 mg/dL LOW GFR >60 mL/min/1.73 m2 NA GFR NonAfrican Georgian >60 mL/min/1.73 m2 NA Glucose Lvl 139 mg/dL HI Calcium Lvl 9.2 mg/dL Osmolality 280.0 mOsm/kg Human Chorionic Gonadotropin Qualitative Negative . Notes: The patient has an elevated white count and arrived during an acute anxiety attack, she does not have evidence for sepsis. She frequently has leukocytosis when she comes into the emergency care c enter secondary to repeated vomiting. Sh yosvany does not have pain or fever at this time. She is requesting something for anxiety at this time.. Reexamination/ Reevaluation Time: 04/19/2020 20:56:00 . Notes: The patient is feeling better and would like to go at this time. We discussed her elevated white blood cell count. I offered admission to the patient but she refused. She would like to be dischar ged. We discussed return precautions suc h as development of fever, pain or worsening symptoms. She is amenable to return if she worsens. We will send patient with some for recta l Phenergan. Additional verbal discharge instructions given. Follow-up advised.. Impression and Plan Diagnosis Intractable nausea and vomiting (ICD10-C M R11.2, Discharge, Medical) Plan Condition: Improved. Disposition: Medically cleared, Discharg ed: time 04/19/2020 20:57:00. Prescriptions: Launch prescriptions Pharmacy: Phenergan 25 mg rectal suppository (Pres cribe): 25 mg = 1 supp, Per rectum, q6hr, 1-2 suppositories every 6 hours as needed for sever nausea and vomiting., PRN: Nausea/Vomiting, 20 supp, 2 Refill(s). Patient was given the following educatio nal materials: Cyclic Vomiting Syndrome, Adult. Follow up with: Jr VIGIL, Linsey boyce 5 to 7 days, Jr VIGIL, Within 5 to 7 days. Counseled: Patient, Regarding diagnosis, Regarding diagnostic results, Regarding treatment plan, Regarding prescription, Patient indicated understanding of instructions. Future AppointmentsFuture Scheduled TestsLaboratoryTS 08/22/20 Functional Status 04/19/20 Recent Travel History No recent travel COVID-19 Screening None Medications amitriptyline 50 mg [...] nausea/vomiting, # 30 tab(s), 0 Refill(s), Pharmacy: [email or web address] #[id number], 1 tab(s) Oral q8hr,PRN:for nausea/vomiting Start Date: 12/11/19 Status: OrderedPhenergan 25 mg rectal suppository 25 mg = 1 supp, Per rectum, q6hr, PRN PRN Nausea/Vomiting, 1-2 suppositories every 6 hours as neededfor sever nausea and vomiting., # 20 supp, 2 Refill(s), Pharmacy: [facility] #[id number], 1 supp Per rectum q6hr,PRN:Nausea/Vomiting,Instr:1-2 santiago... Start Date: 04/19/20 Status: Orderedpotassium chloride 20 mEq, Oral, Daily Start Date: 12/10/19 Status: Ordered Problem List Condition Effective Dates Status Health Status Informant Cyclic vomiting syndrome(Confirmed) Active Dizziness(Confirmed) Active AKASH (generalized anxiety Active disorder)(Confirmed) Migraine(Confirmed) Active Nausea & vomiting(Confirmed) Active Results Laboratory List Name Date Automated Differential Standard 04/19/20 Basic Metabolic Panel Standard (BMP Standard) 04/19/20 CBC w/Diff Standard 04/19/20 Automated Differential Standard 04/19/20 Basic Metabolic Panel Standard (BMP Standard) 04/19/20 CBC w/Diff Standard 04/19/20 Test Urine Standard (Urine Test andard) 04/19/20 Urinalysis with Culture, if indicated Standard 04/19/20 Urinalysis Microscopic Standard 04/19/20 Most recent to oldest [Reference Range]: 1 2 Urine Culture? No (04/19/20 4:32 PM) UA Amorph Phos Denise Identified *ABN* (04/19/20 4:32 PM) NRBC Auto Pct [0.00-0.20 %] 0.00 % 0.00 % (04/19/20 8:09 PM) (04/19/20 4:32 PM) Creatinine [0.50-0.90 mg/dL] 0.46 mg/dL 0.45 mg/dL *LOW* *LOW* (04/19/20 8:09 PM) (04/19/20 4:32 PM) UA Bacteria [None Seen] Rare *ABN* (04/19/20 4:32 PM) UA Bili [Negative] Negative (04/19/20 4:32 PM) UA Blood [Negative] Trace-lysed *ABN* (04/19/20 4:32 PM) UA Color Yellow (04/19/20 4:32 PM) UA Glucose [Negative] Negative (04/19/20 4:32 PM) UA Ketones [Neg] 40 mg/dL *ABN* (04/19/20 4:32 PM) UA Leuk Est [Negative] Negative (04/19/20 4:32 PM) UA Nitrite [Negative] Negative (04/19/20 4:32 PM) UA Protein [Negative] 30 mg/dL *ABN* (04/19/20 4:32 PM) UA RBC [0-2] 0-2 (04/19/20 4:32 PM) UA Urobilinogen 0.2 EU/dL (04/19/20 4:32 PM) UA WBC 0-2 (04/19/20 4:32 PM) AGAP [10.0-18.0 mmol/L] 19.6 mmol/L 24.8 mmol/L *HI* *HI* (04/19/20 8:09 PM) (04/19/20 4:32 PM) Glucose Lvl [70-100 mg/dL] 150 mg/dL 139 mg/dL *HI* *HI* (04/19/20 8:09 PM) (04/19/20 4:32 PM) Hct [34.1-44.9 %] 34.8 % 39.4 % (04/19/20 8:09 PM) (04/19/20 4:32 PM) Hgb [11.5-15.7 gm/dL] 11.1 gm/dL 12.7 gm/dL *LOW* (04/19/20 4:32 PM) (04/19/20 8:09 PM) Lymph Auto [15.0-45.0 %] 5.1 % 7.2 % *LOW* *LOW* (04/19/20 8:09 PM) (04/19/20 4:32 PM) MCH [25.6-32.2 pg] 24.8 pg 24.8 pg *LOW* *LOW* (04/19/20 8:09 PM) (04/19/20 4:32 PM) MCHC [32.3-36.5 gm/dL] 31.9 gm/dL 32.2 gm/dL *LOW* *LOW* (04/19/20 8:09 PM) (04/19/20 4:32 PM) MCV [79.4-94.8 fL] 77.9 fL 77.0 fL *LOW* *LOW* (04/19/20 8:09 PM) (04/19/20 4:32 PM) [place] Auto [4.0-14.0 %] 2.8 % 5.0 % *LOW* (04/19/20 4:32 PM) (04/19/20 8:09 PM) MPV [9.4-12.4 fL] 10.1 fL 10.1 fL (04/19/20 8:09 PM) (04/19/20 4:32 PM) Neutro Auto [50.0-75.0 %] 86.9 % 80.6 % *HI* *HI* (04/19/20 8:09 PM) (04/19/20 4:32 PM) Osmolality [268.0-291.0 mOsm/kg] 274.3 mOsm/kg 280.0 m Osm/kg (04/19/20 8:09 PM) (04/19/20 4:32 PM) Platelet [150-400 x10(3)/uL] 346 x10(3)/uL 435 x10(3)/ uL (04/19/20 8:09 PM) *HI* (04/19/20 4:32 PM) RBC [3.93-5.22 x10(6)/uL] 4.47 x10(6)/uL 5.12 x10(6)/uL (04/19/20 8:09 PM) (04/19/20 4:32 PM) Sodium Lvl [136-145 mmol/L] 137 mmol/L 140 mmol/L (04/19/20 8:09 PM) (04/19/20 4:32 PM) UA pH 8.0 (04/19/20 4:32 PM) Basophil Auto [0.0-2.0 %] 0.3 % 0.5 % (04/19/20 8:09 PM) (04/19/20 4:32 PM) CO2 [22-29 mmol/L] 19 mmol/L 15 mmol/L *LOW* *LOW* (04/19/20 8:09 PM) (04/19/20 4:32 PM) Eos Auto [0.0-8.0 %] 4.3 % 6.0 % (04/19/20 8:09 PM) (04/19/20 4:32 PM) UA Spec Grav 1.025 (04/19/20 4:32 PM) WBC [4.0-10.0 x10(3)/uL] 20.7 x10(3)/uL 1 22.5 x10(3)/uL 2 *CRIT* *CRIT* (04/19/20 8:09 PM) (04/19/20 4:32 PM) BUN [6-23 mg/dL] 6 mg/dL 8 mg/dL (04/19/20 8:09 PM) (04/19/20 4:32 PM) Calcium Lvl [8.6-10.2 mg/dL] 8.9 mg/dL 9.2 mg/dL (04/19/20 8:09 PM) (04/19/20 4:32 PM) Chloride [98-107 mmol/L] 102 mmol/L 104 mmol/L (04/19/20 8:09 PM) (04/19/20 4:32 PM) Potassium Lvl [3.5-5.1 mmol/L] 3.6 mmol/L 3.8 mmol/ L (04/19/20 8:09 PM) (04/19/20 4:32 PM) Micro? [Not Indicated] Indicated *ABN* (04/19/20 4:32 PM) Lymph Absolute [1.20-3.70 x10(3)/uL] 1.06 x10(3)/uL 1.6 3 x10(3)/uL *LOW* (04/19/20 4:32 PM) (04/19/20 8:09 PM) [place] Absolute [0.20-0.40 x10(3)/uL] 0.59 x10(3)/uL 1.13 x10(3)/uL *HI* *HI* (04/19/20 8:09 PM) (04/19/20 4:32 PM) Eos Absolute [0.04-0.54 x10(3)/uL] 0.89 x10(3)/uL 1.35 x10(3)/uL *HI* *HI* (04/19/20 8:09 PM) (04/19/20 4:32 PM) NRBC Absolute [0.00-0.01 x10(3)/uL] 0.00 x10(3)/uL 0.00 x10(3)/uL (04/19/20 8:09 PM) (04/19/20 4:32 PM) UA Clarity Slightly Cloudy *ABN* (04/19/20 4:32 PM) Neutro Absolute [1.56-6.13 x10(3)/uL] 17.99 x10(3)/uL 18 .16 x10(3)/uL *HI* *HI* (04/19/20 8:09 PM) (04/19/20 4:32 PM) RDW-CV [11.7-14.4 %] 14.4 % 14.5 % (04/19/20 8:09 PM) *HI* (04/19/20 4:32 PM) GFR >60 mL/min/1.73 m2 >60 mL/min/1.73 m2 *NA* *NA* (04/19/20 8:09 PM) (04/19/20 4:32 PM) GFR NonAfrican Georgian >60 mL/min/1.73 m2 >60 mL/min/1.73 m2 *NA* *NA* (04/19/20 8:09 PM) (04/19/20 4:32 PM) UA Squam Epi Moderate *ABN* (04/19/20 4:32 PM) Human Chorionic Gonadotropin Qualitative Negative (04/19/20 4:32 PM) Immature Gran % [0.00-2.30 %] 0.60 % 0.70 % (04/19/20 8:09 PM) (04/19/20 4:32 PM) Immature Gran Absolute 0.13 x10(3)/uL 0.16 x10(3)/uL *NA* *NA* (04/19/20 8:09 PM) (04/19/20 4:32 PM) Basophil Absolute [0.00-0.10 x10(3)/uL] 0.07 x10(3)/uL 0.11 x10(3)/uL (04/19/20 8:09 PM) *HI* (04/19/20 4:32 PM) 1Result Comment: Critical result notified/readback to Linda Mai at 04/19/2020 20:31:48 EDT by [employer].2Result Comment: Critical result notified/readback to Mahesh Gamez at 04/19/2020 16:47:49 EDT by [employer].Radiology Reports true Exam Date Time Procedure Performing Provider Status 04/19/20 6:02 PM XR Chest 2 Views Jaclyn Brownlee (Verified) Notes:(XR Chest 2 Views) Reason For Exam: tachycardiaXR Chest 2 Views EXAMINATION: XR Chest 2 Views CLINICAL HISTORY: tachycardia TECHNIQUE: PA and lateral chest COMPARISON: None FINDINGS: The lungs are well-inflated. There is no pneumothorax, pleural fluid or focal consolidation. The cardiomediastinal silhouette is within normal limits. There is no acute osseous abnormality. IMPRESSION: No acute cardiopulmonary process. Thank you for letting us participate in the care of this patient. For questions regarding this report, please contact the number below. Final Dictated: 04/19/2020 6:50 pm SOPHIA GRUBER Signed (Electronic Signature): 04/19/2020 6:50 pm Signed by: SOPHIA GRUBER Vital Signs Most recent to oldest [Reference 1 2 3 Range]: Temperature Temporal [36.3-37.8 37 DegC 36.3 DegC DegC] (04/19/20 9:08 PM) (04/19/20 2:40 PM) Peripheral Pulse Rate [60-100 bpm] 108 bpm 108 bpm 111 bpm *HI* *HI* *HI* (04/19/20 9:08 PM) (04/19/20 7:23 PM) (04/19/20 5:25 P M) Respiratory Rate [14-20 br/min] 20 br/min 22 br/min 24 br/min (04/19/20 9:08 PM) *HI* *HI* (04/19/20 7:23 PM) (04/19/20 5:25 PM ) Blood Pressure [90-140/60-90 mmHg] 164/92 mmHg 158/90 mmHg 163/108 mmHg *HI* *HI* *HI* (04/19/20 9:08 PM) (04/19/20 7:23 PM) (04/19/20 5:25 P M) BP Site Left arm Left arm (04/19/20 9:08 PM) (04/19/20 7:23 PM) FIO2 21 % 21 % (04/19/20 9:08 PM) (04/19/20 7:23 PM) SpO2 [92-100 %] 100 % 100 % 100 % (04/19/20 9:08 PM) (04/19/20 7:23 PM) (04/19/20 5:25 P M) Height/Length Estimated 165.100 cm (04/19/20 2:40 PM) Height/Length Dosing 165.100 cm (04/19/20 2:45 PM) Weight Estimated 91.500 kg (04/19/20 2:40 PM) Weight Dosing 91.500 kg (04/19/20 2:45 PM) Social History Social History Type Response Smoking Status 4 or less cigarettes(less th an 1/4 pack)/day in last 30 days; Tobacco use per day: 2 cigarettes daily; entered on: 01/31/20 Sex Hospital Discharge Instructions Patient [id number]/07/2020 20:59:12Cyclic Vomiting Syndrome, Adult1. Use Phenergan for rectal if you are unable to take oral Phenergan. 2. Drink plenty of fluids, get plenty of sleep. Use small sips of fluids, try thomas carl. Thomas candy can be helpful for upset stomach and nausea. 3. Please, follow-up with your primary care doctor. Please continue to avoid cannabis. 4. Return if new or worsening symptoms occur including but not limited to fever, pain, shortness of breath, urinary complaints. Cyclic Vomiting Syndrome, Adult Cyclic vomiting syndrome ([facility]) [...] meals. ??? Taking medicines, such as: ??? Etzx-jcy-fuwkroh pain medicine. ??? Anti-nausea medicines. ??? Antacids. ??? Antihistamines. ??? Medicines for migraines. ??? Antidepressants. ??? Antibiotics. Severe nausea and vomiting may require you to stay at the hospital. You may need IV fluids to prevent or treat dehydration. Follow these instructions at home: During an episode ??? Take [id number] and prescription medicines only as told by [...] avoid spicy or fatty foods, such as ukrainian fries and pizza. General instructions ??? Monitor [...] 12/15/2017 Document Revised: 12/15/2017 Document Reviewed: 12/15/2017 [employer] Patient Education ?? 2019 [employer]. Follow Up Care04/19/2020 14:37:16With:Jr Matthew [facility], Address:Unknown When:5 to 7 days
--- OUTSIDE RECORDS SUMMARY | 2022-08-16 09:01 | XMS_ITS | Continuity of Care Document ---
:2000 Author Organization [facility] Address [address] [place] [phone]- Care Team Providers Name Role Phone Vipul Anabel,Jr Primary Care Physician Encounter BVT Date(s): 12/10/19 - 12/11/[address] [address]- Encounter Diagnosis Cyclic vomiting syndrome (Discharge Diagnosis) - 12/10/19 Leukocytosis (Discharge Diagnosis) - 12/11/19 Metabolic acidosis (Discharge Diagnosis) - 12/11/19 Hypokalemia (Discharge Diagnosis) - 12/10/19 Discharge Disposition: Home or Self Care Attending Physician: JAMES HARRY Admitting Physician: JAMES HARRY Allergies, Adverse Reactions, Alerts No Known Allergies Assessment and Plan Extracted from: Title: Discharge Note Author: JAMES HARRY Date: 12/11/19 1.??Cyclic vomiting syndrome??R11.15 ??Continue oral hydration at home, PRN Z ofran sent to pharmacy. Advised cessation of marijuana. 2.??Metabolic acidosis??E87.2 ??Improving but not resolved, needs cont inued PO hydration and f/u labs in 24-48 hours. 3.??Hypokalemia??E87.6 ??Resolved. 4.??Leukocytosis??D72.829 ??Persists, but better. Needs f/u of blo od and urine cultures and repeat labs with PCP. No fever, no focal sx. Good, compared to admission, improved. Pt was advised to stay overnight for continued hydration and lab monitoring but she and her parents have declined, advised re: return precautions. To home with parents. Addendum by JAMES HARRY on December 11, 2019 22:39:52 EST 45 minutes spent on discharg e activities Extracted from: Title: General medical Author: Charbel Blunt Date: 12/10/19 History of Present Illness Patient presenting with intractable vomi ting. has long history of what has been thought to be cyclical vomiting syndrome. Follow[place] with [place] [facility]. Has had numerous evaluations here, at [facility] and [place] . Denies abdominal pain, but reports sev ere nausea. Symptoms feel similar to what she has had in the past. Continues to smoke marijuana daily. Denies any alcohol use. No fevers. Denies urinary symptoms. Review of Systems Constitutional symptoms: No fever, Skin symptoms: No rash, Eye symptoms: Vision unchanged. ENMT symptoms: No sore throat, Respiratory symptoms: No shortness of br eath, Cardiovascular symptoms: No chest pain, Gastrointestinal symptoms: Nausea, vomit ing, No abdominal pain, Genitourinary symptoms: No dysuria, Musculoskeletal symptoms: No back pain, Neurologic symptoms: No headache, Health Status Allergies: Allergic Reactions (Selected) No Known Allergies. Medications: (Selected) Inpatient Medications Ordered Ativan: 1 mg = 0.5 mL, IV Push, Once Prescriptions Prescribed K-Dur 10 oral tablet, extended release: 20 mEq = 2 tab(s), Oral, BID, for 10 day(s), 40 tab(s), 0 Refill(s) Phenergan 25 mg rectal suppository: 25 m g = 1 supp, Per rectum, q6hr, 15 supp, 0 Refill(s) Zofran ODT 4 mg oral tablet, disintegrat in mg, 1 tab(s), Oral, Once, 15 tab(s), 0 Refill(s) haloperidol 5 mg oral tablet: 5 mg = 1 t ab(s), Oral, TID, PRN: Nausea/Vomiting, 30 tab(s), 0 Refill(s) haloperidol 5 mg oral tablet: 5 mg = 1 t ab(s), Oral, TID, for 3 day(s), PRN: Nausea/Vomiting, 10 tab(s), 0 Refill(s) potassium chloride 20 mEq oral powder fo r reconstitution: 1 packet(s), Oral, BID, for 3 day(s), 6 packet(s), 0 Refill(s) potassium chloride 20 mEq oral tablet, e xtended release: 20 mEq, 1 tab(s), Oral, BID, for 7 day(s), 14 tab(s), 0 Refill(s) Documented Medications Documented amitriptyline: Oral, Once a day (at bedt briana), 0 Refill(s) escitalopram 10 mg oral tablet: 10 mg = 1 tab(s), Oral, Daily, 30 tab(s), 0 Refill(s). Past Medical/ Family/ Social History Surgical history: No active procedure history items have b een selected or recorded.. Family history: Hypertension Mother . Social history: Social & Psychosocial History Social History Alcohol Current, Beer, Several times per day Comment: pt states 5 beers a day (2018 03:01 - Love Ryan) Home/Environment Lives with Father, Mother, Siblings. Natalee ing situation Home/Independent. Substance Abuse Current, Marijuana, Several times per da y Tobacco 5-9 cigarettes (between 1/4 to 1/2 pack) /day in last 30 days Tobacco Use:. 'marijuana with tobacco' Tobacco Use:. Electronic Cigarette/Vaping Electronic Cigarette Use: Never. Psychosocial History No active psychosocial history has been recorded. Problem list: Active Problems (3) Alteration in comfort: pain Dizziness Nausea & vomiting . Physical Examination Vital Signs Vital Signs 12/10/2019 16:31 EST Temperature Axillary Not Done: Task Duplication (Not Done) Temperature Axillary Not Done: Task Duplication (Not Done) Temperature Axillary Not Done: Task Duplication (Not Done) Temperature Oral Not Done: Task Duplication (Not Done) Temperature Oral Not Done: Task Duplication (Not Done) Temperature Oral Not Done: Task Duplication (Not Done) Temperature Tympanic Not Done: Task Duplication (Not Done) Temperature Tympanic Not Done: Task Duplication (Not Done) Temperature Tympanic Not Done: Task Duplication (Not Done) Temperature Rectal Not Done: Task Duplication (Not Done) Temperature Rectal Not Done: Task Duplication (Not Done) Temperature Rectal Not Done: Task Duplication (Not Done) Temperature Temporal Not Done: Task Duplication (Not Done) Temperature Temporal Not Done: Task Duplication (Not Done) Temperature Temporal Not Done: Task Duplication (Not Done) Temperature Temporal Artery Not Done: Task Duplication (Not Done) Peripheral Pulse Rate Not Done: Task Duplication (Not Done) Respiratory Rate Not Done: Task Duplication (Not Done) Systolic Blood Pressure Not Done: Task Duplication (Not Done) Diastolic Blood Pressure Not Done: Task Duplication (Not Done) SpO2 Not Done: Task Duplication (Not Done) Oxygen Activity Not Done: Task Duplication (Not Done) 12/10/2019 16:17 EST Temperature Temporal 37.1 DegC Peripheral Pulse Rate 121 bpm HI Respiratory Rate 60 br/min HI Systolic Blood Pressure 155 mmHg HI Diastolic Blood Pressure 106 mmHg HI SpO2 98 % . Measurements 12/10/2019 16:32 EST Weight Dosing 94.000 kg 12/10/2019 16:32 EST Height/Length Dosing 160.000 cm 12/10/2019 16:17 EST Height/Length Estimated 160.000 cm Weight Estimated 94.000 kg . Basic Oxygen Information 12/10/2019 16:31 EST Oxygen Therapy Not Done: Task Duplication (Not Done) Oxygen Flow Rate Not Done: Task Duplication (Not Done) 12/10/2019 16:17 EST Oxygen Therapy Room air . General: Alert, hysterically sobbing, hy perventilating, occasionally retching into emesis bag.. Skin: Warm, dry. Head: Atraumatic. Neck: Supple. Eye: Normal conjunctiva. Cardiovascular: Regular rate and rhythm. Respiratory: Lungs are clear to ausculta tion, respirations are non-labored, breath sounds are equal. Gastrointestinal: Soft, Nontender, Non d istended, Normal bowel sounds. Neurological: Alert and oriented to pers on, place, time, and situation, No focal neurological deficit observed. Psychiatric: Cooperative. Medical Decision Making Results review: Lab results : Lab View 12/10/2019 17:32 EST UA Color Yellow UA Clarity Slightly Cloudy UA Spec Grav 1.020 UA Bili Negative UA pH 6.5 UA Urobilinogen 0.2 EU/dL UA Blood Negative UA Glucose Negative UA Ketones 80 UA Protein Negative UA Nitrite Negative UA Leuk Est Trace UA WBC 3-5 UA RBC 0-2 UA Mucous Slight UA Bacteria Rare UA Squam Epi Many 12/10/2019 16:43 EST WBC 25.2 x10(3)/uL CRIT RBC 5.49 x10(6)/uL HI Hgb 13.8 gm/dL Hct 42.2 % MCV 76.9 fL LOW MCH 25.1 pg LOW MCHC 32.7 gm/dL RDW-CV 17.6 % HI Platelet 430 x10(3)/uL HI MPV 9.8 fL Neutro Auto 80.5 % HI Lymph Auto 12.9 % LOW Johnson Auto 4.8 % Eos Auto 0.4 % Basophil Auto 0.6 % Immature Gran % 0.80 % NRBC Auto Pct 0.00 % Neutro Absolute 20.28 x10(3)/uL HI Lymph Absolute 3.24 x10(3)/uL Johnson Absolute 1.21 x10(3)/uL HI Eos Absolute 0.10 x10(3)/uL Basophil Absolute 0.14 x10(3)/uL HI Immature Gran Absolute 0.21 x10(3)/uL NA NRBC Absolute 0.00 x10(3)/uL Sodium Lvl 136 mmol/L Potassium Lvl 3.2 mmol/L LOW Chloride 98 mmol/L CO2 16 mmol/L LOW AGAP 25.2 mmol/L HI BUN 6 mg/dL Creatinine 0.61 mg/dL GFR >60 mL/min/1.73 m2 NA GFR NonAfrican Bruneian >60 mL/min/1.73 m2 NA Glucose Lvl 180 mg/dL HI Calcium Lvl 9.6 mg/dL Phosphorus 2.2 mg/dL LOW Total Protein 8.5 gm/dL Albumin Lvl 4.50 gm/dL Alk Phos 109 IntUnit/L HI ALT 14 IntUnit/L AST 20 IntUnit/L Bili Total 0.4 mg/dL Bili Direct <0.2 mg/dL Lipase Lvl 14 IntUnit/L Osmolality 274.1 mOsm/kg Magnesium 1.70 mg/dL Ketone (BHB), Serum Quant 0.59 mmol/L HI . Patient presenting with recurrent episod e of intractable nausea and vomiting. Significant leukocytosis is noted, she has had this in the past in setting of prior exacerbations of her vomiting. Has also had anion gap and low bicarb as well. Pt non toxic appearing, mild ongoing tachycardia. Given benign abdominal exam and leukocytosis with numerous prior visits have held off on imaging at this time as I do not feel would likely alter clinical course. After fluids, multiple rounds of anti emetics with ativan, reglan, benadryl, pt is still intractable retching. I think she will need admission for further symptom control. Discussed with hospitalist. Reexamination/ Reevaluation Vital signs Basic Oxygen Information12/10/2019 16:31 EST Oxygen Therapy Not Done: Task Duplication (Not Done) Oxygen Flow Rate Not Done: Task Duplication (Not Done) 12/10/2019 16:17 EST Oxygen Therapy Room air Impression and Plan Diagnosis intractable vomiting hypokalemia Future AppointmentsDiagnostic Tests PendingCulture Urine 12/10/19 Functional Status 12/11/19 History of Fall in Last 3 Months Holden No Mobility Max No limitation 12/11/19 Ambulatory Devices None 12/10/19 Level of Assistance - Self Care-Mobility No change fro m baseline Bathing ADL Index Independent (2) Dressing ADL Index Independent (2) Toileting ADL Index Independent (2) Transferring Bed or Chair ADL Index Independent (2) Continence ADL Index Independent (2) Medications amitriptyline 50 mg oral tablet 50 mg = 1 tab(s), Oral, Once a day (at bedtime) Start Date: 12/11/19 Status: Orderedescitalopram 10 mg oral tablet 10 mg = 1 tab(s), Oral, Daily Start Date: 12/11/19 Status: Orderedondansetron 4 mg oral tablet 4 mg = 1 tab(s), Oral, q8hr, PRN PRN for nausea/vomiting, # 30 tab(s), 0 Refill(s), Pharmacy: [facility] [email or web address] [id number], 1 tab(s) Oral q8hr,PRN:for nausea/vomiting Start Date: 12/11/19 Status: Orderedpotassium chloride 20 mEq, Oral, Daily Start Date: 12/10/19 Status: Ordered Mental Status 12/11/19 Sensory Perception Max No impairment 12/11/19 Level of Consciousness Alert Problem List Condition Effective Dates Status Health Status Informant Cyclic vomiting syndrome(Confirmed) Active Dizziness(Confirmed) Active AKASH (generalized anxiety Active disorder)(Confirmed) Migraine(Confirmed) Active Nausea & vomiting(Confirmed) Active Results Laboratory List Name Date Automated Differential Standard 12/11/19 Basic Metabolic Panel Standard (CP7 Standard) 12/11/19 CBC w/Diff Standard 12/11/19 Magnesium Level 12/11/19 Phosphorus Level 12/11/19 Electrolytes Standard (Lytes Standard) 12/11/19 Lactate (Lactic Acid) 12/11/19 Hemoglobin A1c DC (HgbA1c) 12/10/19 Glucose Level 12/10/19 Lactate (Lactic Acid) 12/10/19 Electrolytes Standard (Lytes Standard) 12/10/19 Fentanyl Level 12/10/19 Urinalysis Standard (UA Complete Standard) 12/10/19 Urine Drug Screen Standard (Drug Screen Urine) 12/10/19 Urinalysis Microscopic Standard 12/10/19 Automated Differential Standard 12/10/19 Basic Metabolic Panel Standard (BMP Standard) 12/10/19 CBC w/Diff Standard 12/10/19 Hepatic Panel1 12/10/19 Ketones (BHB) Serum, Quant (Beta Hydroxybutyrate) 12/10 Lipase Level 12/10/19 Magnesium Level 12/10/19 Phosphorus Level 12/10/19 Most recent to oldest 1 2 3 [Reference Range]: U Buprenorphine Scr Negative [Negative] (12/10/19 5:32 PM) Ketone (BHB), Serum Quant 0.59 mmol/L [0.02-0.27 mmol/L] *HI* (12/10/19 4:43 PM) NRBC Auto Pct [0.00-0.20 %] 0.00 % 0.00 % (12/11/19 6:45 AM) (12/10/19 4:43 PM) Creatinine [0.50-0.90 mg/dL] 0.44 mg/dL 0.61 mg/dL *LOW* (12/10/19 4:43 PM) (12/11/19 6:45 AM) UA Bacteria [None Seen] Rare *ABN* (12/10/19 5:32 PM) U Benzodia Scr [Negative] Negative (12/10/19 5:32 PM) UA Bili [Negative] Negative (12/10/19 5:32 PM) UA Blood [Negative] Negative (12/10/19 5:32 PM) U Cocaine Scr [Negative] Negative (12/10/19 5:32 PM) UA Color Yellow (12/10/19 5:32 PM) UA Glucose [Negative] Negative (12/10/19 5:32 PM) UA Ketones 80 *NA* (12/10/19 5:32 PM) UA Leuk Est [Negative] Trace *ABN* (12/10/19 5:32 PM) UA Mucous Slight *ABN* (12/10/19 5:32 PM) UA Nitrite [Negative] Negative (12/10/19 5:32 PM) U Opiate Scr [Negative] Negative (12/10/19 5:32 PM) U PCP Scr [Negative] Negative (12/10/19 5:32 PM) UA Protein [Negative] Negative (12/10/19 5:32 PM) UA RBC [0-2] 0-2 (12/10/19 5:32 PM) UA Urobilinogen 0.2 EU/dL (12/10/19 5:32 PM) UA WBC 3-5 (12/10/19 5:32 PM) U Amph Scr [Negative] Negative (12/10/19 5:32 PM) Lactate [0.5-2.2 mmol/L] 0.7 mmol/L 3.0 mmol/L (12/11/19 3:25 AM) *HI* (12/10/19 10:35 PM) U Kell Scr [Negative] Negative (12/10/19 5:32 PM) AGAP [10.0-18.0 mmol/L] 20.3 mmol/L 18.4 mmol/L 23.1 mmo l/L *HI* *HI* *HI* (12/11/19 6:45 AM) (12/11/19 3:25 AM) (12/10/19 10: 24 PM) Glucose Lvl [70-100 mg/dL] 93 mg/dL 152 mg/dL 180 m g/dL (12/11/19 6:45 AM) *HI* *HI* (12/10/19 11:30 PM) (12/10/19 4:43 PM) Hct [34.1-44.9 %] 35.0 % 42.2 % (12/11/19 6:45 AM) (12/10/19 4:43 PM) Hgb [11.5-15.7 gm/dL] 11.2 gm/dL 13.8 gm/dL *LOW* (12/10/19 4:43 PM) (12/11/19 6:45 AM) Hgb A1c 5.1 % *NA* (12/10/19 11:33 PM) Lipase Lvl [13-60 IntUnit/L] 14 IntUnit/L (12/10/19 4:43 PM) Lymph Auto [15.0-45.0 %] 8.1 % 12.9 % *LOW* *LOW* (12/11/19 6:45 AM) (12/10/19 4:43 PM) Magnesium [1.60-2.60 mg/dL] 2.30 mg/dL 1.70 mg/dL (12/11/19 6:45 AM) (12/10/19 4:43 PM) MCH [25.6-32.2 pg] 25.1 pg 25.1 pg *LOW* *LOW* (12/11/19 6:45 AM) (12/10/19 4:43 PM) MCHC [32.3-36.5 gm/dL] 32.0 gm/dL 32.7 gm/dL *LOW* (12/10/19 4:43 PM) (12/11/19 6:45 AM) MCV [79.4-94.8 fL] 78.5 fL 76.9 fL *LOW* *LOW* (12/11/19 6:45 AM) (12/10/19 4:43 PM) Johnson Auto [4.0-14.0 %] 6.2 % 4.8 % (12/11/19 6:45 AM) (12/10/19 4:43 PM) MPV [9.4-12.4 fL] 10.7 fL 9.8 fL (12/11/19 6:45 AM) (12/10/19 4:43 PM) Neutro Auto [50.0-75.0 %] 85.1 % 80.5 % *HI* *HI* (12/11/19 6:45 AM) (12/10/19 4:43 PM) Osmolality [268.0-291.0 266.3 mOsm/kg 274.1 mOsm/kg mOsm/kg] *LOW* (12/10/19 4:43 PM) (12/11/19 6:45 AM) Phosphorus [2.5-4.5 mg/dL] 3.8 mg/dL 2.2 mg/dL (12/11/19 6:45 AM) *LOW* (12/10/19 4:43 PM) Platelet [150-400 x10(3)/uL] 250 x10(3)/uL 430 x10(3)/uL (12/11/19 6:45 AM) *HI* (12/10/19 4:43 PM) RBC [3.93-5.22 x10(6)/uL] 4.46 x10(6)/uL 5.49 x10(6)/uL (12/11/19 6:45 AM) *HI* (12/10/19 4:43 PM) Sodium Lvl [136-145 mmol/L] 135 mmol/L 136 mmol/L 137 mmol/L *LOW* (12/11/19 3:25 AM) (12/10/19 10:24 PM) (12/11/19 6:45 AM) Total Protein [6.6-8.7 gm/dL] 8.5 gm/dL (12/10/19 4:43 PM) UA pH 6.5 (12/10/19 5:32 PM) Albumin Lvl [3.50-5.20 gm/dL] 4.50 gm/dL (12/10/19 4:43 PM) Alk Phos [35-105 IntUnit/L] 109 IntUnit/L *HI* (12/10/19 4:43 PM) ALT [0-33 IntUnit/L] 14 IntUnit/L (12/10/19 4:43 PM) AST [0-32 IntUnit/L] 20 IntUnit/L (12/10/19 4:43 PM) Basophil Auto [0.0-2.0 %] 0.2 % 0.6 % (12/11/19 6:45 AM) (12/10/19 4:43 PM) Bili Direct [0.0-0.3 mg/dL] <0.2 mg/dL (12/10/19 4:43 PM) Bili Total [0.0-1.3 mg/dL] 0.4 mg/dL (12/10/19 4:43 PM) CO2 [22-29 mmol/L] 16 mmol/L 18 mmol/L 13 mmol/L 1 *LOW* *LOW* *CRIT* (12/11/19 6:45 AM) (12/11/19 3:25 AM) (12/10/19 10: 24 PM) Eos Auto [0.0-8.0 %] 0.4 % (12/10/19 4:43 PM) UA Spec Grav 1.020 (12/10/19 5:32 PM) WBC [4.0-10.0 x10(3)/uL] 23.1 x10(3)/uL 2 25.2 x10(3)/uL 3 *CRIT* *CRIT* (12/11/19 6:45 AM) (12/10/19 4:43 PM) BUN [6-23 mg/dL] 3 mg/dL 6 mg/dL *LOW* (12/10/19 4:43 PM) (12/11/19 6:45 AM) Calcium Lvl [8.6-10.2 mg/dL] 8.5 mg/dL 4 9.6 mg/dL *LOW* (12/10/19 4:43 PM) (12/11/19 6:45 AM) Chloride [98-107 mmol/L] 103 mmol/L 103 mmol/L 104 mmo l/L (12/11/19 6:45 AM) (12/11/19 3:25 AM) (12/10/19 10: 24 PM) Potassium Lvl [3.5-5.1 4.3 mmol/L 3.4 mmol/L 3.1 mmol/ L mmol/L] (12/11/19 6:45 AM) *LOW* *LOW* (12/11/19 3:25 AM) (12/10/19 10:24 PM) Lymph Absolute [1.20-3.70 1.87 x10(3)/uL 3.24 x10(3)/uL x10(3)/uL] (12/11/19 6:45 AM) (12/10/19 4:43 PM) Johnson Absolute [0.20-0.40 1.44 x10(3)/uL 1.21 x10(3)/uL x10(3)/uL] *HI* *HI* (12/11/19 6:45 AM) (12/10/19 4:43 PM) Eos Absolute [0.04-0.54 0.10 x10(3)/uL x10(3)/uL] (12/10/19 4:43 PM) NRBC Absolute [0.00-0.01 0.00 x10(3)/uL 0.00 x10(3)/uL x10(3)/uL] (12/11/19 6:45 AM) (12/10/19 4:43 PM) UA Clarity Slightly Cloudy *ABN* (12/10/19 5:32 PM) U TCA Scr [Negative] Positive *ABN* (12/10/19 5:32 PM) Neutro Absolute [1.56-6.13 19.63 x10(3)/uL 20.28 x10(3)/uL x10(3)/uL] *HI* *HI* (12/11/19 6:45 AM) (12/10/19 4:43 PM) RDW-CV [11.7-14.4 %] 17.2 % 17.6 % *HI* *HI* (12/11/19 6:45 AM) (12/10/19 4:43 PM) GFR >60 mL/min/1.73 m2 >60 mL/min/1.73 m2 *NA* *NA* (12/11/19 6:45 AM) (12/10/19 4:43 PM) GFR NonAfrican Bruneian >60 mL/min/1.73 m2 >60 mL/min/1.73 m2 *NA* *NA* (12/11/19 6:45 AM) (12/10/19 4:43 PM) U mAMP Scr [Negative] Negative (12/10/19 5:32 PM) U OXY Scr [Negative] Negative (12/10/19 5:32 PM) U PPX Scr [Negative] Negative (12/10/19 5:32 PM) Fentanyl Interp [Negative] Negative (12/10/19 5:32 PM) UA Squam Epi Many *ABN* (12/10/19 5:32 PM) U THC Scr [Negative] Positive *ABN* (12/10/19 5:32 PM) U Methadone Scr [Negative] Negative (12/10/19 5:32 PM) Immature Gran % [0.00-2.30 %] 0.40 % 0.80 % (12/11/19 6:45 AM) (12/10/19 4:43 PM) Immature Gran Absolute 0.09 x10(3)/uL 0.21 x10(3)/uL *NA* *NA* (12/11/19 6:45 AM) (12/10/19 4:43 PM) eAG Calc 100 mg/dL *NA* (12/10/19 11:33 PM) Basophil Absolute [0.00-0.10 0.05 x10(3)/uL 0.14 x10(3)/uL x10(3)/uL] (12/11/19 6:45 AM) *HI* (12/10/19 4:43 PM) 1Result Comment: Critical result notified/readback to Juan Blunt at 12/10/2019 22:44:04 EST_by [id number] Comment: Critical result notified/readback to Zeenat Mishra at [facility] by Jose at 12/11/2019 07:17:53 EST.3Result Comment: Critical result notified/readback to Luis Gayle at by Lilly at 12/10/2019 17:034Result Comment: checkedOrders for Microbiology Reports Name Date Culture Blood 12/11/19 Culture Blood 12/11/19 Microbiology Reports TEST:Culture Blood STATUS:Order in Progress BODY SITE: SOURCE:Blood COLLECTED DATE/TIME:12/11/19 3:30 AMPRELIMINARY REPORTNo growth to date TEST:Culture Blood STATUS:Order in Progress BODY SITE: SOURCE:Blood COLLECTED DATE/TIME:12/11/19 3:30 AMPRELIMINARY REPORTNo growth to date Vital Signs Most recent to oldest 1 2 3 [Reference Range]: Temperature Temporal 36.2 DegC 36.5 DegC 36.2 DegC [36.3-37.8 DegC] *LOW* (12/11/19 7:39 PM) *LOW* (12/11/19 10:30 PM) (12/11/19 3:33 PM) Temperature Temporal (DegF) 98.42 DegF 98.24 DegF (12/11/19 11:18 AM) (12/11/19 7:20 AM) Peripheral Pulse Rate 100 bpm 103 bpm 111 bpm [60-100 bpm] (12/11/19 10:30 PM) *HI* *HI* (12/11/19 7:39 PM) (12/11/19 3:33 PM) Heart Rate Monitored [60-100 113 bpm 113 bpm 114 bpm bpm] *HI* *HI* *HI* (12/11/19 4:00 PM) (12/11/19 12:23 AM) (12/10/19 9: 00 PM) Respiratory Rate [14-20 16 br/min 18 br/min 18 br/mi n br/min] (12/11/19 10:30 PM) (12/11/19 7:39 PM) (12/11/19 3: 33 PM) Blood Pressure [90-140/60-90 147/89 mmHg 126/84 mmHg mmHg] *HI* (12/11/19 7:39 PM) (12/11/19 10:30 PM) Systolic Blood Pressure 148 mmHg [90-140 mmHg] *HI* (12/11/19 3:33 PM) Diastolic Blood Pressure 86 mmHg [60-90 mmHg] (12/11/19 3:33 PM) Mean Arterial Pressure, Cuff 108 mmHg 98 mmHg 107 mmHg (12/11/19 10:30 PM) (12/11/19 7:39 PM) (12/11/19 3: 33 PM) Mean Arterial Pressure Cuff 103 mmHg 104 mmHg 99 m mHg (12/11/19 7:39 PM) (12/11/19 3:33 PM) (12/11/19 11: 18 AM) BP Site Left arm Left arm Right arm (12/11/19 10:30 PM) (12/11/19 7:39 PM) (12/11/19 3: 33 PM) Patient Position BP Sitting Sitting Sitting (12/11/19 10:30 PM) (12/11/19 7:39 PM) (12/11/19 3: 33 PM) SpO2 [92-100 %] 100 % 100 % 98 % (12/11/19 10:30 PM) (12/11/19 7:39 PM) (12/11/19 4: 00 PM) Height 160 cm 160.000 cm (12/11/19 7:03 PM) (12/10/19 11:06 PM) Height/Length Estimated 160.000 cm (12/10/19 4:17 PM) Height/Length Dosing 160.000 cm 160.000 cm (12/10/19 11:06 PM) (12/10/19 4:32 PM) Weight 90.600 kg 90.600 kg (12/11/19 7:03 PM) (12/10/19 11:06 PM) Weight Estimated 94.000 kg (12/10/19 4:17 PM) Weight Dosing 90.600 kg 94.000 kg (12/10/19 11:06 PM) (12/10/19 4:32 PM) Scale Type Bed scale (12/10/19 11:06 PM) Usual Weight 89 kg (12/11/19 7:03 PM) Body Mass Index Measured 35.39 kg/m2 (12/11/19 7:03 PM) Body Mass Index 35.390 kg/m2 (12/10/19 11:06 PM) Social History Social History Type Response Smoking Status 4 or less cigarettes(less th an 1/4 pack)/day in last 30 days; Tobacco use per day: 2 cigarettes daily; entered on: 12/10/19 Sex Hospital Discharge Instructions Patient Dtjhczmdu82/29/2020 22:37:28Cyclic Vomiting Syndrome, AdultCyclic Vomiting Syndrome, Adult Cyclic [...] meals. ??? Taking medicines, such as: ??? Kacf-tbz-pdgoush pain medicine. ??? Anti-nausea medicines. ??? Antacids. ??? Antihistamines. ??? Medicines for migraines. ??? Antidepressants. ??? Antibiotics. Severe nausea and vomiting may require you to stay at the hospital. You may need IV fluids to prevent or treat dehydration. Follow these instructions at home: During an episode ??? Take pmql-lkc-nyierto and prescription medicines only as told by [...] 12/15/2017 Document Revised: 12/15/2017 Document Reviewed: 12/15/2017 [employer] Patient Education ?? 2019 [employer] Follow Up Care12/10/2019 16:10:59With:Jr Finley Address: When:1to 2 daysWith:Jr DUTTON, Address: [address] [address] Business (1) When:12/25/2019 11:20:00 Comments:follow up appointment
--- OUTSIDE RECORDS SUMMARY | 2022-08-16 09:01 | XMS_ITS | Continuity of Care Document ---
:2000 Author Organization [facility] Address [address] [place] [id number]- Care Team Providers Name Role Phone ENID ULRICH Primary Care Physician Encounter BVT Date(s): 10/12/20 - 10/12/[address] [address]- Discharge Disposition: Home Attending Physician: ENID ULRICH Admitting Physician: ENID ULRICH Allergies, Adverse Reactions, Alerts No Known Allergies Assessment and Plan Future Appointments Immunizations Given and Recorded Vaccine Date Status Refusal Reason influenza, inactivated 09/23/20 Given Medications amitriptyline 75 mg oral tablet 75 mg = 1 tab(s), Oral, Once a day (at bedtime), # 90 tab(s), 3 Refill(s), Pharmacy: [facility] #[id number], 1 tab(s) Oral Once a day (at bedtime) Start Date: 09/23/20 Status: Orderedgabapentin 100 mg oral capsule 100 mg = 1 cap(s), Oral, BID Start Date: 09/23/20 Status: Orderedondansetron 4 mg oral tablet 4 mg = 1 tab(s), Oral, q8hr, PRN PRN for nausea/vomiting, # 30 tab(s), 0 Refill(s), Pharmacy: [facility] #[id number], 1 tab(s) Oral q8hr,PRN:for nausea/vomiting Start Date: 09/24/20 Status: Orderedpotassium chloride 40 mEq/15 mL oral liquid 40 mEq = 15 mL, Oral, TID, # 1,350 mL, 0 Refill(s), Pharmacy: [facility] #[id number], 15 mL Oral TID Start Date: 09/23/20 Status: Ordered Problem List Condition Effective Dates Status Health Status Informant Acute anxiety(Confirmed) Active Cyclic vomiting syndrome(Confirmed) Active Dizziness(Confirmed) Active AKASH (generalized anxiety Active disorder)(Confirmed) Migraine(Confirmed) Active Nausea & vomiting(Confirmed) Active Results Laboratory List Name Date C-Reactive Protein (CRP) 10/12/20 ESR 10/12/20 Ferritin Serum 10/12/20 Iron Level 10/12/20 Most recent to oldest [Reference Range]: 1 Iron [37.0-145.0 ug/dL] 25.0 ug/dL *LOW* (10/12/20 12:26 PM) CRP [0.0-5.0 mg/L] 13.1 mg/L *HI* (10/12/20 12:26 PM) Ferritin, Serum [13.0-150.0 ng/mL] 7.9 ng/mL *LOW* (10/12/20 12:26 PM) Erythrocyte Sedimentation Rate [0-20 mm/hr] 29 mm/hr *HI* (10/12/20 12:26 PM) Social History Social History Type Response Smoking Status Former smoker, quit more wayne n 30 days ago entered on: 09/23/20 Sex
--- OUTSIDE RECORDS SUMMARY | 2022-08-16 09:01 | XMS_ITS | Continuity of Care Document ---
:2000 Author Organization [facility] Address [address] [place] [id number]- Care Team Providers Name Role Phone ENID ULRICH Primary Care Physician Encounter BVT Date(s): 12/04/20 - 12/04/[address] [id number]- Encounter Diagnosis Hypomagnesemia (Discharge Diagnosis) - 12/04/20 Hypokalemia due to excessive gastrointestinal loss of potassium (Discharge Diagnosis) - 12/04/20 Cyclic vomiting syndrome (Discharge Diagnosis) - 12/04/20 Nausea & vomiting (Discharge Diagnosis) - 12/04/20 Discharge Disposition: Home or Self Care Attending Physician: ROSEMARIE BLAIR Admitting Physician: ROSEMARIE BLAIR Allergies, Adverse Reactions, Alerts No Known Allergies Assessment and Plan Extracted from: Title: Vomiting Author: ROSEMARIE BLAIR Date: 12/04/20 History of Present Illness The patient presents with nausea and vom iting. The onset was 1 days ago. The course/duration of symptoms is constant and worsening. The character of symptoms is clear and dry heaves. The degree at prese nt is moderate. There are exacerbating f actors including eating and drinking. The relieving factor is hot shower. Risk factors consist of daily marijuana use. Therapy today: prescription medications including zofran ODT. Associated symptoms: none. 20-year-old woman with a history of nakul y marijuana use and cyclic vomiting thought to be related, complicated by episodes of refractory hypokalemia, presents to the ED with vomiting. This episode start ed yesterday. She has nausea and vomitin g, but no abdominal pain. If she does not eat or drink she still dry heaves, but nothing comes up. When she does eat and drink she vomits up what she eats and dri nks. She has noticed that being in a hot shower helps her symptoms, but they recur as soon as she gets out of the shower. She continues to use marijuana on a daily basis. She tells me that she stopped f or 6 months at one point when she was up at [facility] and her symptoms persisted, so she is not interested in abstinence from marijuana. She has severe anxiety for which she takes gabapentin. She ran ou t of her prescription 2 days [address] The la [address] dose that she took was almost exactly 48 hours ago. This episode feels exactly the same as previous episodes of her cyclic vomiting. In the past Haldol and Ati van have helped these episodes. She has had one soft bowel movement today. She has no history of any abdominal surgeries. She has no dysuria, urinary urgency or frequency. She has no chest pain, difficulty breathing, headache. She was last hospitalized in October 02 as she required repeated doses of potassium. Haloperidol improved her vomiting symptoms significantly during that visit. However, given her prolonged QT while hospitalized, she was not given a prescr iption of Haldol to use at home.. Review of Systems Constitutional symptoms: No fever, no ch ills, no fatigue, no decreased activity. Skin symptoms: No rash, Eye symptoms: Vision unchanged. ENMT symptoms: No ear pain, no sore thro at, no nasal congestion. Respiratory symptoms: No shortness of br eath, no cough, no hemoptysis, no wheezing. Cardiovascular symptoms: No chest pain, no palpitations, no diaphoresis, no peripheral edema. Gastrointestinal symptoms: Nausea, vomit ing, no abdominal pain, no diarrhea, no rectal bleeding. Genitourinary symptoms: No dysuria, no h ematuria. Musculoskeletal symptoms: No back pain, Neurologic symptoms: No headache, no diz ziness. Psychiatric symptoms: Anxiety. Hematologic/Lymphatic symptoms: Bleeding tendency negative, Additional review of systems informatio n: All other systems reviewed and otherwise negative. Health Status Allergies: Allergic Reactions (Selected) No Known Allergies. Medications: (Selected) Inpatient Medications Ordered NS: 1,000 mL, 500 mL/hr, IV, Once Prescriptions Prescribed Daily Multiple for Women oral tablet: 1 tab(s), Oral, Daily, 90 tab(s), 3 Refill(s) amitriptyline 75 mg oral tablet: 75 mg = 1 tab(s), Oral, Once a day (at bedtime), 90 tab(s), 3 Refill(s) ferrous fumarate 324 mg (106 mg elementa l iron) oral tablet: 324 mg = 1 tab(s), Oral, Daily, 90 tab(s), 3 Refill(s) ondansetron 4 mg oral tablet: 4 mg = 1 t ab(s), Oral, q8hr, PRN: for nausea/vomiting, 30 tab(s), 0 Refill(s) potassium chloride 40 mEq/15 mL oral liq uid: 15 mL, Oral, TID, MUST BE MIXED IN 120ML OF JUICE OR WATER BEFORE TAKING DOSE, 1,350 mL, 2 Refill(s) Documented Medications Documented gabapentin 100 mg oral capsule: 100 mg = 1 cap(s), Oral, BID. Past Medical/ Family/ Social History Surgical history: [...] (12/10/2019 22:43 - Mildred Mcintosh RN) Tobacco Former smoker, quit more than 30 days ag o Tobacco Use:. 4 or less cigarettes(less than 1/4 pack) /day in last 30 days Tobacco Use:. 2 cigarettes daily per day. Electronic Cigarette/Vaping Electronic Cigarette Use: Use, within 90 days. Type: Nicotine infused. Psychosocial History No active psychosocial history has been recorded. Problem list: Active Problems (6) Acute anxiety Cyclic vomiting syndrome Dizziness AKASH (generalized anxiety disorder) Migraine Nausea & vomiting . Physical Examination Vital Signs Vital Signs 12/04/2020 16:19 EST Temperature Temporal 36.6 DegC Peripheral Pulse Rate 101 bpm HI Respiratory Rate 22 br/min HI SpO2 100 % . Measurements 12/04/2020 16:22 EST Height/Length Dosing 162.000 cm Weight Dosing 90.000 kg 12/04/2020 16:19 EST Height 162.000 cm Weight 90.000 kg . Basic Oxygen Information 12/04/2020 16:19 EST Oxygen Therapy Room air . General: Alert, no acute distress, She a ppears restless. She is squirming around in bed.. Skin: Warm, dry, no rash. Head: Normocephalic, atraumatic. Neck: Supple, trachea midline, no tender ness, no JVD. Eye: Pupils are equal, round and reactiv e to light, extraocular movements are intact, normal conjunctiva, vision grossly normal. Ears, nose, mouth and throat: Oral mucos a moist, no pharyngeal erythema or exudate. Cardiovascular: Regular rate and rhythm, No murmur, Normal peripheral perfusion, No edema, Heart rate is in the mid 90s during my exam., Arterial pulses: Bilateral, radial, normal. Respiratory: Lungs are clear to ausculta tion, respirations are non-labored, breath sounds are equal, Symmetrical chest wall expansion. Chest wall: No tenderness. Back: Nontender, Normal range of motion. Musculoskeletal: Normal ROM, normal stre ngth. Gastrointestinal: Soft, Nontender, Non d istended, No organomegaly, There is no tenderness anywhere on full abdominal exam.. Neurological: Alert and oriented to pers on, place, time, and situation, No focal neurological deficit observed. Lymphatics: No lymphadenopathy. Psychiatric: Cooperative. Medical Decision Making Rationale: 20-year-old woman with a hist ory of anxiety, cyclic vomiting, daily marijuana use, daily alcohol use, presents to the ED 24 hours into an episode of her typical cyclic vomiting flare. It is p ossible that abruptly discontinuing doin g her gabapentin could have precipitated this. It is also possible that this is related to cannabinoid hyperemesis syndrome as hot showers relieve her symptoms te mporarily. Given her history of signific ant hypokalemia, I will check labs today. Given her history of a prolonged QT, I will check an EKG as well. I will treat her symptomatically initially with IV flu ids and IV Ativan. If her QT is not sign ificantly prolonged, then she can receive Haldol as she has requested. Given she had a bowel movement today and has no history of possible akathisia associated wi th the Haldol, although this anxiety was present prior to receiving Haldol. Intra-abdominal surgeries, this is not consistent with a bowel obstruction. She has no abdominal tenderness or pain, so an int ra-abdominal infection is considered but is not likely. 1711: EKG shows normal sinus rhythm with sinus arrhythmia at 92 bpm. Her QT is less than half the RR interval and is measured by the machine at 424 ms, which is not prolonged. I have ordered Haldol 2.5 mg IV. 1733: Labs show her chronic leukocytosis , and mild hypokalemia of 3.3. She also has low magnesium. I have ordered IV magnesium and some supplemental oral potassium. She will not take this until she is f eeling a little bit better after her IV doses of Haldol and Ativan. 1800: Despite being counseled to only ta ke small sips, the patient drink a large glass of thomas carl because she was feeling better and then she vomited it up. I will now have her positive p.o. challeng e and start again with small sips of luis antonio er down thomas carl every 5 minutes. 1910: She is feeling a little bit better . She has tolerated 1 glass of p.o. thomas carl over the last hour. I counseled her on the importance of oral rehydration at home. She would like to be discharged. I do want to make sure she is going to continue to be able to tolerate p.o., so I will observe for a little bit longer prior to discharge home. 1914: She just vomited up about 400 cc o f thomas carl and water. I will now give her IV Zofran. So want something for anxiety. I already gave her 1 mg of Ativan. I will now give her intramuscular hydroxyzine. 2004: Her heart rate has improved to elias und 90. She is still intermittently retching, but feels like she is keeping some fluids down. I talked to her about the pros and cons of hospitalization versus di scharge home. Through shared decision-ma onesimo conversation she would like to be discharged home. I will provide prescription for Phenergan suppository as well as hydroxyzine to add to the Zofran she has at home. I emphasized again the importan ce of oral rehydration therapy with water down Gatorade.. Documents reviewed: Emergency department nurses' notes, prior records. Results review: Lab results : Lab View 12/04/2020 17:02 EST WBC 30.1 x10(3)/uL CRIT RBC 5.50 x10(6)/uL HI Hgb 14.5 gm/dL Hct 43.7 % MCV 79.5 fL MCH 26.4 pg MCHC 33.2 gm/dL RDW-CV 17.7 % HI Platelet 461 x10(3)/uL HI MPV 9.7 fL Neutro Auto 88.6 % HI Lymph Auto 6.0 % LOW [place] Auto 4.0 % Eos Auto 0.1 % Basophil Auto 0.5 % Immature Gran % 0.80 % NRBC Auto Pct 0.00 % Neutro Absolute 26.72 x10(3)/uL HI Lymph Absolute 1.82 x10(3)/uL [place] Absolute 1.20 x10(3)/uL HI Eos Absolute 0.02 x10(3)/uL LOW Basophil Absolute 0.14 x10(3)/uL HI Immature Gran Absolute 0.23 x10(3)/uL NA NRBC Absolute 0.00 x10(3)/uL UA Color Yellow UA Clarity Cloudy UA Spec Grav 1.020 UA Bili Negative UA pH 8.0 UA Urobilinogen 0.2 EU/dL UA Blood Negative UA Glucose Negative UA Ketones 80 mg/dL UA Protein Trace UA Nitrite Negative UA Leuk Est Negative Micro? Not Indicated Sodium Lvl 138 mmol/L Potassium Lvl 3.3 mmol/L LOW Chloride 99 mmol/L CO2 19 mmol/L LOW AGAP 23.3 mmol/L HI BUN 5 mg/dL LOW Creatinine 0.52 mg/dL GFR NonAfrican Russian 149 mL/min/1.73 m2 NA Glucose Lvl 163 mg/dL HI Calcium Lvl 9.3 mg/dL Total Protein 7.6 gm/dL Albumin Lvl 4.30 gm/dL Alk Phos 113 IntUnit/L HI ALT 27 IntUnit/L AST 23 IntUnit/L Bili Total 0.4 mg/dL Bili Direct <0.2 mg/dL Lipase Lvl 12 IntUnit/L LOW Osmolality 276.5 mOsm/kg Magnesium 1.10 mg/dL LOW Human Chorionic Gonadotropin Qualitative Negative . Impression and Plan Diagnosis Nausea & vomiting (WMB61-CS R11.2, Disch arge, Medical) Cyclic vomiting syndrome (HME05-RQ R11.1 5, Discharge, Medical) Hypomagnesemia (CKO81-CS E83.42, Dischar ge, Medical) Hypokalemia due to excessive gastrointes tinal loss of potassium (IZE32-IN E87.6, Discharge, Medical) Plan Condition: Stable. Disposition: Discharged: Time 12/04/2020 20:05:00, to home. Prescriptions: Launch prescriptions Pharmacy: [facility] 25 mg oral tab let (Prescribe): 25 mg = 1 tab(s), Oral, QID, for 7 day(s), PRN: for anxiety, 21 tab(s), 0 Refill(s) Phenergan 25 mg rectal suppository (Pres cribe): 25 mg = 1 supp, Per rectum, q6hr, for 3 day(s), PRN: Nausea/Vomiting, 12 supp, 0 Refill(s). Patient was given the following educatio nal materials: APRK Vomiting, Adult ([place]), Cyclic Vomiting Syndrome, Adult, Hypokalemia. Follow up with: ENID ULRICH Within 3 to 5 days Call for followup appointment. Counseled: Patient, Regarding diagnosis, Regarding diagnostic results, Regarding treatment plan, Regarding prescription, Patient indicated understanding of instructions. Orders: Launch Orders Patient Care: Discharge Patient (Order): 12/04/2020 20: 09 EST. Future Appointments Functional Status 12/04/20 Recent Travel History No recent travel Family Member Travel History No recent travel COVID-19 Screening None Immunizations Given and Recorded Vaccine Date Status Refusal Reason influenza, inactivated 09/23/20 Given Medications amitriptyline 75 mg oral tablet 75 mg = 1 tab(s), Oral, Once a day (at bedtime), # 90 tab(s), 3 Refill(s), Pharmacy: [facility] #[id number], 1 tab(s) Oral Once a day (at bedtime) Start Date: 09/23/20 Status: OrderedDaily Multiple for Women oral tablet 1 tab(s), Oral, Daily, # 90 tab(s), 3 Refill(s), Pharmacy: [facility] #[id number], 1 tab(s) Oral Daily Start Date: 10/13/20 Status: Orderedferrous fumarate 324 mg (106 mg elemental iron) oral tablet 324 mg = 1 tab(s), Oral, Daily, # 90 tab(s), 3 Refill(s), Pharmacy: [facility] #[id number], 1 tab(s) Oral Daily Start Date: 10/13/20 Status: Orderedgabapentin 100 mg oral capsule 100 mg = 1 cap(s), Oral, BID Start Date: 09/23/20 Status: OrderedhydrOXYzine hydrochloride 25 mg oral tablet 25 mg = 1 tab(s), Oral, QID, PRN PRN for anxiety, X 7 day(s), # 21 tab(s), 0 Refill(s), 12/11/20, Pharmacy: [facility] #[id number], 1 tab(s) Oral QID,x7 day(s),PRN:for anxiety Start Date: 12/04/20 Stop Date: 12/11/20 Status: Orderedondansetron 4 mg oral tablet 4 mg = 1 tab(s), Oral, q8hr, PRN PRN for nausea/vomiting, # 30 tab(s), 0 Refill(s), Pharmacy: [facility] #[id number], 1 tab(s) Oral q8hr,PRN:for nausea/vomiting Start Date: 09/24/20 Status: OrderedPhenergan 25 mg rectal suppository 25 mg = 1 supp, Per rectum, q6hr, PRN PRN Nausea/Vomiting, # 12 supp, 0 Refill(s), Pharmacy: [facility] #[id number], 1 supp Per rectum q6hr,x3 day(s),PRN:Nausea/Vomiting Start Date: 12/04/20 Stop Date: 12/07/20 Status: Orderedpotassium chloride 40 mEq/15 mL oral liquid 15 mL, Oral, TID, MUST BE MIXED IN 120ML OF JUICE OR WATER BEFORE TAKING DOSE, # 1,350 mL, Refill(s)2, [facility] #[id number] Start Date: 10/21/20 Status: Ordered Problem List Condition Effective Dates Status Health Status Informant Acute anxiety(Confirmed) Active Cyclic vomiting syndrome(Confirmed) Active Dizziness(Confirmed) Active AKASH (generalized anxiety Active disorder)(Confirmed) Migraine(Confirmed) Active Nausea & vomiting(Confirmed) Active Results Laboratory List Name Date Automated Differential Standard 12/04/20 Basic Metabolic Panel Standard (BMP Standard) 12/04/20 CBC w/Diff Standard 12/04/20 Hepatic Panel1 12/04/20 Lipase Level 12/04/20 Magnesium Level 12/04/20 Test Urine Standard 12/04/20 Urinalysis with Culture, if indicated Standard 12/04/20 Most recent to oldest [Reference Range]: 1 NRBC Auto Pct [0.00-0.20 %] 0.00 % (12/04/20 5:02 PM) Creatinine [0.50-0.90 mg/dL] 0.52 mg/dL (12/04/20 5:02 PM) UA Bili [Negative] Negative (12/04/20 5:02 PM) UA Blood [Negative] Negative (12/04/20 5:02 PM) UA Color Yellow (12/04/20 5:02 PM) UA Glucose [Negative] Negative (12/04/20 5:02 PM) UA Ketones [Neg] 80 mg/dL *ABN* (12/04/20 5:02 PM) UA Leuk Est [Negative] Negative (12/04/20 5:02 PM) UA Nitrite [Negative] Negative (12/04/20 5:02 PM) UA Protein [Negative] Trace (12/04/20 5:02 PM) UA Urobilinogen 0.2 EU/dL (12/04/20 5:02 PM) AGAP [10.0-18.0 mmol/L] 23.3 mmol/L *HI* (12/04/20 5:02 PM) Glucose Lvl [70-100 mg/dL] 163 mg/dL *HI* (12/04/20 5:02 PM) Hct [34.1-44.9 %] 43.7 % (12/04/20 5:02 PM) Hgb [11.5-15.7 gm/dL] 14.5 gm/dL (12/04/20 5:02 PM) Lipase Lvl [13-60 IntUnit/L] 12 IntUnit/L *LOW* (12/04/20 5:02 PM) Lymph Auto [15.0-45.0 %] 6.0 % *LOW* (12/04/20 5:02 PM) Magnesium [1.60-2.60 mg/dL] 1.10 mg/dL *LOW* (12/04/20 5:02 PM) MCH [25.6-32.2 pg] 26.4 pg (12/04/20 5:02 PM) MCHC [32.3-36.5 gm/dL] 33.2 gm/dL (12/04/20 5:02 PM) MCV [79.4-94.8 fL] 79.5 fL (12/04/20 5:02 PM) [place] Auto [4.0-14.0 %] 4.0 % (12/04/20 5:02 PM) MPV [9.4-12.4 fL] 9.7 fL (12/04/20 5:02 PM) Neutro Auto [50.0-75.0 %] 88.6 % *HI* (12/04/20 5:02 PM) Osmolality [268.0-291.0 mOsm/kg] 276.5 mOsm/kg (12/04/20 5:02 PM) Platelet [150-400 x10(3)/uL] 461 x10(3)/uL *HI* (12/04/20 5:02 PM) RBC [3.93-5.22 x10(6)/uL] 5.50 x10(6)/uL *HI* (12/04/20 5:02 PM) Sodium Lvl [136-145 mmol/L] 138 mmol/L (12/04/20 5:02 PM) Total Protein [6.6-8.7 gm/dL] 7.6 gm/dL (12/04/20 5:02 PM) UA pH 8.0 (12/04/20 5:02 PM) Albumin Lvl [3.50-5.20 gm/dL] 4.30 gm/dL (12/04/20 5:02 PM) Alk Phos [35-105 IntUnit/L] 113 IntUnit/L *HI* (12/04/20 5:02 PM) ALT [0-33 IntUnit/L] 27 IntUnit/L (12/04/20 5:02 PM) AST [0-32 IntUnit/L] 23 IntUnit/L (12/04/20 5:02 PM) Basophil Auto [0.0-2.0 %] 0.5 % (12/04/20 5:02 PM) Bili Direct [0.0-0.3 mg/dL] <0.2 mg/dL (12/04/20 5:02 PM) Bili Total [0.0-1.3 mg/dL] 0.4 mg/dL (12/04/20 5:02 PM) CO2 [22-29 mmol/L] 19 mmol/L *LOW* (12/04/20 5:02 PM) Eos Auto [0.0-8.0 %] 0.1 % (12/04/20 5:02 PM) UA Spec Grav 1.020 (12/04/20 5:02 PM) WBC [4.0-10.0 x10(3)/uL] 30.1 x10(3)/uL 1 *CRIT* (12/04/20 5:02 PM) BUN [6-23 mg/dL] 5 mg/dL *LOW* (12/04/20 5:02 PM) Calcium Lvl [8.6-10.2 mg/dL] 9.3 mg/dL (12/04/20 5:02 PM) Chloride [98-107 mmol/L] 99 mmol/L (12/04/20 5:02 PM) Potassium Lvl [3.5-5.1 mmol/L] 3.3 mmol/L *LOW* (12/04/20 5:02 PM) Micro? [Not Indicated] Not Indicated (12/04/20 5:02 PM) Lymph Absolute [1.20-3.70 x10(3)/uL] 1.82 x10(3)/uL (12/04/20 5:02 PM) [place] Absolute [0.20-0.40 x10(3)/uL] 1.20 x10(3)/uL *HI* (12/04/20 5:02 PM) Eos Absolute [0.04-0.54 x10(3)/uL] 0.02 x10(3)/uL *LOW* (12/04/20 5:02 PM) NRBC Absolute [0.00-0.01 x10(3)/uL] 0.00 x10(3)/uL (12/04/20 5:02 PM) UA Clarity Cloudy *ABN* (12/04/20 5:02 PM) Neutro Absolute [1.56-6.13 x10(3)/uL] 26.72 x10(3)/uL *HI* (12/04/20 5:02 PM) RDW-CV [11.7-14.4 %] 17.7 % *HI* (12/04/20 5:02 PM) GFR NonAfrican Russian 149 mL/min/1.73 m2 *NA* (12/04/20 5:02 PM) Human Chorionic Gonadotropin Qualitative Negative (12/04/20 5:02 PM) Immature Gran % [0.00-2.30 %] 0.80 % (12/04/20 5:02 PM) Immature Gran Absolute 0.23 x10(3)/uL *NA* (12/04/20 5:02 PM) Basophil Absolute [0.00-0.10 x10(3)/uL] 0.14 x10(3)/uL *HI* (12/04/20 5:02 PM) 1Result Comment: Critical result notified/readback to Chyna Garza at ED by [facility] at 12/04/2020 17:18:49 EST Vital Signs Most recent to oldest [Reference Range]: 1 2 Temperature Temporal [36.3-37.8 DegC] 36.6 DegC (12/04/20 4:19 PM) Peripheral Pulse Rate [60-100 bpm] 95 bpm 101 b pm (12/04/20 8:22 PM) *HI* (12/04/20 4:19 PM) Respiratory Rate [14-20 br/min] 22 br/min *HI* (12/04/20 4:19 PM) Blood Pressure [90-140/60-90 mmHg] 140/95 mmHg (12/04/20 8:22 PM) SpO2 [92-100 %] 99 % 100 % (12/04/20 8:22 PM) (12/04/20 4:19 PM) Height 162.000 cm (12/04/20 4:19 PM) Height/Length Dosing 162.000 cm (12/04/20 4:22 PM) Weight 90.000 kg 90.000 kg (12/04/20 8:22 PM) (12/04/20 4:19 PM) Weight Dosing 90.000 kg (12/04/20 4:22 PM) Social History Social History Type Response Smoking Status Former smoker, quit more wayne n 30 days ago entered on: 09/23/20 Sex Hospital Discharge Instructions Patient Fbmtekbcx70/22/2021 20:08:47HypokalemiaHypokalemia Hypokalemia means that the amount of potassium in the blood is lower than normal. Potassium is a chemical (electrolyte) that helps regulate the amount of fluid in the body. It also stimulates muscle tightening (contraction) and helps nerves work properly. Normally, most of the body's potassium is inside cells, and only a very small amount is in the blood. Because the amount in the blood is so small, minor changes to potassium levels in the blood can be life-threatening. What are the causes? This condition may be caused by: ??? Antibiotic medicine. ??? Diarrhea or vomiting. Taking too much of a medicine that helps you have a bowel movement (laxative) can cause diarrhea and lead to hypokalemia. ??? Chronic kidney disease (CKD). ??? Medicines that help the body get rid of excess fluid (diuretics). ??? Eating disorders, such as bulimia. ??? Low magnesium levels in the body. ??? Sweating a lot. What are the signs or symptoms? Symptoms of this condition include: ??? Weakness. ??? Constipation. ??? Fatigue. ??? Muscle cramps. ??? Mental confusion. ??? Skipped heartbeats or irregular heartbeat (palpitations). ??? Tingling or numbness. How is this diagnosed? This condition is diagnosed with a blood test. How is this treated? This condition may be treated by: ??? Taking potassium supplements by mouth. ??? Adjusting the medicines that you take. ??? Eating more foods that contain a lot of potassium. If your potassium level is very low, you may need to get potassium through an IV and be monitored inthe hospital. Follow these instructions at home: ??? Take cgyx-eug-umlqdjy and prescription medicines only as told by your health care provider. Thisincludes vitamins and supplements. ??? Eat a healthy diet. A healthy diet includes fresh fruits and vegetables, whole grains, healthy fats, and lean proteins. ??? If instructed, eat more foods that contain a lot of potassium. This includes: ??? Nuts, such as peanuts and pistachios. ??? Seeds, such as sunflower seeds and pumpkin seeds. ??? Peas, lentils, and santamaria beans. ??? Whole grain and bran cereals and breads. ??? Fresh fruits and vegetables, such as apricots, avocado, bananas, cantaloupe, kiwi, oranges, tomatoes, asparagus, and potatoes. ??? Binger juice. ??? Tomato juice. ??? Red meats. ??? Yogurt. ??? Keep all follow-up visits as told by your health care provider. This is important. Contact a health care provider if you: ??? Have weakness that gets worse. ??? Feel your heart pounding or racing. ??? Vomit. ??? Have diarrhea. ??? Have diabetes (diabetes mellitus) and you have trouble keeping your blood sugar (glucose) in your target range. Get help right away if you: ??? Have chest pain. ??? Have shortness of breath. ??? Have vomiting or diarrhea that lasts for more than 2 days. ??? Faint. Summary ??? Hypokalemia means that the amount of potassium in the blood is lower than normal. ??? This condition is diagnosed with a blood test. ??? Hypokalemia may be treated by taking potassium supplements, adjusting the medicines that you take, or eating more foods that are high in potassium. ??? If your potassium level is very low, you may need to get potassium through an IV and be monitored in the hospital. This information is not intended to replace advice given to you by your health care provider. Make sure you discuss any questions you have with your health care provider. Document Released: 10/30/2006 Document Revised: 06/12/2019 Document Reviewed: 06/12/2019 [employer] Patient Education ?? [address] [employer]. 12/04/2020 20:08:47Cyclic Vomiting Syndrome, AdultCyclic Vomiting Syndrome, Adult Cyclic [...] meals. ??? Taking medicines, such as: ??? Jehb-ggu-taxzxqq pain medicine. ??? Anti-nausea medicines. ??? Antacids. ??? Antihistamines. ??? Medicines for migraines. ??? Antidepressants. ??? Antibiotics. Severe nausea and vomiting may require you to stay at the hospital. You may need IV fluids to prevent or treat dehydration. Follow these instructions at home: During an episode ??? Take usfv-mgv-qajsmzb and prescription medicines only as told by [...] avoid spicy or fatty foods, such as uruguayan fries and pizza. General instructions ??? Monitor [...] 12/15/2017 Document Revised: 02/19/2020 Document Reviewed: 12/15/2017 [employer] Patient Education ?? [address] [employer]. 12/04/2020 20:08:47APRK Vomiting, Adult ([place]) Your labs today are similar to your previous labs. Your potassium is slightly low. It is likely thatmarijuana use is contributing to your nausea, vomiting. It is important to stay well-hydrated. Untilyou have your appetite back, make sure you are drinking fluids that contain electrolytes and calories. I recommend Gatorade watered down half and half with water. Take one sip every 5 minutes. Once youhave your appetite back, you can eat and drink whatever you want, but it should be in small quantities. You can use a Phenergan suppository as needed for nausea and vomiting in addition to your Zofran. I also recommend the hydroxyzine 3-4 times a day as needed for anxiety. Call your doctor tomorrow to check in and make a follow-up appointment in the next week. Return to the emergency room if you cannot keep liquids down, have severe abdominal pain, pass out, or any other concerns at all. Vomiting, Adult Vomiting occurs when stomach contents are thrown up and out of the mouth. Many people notice nausea before vomiting. Vomiting can make you feel weak and dehydrated. Dehydration can make you tired and thirsty, cause you to have a dry mouth, and decrease how often you urinate. Older adults and people who have other diseases or a weak immune system are at higher risk for dehydration.??It is important totreat vomiting as told by your health care provider. HOME CARE INSTRUCTIONS Follow your health care provider's instructions about how to care for yourself at home. Eating and Drinking Follow these recommendations as told by your health care provider: ??? Take an oral rehydration solution (ORS). This is a drink that is sold at pharmacies and retail stores. ??? Eat bland, vpom-fd-ssslwj foods in small amounts as you are able. These foods include bananas, applesauce, rice, lean meats, toast, and crackers. ??? Drink clear fluids in small amounts as you are able. Clear fluids include water, ice chips, low-calorie sports drinks, and fruit juice that has water added (diluted fruit juice). ??? Avoid fluids that contain a lot of sugar or caffeine. ??? Avoid alcohol and foods that are spicy or fatty. General Instructions ??? Wash your hands frequently with soap and water. If soap and water are not available, use hand climatologist. Make sure that everyone in your household washes their hands frequently. ??? Take yzmh-kyu-wkxqzup and prescription medicines only as told by your health care provider. ??? Watch your condition for any changes. ??? Keep all follow-up visits as told by your health care provider. This is important. SEEK MEDICAL CARE IF: ??? You have a fever. ??? You are not able to keep fluids down. ??? Your vomiting gets worse. ??? You have new symptoms. ??? You feel light-headed or dizzy. ??? You have a headache. ??? You have muscle cramps. SEEK IMMEDIATE MEDICAL CARE IF: ??? You have pain in your chest, neck, arm, or jaw. ??? You feel extremely weak or you faint. ??? You have persistent vomiting. ??? You have vomit that is bright red or looks like black coffee grounds. ??? You have stools that are bloody or black, or stools that look like tar. ??? You have severe pain, cramping, or bloating in your abdomen. ??? You have a severe headache, a stiff neck, or both. ??? You have a rash. ??? You have trouble breathing or you are breathing very quickly. ??? Your heart is beating very quickly. ??? Your skin feels cold and clammy. ??? You feel confused. ??? You have pain while urinating. ??? You have signs of dehydration, such as: ??? Dark urine, or very little or no urine. ??? Cracked lips. ??? Dry mouth. ??? Sunken eyes. ??? Sleepiness. ??? Weakness. These symptoms may represent a serious problem that is an emergency. Do not wait to see if the symptoms will go away. Get medical help right away. Call your local emergency services (911 in the [place] Do not drive yourself to the hospital. This information is not intended to replace advice given to you by your health care provider. Make sure you discuss any questions you have with your health care provider. Document Released: 11/25/2016 Document Reviewed: 11/25/2016 Elsevier Interactive Patient Education ??2017 [employer] Follow Up Care12/04/2020 16:03:22With:ENID ULRICH Address: [address] [place] [phone] Business (1) [address] [phone] Business (1) When:3 to 5 days Comments:Call for followup appointment
--- OUTSIDE RECORDS SUMMARY | 2022-08-16 09:01 | XMS_ITS | Continuity of Care Document ---
:2000 Author Organization [facility] Address [address] [place] [id number]- Care Team Providers Name Role Phone Vipul VIGIL,Jr Primary Care Physician Encounter BVT Date(s): 02/02/20 - 02/02/[address] [address]- Encounter Diagnosis Cannabinoid hyperemesis syndrome (Discharge Diagnosis) - 02/02/20 Discharge Disposition: Home or Self Care Attending Physician: DANE HERRMANN Admitting Physician: DANE HERRMANN Allergies, Adverse Reactions, Alerts No Known Allergies Assessment and Plan Extracted from: Title: General Medical Problem *ED Author: DANE HERRMANN Date: 02/02/20 History of Present Illness 19-year-old female with history of cycli ana vomiting with cannabinoid hyperemesis syndrome who is noncompliant and continues to smoke marijuana despite numerous physicians telling her not to, presents t o the emergency department with 3 days o f ongoing nausea with vomiting very similar to her past cyclical vomiting episodes. She was seen here 2 nights ago and evaluated by Dr. Trevizo for her cyclical vo miting. At that time, she had a leukocyt osis of 19 which she often does during these events. She has never had any abnormal imaging and she does not complain of any new abdominal pain, and the pain is c onsistent with her vomiting episodes. Miriam bar continues to smoke marijuana, but does want to slow down and quit. She did quit in the past and felt better, and her symptoms returned when she started smoking marijuana again. She denies any diarrhea , hematochezia, melena, constipation, urinary symptoms including frequency, dysuria, urgency. She did have a negative test 2 days ago. Reglan, Benadryl, Haldol, Ativan or some other medication s have worked for her in the past. Review of Systems Constitutional symptoms: No fever, Skin symptoms: No rash, Eye symptoms: No recent vision problems, ENMT symptoms: No sore throat, Respiratory symptoms: No shortness of br eath, Cardiovascular symptoms: No chest pain, Gastrointestinal symptoms: Abdominal johanna n, nausea, vomiting. Genitourinary symptoms: No dysuria, Musculoskeletal symptoms: No back pain, Neurologic symptoms: No headache, Endocrine symptoms: No polyuria, Health Status Allergies: Allergic Reactions (Selected) No Known Allergies. Medications: (Selected) Inpatient Medications Ordered Benadryl: 50 mg = 1 mL, IV Push, Once NS 1,000 mL: 1,000 mL/hr, IV Reglan: 10 mg = 2 mL, IV Push, Once Prescriptions Prescribed K-Dur [...] . Physical Examination Vital Signs Vital Signs 02/02/2020 14:55 EDT Temperature Temporal 36.5 DegC Peripheral Pulse Rate 111 bpm HI Respiratory Rate 16 br/min Systolic Blood Pressure 160 mmHg HI Diastolic Blood Pressure 115 mmHg HI SpO2 98 % . Measurements 02/02/2020 15:01 EDT Height/Length Dosing 165.000 cm Weight Dosing 91.500 kg 02/02/2020 14:55 EDT Height/Length Estimated 165.000 cm Weight Estimated 91.500 kg . Basic Oxygen Information 02/02/2020 14:55 EDT Oxygen Therapy Room air . General: Alert. Skin: Warm, dry. Head: Atraumatic. Neck: Supple. Eye: Normal conjunctiva. Cardiovascular: Regular rate and rhythm. Respiratory: Lungs are clear to ausculta tion, respirations are non-labored, breath sounds are equal. Gastrointestinal: Soft, Nontender, Non d istended, Normal bowel sounds. Neurological: Alert and oriented to pers on, place, time, and situation, No focal neurological deficit observed. Psychiatric: Cooperative. Medical Decision Making 19 yo old female with cannabinoid hypere mesis syndrome with noncompliance who presents with ongoing cyclical vomiting syndrome. Continues to smoke marijuana. I reeducated her on the pathophysiology of c annabinoid hyperemesis syndrome and the need to quit marijuana for good. She understands this. I did offer her the family coach as I do think she is addicted to this. She declined. She has a plan in [facility] to decrease her marijuana use and t hen stop. She overall is nontoxic- appearing. Mildly tachycardic and hypertensive and is actively dry heaving during my evaluation. Have ordered repeat blood work. Do not think she is not a rex t as she had a negative test 2 days ago and has not been sexually active since then. I will try Reglan and Benadryl as well as IV fluid to start and if this is unsuccessful, will move to Haldo l and Ativan. Results review: Lab results : Lab View 02/02/2020 15:30 EDT WBC 17.7 x10(3)/uL HI RBC 5.41 x10(6)/uL HI Hgb 13.7 gm/dL Hct 41.5 % MCV 76.7 fL LOW MCH 25.3 pg LOW MCHC 33.0 gm/dL RDW-CV 15.4 % HI Platelet 417 x10(3)/uL HI MPV 9.7 fL Neutro Auto 79.8 % HI Lymph Auto 11.6 % LOW Geary Auto 6.7 % Eos Auto 0.5 % Basophil Auto 0.6 % Immature Gran % 0.80 % NRBC Auto Pct 0.00 % Neutro Absolute 14.11 x10(3)/uL HI Lymph Absolute 2.06 x10(3)/uL Geary Absolute 1.18 x10(3)/uL HI Eos Absolute 0.09 x10(3)/uL Basophil Absolute 0.11 x10(3)/uL HI Immature Gran Absolute 0.15 x10(3)/uL NA NRBC Absolute 0.00 x10(3)/uL Sodium Lvl 136 mmol/L Potassium Lvl 3.6 mmol/L Chloride 97 mmol/L LOW CO2 19 mmol/L LOW AGAP 23.6 mmol/L HI BUN 9 mg/dL Creatinine 0.68 mg/dL GFR >60 mL/min/1.73 m2 NA GFR NonAfrican Armenian >60 mL/min/1.73 m2 NA Glucose Lvl 143 mg/dL HI Calcium Lvl 9.8 mg/dL Total Protein 7.7 gm/dL Albumin Lvl 4.50 gm/dL Alk Phos 99 IntUnit/L ALT 17 IntUnit/L AST 19 IntUnit/L Bili Total 0.5 mg/dL Lipase Lvl 23 IntUnit/L Osmolality 273.1 mOsm/kg . Reexamination/ Reevaluation Vital signs Basic Oxygen Information 02/02/2020 14:55 EDT Oxygen Therapy Room air Patient's labs are somewhat improved fro m several days ago. Downtrending leukocytosis and improved metabolic acidosis. She is treated with a second liter of IV fluid and was able to tolerate ice chips b ut did have some ongoing nausea. She was then treated with a small amount of IV Haldol per her request as this is worked better for her in the past. We will hold on the Ativan. He she Jordi got the Carmen dryl. She felt better and although she w as tearful, she did want to go home she is now tolerating p.o. She requested a prescription for Haldol as this is worked better for her than the Reglan in the pas t. I will provide her with a supply of t his and have her follow-up closely with her PCP. I met with her and again urged her to stop smoking marijuana immediately and for long-term. Impression and Plan Diagnosis Cannabinoid hyperemesis syndrome (ICD10- CM F12.988, Discharge, Medical) Plan Prescriptions: Launch prescriptions Pharmacy: haloperidol 2 mg oral tablet (Prescribe) : 2 mg = 1 tab(s), Oral, TID, PRN: Nausea/Vomiting, 15 tab(s), 0 Refill(s). Patient was given the following educatio nal materials: Cyclic Vomiting Syndrome, Adult, Cannabis Hyperemesis Syndrome (Custom) ([facility]), AA Blank Template ([facility]), Substance Abuse Follow up/Progr ams ([facility]) ([facility]) ([facility]), AA Blank Template ([facility]), Cannabis Hyperemesis Syndrome (Custom) ([facility]), Cyclic Vomiting Syndrome, Adult. Future Appointments Medications amitriptyline 50 mg oral [...] nausea/vomiting, # 30 tab(s), 0 Refill(s), Pharmacy: [id number], 1 tab(s) Oral q8hr,PRN:for nausea/vomiting Start Date: 12/11/19 Status: Orderedpotassium chloride 20 mEq, Oral, Daily Start Date: 12/10/19 Status: Ordered Mental Status 02/02/20 Level of Consciousness Alert Problem List Condition Effective Dates Status Health Status Informant Cyclic vomiting syndrome(Confirmed) Active Dizziness(Confirmed) Active AKASH (generalized anxiety Active disorder)(Confirmed) Migraine(Confirmed) Active Nausea & vomiting(Confirmed) Active Results Laboratory List Name Date Automated Differential Standard 02/02/20 CBC w/Diff Standard 02/02/20 Comprehensive Metabolic Panel Standard (CMP Standard) 02/02/20 Lipase Level 02/02/20 Most recent to oldest [Reference Range]: 1 NRBC Auto Pct [0.00-0.20 %] 0.00 % (02/02/20 3:30 PM) Creatinine [0.50-0.90 mg/dL] 0.68 mg/dL (02/02/20 3:30 PM) AGAP [10.0-18.0 mmol/L] 23.6 mmol/L *HI* (02/02/20 3:30 PM) Glucose Lvl [70-100 mg/dL] 143 mg/dL *HI* (02/02/20 3:30 PM) Hct [34.1-44.9 %] 41.5 % (02/02/20 3:30 PM) Hgb [11.5-15.7 gm/dL] 13.7 gm/dL (02/02/20 3:30 PM) Lipase Lvl [13-60 IntUnit/L] 23 IntUnit/L (02/02/20 3:30 PM) Lymph Auto [15.0-45.0 %] 11.6 % *LOW* (02/02/20 3:30 PM) MCH [25.6-32.2 pg] 25.3 pg *LOW* (02/02/20 3:30 PM) MCHC [32.3-36.5 gm/dL] 33.0 gm/dL (02/02/20 3:30 PM) MCV [79.4-94.8 fL] 76.7 fL *LOW* (02/02/20 3:30 PM) Geary Auto [4.0-14.0 %] 6.7 % (02/02/20 3:30 PM) MPV [9.4-12.4 fL] 9.7 fL (02/02/20 3:30 PM) Neutro Auto [50.0-75.0 %] 79.8 % *HI* (02/02/20 3:30 PM) Osmolality [268.0-291.0 mOsm/kg] 273.1 mOsm/kg (02/02/20 3:30 PM) Platelet [150-400 x10(3)/uL] 417 x10(3)/uL *HI* (02/02/20 3:30 PM) RBC [3.93-5.22 x10(6)/uL] 5.41 x10(6)/uL *HI* (02/02/20 3:30 PM) Sodium Lvl [136-145 mmol/L] 136 mmol/L (02/02/20 3:30 PM) Total Protein [6.6-8.7 gm/dL] 7.7 gm/dL (02/02/20 3:30 PM) Albumin Lvl [3.50-5.20 gm/dL] 4.50 gm/dL (02/02/20 3:30 PM) Alk Phos [35-105 IntUnit/L] 99 IntUnit/L (02/02/20 3:30 PM) ALT [0-33 IntUnit/L] 17 IntUnit/L (02/02/20 3:30 PM) AST [0-32 IntUnit/L] 19 IntUnit/L (02/02/20 3:30 PM) Basophil Auto [0.0-2.0 %] 0.6 % (02/02/20 3:30 PM) Bili Total [0.0-1.3 mg/dL] 0.5 mg/dL (02/02/20 3:30 PM) CO2 [22-29 mmol/L] 19 mmol/L *LOW* (02/02/20 3:30 PM) Eos Auto [0.0-8.0 %] 0.5 % (02/02/20 3:30 PM) WBC [4.0-10.0 x10(3)/uL] 17.7 x10(3)/uL *HI* (02/02/20 3:30 PM) BUN [6-23 mg/dL] 9 mg/dL (02/02/20 3:30 PM) Calcium Lvl [8.6-10.2 mg/dL] 9.8 mg/dL (02/02/20 3:30 PM) Chloride [98-107 mmol/L] 97 mmol/L *LOW* (02/02/20 3:30 PM) Potassium Lvl [3.5-5.1 mmol/L] 3.6 mmol/L (02/02/20 3:30 PM) Lymph Absolute [1.20-3.70 x10(3)/uL] 2.06 x10(3)/uL (02/02/20 3:30 PM) Geary Absolute [0.20-0.40 x10(3)/uL] 1.18 x10(3)/uL *HI* (02/02/20 3:30 PM) Eos Absolute [0.04-0.54 x10(3)/uL] 0.09 x10(3)/uL (02/02/20 3:30 PM) NRBC Absolute [0.00-0.01 x10(3)/uL] 0.00 x10(3)/uL (02/02/20 3:30 PM) Neutro Absolute [1.56-6.13 x10(3)/uL] 14.11 x10(3)/uL *HI* (02/02/20 3:30 PM) RDW-CV [11.7-14.4 %] 15.4 % *HI* (02/02/20 3:30 PM) GFR >60 mL/min/1.73 m2 *NA* (02/02/20 3:30 PM) GFR NonAfrican Armenian >60 mL/min/1.73 m2 *NA* (02/02/20 3:30 PM) Immature Gran % [0.00-2.30 %] 0.80 % (02/02/20 3:30 PM) Immature Gran Absolute 0.15 x10(3)/uL *NA* (02/02/20 3:30 PM) Basophil Absolute [0.00-0.10 x10(3)/uL] 0.11 x10(3)/uL *HI* (02/02/20 3:30 PM) Vital Signs Most recent to oldest [Reference Range]: 1 Temperature Temporal [36.3-37.8 DegC] 36.5 DegC (02/02/20 2:55 PM) Peripheral Pulse Rate [60-100 bpm] 111 bpm *HI* (02/02/20 2:55 PM) Respiratory Rate [14-20 br/min] 16 br/min (02/02/20 2:55 PM) Blood Pressure [90-140/60-90 mmHg] 160/115 mmHg *HI* (02/02/20 2:55 PM) SpO2 [92-100 %] 98 % (02/02/20 2:55 PM) Height/Length Estimated 165.000 cm (02/02/20 2:55 PM) Height/Length Dosing 165.000 cm (02/02/20 3:01 PM) Weight Estimated 91.500 kg (02/02/20 2:55 PM) Weight Dosing 91.500 kg (02/02/20 3:01 PM) Social History Social History Type Response Smoking Status 4 or less cigarettes(less th an 1/4 pack)/day in last 30 days; Tobacco use per day: 2 cigarettes daily; entered on: 01/31/20 Sex Hospital Discharge Instructions Patient Ddowiyfym02/22/2020 17:18:24Substance Abuse Follow up/Programs ([facility]) (LIZ)Substance Abuse: Residential Programs: Admissions during work day hours only with the exception of [address] [place], [place] [phone] [place], [place] [phone] (women and adolescents only) [address] [place], [place] [phone] [place], [place] [phone] [place], [place] [phone] [facility]: [place], [place] [phone] [place] [phone] [place], [place] [phone] [place], [place] [phone] Methadone Programs: [place], [place] [phone] [place], [place] [phone] Buprenorphine Therapy: [place], [place] [phone] Self-Help Groups [facility] [phone] [facility] [phone] [facility] [facility] [phone] [facility] [phone] [facility]: [place], [address] [phone] [place], [address] [phone] [place], [address] [phone] For other resources, especially in the [place] and [facility], call [facility] during normal weekdayhours at [phone]. 02/02/2020 17:18:24AA Blank Template (CUSTOM)STOP SMOKING MARAJUANA for good. If you do not stop smoking marijuana, this will continue to happen.Please see the attached information on local resources to help with stopping marijuana. You have been prescribed Haldol to help with your symptoms. Please follow-up with your primary care doctor soon for evaluation. Return numbers were no worsening or concerning symptoms. 02/02/2020 17:18:24Cannabis Hyperemesis Syndrome (Custom) (LIZ)What is cannabinoid hyperemesis syndrome? Cannabinoid hyperemesis syndrome [...] from the concentrated resins of the Cannabis satvia's female flower. Marijuana has several active substances. [...] prodromal phase, the main symptoms are usually behavior management specialist nausea and belly (abdominal)pain. Some people also [...] health problem that causes similar symptoms. A advice clerk might make the diagnosis. How is cannabinoid [...] contact your provider if you have questions. 02/02/2020 17:18:24Cyclic Vomiting Syndrome, AdultCyclic Vomiting Syndrome, Adult Cyclic [...] meals. ??? Taking medicines, such as: ??? Ykja-xkk-lzzalhj pain medicine. ??? Anti-nausea medicines. ??? Antacids. ??? Antihistamines. ??? Medicines for migraines. ??? Antidepressants. ??? Antibiotics. Severe nausea and vomiting may require you to stay at the hospital. You may need IV fluids to prevent or treat dehydration. Follow these instructions at home: During an episode ??? Take twdy-iia-jtyhilh and prescription medicines only as told by [...] avoid spicy or fatty foods, such as turkish fries and pizza. General instructions ??? Monitor [...] 12/15/2017 Elsevier Interactive Patient Education ?? 2019 [employer]
--- OUTSIDE RECORDS SUMMARY | 2022-08-16 09:01 | XMS_ITS | Continuity of Care Document ---
:2000 Author Organization [facility] Address [address] [place] [id number]- Care Team Providers Name Role Phone [facility] Primary Care Physician Encounter BVT Date(s): 02/16/20 - 02/16/[address] [address]- Encounter Diagnosis Sinus tachycardia (Discharge Diagnosis) - 02/16/20 Dyspnea (Discharge Diagnosis) - 02/16/20 Discharge Disposition: Home or Self Care Attending Physician: LINDA RIOJAS Admitting Physician: LINDA RIOJAS Allergies, Adverse Reactions, Alerts No Known Allergies Assessment and Plan Extracted from: Title: General medical Author: LINDA RIOJAS Date: 02/16/20 History of Present Illness The patient presents with Elevated blood pressure. The onset was just prior to arrival. The course/duration of symptoms is resolved. Location: generalized. The degree at onset was severe. The degree at present is minimal. Risk factors consist of none. Therapy today: none. Associated symptoms: none. Additional history: She woke up to use the restroom. When she went to go back to bed, she began to feel anxious and short of breath. She checked her blood pressure, and it was 230/190, and her pulse was elevated. She had no other symptoms. At time of arrival in the emergency department, her blood pressure was back to normal. She has no ongoing dyspnea, has had no shortness of breath or other symptoms except for this short duration this morning when she was anxious. Review of Systems Constitutional symptoms: No fever, Skin symptoms: No rash, ENMT symptoms: No sore throat, Respiratory symptoms: Negative except as documented in HPI, No cough, Gastrointestinal symptoms: No abdominal pain, Genitourinary symptoms: No dysuria, Neurologic symptoms: No dizziness, Psychiatric symptoms: Anxiety. Additional review of systems informatio n: All [...] . Physical Examination Vital Signs Vital Signs 02/16/2020 8:44 EDT Temperature Temporal 36.5 DegC Peripheral Pulse Rate 130 bpm HI Respiratory Rate 32 br/min HI Systolic Blood Pressure 117 mmHg Diastolic Blood Pressure 67 mmHg SpO2 100 % . Measurements 02/16/2020 8:49 EDT Weight Dosing 90.700 kg 02/16/2020 8:49 EDT Height/Length Dosing 162.000 cm 02/16/2020 8:44 EDT Height/Length Estimated 162.000 cm Weight Estimated 90.700 kg . General: Alert. Skin: Warm. Eye: Normal conjunctiva. Neck: Trachea midline. Cardiovascular: Normal peripheral perfus ion, No edema, Rate 110s. Respiratory: Respirations are non-labore d. Gastrointestinal: Soft, Nontender. Musculoskeletal: Calves symmetric, nonte nder. Neurological: Alert and oriented to pers on, place, time, and situation. Psychiatric: Cooperative, appropriate mo od & affect, normal judgment. Medical Decision Making [id number] Taylor presents after finding her blood pressure and pulse to be elevated while she was anxious. Her symptoms (dyspnea and anxiety) resolved, and her blood pressure normalized prior to arrival. S he remained tachycardic on initial arriv al. During my exam, her pulse was back down to her baseline (110)'s. mechanical technical service specialist is rechecking it again prior to discharge. Taylor does not have thromboembolic risk factors, nor clinical presentation worr isome for pulmonary embolus. She does not have a presentation worrisome for supraventricular tachycardia, ventricular tachycardia, or other dysrhythmia except for sinus tachycardia. Her vomiting syndrom e has not been severe in the last couple days, and there is no reason to suspect dangerous levels of hypokalemia or other sequelae related to her CVS. We discusse d the likely explanation for her symptom s, aftercare and return precautions. Impression and Plan Diagnosis Dyspnea (MGB53-YE R06.0, Discharge, Medi ana) Sinus tachycardia (IAU23-RE R00.0, Disch arge, Medical) Plan Condition: Stable. Patient was given the following educatio nal materials: AA Blank Template (CUSTOM). [facility] Call for followup appointment. Future Appointments Medications amitriptyline 50 mg oral [...] nausea/vomiting, # 30 tab(s), 0 Refill(s), Pharmacy: [id number], 1 tab(s) Oral q8hr,PRN:for nausea/vomiting Start Date: 12/11/19 Status: Orderedpotassium chloride 20 mEq, Oral, Daily Start Date: 12/10/19 Status: Ordered Mental Status 02/16/20 Level of Consciousness Alert Problem List Condition Effective Dates Status Health Status Informant Cyclic vomiting syndrome(Confirmed) Active Dizziness(Confirmed) Active AKASH (generalized anxiety Active disorder)(Confirmed) Migraine(Confirmed) Active Nausea & vomiting(Confirmed) Active Vital Signs Most recent to oldest [Reference Range]: 1 2 Temperature Temporal [36.3-37.8 DegC] 36.5 DegC (02/16/20 8:44 AM) Peripheral Pulse Rate [60-100 bpm] 119 bpm 1 130 b pm *HI* *HI* (02/16/20 10:03 AM) (02/16/20 8:44 AM) Respiratory Rate [14-20 br/min] 18 br/min 32 br/mi n (02/16/20 10:03 AM) *HI* (02/16/20 8:44 AM) Blood Pressure [90-140/60-90 mmHg] 141/89 mmHg 117/6 7 mmHg *HI* (02/16/20 8:44 AM) (02/16/20 10:03 AM) SpO2 [92-100 %] 99 % 100 % (02/16/20 10:03 AM) (02/16/20 8:44 AM) Height/Length Estimated 162.000 cm (02/16/20 8:44 AM) Height/Length Dosing 162.000 cm (02/16/20 8:49 AM) Weight Estimated 90.700 kg (02/16/20 8:44 AM) Weight Dosing 90.700 kg (02/16/20 8:49 AM) 1Result Comment: dr riojas notified Social History Social History Type Response Smoking Status 4 or less cigarettes(less th an 1/4 pack)/day in last 30 days; Tobacco use per day: 2 cigarettes daily; entered on: 01/31/20 Sex Hospital Discharge Instructions Patient Yugdeamdh93/05/2020 09:58:20AA Blank Template (CUSTOM)You were seen in the emergency department for concerns about elevated blood pressure and heart rate.When you arrived here, your blood pressure was normal. Your heart rate was high. However, your heartrate is usually high when you are in the emergency department. As we discussed, you should check your blood pressure heart rate when you are feeling normal. If youare feeling anxious, calm down before you check your blood pressure heart rate. Keep track of your readings. Talk to your primary care doctor about them. If you get short of breath and your symptoms do not improve with calming techniques, if you pass outsuddenly, start to feel confused or get other new symptoms, return here to the emergency department immediately. Call 911 if necessary. Follow Up Care02/16/2020 07:10:07With:[facility]r [facility], Address:Unknown When:3 to 5 days Comments:Call for followup appointment
--- OUTSIDE RECORDS SUMMARY | 2022-08-16 09:01 | XMS_ITS | Continuity of Care Document ---
:[address] [facility] Address [address] [place] [address] Care Team Providers Name Role Phone ENID ULRICH Primary Care Physician Encounter BVT Date(s): 01/24/22 - 01/24/22 [facility] [address] [place] [address] Discharge Disposition: Home Attending Physician: GILLIAN PRESLEY Allergies, Adverse Reactions, Alerts No Known Allergies Functional Status 01/24/22 Recent Travel History No recent travel Family [...] Daily, # 90 tab(s), 0 Refill(s), Pharmacy: [facility]/pharmacy #[id number], 1 tab(s) Oral Daily, 162, cm, 01/07/22 18:44:00 EST, Height/Length Dosing, 88.3, kg, 01/07/22 18:44:00 EST, Weight Dosing Start Date: 01/24/22 Status: OrderedhydrOXYzine hydrochloride 50 mg oral tablet 50 mg = 1 tab(s), Oral, QID, PRN PRN for anxiety, # 120 tab(s), 2 Refill(s), Pharmacy: [facility] #[id number], 1 tab(s) Oral QID,PRN:for anxiety Start Date: 03/30/21 Status: OrderedLexapro 10 mg oral tablet 10 mg = 1 tab(s), Oral, Daily, # 90 tab(s), 0 Refill(s), Pharmacy: [facility]/pharmacy #[id number], 1 tab(s) OralDaily, 162, cm, 01/07/22 18:44:00 EST, Height/Length Dosing, 88.3, kg, 01/07/22 18:44:00 EST, WeightDosing Start Date: 01/24/22 Status: Orderedpropranolol 10 mg oral tablet 10 mg = 1 tab(s), Oral, BID, # 180 tab(s), 0 Refill(s), [id number], 1 tab(s) Oral BID, 162, cm, 01/07/22 18:44:00 EST, Height/Length Dosing, 88.3, kg, 01/07/22 18:44:00 EST, Weight Dosing Start Date: 01/24/22 Status: OrderedtraZODone 50 mg oral tablet 50 mg = 1 tab(s), Oral, Once a day (at bedtime), # 90 tab(s), 3 Refill(s), Pharmacy: [facility] #[id number], 1 tab(s) Oral Once a day (at [...] entered on: 05/31/21 Sex Care Team PersonnelName: ULRICH ENID Address: [address] [place] [id number]
--- OUTSIDE RECORDS SUMMARY | 2022-08-16 09:01 | XMS_ITS | Continuity of Care Document ---
:2000 Author Organization [facility] Address [address] [place] [id number]- Care Team Providers Name Role Phone ENID ULRICH Primary Care Physician Encounter BVT Date(s): 01/07/22 - 01/07/[address] [address]- [place] [phone] Encounter Diagnosis Nausea and vomiting (Discharge Diagnosis) - 01/07/22 Discharge Disposition: Home or Self Care Attending Physician: Leonard Smith MD Admitting Physician: ENID ULRICH Allergies, Adverse Reactions, Alerts No Known Allergies Assessment and Plan Extracted from: Title: Addendum *ED Author: ENRIQUE GASTON Date: 01/07/22 Medical Decision Making Notes: Late note. Patient was received i n signout. Patient is here for nausea vomiting. Patient is well-known to this facility for the same. Patient is sleeping and resting. When I evaluate her she does want a go home at this time. I will pre scribe her some Zofran ODT. Patient did have potassium repletion. I discussed with them a broad differential diagnosis. Discussed with them all incidental finding s and they acknowledged understanding. T hey agreed should their symptoms worsen, change, any concerns to contact their regular provider or return to the ER immediately. . Reexamination/ Reevaluation Vital signs Basic Oxygen Information01/07/2022 21:22 EST Oxygen Therapy Room air 01/07/2022 20:24 EST Oxygen Therapy Room air 01/07/2022 18:30 EST Oxygen Therapy Room air Impression and Plan Diagnosis Nausea vomiting Plan Condition: Stable. Disposition: Discharged. Prescriptions: Launch prescriptions Pharmacy: Zofran ODT 4 mg oral tablet, disintegrat ing (Prescribe): 4 mg = 1 tab(s), Oral, TID, 12 tab(s), 0 Refill(s). Patient was given the following educatio nal materials: Vomiting, Adult. Follow up with: ENID ULRICH Within 1 to 2 days Call your doctor to see when they like to follow-up with you; Return to Emergency Department Within As needed Return to the ER immediately for symptoms worsen, change, any concerns. Counseled: Patient, Regarding diagnosis, Regarding diagnostic results, Regarding treatment plan, Regarding prescription. Extracted from: Title: Addendum *ED Author: Leonard Smith MD Date: 01/07/22 Reexamination/ Reevaluation 2201 Patient re-assessed after Ativan. S he is sleeping comfortably in bed. Rouses to voice. No further episode of vomiting. Potassium infusing. Will PO challenge after potassium infusion. Patient will b e signed out to the oncoming ED provider pending PO challenge after potassium. Impression and Plan Diagnosis Nausea and vomiting ([id number] R11.2, Dis charge, Medical) Plan Condition: Stable. Disposition: Patient care transitioned t o: Time: 01/07/2022 22:03:00, ENRIQUE GASTON Extracted from: Title: General Medical Problem *ED Author: Mer Parson Date: 01/07/22 History of Present Illness 21-year-old female with a past medical h istory significant for cyclic vomiting syndrome with suspicion for marijuana induced or cannabis induced hyperemesis who presents with nausea and vomiting. Pt was seen for similar 5 times last year in t [facility] ER. She reports she began having episodes of emesis yesterday continued into today. Denies any diarrhea or constipation. Denies any abdominal pain chest pain shortness of breath. She reports she is smoking marijuana daily. She smoked twice today. She continues to feel nauseous. Denies anything making her feel better or worse. She has been unable to tolerate p.o. today. Historically droperidol has walked worked well as well as fluids. It was reported that patient was having episodes of hyperventilation, during the course of her EMS ride and on presentation to the ER. She denies any dysuria or hematuria. Den ies any possibility of being . She denies any diarrhea or constipation. Denies fevers, chills, chest pain, shortness of breath and cough. Denies melena, h ematochezia, and hematemesis. Denies fiona rrhea. 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 Review of Systems Constitutional symptoms: No fever, no ch ills. Skin symptoms: No rash, Eye symptoms: No [...] No Known Allergies. Medications: (Selected) Prescriptions Prescribed Daily Multiple for Women oral tablet: 1 tab(s), Oral, Daily, 90 tab(s), 3 Refill(s) Phenergan 25 mg rectal suppository: 25 m g = 1 supp, Per rectum, q6hr, for 3 day(s), PRN: Nausea/Vomiting, 12 supp, 0 Refill(s) Zofran ODT 4 mg oral tablet, disintegrat in mg = 1 tab(s), Oral, TID, PRN: Nausea/Vomiting, 15 tab(s), 0 Refill(s) amitriptyline 75 mg oral tablet: 1 tab(s ), Oral, Once a day (at bedtime), 90 tab(s), 3 Refill(s) busPIRone 10 mg oral tablet: 20 mg = 2 t ab(s), Oral, BID, 360 tab(s), 3 Refill(s) ferrous fumarate 324 mg (106 mg elementa l iron) oral tablet: 324 mg = 1 tab(s), Oral, Daily, 90 tab(s), 3 Refill(s) gabapentin 100 mg oral capsule: 1 cap(s) , Oral, BID, 60 cap(s), 2 Refill(s) hydrOXYzine hydrochloride 50 mg oral tab let: 50 mg = 1 tab(s), Oral, QID, PRN: for anxiety, 120 tab(s), 2 Refill(s) sertraline 100 mg oral tablet: 100 mg = 1 tab(s), Oral, Daily, 90 tab(s), 3 Refill(s) traZODone 50 mg oral tablet: 50 mg = 1 t ab(s), Oral, Once a day (at bedtime), 90 tab(s), 3 Refill(s). Past Medical/ Family/ Social History Surgical [...] day (12/10/2019 22:43 - Mildred Mcintosh RN) Past, Marijuana Comment: stopped smoking ~2-3 weeks ago. (04/14/2021 13:47 - Barb Carrasco MA) Cocaine Tobacco Former smoker, quit more than 30 days ag o Tobacco Use:. 2 cigarettes daily per day. Former smoker, quit more than 30 days ag o Tobacco Use:. Former smoker, quit more than 30 days ag o Tobacco Use:. Electronic Cigarette/Vaping Electronic Cigarette Use: Use, within la st 90 days. Type: Nicotine infused. Use per Day: 51+ Inhales/day. Electronic Cigarette Use: Use, within la st 90 days. Type: Nicotine infused. Psychosocial History No active psychosocial history has been recorded. Problem list: Active Problems (7) Acute anxiety Cyclic vomiting syndrome Dizziness AKASH (generalized anxiety disorder) Hx of fracture of right hip Migraine Nausea & vomiting . Physical Examination General: Alert, tearful, anxious. Skin: Warm, dry. Head: Atraumatic. Neck: [...] Results review: Lab results : Lab View 01/07/2022 18:57 EST WBC 20.0 x10(3)/uL HI RBC 4.54 x10(6)/uL Hgb 13.7 gm/dL Hct 39.0 % MCV 85.9 fL MCH 30.2 pg MCHC 35.1 gm/dL RDW-CV 12.3 % Platelet 377 x10(3)/uL MPV 10.2 fL Neutro Auto 84.6 % HI Lymph Auto 10.5 % LOW Cocke Auto 4.1 % Basophil Auto 0.4 % Immature Gran % 0.40 % NRBC Auto Pct 0.00 % Neutro Absolute 16.90 x10(3)/uL HI Lymph Absolute 2.11 x10(3)/uL Cocke Absolute 0.83 x10(3)/uL HI Eos Absolute 0.01 x10(3)/uL LOW Basophil Absolute 0.08 x10(3)/uL Immature Gran Absolute 0.08 x10(3)/uL NA NRBC Absolute 0.00 x10(3)/uL Sodium Lvl 141 mmol/L Potassium Lvl 3.3 mmol/L LOW Chloride 105 mmol/L CO2 19 mmol/L LOW AGAP 20.3 mmol/L HI BUN 7 mg/dL Creatinine 0.62 mg/dL GFR NonAfrican Nicaraguan 120 mL/min/1.73 m2 Glucose Lvl 172 mg/dL HI Calcium Lvl 9.5 mg/dL Total Protein 7.6 gm/dL Albumin Lvl 4.60 gm/dL Alk Phos 81 IntUnit/L ALT 9 IntUnit/L AST 12 IntUnit/L Bili Total 0.4 mg/dL Lipase Lvl 25 IntUnit/L Osmolality 283.3 mOsm/kg HCG Qualitative Serum Negative . Impression and Plan 21-year-old female with a past medical h istory significant for cyclic vomiting syndrome with suspicion for marijuana induced or cannabis induced hyperemesis who presents with nausea and vomiting. Pt was seen for similar 5 times last year in t [facility] ER. She reports she began having episodes of emesis yesterday continued into today. Denies any diarrhea or constipation. Denies any abdominal pain chest pain shortness of breath. She reports she is smoking marijuana daily. She smoked twice today. She continues to feel nauseous. Denies anything making her feel better or worse. She has been unable to tolerate p.o. today. Historically droperidol has walked worked well as well as fluids. It was reported that patient was having episodes of hyperventilation, during the course of her EMS ride and on presentation to the ER. at the time of my exam that h as improved and no longer present. Abdomen is SNT. lungs are CTA. She appea rs anxious but not acutely ill. 1917 pt is sleeping comfortably. NAD. Kush case does have a leukocytosis of 20, on review this appears chronic for her. Her last visit in the emergency department her leukocytosis was 23.8 in August 02, in May 31, 2021 was 32.6. Her pregn jeramy test is negative. She is currently sleeping comfortably she received droperidol, lactated Ringer's currently running. Patient does have an anion gap of 20.3, bicarb 19, glucose 172. Patient was hyperventilating. Improved now. Patient was given 1.25 of droperidol and 1 L of LR. She appears improved, but still somewhat s ymptomatic. Will give a second dose of 1 .25 and LR. We will trial 20 mEq of potassium. 2039 patient resting comfortably althoug h reports she does not feel much better she is willing to try p.o. challenge. No additional episodes of emesis in the emergency department during observation. 2044 Pt failed PO trial. Will finish flu ids and reassess, plan to admin 20 meq potassium with fluids. will trial ativan for second line. Signout to Dr. smith pending additional fluids, potassium, po challenge/reassessment. Father at bedside. Diagnosis Nausea and vomiting ([id number] R11.2, Dis charge, Medical) Functional Status 01/07/22 COVID-19 Screening None Immunizations Given and Recorded Vaccine Date Status Refusal Reason SARS-COV-2 (COVID-19) vaccine, unspecifi 03/03/21 Recorde d SARS-COV-2 (COVID-19) vaccine, unspecifi 02/03/21 Recorde d influenza, inactivated 09/23/20 Given HPV, unspecified formulation 12/30/16 Recorded HPV, unspecified formulation 01/07/16 Recorded HPV, unspecified formulation 08/29/13 Recorded Medications amitriptyline 75 mg oral tablet = 1 tab(s), Oral, Once a day (at bedtime), # 90 tab(s), 3 Refill(s), Pharmacy: [facility] #[id number], TAKE 1 TABLET BY MOUTH EVERY DAY AT BEDTIME, 162, cm, 07/28/21 7:03:00 EDT, Height/Length Dosing, 88.3, kg, 07/28/21 7:03:00 EDT, Weight Dosing Start Date: 10/18/21 Status: OrderedbusPIRone 10 mg oral tablet 20 mg = 2 tab(s), Oral, BID, # 360 tab(s), 3 Refill(s), Pharmacy: [facility] #[id number], 2 tab(s) Oral BID, 162, cm, 07/28/21 7:03:00 EDT, Height/Length Dosing, 88.3, kg, 07/28/21 7:03:00 EDT, Weight Dosing Start Date: 11/02/21 Status: OrderedDaily Multiple for Women oral tablet 1 tab(s), Oral, Daily, # 90 tab(s), 3 Refill(s), Pharmacy: [facility] #[id number], 1 tab(s) Oral Daily Start Date: 10/13/20 Status: Orderedferrous fumarate 324 mg (106 mg elemental iron) oral tablet 324 mg = 1 tab(s), Oral, Daily, # 90 tab(s), 3 Refill(s), Pharmacy: [facility] #[id number], 1 tab(s) Oral Daily Start Date: 10/13/20 Status: Orderedgabapentin 100 mg oral capsule = 1 cap(s), Oral, BID, # 60 cap(s), 2 Refill(s), Pharmacy: [facility] #[id number], 1 cap(s) Oral BID, 162, cm, 07/28/21 7:03:00 EDT, Height/Length Dosing, 88.3, kg, 07/28/21 7:03:00 EDT, Weight Dosing Start Date: 11/01/21 Status: OrderedhydrOXYzine hydrochloride 50 mg oral tablet 50 mg = 1 tab(s), Oral, QID, PRN PRN for anxiety, # 120 tab(s), 2 Refill(s), Pharmacy: [facility] #[id number], 1 tab(s) Oral QID,PRN:for anxiety Start Date: 03/30/21 Status: OrderedPhenergan 25 mg rectal suppository 25 mg = 1 supp, Per rectum, q6hr, PRN PRN Nausea/Vomiting, # 12 supp, 0 Refill(s), Pharmacy: [facility] #[id number], 1 supp Per rectum q6hr,x3 day(s),PRN:Nausea/Vomiting Start Date: 12/04/20 Stop Date: 12/07/20 Status: Orderedsertraline 100 mg oral tablet 100 mg = 1 tab(s), Oral, Daily, # 90 tab(s), 3 Refill(s), Pharmacy: [facility] #[id number], 1 tab(s) Oral Daily Start Date: 03/30/21 Status: OrderedtraZODone 50 mg oral tablet 50 mg = 1 tab(s), Oral, Once a day (at bedtime), # 90 tab(s), 3 Refill(s), Pharmacy: [facility] #[id number], 1 tab(s) Oral Once a day (at bedtime) Start Date: 03/30/21 Status: OrderedZofran ODT 4 mg oral tablet, disintegrating 4 mg = 1 tab(s), Oral, TID, # 12 tab(s), 0 Refill(s), 01/14/22, Pharmacy: [facility] #[id number], 1 tab(s) Oral TID, 162, cm, 01/07/22 18:44:00 EST, Height/Length Dosing, 88.3, kg, 01/07/22 18:44:00 EST, Weight Dosing Start Date: 01/07/22 Stop Date: 01/14/22 Status: OrderedZofran ODT 4 mg oral tablet, disintegrating 4 mg = 1 tab(s), Oral, TID, PRN PRN Nausea/Vomiting, # 15 tab(s), 0 Refill(s), Pharmacy: [facility] #[id number], 1 tab(s) Oral TID,PRN:Nausea/Vomiting Start Date: 02/20/21 Status: Ordered Mental Status 01/07/22 Level of Consciousness Drowsy Problem List Condition Effective Dates Status Health Status Informant Acute anxiety(Confirmed) Active Cyclic vomiting syndrome(Confirmed) Active Dizziness(Confirmed) Active AKASH (generalized anxiety Active disorder)(Confirmed) Hx of fracture of right hip(Confirmed) Active Migraine(Confirmed) Active Nausea & vomiting(Confirmed) Active Results Laboratory List Name Date Automated Differential Standard 01/07/22 CBC w/Diff Standard 01/07/22 Comprehensive Metabolic Panel Standard (CMP Standard) 01/07/22 Lipase Level 01/07/22 Test Serum Standard 01/07/22 Most recent to oldest [Reference Range]: 1 NRBC Auto Pct [0.00-0.20 %] 0.00 % (01/07/22 6:57 PM) Creatinine [0.50-0.90 mg/dL] 0.62 mg/dL (01/07/22 6:57 PM) AGAP [10.0-18.0 mmol/L] 20.3 mmol/L *HI* (01/07/22 6:57 PM) Glucose Lvl [70-100 mg/dL] 172 mg/dL *HI* (01/07/22 6:57 PM) Hct [34.1-44.9 %] 39.0 % (01/07/22 6:57 PM) Hgb [11.5-15.7 gm/dL] 13.7 gm/dL (01/07/22 6:57 PM) Lipase Lvl [13-60 IntUnit/L] 25 IntUnit/L (01/07/22 6:57 PM) Lymph Auto [15.0-45.0 %] 10.5 % *LOW* (01/07/22 6:57 PM) MCH [25.6-32.2 pg] 30.2 pg (01/07/22 6:57 PM) MCHC [32.3-36.5 gm/dL] 35.1 gm/dL (01/07/22 6:57 PM) MCV [79.4-94.8 fL] 85.9 fL (01/07/22 6:57 PM) Cocke Auto [4.0-14.0 %] 4.1 % (01/07/22 6:57 PM) MPV [9.4-12.4 fL] 10.2 fL (01/07/22 6:57 PM) Neutro Auto [50.0-75.0 %] 84.6 % *HI* (01/07/22 6:57 PM) Osmolality [268.0-291.0 mOsm/kg] 283.3 mOsm/kg (01/07/22 6:57 PM) Platelet [150-400 x10(3)/uL] 377 x10(3)/uL (01/07/22 6:57 PM) RBC [3.93-5.22 x10(6)/uL] 4.54 x10(6)/uL (01/07/22 6:57 PM) Sodium Lvl [136-145 mmol/L] 141 mmol/L (01/07/22 6:57 PM) Total Protein [6.6-8.7 gm/dL] 7.6 gm/dL (01/07/22 6:57 PM) Albumin Lvl [3.50-5.20 gm/dL] 4.60 gm/dL (01/07/22 6:57 PM) Alk Phos [35-105 IntUnit/L] 81 IntUnit/L (01/07/22 6:57 PM) ALT [0-33 IntUnit/L] 9 IntUnit/L (01/07/22 6:57 PM) AST [0-32 IntUnit/L] 12 IntUnit/L (01/07/22 6:57 PM) Basophil Auto [0.0-2.0 %] 0.4 % (01/07/22 6:57 PM) Bili Total [0.0-1.3 mg/dL] 0.4 mg/dL (01/07/22 6:57 PM) CO2 [22-29 mmol/L] 19 mmol/L *LOW* (01/07/22 6:57 PM) WBC [4.0-10.0 x10(3)/uL] 20.0 x10(3)/uL *HI* (01/07/22 6:57 PM) BUN [6-23 mg/dL] 7 mg/dL (01/07/22 6:57 PM) Calcium Lvl [8.6-10.2 mg/dL] 9.5 mg/dL (01/07/22 6:57 PM) Chloride [98-107 mmol/L] 105 mmol/L (01/07/22 6:57 PM) Potassium Lvl [3.5-5.1 mmol/L] 3.3 mmol/L *LOW* (01/07/22 6:57 PM) Lymph Absolute [1.20-3.70 x10(3)/uL] 2.11 x10(3)/uL (01/07/22 6:57 PM) Cocke Absolute [0.20-0.40 x10(3)/uL] 0.83 x10(3)/uL *HI* (01/07/22 6:57 PM) Eos Absolute [0.04-0.54 x10(3)/uL] 0.01 x10(3)/uL *LOW* (01/07/22 6:57 PM) NRBC Absolute [0.00-0.01 x10(3)/uL] 0.00 x10(3)/uL (01/07/22 6:57 PM) Neutro Absolute [1.56-6.13 x10(3)/uL] 16.90 x10(3)/uL *HI* (01/07/22 6:57 PM) RDW-CV [11.7-14.4 %] 12.3 % (01/07/22 6:57 PM) GFR NonAfrican Nicaraguan [>=60 mL/min/1.73 m2] 120 mL/m in/1.73 m2 (01/07/22 6:57 PM) Immature Gran % [0.00-2.30 %] 0.40 % (01/07/22 6:57 PM) Immature Gran Absolute 0.08 x10(3)/uL *NA* (01/07/22 6:57 PM) HCG Qualitative Serum [Negative] Negative (01/07/22 6:57 PM) Basophil Absolute [0.00-0.10 x10(3)/uL] 0.08 x10(3)/uL (01/07/22 6:57 PM) Vital Signs Most recent to oldest 1 2 3 [Reference Range]: Temperature Temporal 36.8 DegC [36.3-37.8 DegC] (01/07/22 6:30 PM) Peripheral Pulse Rate [60-100 81 bpm 103 bpm 74 bpm bpm] (01/07/22 9:22 PM) *HI* (01/07/22 6:30 PM) (01/07/22 8:24 PM) Respiratory Rate [14-20 22 br/min 14 br/min 20 br/mi n br/min] *HI* (01/07/22 9:22 PM) (01/07/22 8:24 PM) (01/07/22 10:22 PM) Blood Pressure [90-140/60-90 154/99 mmHg 143/98 mmHg 129 /85 mmHg mmHg] *HI* *HI* (01/07/22 8:24 PM ) (01/07/22 10:22 PM) (01/07/22 9:22 PM) Mean Arterial Pressure, Cuff 117 mmHg 113 mmHg 100 mmHg [65-100 mmHg] *HI* *HI* (01/07/22 8:24 PM ) (01/07/22 10:22 PM) (01/07/22 9:22 PM) Mean Arterial Pressure 114 mmHg 112 mmHg 97 mmHg Cuff-Monitor (01/07/22 10:22 PM) (01/07/22 9:22 PM) (01/07/22 8: 24 PM) SpO2 [92-100 %] 97 % 99 % 100 % (01/07/22 10:22 PM) (01/07/22 9:22 PM) (01/07/22 8: 24 PM) Height/Length Estimated 162.000 cm (01/07/22 6:30 PM) Height/Length Dosing 162.000 cm (01/07/22 6:44 PM) Weight Estimated 88.300 kg (01/07/22 6:30 PM) Weight Dosing 88.300 kg (01/07/22 6:44 PM) Social History Social History Type Response Smoking Status Former smoker, quit more wayne n 30 days ago; Tobacco use per day: 2 cigarettes daily; entered on: 05/31/21 Sex Hospital Discharge Instructions Patient Qiaowwtzl96/25/2022 23:04:12Vomiting, AdultVomiting, Adult Vomiting occurs when stomach contents are thrown up and out of the mouth. Many people notice nausea before vomiting. Vomiting can make you feel weak and cause you to become dehydrated. Dehydration can make you feel tired and thirsty, cause you to have a dry mouth, and decrease how often you urinate. Older adults and people who have other diseases or a weak body defense system (immune system) are at higher risk for dehydration. It is important to treat vomiting as told by your health care provider. Follow these instructions at home: Eating and drinking Follow these recommendations as told by your health care provider: ??? Take an oral rehydration solution (ORS). This is a drink that is sold at pharmacies and retail stores. ??? Eat bland, ylgo-xu-auhvwu foods in small amounts as you are able. These foods include bananas, applesauce, rice, lean meats, toast, and crackers. ??? Drink clear fluids slowly and in small amounts as you are able. Clear fluids include water, ice chips, low-calorie sports drinks, and fruit juice that has water added (diluted fruit juice). ??? Avoid drinking fluids that contain a lot of sugar or caffeine, such as energy drinks, sports drinks, and soda. ??? Avoid alcohol. ??? Avoid spicy or fatty foods. General instructions ??? Wash your hands often using soap and water. If soap and water are not available, use hand lithograph press operator tinware. Make sure that everyone in your household washes their hands frequently. ??? Take jjne-sgv-lonogvl and prescription medicines only as told by your health care provider. ??? Rest at home while you recover. ??? Watch your condition for any changes. ??? Keep all follow-up visits as told by your health care provider. This is important. Contact a health care provider if: ??? Your vomiting gets worse. ??? You have new symptoms. ??? You have a fever. ??? You cannot drink fluids without vomiting. ??? You feel light-headed or dizzy. ??? You have a headache. ??? You have muscle cramps. ??? You have a rash. ??? You have pain while urinating. Get help right away if: ??? You have pain in your chest, neck, arm, or jaw. ??? You feel extremely weak or you faint. ??? You have persistent vomiting. ??? You have vomit that is bright red or looks like black coffee grounds. ??? You have stools that are bloody or black, or stools that look like tar. ??? You have a severe headache, a stiff neck, or both. ??? You have severe pain, cramping, or bloating in your abdomen. ??? You have trouble breathing or you are breathing very quickly. ??? Your heart is beating very quickly. ??? Your skin feels cold and clammy. ??? You feel confused. ??? You have signs of dehydration, such as: ??? Dark urine, very little urine, or no urine. ??? Cracked lips. ??? Dry mouth. ??? Sunken eyes. ??? Sleepiness. ??? Weakness. These symptoms may represent a serious problem that is an emergency. Do not wait to see if the symptoms will go away. Get medical help right away. Call your local emergency services (911 in the [place] Do not drive yourself to the hospital. Summary ??? Vomiting occurs when stomach contents are thrown up and out of the mouth. Vomiting can cause youto become dehydrated. Older adults and people who have other diseases or a weak immune system are athigher risk for dehydration. ??? It is important to treat vomiting as told by your health care provider. Follow your health care provider's instructions about eating and drinking. ??? Wash your hands often using soap and water. If soap and water are not available, use hand lithograph press operator tinware. Make sure that everyone in your household washes their hands frequently. ??? Watch your condition for any changes and for signs of dehydration. ??? Keep all follow-up visits as told by your health care provider. This is important. This information is not intended to replace advice given to you by your health care provider. Make sure you discuss any questions you have with your health care provider. Document Revised: 04/17/2020 Document Reviewed: 04/09/2019 [employer] Patient Education ?? 2020 [employer] Follow Up Care01/07/2022 18:31:28With:Return to Emergency Department Address:Unknown When:As needed Comments:Return to the ER immediately for symptoms worsen, change, any concerns With:ENID ULRICH Address:Unknown When:1 to 2 days Comments:Call your doctor to see when they like to follow-up with you
--- OUTSIDE RECORDS SUMMARY | 2022-08-16 09:01 | XMS_ITS | Continuity of Care Document ---
:2000 Author Organization [facility] Address [address] [place] [address] Care Team Providers Name Role Phone Non-Staff, Physician Primary Care Physician Unavailable Encounter BVT [facility] [id number] Date(s): 08/09/19 - 08/09/19 [facility] [address] [facility] [place] [address] Encounter Diagnosis Nausea & vomiting (Discharge Diagnosis) - 08/09/19 Obesity (Discharge Diagnosis) - 08/09/19 Anxiety (Discharge Diagnosis) - 08/09/19 Discharge Disposition: Home or Self Care Attending Physician: JR RG Allergies, Adverse Reactions, Alerts No Known Allergies Assessment and Plan Extracted from: Title: Office Visit Note Establish Care Author: Jr Finley Date: 08/09/19 1.??Anxiety??F41.9 ??Managed at [facility] [place], [place] and currently stable on Lexapro and prn Haldol.?? UTD with immunizations.?? f/u here prn. 2.??Nausea & vomiting??R11.2 ??Ongoing cyiic vomiting syndrome.?? Ma naged at [facility] [place], [place]. 3.??Obesity??E66.9 Medications amitriptyline Oral, Once a day (at bedtime), 0 Refill(s) Start Date: 05/05/18 Status: Orderedescitalopram 10 mg oral tablet 10 mg = 1 tab(s), Oral, Daily, # 30 tab(s), 0 Refill(s) Start Date: 08/09/19 Status: Orderedhaloperidol 5 mg oral tablet 5 mg = 1 tab(s), Oral, TID, PRN PRN Nausea/Vomiting, # 10 tab(s), 0 Refill(s) Start Date: 12/27/18 Stop Date: 12/30/18 Status: Orderedhaloperidol 5 mg oral tablet 5 mg = 1 tab(s), Oral, TID, PRN PRN Nausea/Vomiting, # 30 tab(s), 0 Refill(s) Start Date: 02/13/19 Status: OrderedK-Dur 10 oral tablet, extended release 20 mEq = 2 tab(s), Oral, BID, # 40 tab(s), 0 Refill(s) Start Date: 12/27/18 Stop Date: 01/06/19 Status: OrderedPhenergan 25 mg rectal suppository 25 mg = 1 supp, Per rectum, q6hr, # 15 supp, 0 Refill(s) Start Date: 12/03/18 Status: Orderedpotassium chloride 20 mEq oral powder for reconstitution = 1 packet(s), Oral, BID, # 6 packet(s), 0 Refill(s) Start Date: 01/27/18 Stop Date: 01/30/18 Status: Orderedpotassium chloride 20 mEq oral tablet, extended release 20 mEq = 1 tab(s), Oral, BID, # 14 tab(s), 0 Refill(s) Start Date: 07/09/18 Stop Date: 07/16/18 Status: OrderedZofran ODT 4 mg oral tablet, disintegrating 4 mg = 1 tab(s), Oral, Once, # 15 tab(s), 0 Refill(s), Pharmacy: [id number], 1 tab(s) Oral Once Start Date: 12/20/17 Status: Ordered Problem List Condition Effective Dates Status Health Status Informant Dizziness(Confirmed) Active Nausea & vomiting(Confirmed) Active Vital Signs Most recent to oldest [Reference Range]: 1 Peripheral Pulse Rate [60-100 bpm] 105 bpm *HI* (08/09/19 9:39 AM) Respiratory Rate [14-20 br/min] 16 br/min (08/09/19 9:39 AM) Blood Pressure [90-140/60-90 mmHg] 110/74 mmHg (08/09/19 9:39 AM) BP Site Left arm (08/09/19 9:39 AM) Pulse Site Pulse Oximetry (08/09/19 9:39 AM) SpO2 [92-100 %] 98 % (08/09/19 9:39 AM) Height 160 cm (08/09/19 9:39 AM) Height/Length Measured (inches) 63 in (08/09/19 9:39 AM) Weight 96.75 kg (08/09/19 9:39 AM) Weight Measured (lbs) 212.85 lb (08/09/19 9:39 AM) BSA Measured 2.07 m2 (08/09/19 9:39 AM) Body Mass Index 37.79 kg/m2 (08/09/19 9:39 AM) Social History Social History Type Response Smoking Status 5-9 cigarettes (between 1/4 to 1/2 pack)/day in last 30 days entered on: 08/09/19 Sex
--- OUTSIDE RECORDS SUMMARY | 2022-08-16 09:01 | XMS_ITS | Continuity of Care Document ---
:1999 Author Organization [facility] Address [address] [place] [address] Care Team Providers Name Role Phone ENID ULRICH Primary Care Physician Encounter BVT Date(s): 10/06/20 - 10/06/20 [facility] [address] [place] [address] Encounter Diagnosis Nausea & vomiting (Discharge Diagnosis) - 10/06/20 AKASH (generalized anxiety disorder) (Discharge Diagnosis) - 10/06/20 Cyclic vomiting syndrome (Discharge Diagnosis) - 10/06/20 Discharge Disposition: Home Attending Physician: ENID ULRICH Allergies, Adverse Reactions, Alerts No Known Allergies Assessment and Plan Extracted from: Title: BFM - ED f/u cyclic vomiting Author: ENID ULRICH Date: 10/06/20 1.??Cyclic vomiting syndrome??R11.15 ??Continue current medications as presc ribed. 2.??AKASH (generalized anxiety disorder)? ?F41.1 3.??Nausea & vomiting??R11.2 ??Continue current medications as presc ribed and pursue GI referral currently pending for additional support of this chronic condition. Addendum by SERG, ------- ENID on [employer]: Due to high rat es of COVID-19,??our offices are working to reduce physical contact with clients.?? In compliance with local and federal emergency guidelines, this office visit was conducted by telephone.?? October 06, 2020 ?? 17:22:39 EST CONSENT: Patient verbally ag jamie and consents to Telehealth visit in light of current COVID-19 pandemic. The patient encounter is appropriate and reasonable under the circumstances given the patient? s particular presentation at this time. The patient is aware that the Telehealth visit is a chargeable visit and their insurance will be billed accordingly. ?? TIME: A total of __25___ min utes were spent with the patient with more than 50% of that time on counseling and coordination of care. ------- ? Future AppointmentsFuture Scheduled TestsLaboratoryC-Reactive Protein 09/23/20 Iron Level 09/29/20Ferritin Serum 09/29/20ESR 09/29/20 Immunizations Given and Recorded Vaccine Date Status Refusal Reason influenza, inactivated 09/23/20 Given Medications amitriptyline 75 mg oral tablet 75 mg = 1 tab(s), Oral, Once a day (at bedtime), # 90 tab(s), 3 Refill(s), Pharmacy: [facility] #[id number], 1 tab(s) Oral Once a day (at bedtime) Start Date: 09/23/20 Status: Orderedgabapentin 100 mg oral capsule 100 mg = 1 cap(s), Oral, BID Start Date: 09/23/20 Status: Orderedondansetron 4 mg oral tablet 4 mg = 1 tab(s), Oral, q8hr, PRN PRN for nausea/vomiting, # 30 tab(s), 0 Refill(s), Pharmacy: [facility] #[id number], 1 tab(s) Oral q8hr,PRN:for nausea/vomiting Start Date: 09/24/20 Status: Orderedpotassium chloride 40 mEq/15 mL oral liquid 40 mEq = 15 mL, Oral, TID, # 1,350 mL, 0 Refill(s), [id number], 15 mL Oral TID Start Date: 09/23/20 [...]
--- OUTSIDE RECORDS SUMMARY | 2022-08-16 09:01 | XMS_ITS | Continuity of Care Document ---
:1999 Author Organization [facility] Address [address] [place] [phone] Care Team Providers Name Role Phone ENID ULRICH Primary Care Physician Encounter BVT Date(s): 06/12/20 - 06/12/[address] [address]- Discharge Disposition: Left without being seen Allergies, Adverse Reactions, Alerts No Known Allergies Assessment and Plan Future Scheduled TestsLaboratoryTS 08/22/20 Functional Status 06/12/20 COVID-19 Screening None Medications amitriptyline 50 mg [...] nausea/vomiting, # 30 tab(s), 0 Refill(s), Pharmacy: [facility] #[id number], 1 tab(s) Oral q8hr,PRN:for nausea/vomiting Start Date: 12/11/19 Status: OrderedPhenergan 25 mg rectal suppository 25 mg = 1 supp, Per rectum, q6hr, PRN PRN Nausea/Vomiting, 1-2 suppositories every 6 hours as neededfor sever nausea and vomiting., # 20 supp, 2 Refill(s), Pharmacy: [facility] #[id number], 1 supp Per rectum q6hr,PRN:Nausea/Vomiting,Instr:1-2 santiago... Start Date: 04/19/20 Status: Orderedpotassium chloride 20 mEq, Oral, Daily Start Date: 12/10/19 Status: Ordered Mental Status 06/12/20 Level of Consciousness Alert Problem List Condition Effective Dates Status Health Status Informant Cyclic vomiting syndrome(Confirmed) Active Dizziness(Confirmed) Active AKASH (generalized anxiety Active disorder)(Confirmed) Migraine(Confirmed) Active Nausea & vomiting(Confirmed) Active Vital Signs Most recent to oldest [Reference Range]: 1 Temperature Temporal [36.3-37.8 DegC] 36.2 DegC *LOW* (06/12/20 3:58 PM) Peripheral Pulse Rate [60-100 bpm] 108 bpm *HI* (06/12/20 3:58 PM) Respiratory Rate [14-20 br/min] 36 br/min *HI* (06/12/20 3:58 PM) Blood Pressure [90-140/60-90 mmHg] 156/88 mmHg *HI* (06/12/20 3:58 PM) SpO2 [92-100 %] 100 % (06/12/20 3:58 PM) Height/Length Estimated 165.100 cm (06/12/20 3:58 PM) Height/Length Dosing 165.100 cm (06/12/20 4:05 PM) Weight Estimated 91.500 kg (06/12/20 3:58 PM) Weight Dosing 91.500 kg (06/12/20 4:05 PM) Social History Social History Type Response Smoking Status 4 or less cigarettes(less th an 1/4 pack)/day in last 30 days; Tobacco use per day: 2 cigarettes daily; entered on: 01/31/20 Sex
--- OUTSIDE RECORDS SUMMARY | 2022-08-16 09:01 | XMS_ITS | Continuity of Care Document ---
:1999 Author Organization [facility] Address [address] [place] [address] Care Team Providers Name Role Phone ENID ULRICH Primary Care Physician Encounter BVT Date(s): 12/29/20 - 12/29/20 [facility] [address] [place] [address] Encounter Diagnosis Cyclic vomiting syndrome (Discharge Diagnosis) - 12/29/20 Acute anxiety (Discharge Diagnosis) - 12/29/20 Discharge Disposition: Home Attending Physician: ENID ULRICH Allergies, Adverse Reactions, Alerts No Known Allergies Functional Status 12/29/20 Recent Travel History No recent travel Family Member Travel History No recent travel COVID-19 Screening None Immunizations Given and Recorded Vaccine Date Status Refusal Reason influenza, inactivated 09/23/20 Given Medications amitriptyline 75 mg oral tablet 75 mg = 1 tab(s), Oral, Once a day (at bedtime), # 90 tab(s), 3 Refill(s), Pharmacy: [facility] #[id number], 1 tab(s) Oral Once a day (at bedtime) Start Date: 09/23/20 Status: OrderedDaily Multiple for Women oral tablet 1 tab(s), Oral, Daily, # 90 tab(s), 3 Refill(s), Pharmacy: [facility] #[id number], 1 tab(s) Oral Daily Start Date: 10/13/20 Status: Orderedferrous fumarate 324 mg (106 mg elemental iron) oral tablet 324 mg = 1 tab(s), Oral, Daily, # 90 tab(s), 3 Refill(s), Pharmacy: [facility] #[id number], 1 tab(s) Oral Daily Start Date: 10/13/20 Status: Orderedgabapentin 100 mg oral capsule 100 mg = 1 cap(s), Oral, BID Start Date: 09/23/20 Status: Orderedgabapentin 100 mg oral capsule 100 mg = 1 cap(s), Oral, BID, # 60 cap(s), 0 Refill(s), Pharmacy: [facility] #[id number], 1 cap(s) Oral BID Start Date: 12/07/20 Status: Orderedondansetron 4 mg oral tablet 4 mg = 1 tab(s), Oral, q8hr, PRN PRN for nausea/vomiting, # 30 tab(s), 0 Refill(s), Pharmacy: [facility] #[id number], 1 tab(s) Oral q8hr,PRN:for nausea/vomiting Start Date: 09/24/20 Status: OrderedPhenergan 25 mg rectal suppository 25 mg = 1 supp, Per rectum, q6hr, PRN PRN Nausea/Vomiting, # 12 supp, 0 Refill(s), Pharmacy: [facility] #[id number], 1 supp Per rectum q6hr,x3 day(s),PRN:Nausea/Vomiting Start Date: 12/04/20 Stop Date: 12/07/20 Status: Orderedpotassium chloride 40 mEq/15 mL oral liquid 15 mL, Oral, TID, MUST BE MIXED IN 120ML OF JUICE OR WATER BEFORE TAKING DOSE, # 1,350 mL, Refill(s)2, [facility] #[id number] Start Date: 10/21/20 Status: Ordered Problem List Condition Effective Dates Status Health Status Informant Acute anxiety(Confirmed) Active Cyclic vomiting syndrome(Confirmed) Active Dizziness(Confirmed) Active AKASH (generalized anxiety Active disorder)(Confirmed) Migraine(Confirmed) Active Nausea & vomiting(Confirmed) Active Social History Social History Type Response Smoking Status 4 or less cigarettes(less th an 1/4 pack)/day in last 30 days; Tobacco use per day: 2 cigarettes daily; entered on: 12/29/20 Sex
--- OUTSIDE RECORDS SUMMARY | 2022-08-16 09:01 | XMS_ITS | Continuity of Care Document ---
:1999 Author Organization [facility] Address [address] [place] [phone]- Care Team Providers Name Role Phone Vipul VIGIL,, Jr Knott Primary Care Physician Encounter BVT [facility] [id number] Date(s): 02/17/20 - 02/17/[address] [address]- Discharge Disposition: Left without being seen Allergies, [...] nausea/vomiting, # 30 tab(s), 0 Refill(s), Pharmacy: [facility] #[id number], 1 tab(s) Oral q8hr,PRN:for nausea/vomiting Start Date: 12/11/19 Status: Orderedpotassium chloride 20 mEq, Oral, Daily Start Date: 12/10/19 Status: Ordered Problem List Condition Effective Dates Status Health Status Informant Cyclic vomiting syndrome(Confirmed) Active Dizziness(Confirmed) Active AKASH (generalized anxiety Active disorder)(Confirmed) Migraine(Confirmed) Active Nausea & vomiting(Confirmed) Active Vital Signs Most recent to oldest [Reference Range]: 1 Temperature Temporal [36.3-37.8 DegC] 36 DegC *LOW* (02/17/20 3:10 PM) Peripheral Pulse Rate [60-100 bpm] 120 bpm *HI* (02/17/20 3:10 PM) Respiratory Rate [14-20 br/min] 16 br/min (02/17/20 3:10 PM) Blood Pressure [90-140/60-90 mmHg] 149/86 mmHg *HI* (02/17/20 3:10 PM) SpO2 [92-100 %] 100 % (02/17/20 3:10 PM) Height/Length Estimated 165.000 cm (02/17/20 3:10 PM) Height/Length Dosing 165.000 cm (02/17/20 3:16 PM) Weight Estimated 91.500 kg (02/17/20 3:10 PM) Weight Dosing 91.500 kg (02/17/20 3:16 PM) Social History Social History Type Response Smoking Status 4 or less cigarettes(less th an 1/4 pack)/day in last 30 days; Tobacco use per day: 2 cigarettes daily; entered on: 01/31/20 Sex
--- OUTSIDE RECORDS SUMMARY | 2022-08-16 09:01 | XMS_ITS | Continuity of Care Document ---
:1999 Author Organization [facility] Address [address] [place] [address] Care Team Providers Name Role Phone Vipul VIGIL,Che Primary Care Physician Encounter BVT Date(s): 12/25/19 - 12/25/19 [facility] [address] [place] [address] Encounter Diagnosis Hypokalemia (Discharge Diagnosis) - 12/25/19 Leucocytosis (Discharge Diagnosis) - 12/25/19 Hospital discharge follow-up (Discharge Diagnosis) - 12/25/19 Discharge Disposition: Home or Self Care Attending Physician: CHE RG Allergies, Adverse Reactions, Alerts No Known Allergies Assessment and Plan Extracted from: Title: Office Visit Note TCM Author: Che Finley Date: 12/25/19 1.??Leucocytosis??D72.829 ??Will repeat cbc Ordered: CBC w/Diff Standard ?? 2.??Hypokalemia??E87.6 ??Recheck bmp though potassium had norm alized by the time of hospital discharge. Ordered: Basic Metabolic Panel Standard ?? 3.??Hospital discharge follow-up??Z09 ??All symptoms have resolved and she fe els entirely well. ?? Future Appointments Medications amitriptyline 50 mg oral tablet 50 mg = 1 tab(s), Oral, Once a day (at bedtime) Start Date: 12/11/19 Status: Orderedescitalopram 10 mg oral tablet 10 mg = 1 tab(s), Oral, Daily Start Date: 12/11/19 Status: Orderedondansetron 4 mg oral tablet 4 mg = 1 tab(s), Oral, q8hr, PRN PRN for nausea/vomiting, # 30 tab(s), 0 Refill(s), Pharmacy: [facility] #[id number], 1 tab(s) Oral q8hr,PRN:for nausea/vomiting Start Date: 12/11/19 Status: Orderedpotassium chloride 20 mEq, Oral, Daily Start Date: 12/10/19 Status: Ordered Problem List Condition Effective Dates Status Health Status Informant Cyclic vomiting syndrome(Confirmed) Active Dizziness(Confirmed) Active AKASH (generalized anxiety Active disorder)(Confirmed) Migraine(Confirmed) Active Nausea & vomiting(Confirmed) Active Vital Signs Most recent to oldest [Reference Range]: 1 Temperature Oral [35.8-37.3 DegC] 36.8 DegC (12/25/19 11:16 AM) Peripheral Pulse Rate [60-100 bpm] 98 bpm (12/25/19 11:16 AM) Respiratory Rate [14-20 br/min] 16 br/min (12/25/19 11:16 AM) Blood Pressure [90-140/60-90 mmHg] 120/72 mmHg (12/25/19 11:16 AM) BP Site Right arm (12/25/19 11:16 AM) Pulse Site Pulse Oximetry (12/25/19 11:16 AM) SpO2 [92-100 %] 96 % (12/25/19 11:16 AM) Height 160 cm (12/25/19 11:16 AM) Height/Length Measured (inches) 63 in (12/25/19 11:16 AM) Weight 94.2 kg (12/25/19 11:16 AM) Weight Measured (lbs) 207.24 lb (12/25/19 11:16 AM) BSA Measured 2.05 m2 (12/25/19 11:16 AM) Body Mass Index 36.8 kg/m2 (12/25/19 11:16 AM) Social History Social History Type Response Smoking Status 4 or less cigarettes(less th an 1/4 pack)/day in last 30 days; Tobacco use per day: 2 cigarettes daily; entered on: 12/10/19 Sex
--- OUTSIDE RECORDS SUMMARY | 2022-08-16 09:01 | XMS_ITS | Continuity of Care Document ---
:1999 Author Organization [facility] Address [address] [place] [phone]- Care Team Providers Name Role Phone Vipul VIGIL,Jr Primary Care Physician Encounter BVT Date(s): 12/25/19 - 12/25/[address] [address]- Discharge Disposition: Home or Self Care Attending Physician: Jr Finley Admitting Physician: Jr Finley Allergies, Adverse Reactions, Alerts No Known Allergies [...] nausea/vomiting, # 30 tab(s), 0 Refill(s), Pharmacy: [facility] #[id number], 1 tab(s) Oral q8hr,PRN:for nausea/vomiting Start Date: 12/11/19 Status: Orderedpotassium chloride 20 mEq, Oral, Daily Start Date: 12/10/19 Status: Ordered Problem List Condition Effective Dates Status Health Status Informant Cyclic vomiting syndrome(Confirmed) Active Dizziness(Confirmed) Active AKASH (generalized anxiety Active disorder)(Confirmed) Migraine(Confirmed) Active Nausea & vomiting(Confirmed) Active Results Laboratory List Name Date Automated Differential Standard 12/25/19 Basic Metabolic Panel Standard (BMP Standard) 12/25/19 CBC w/Diff Standard 12/25/19 Most recent to oldest [Reference Range]: 1 NRBC Auto Pct [0.00-0.20 %] 0.00 % (12/25/19 12:10 PM) Creatinine [0.50-0.90 mg/dL] 0.58 mg/dL (12/25/19 12:10 PM) AGAP [10.0-18.0 mmol/L] 17.9 mmol/L (12/25/19 12:10 PM) Glucose Lvl [70-100 mg/dL] 94 mg/dL (12/25/19 12:10 PM) Hct [34.1-44.9 %] 41.6 % (12/25/19 12:10 PM) Hgb [11.5-15.7 gm/dL] 13.0 gm/dL (12/25/19 12:10 PM) Lymph Auto [15.0-45.0 %] 28.2 % (12/25/19 12:10 PM) MCH [25.6-32.2 pg] 24.4 pg *LOW* (12/25/19 12:10 PM) MCHC [32.3-36.5 gm/dL] 31.3 gm/dL *LOW* (12/25/19 12:10 PM) MCV [79.4-94.8 fL] 78.2 fL *LOW* (12/25/19 12:10 PM) Bond Auto [4.0-14.0 %] 8.4 % (12/25/19 12:10 PM) MPV [9.4-12.4 fL] 9.4 fL (12/25/19 12:10 PM) Neutro Auto [50.0-75.0 %] 60.1 % (12/25/19 12:10 PM) Osmolality [268.0-291.0 mOsm/kg] 272.7 mOsm/kg (12/25/19 12:10 PM) Platelet [150-400 x10(3)/uL] 374 x10(3)/uL (12/25/19 12:10 PM) RBC [3.93-5.22 x10(6)/uL] 5.32 x10(6)/uL *HI* (12/25/19 12:10 PM) Sodium Lvl [136-145 mmol/L] 138 mmol/L (12/25/19 12:10 PM) Basophil Auto [0.0-2.0 %] 0.8 % (12/25/19 12:10 PM) CO2 [22-29 mmol/L] 22 mmol/L (12/25/19 12:10 PM) Eos Auto [0.0-8.0 %] 2.0 % (12/25/19 12:10 PM) WBC [4.0-10.0 x10(3)/uL] 11.2 x10(3)/uL *HI* (12/25/19 12:10 PM) BUN [6-23 mg/dL] 5 mg/dL *LOW* (12/25/19 PM) Calcium Lvl [8.6-10.2 mg/dL] 9.1 mg/dL (12/25/19 12:10 PM) Chloride [98-107 mmol/L] 102 mmol/L (12/25/19:10 PM) Potassium Lvl [3.5-5.1 mmol/L] 3.9 mmol/L (12/25/19 12:10 PM) Lymph Absolute [1.20-3.70 x10(3)/uL] 3.17 x10(3)/uL (12/25/19 12:10 PM) Bond Absolute [0.20-0.40 x10(3)/uL] 0.95 x10(3)/uL *HI* (12/25/19 12:10 PM) Eos Absolute [0.04-0.54 x10(3)/uL] 0.23 x10(3)/uL (12/25/19 12:10 PM) NRBC Absolute [0.00-0.01 x10(3)/uL] 0.00 x10(3)/uL (12/25/19 12:10 PM) Neutro Absolute [1.56-6.13 x10(3)/uL] 6.75 x10(3)/uL *HI* (12/25/19 12:10 PM) RDW-CV [11.7-14.4 %] 16.5 % *HI* (12/25/19 12:10 PM) GFR >60 mL/min/1.73 m2 *NA* (12/25/19 12:10 PM) GFR NonAfrican [place] >60 mL/min/1.73 m2 *NA* (12/25/19 12:10 PM) Immature Gran % [0.00-2.30 %] 0.50 % (12/25/19 12:10 PM) Immature Gran Absolute 0.06 x10(3)/uL *NA* (12/25/19 12:10 PM) Basophil Absolute [0.00-0.10 x10(3)/uL] 0.09 x10(3)/uL (12/25/19 12:10 PM) Social History Social History Type Response Smoking Status 4 or less cigarettes(less th an 1/4 pack)/day in last 30 days; Tobacco use per day: 2 cigarettes daily; entered on: 12/10/19 Sex
--- OUTSIDE RECORDS SUMMARY | 2022-08-16 09:01 | XMS_ITS | Continuity of Care Document ---
:1999 Author Organization [facility] Address [address] [place] [address] Care Team Providers Name Role Phone Vipul VIGIL,Che Primary Care Physician Encounter BVT Date(s): 09/20/19 - 09/20/19 [facility] [address] [facility] [address] Encounter Diagnosis Hospital discharge follow-up (Discharge Diagnosis) - 09/20/19 Discharge Disposition: Home or Self Care Attending Physician: CHE RG Allergies, Adverse Reactions, Alerts No Known Allergies Assessment and Plan Extracted from: Title: Office Visit Note ED f/u Author: Che Finley Date: 09/20/19 1.??Hospital discharge follow-up??Z09 ??All symptoms have resolved with pt lester newman within her normal state of health. Medications amitriptyline Oral, Once a day (at [...] Once, # 15 tab(s), 0 Refill(s), Pharmacy: [id number], 1 tab(s) Oral Once Start Date: 12/20/17 Status: Ordered Problem List Condition Effective Dates Status Health Status Informant Dizziness(Confirmed) Active Nausea & vomiting(Confirmed) Active Vital Signs Most recent to oldest [Reference Range]: 1 Apical Heart Rate [60-100 bpm] 102 bpm *HI* (09/20/19 1:58 PM) Blood Pressure [90-140/60-90 mmHg] 118/64 mmHg (09/20/19 1:58 PM) SpO2 [92-100 %] 98 % (09/20/19 1:58 PM) Height 160 cm (09/20/19 1:58 PM) Height/Length Measured (inches) 63 in (09/20/19 1:58 PM) Weight 94.07 kg (09/20/19 1:58 PM) Weight Measured (lbs) 206.954 lb (09/20/19 1:58 PM) BSA Measured 2.04 m2 (09/20/19 1:58 PM) Body Mass Index 36.75 kg/m2 (09/20/19 1:58 PM) Social History Social History Type Response Smoking Status 5-9 cigarettes (between 1/4 to 1/2 pack)/day in last 30 days entered on: 08/09/19 Sex
--- NOTE | 2022-08-16 09:05 | ED.NAVMDI ---
HPI - Nausea/Vomiting/Diarrhea General Chief complaint: Nausea/Vomiting/Diarrhea Stated complaint: nauseous Time Seen by Provider: 08/16/22 09:00 Source: patient, family and old records reviewed Mode of arrival: ambulatory Limitations: no limitations History of Present Illness MD elicited complaint: nausea, vomiting and abdominal pain Pertinent past history: cyclical vomiting Onset (ago): day(s) (4) Description of vomiting: watery Associated nausea: Yes Associated abdominal pain: Yes Location of pain: diffuse Radiation: diffuse Pain consistency: constant Severity: severe Quality: stabbing Exacerbating factors: eating Relieving factors: none Context: marijuana use and other (frequent episodes of same) Associated symptoms: loss of appetite, malaise and nausea/vomiting Treatment prior to arrival: other (zofran) Related Data Home Medications Medication Instructions Recorded Confirmed amitriptyline 75 mg tablet 1 tab PO BEDTIME 04/17/22 06/28/22 omeprazole 20 mg capsule,delayed 20 mg PO BID@0630,1630 04/17/22 06/28/22 release Previous Rx's Medication Instructions Recorded ondansetron 4 mg disintegrating 4 mg PO Q6-8H PRN nausea and 06/28/22 tablet vomiting #14 tabs promethazine 25 mg rectal 25 mg UT Q6H PRN nausea and 06/28/22 suppository (Promethegan) vomiting #12 ea Allergies Allergy/AdvReac Type Severity Reaction Status Date / Time No Known Allergies Allergy Verified 01/16/22 15:55 Review of Systems Review of Systems: Constitutional : No Weight loss, No Fever, No Chills ENT/Mouth : No sore throat, No Rhinorrhea Eyes: No Swelling, No Redness Cardiovascular : No Chest Pain, No SOB, NoEdema Respiratory : No Cough, No Sputum, No Wheezing Gastrointestinal : Positive Nausea, Positive Vomiting, no Diarrhea, positive abdominal Pain, No Hematochezia, No Melena Genitourinary : No Dysuria, No Urinary Frequency, No Hematuria, No Urgency Musculoskeletal : No joint pain, No Myalgias, No Joint Swelling Skin : No Skin Lesions, No rash Neuro : No Weakness, No Numbness, No Dizziness, No Headache Psych : No Anxiety/Panic, No Depression Heme/Lymph: No Bruising, No Lymphadenopathy Endocrine : No Polyuria, No Polydipsia All other systems reviewed and are negative. Gastrointestinal: Gastrointestinal: Reports nausea PMFSH Past Medical History Attestation statement: The following information was validated with the patient. Medical History Anxiety Cyclical vomiting Seizure Social History Social History Alcohol intake: unknown Patient Tobacco Use Status: Never used Tobacco Substance Use Type: Marijuana Advance Directives: No service: No Current occupational status: unemployed Physical Exam Vital Signs: Vital Signs: Last Vital Signs Temp 97.4 F 08/16/22 08:33 Pulse 99 08/16/22 08:33 Resp 18 08/16/22 08:33 BP 136/97 H 08/16/22 08:33 Pulse Ox 98 08/16/22 08:33 O2 Del Method 08/16/22 08:33 BMI result Body Mass Index 34.0 Appearance: Alert. Oriented X3. anxiety, writhing around mild acute distress. Eyes: Pupils equal, round and reactive to light. ENT: Pharynx mild dry MM Neck: Normal inspection. Neck supple. CVS: Normal heart rate and rhythm. Pulses normal. Respiratory: No respiratory distress. Breath sounds normal. Abdomen: Soft and diffuse ttp no rebound Skin: Skin warm and dry. pale skin color. Normal skin turgor. Extremities: No lower extremity edema. No calf ttp Neuro: Oriented X 3. No motor deficit. No sensory deficit. Course Course Course Narrative: WBC chronic due to emesis now SI, threatening to harm herself, IV versed for anxiety ordered, medically cleared at this time will refer to N Physician observation started at 108pm Patient placed in physician observation because the patient needed more time for N to assess the need for psych admission. At the time observation was started the patient's vitals were stable, patient is alert and oriented but slightly agitated, Neuro: nonfocal, CV RRR, Lungs clear now hitting herself attempting to strangle herself cannot be redirected will give IM zyprexa and versed MDM - Nausea/Vomiting/Diarrhea MDM Narrative Medical decision making narrative: 22 yo female well known to us with hx of cyclical vomiting, anxiety / depression here with 4 days of typical bout of n/v states this is typical of her cyclical vomiting denies SI today. At this time will obtain labs, hydrate, medications and reassess. Dispo per results and clinical improvement. Lab Data Result diagrams: 08/16/22 09:22 08/16/22 09:22 Labs: Lab Results 08/16/22 08/16/22 08/16/22 Range/Units 09:22 09:22 09:22 WBC 23.2 H (4.8-10.8) X10*3/uL RBC 5.30 (4.20-5.50) X10*6/uL Hgb 14.2 (12.0-16.0) g/dl Hct 42.1 (37.0-47.0) % MCV 79.4 L (80.0-98.0) fL MCH 26.8 L (27.0-33.0) pg MCHC 33.7 (31.0-35.0) g/dl RDW 14.2 (11.0-16.0) % Plt Count 457 H (160-400) X10*3/uL MPV 9.9 (9.4-12.3) fL Immature Gran % (Auto) 0.5 H (0.0-0.4) % Neut % (Auto) 82.2 H (45-73) % Lymph % (Auto) 11.0 L (20-40) % [place] % (Auto) 5.6 (2-11) % Eos % (Auto) 0.3 (0-4) % Baso % (Auto) 0.4 (0-2) % Lymph # (Auto) 2.6 (1.2-4.9) X10*3/uL [place] # (Auto) 1.3 H (0.1-1.2) X10*3/uL Eos # (Auto) 0.1 (0.0-0.4) X10*3/uL Baso # (Auto) 0.1 (0.0-0.2) X10*3/uL Abs Immat Gran (auto) 0.12 H (0.00-0.03) X10*3/uL Absolute Neuts (auto) 19.1 H (2.0-8.3) x10*3/uL Absolute Nucleated RBC 0.000 (0.0-0.012) X10*3/uL Nucleated RBC % (auto) 0.0 (0.0-0.2) /100WBC Sodium 138 (135-145) mmol/L Potassium 3.6 (3.3-5.1) mmol/L Chloride 101 (96-108) mmol/L Carbon Dioxide 20 L (22-29) mmol/L Anion Gap 21 H (12-20) BUN 10 (9-16) mg/dL Creatinine 0.71 (0.5-1.4) mg/dL Estim Creat Clear Calc 119.3 Estimated GFR > 60 Random Glucose 183 H (60-115) mg/dL Calcium 10.1 D (8.4-10.2) mg/dL Magnesium 1.7 (1.6-2.6) mg/dL Total Bilirubin 2.0 H (0.0-1.0) mg/dL Direct Bilirubin 0.5 (0.0-0.5) mg/dL AST 18 (5-31) U/L ALT 13 (0-31) U/L Alkaline Phosphatase 86 (39-117) U/L Total Protein 8.2 H (6.5-8.0) g/dL Albumin 4.7 (3.5-5.0) g/dL Lipase 11 (8-78) U/L Beta HCG, Quant < 2 mIU/mL Urine Color Urine Appearance Urine pH (5.0-9.0) Ur Specific [place] (1.005-1.025) Urine Protein (Neg-Trace) mg/dL Urine Glucose (UA) (Negative) mg/dL Urine Ketones (Negative) mg/dL Urine Blood (Negative) Urine Nitrite (Negative) Ur Leukocyte Esterase (Negative) Urine RBC (0-2) /HPF Urine WBC (0-5) /HPF Ur Squamous Epith Cells (0-2) /HPF Urine Bacteria (None Seen) Hyaline Casts (0-2) /LPF Urine Opiates Screen (Not Detect) Urine Fentanyl Screen (Not Detect) Ur Barbiturates Screen (Not Detect) Ur Phencyclidine Scrn (Not Detect) Ur Amphetamines Screen (Not Detect) U Benzodiazepines Scrn (Not Detect) Urine Cocaine Screen (Not Detect) U Marijuana (THC) Screen (Not Detect) COVID-19 (ETHAN) Negative (Negative) COVID-19 Clin Com See Note 08/16/22 08/16/22 Range/Units 09:23 09:23 WBC (4.8-10.8) X10*3/uL RBC (4.20-5.50) X10*6/uL Hgb (12.0-16.0) g/dl Hct (37.0-47.0) % MCV (80.0-98.0) fL MCH (27.0-33.0) pg MCHC (31.0-35.0) g/dl RDW (11.0-16.0) % Plt Count (160-400) X10*3/uL MPV (9.4-12.3) fL Immature Gran % (Auto) (0.0-0.4) % Neut % (Auto) (45-73) % Lymph % (Auto) (20-40) % [place] % (Auto) (2-11) % Eos % (Auto) (0-4) % Baso % (Auto) (0-2) % Lymph # (Auto) (1.2-4.9) X10*3/uL [place] # (Auto) (0.1-1.2) X10*3/uL Eos # (Auto) (0.0-0.4) X10*3/uL Baso # (Auto) (0.0-0.2) X10*3/uL Abs Immat Gran (auto) (0.00-0.03) X10*3/uL Absolute Neuts (auto) (2.0-8.3) x10*3/uL Absolute Nucleated RBC (0.0-0.012) X10*3/uL Nucleated RBC % (auto) (0.0-0.2) /100WBC Sodium (135-145) mmol/L Potassium (3.3-5.1) mmol/L Chloride (96-108) mmol/L Carbon Dioxide (22-29) mmol/L Anion Gap (12-20) BUN (9-16) mg/dL Creatinine (0.5-1.4) mg/dL Estim Creat Clear Calc Estimated GFR Random Glucose (60-115) mg/dL Calcium (8.4-10.2) mg/dL Magnesium (1.6-2.6) mg/dL Total Bilirubin (0.0-1.0) mg/dL Direct Bilirubin (0.0-0.5) mg/dL AST (5-31) U/L ALT (0-31) U/L Alkaline Phosphatase (39-117) U/L Total Protein (6.5-8.0) g/dL Albumin (3.5-5.0) g/dL Lipase (8-78) U/L Beta HCG, Quant mIU/mL Urine Color Dark Yellow Urine Appearance Clear Urine pH 6.0 (5.0-9.0) Ur Specific [place] 1.025 (1.005-1.025) Urine Protein 30 (1+) H (Neg-Trace) mg/dL Urine Glucose (UA) Negative (Negative) mg/dL Urine Ketones 80 (Negative) mg/dL Urine Blood Negative (Negative) Urine Nitrite Negative (Negative) Ur Leukocyte Esterase Trace H (Negative) Urine RBC 0-2 (0-2) /HPF Urine WBC 0-5 (0-5) /HPF Ur Squamous Epith Cells 6-10 (0-2) /HPF Urine Bacteria Trace (None Seen) Hyaline Casts 0-2 (0-2) /LPF Urine Opiates Screen Not Detected (Not Detect) Urine Fentanyl Screen Not Detected (Not Detect) Ur Barbiturates Screen Not Detected (Not Detect) Ur Phencyclidine Scrn Not Detected (Not Detect) Ur Amphetamines Screen Not Detected (Not Detect) U Benzodiazepines Scrn Not Detected (Not Detect) Urine Cocaine Screen Not Detected (Not Detect) U Marijuana (THC) Screen POSITIVE H (Not Detect) COVID-19 (ETHAN) (Negative) COVID-19 Clin Com Discharge Plan Discharge Clinical Impression: Cyclical vomiting, Suicidal ideation Patient Disposition: Still a Patient Prescriptions: No Action promethazine [Promethegan] 25 mg suppository 25 mg UT Q6H PRN (Reason: nausea and vomiting) Qty: 12 0RF ondansetron 4 mg tablet,disintegrating 4 mg PO Q6-8H PRN (Reason: nausea and vomiting) Qty: 14 0RF amitriptyline 75 mg tablet 1 tab PO BEDTIME omeprazole 20 mg Capsule,Delayed Release(Dr/Ec) 20 mg PO BID@0630,1630
[2022-08-16] MEDS: 0.9 % Sodium Chloride 1,000 ML 999 ML IVCONT ×2 (09:17→10:14)
[2022-08-16] MEDS: diphenhydrAMINE HCL 50 MG/ML VIAL 25 MG IVPUSH (09:29)
[2022-08-16] MEDS: Midazolam HCl/PF 2 MG/2 ML VIAL 1 MG IVPUSH (09:30)
[2022-08-16] MEDS: Metoclopramide HCl 10 MG/2 ML VIAL IVPUSH (09:32)
[2022-08-16 09:39] LABS: MANUAL DIFF FLAG NO
[2022-08-16 09:43] LABS: Appearance Urine Clear; Color Urine Dark Yellow; Glucose Urine UA Negative (Negative); Leukocyte Esterase Urine Trace (Negative); Nitrite Urine Negative (Negative); Specific Gravity - Urine 1.025 (1.005-1.025); UMIC TRIGGER UACC YES; Urine Blood Negative (Negative); Urine Ketones 80 mg/dL (Negative); Urine Protein 30 (1+) mg/dL (Neg-Trace)
[2022-08-16 09:44] LABS: Basophils Absolute Auto 0.1 X10*3/uL (0.0-0.2); Basophils Percent Auto 0.4 % (0-2); Eosinophils Absolute Auto 0.1 X10*3/uL (0.0-0.4); Eosinophils Percent Auto 0.3 % (0-4); Hematocrit 42.1 % (37.0-47.0); Hemoglobin 14.2 g/dl (12.0-16.0); Imm Gran Abs Auto 0.12 X10*3/uL (0.00-0.03); Imm Gran Pct Auto 0.5 % (0.0-0.4); Lymphocytes Absolute Auto 2.6 X10*3/uL (1.2-4.9); Mean Corpuscular HGB Conc 33.7 g/dl (31.0-35.0); Mean Corpuscular Hemoglobin 26.8 pg (27.0-33.0); Mean Corpuscular Volume 79.4 fL (80.0-98.0); Mean Platelet Volume 9.9 fL (9.4-12.3); Monocytes Absolute Auto 1.3 X10*3/uL (0.1-1.2); Monocytes Percent Auto 5.6 % (2-11); Neutrophils Absolute Auto 19.1 x10*3/uL (2.0-8.3); Neutrophils Percent Auto 82.2 % (45-73); Platelet Count 457 X10*3/uL (160-400); Red Cell Distribution Width 14.2 % (11.0-16.0); White Blood Count 23.2 X10*3/uL (4.8-10.8)
[2022-08-16 09:46] LABS: Bacteria Urine Trace (None Seen); Hyaline Casts Urine 0-2 /LPF (0-2); RBC Urine 0-2 /HPF (0-2); WBC Urine 0-5 /HPF (0-5)
[2022-08-16 09:56] LABS: Amphetamine Screen Urine Not Detected (Not Detect); Barbiturates, Urine Not Detected (Not Detect); Benzodiazepines Screen Urine Not Detected (Not Detect); Cannabinoid Screen Urine POSITIVE (Not Detect); Cocaine Screen Urine Not Detected (Not Detect); Fentanyl, urine Not Detected (Not Detect); Opiate Screen Urine Not Detected (Not Detect); Phencyclidine Screen Urine Not Detected (Not Detect)
[2022-08-16 10:00] LABS: Alanine Aminotransferase 13 U/L (0-31); Albumin Level 4.7 g/dL (3.5-5.0); Alkaline Phosphatase 86 U/L (39-117); Anion Gap 21 (12-20); Aspartate Amino Transferase 18 U/L (5-31); Bilirubin Direct 0.5 mg/dL (0.0-0.5); Blood Urea Nitrogen 10 mg/dL (9-16); Calcium 10.1 mg/dL (8.4-10.2); Carbon Dioxide 20 mmol/L (22-29); Chloride 101 mmol/L (96-108); Creatinine Clr Calc Pharmacy 119.3; Estimated Glomerular Filt Rate > 60; Glucose Random 183 mg/dL (60-115); Lipase 11 U/L (8-78); Magnesium 1.7 mg/dL (1.6-2.6); Potassium 3.6 mmol/L (3.3-5.1); Sodium 138 mmol/L (135-145); Total Protein 8.2 g/dL (6.5-8.0)
[2022-08-16 10:01] LABS: COVID-19 Test Negative (Negative); IDNOW Serial# 9DD0AD1C
[2022-08-16 10:04] LABS: HCG Quantitative < 2 mIU/mL
--- NOTE | 2022-08-16 10:24 | PC.NURSE ---
PT reports nausea and vomiting for the last four days, new abd pain today. PT states pain is intermediate, rates pain 4/10. Non tender on palpation, positive bowels sounds in all quadrants.
[2022-08-16] MEDS: Haloperidol Lactate 5 MG/ML VIAL IM (12:09)
[2022-08-16] MEDS: Midazolam HCl/PF 2 MG/2 ML VIAL IVPUSH (13:10)
--- NOTE | 2022-08-16 13:15 | PC.NURSE ---
Addendum entered by Amaya Escobedo 08/16/22 13:28: PT yelling making SI statements. PT manager of change done with security. IV discontinued and escorted by security over to the pod. Father at bedside. Bedside report given to Debbie. Original Note: PT
[2022-08-16] MEDS: OLANZapine 10 MG VIAL IM (14:41)
[2022-08-16] MEDS: Midazolam HCl/PF 2 MG/2 ML VIAL IM (14:42)
--- NOTE | 2022-08-16 15:59 | PC.NURSE ---
client given IM's soone thereafter seemed less agitatd and engaged in less self harm.
[2022-08-16 21:48] VITALS: BP 156/86; PULSE 86; RESP 20; TEMP 37.3; O2SAT 98
--- NOTE | 2022-08-16 22:23 | MHC.CARE ---
Pt was seen by CARE team, plan is for inpt psych admission. Case will be reviewed with psychiatry in the morning.
[2022-08-16] MEDS: Ondansetron ODT 4 MG TAB.RAPDIS TRANSLINGU (23:18)
--- NOTE | 2022-08-16 23:21 | PC.NURSE ---
Patient continue to drink and vomiting everything back, holding her neck in a chocking position, Spoke to provider about her issues order for Zofran and Ativan was place. Zofran was given, continue on 1:1 for safety.
[2022-08-16] MEDS: LORazepam 1 MG TABLET PO (23:31)
--- NOTE | 2022-08-16 23:34 | PC.NURSE ---
Patient able to tolerated Zofran well, she was anxious, ativan po given. 1:1 continue for safety.
[2022-08-17 01:28] VITALS: BP 157/99; PULSE 100; RESP 16; TEMP 37.2; O2SAT 96
[2022-08-17] MEDS: Omeprazole 20 MG CAPSULE.DR PO ×2 (01:36→08:29)
--- NOTE | 2022-08-17 01:39 | PC.NURSE ---
Patient was up C/O acid in her stomach . spoke to provider, he order Prilosec now. medication was given. Will continue on 1:1 for safety.
[2022-08-17] MEDS: LORazepam 1 MG TABLET PO ×3 (02:01→08:29)
--- NOTE | 2022-08-17 02:06 | PC.NURSE ---
Patient awake, anxious requesting medication for this, Ativan po given.Continue on 1:1 for safety.
--- NOTE | 2022-08-17 04:58 | PC.NURSE ---
Patient awake feeling anxious, tired to drink some thomas carl but not able to keep anything down, Ativan po given.continue on 1:1 for safety. Will continue to monitor.
[2022-08-17] MEDS: Prochlorperazine Maleate 5 MG TABLET 10 MG PO (05:48)
--- NOTE | 2022-08-17 06:30 | PC.NURSE ---
Patient sleeping comfortably, compazine not given. She continue on 1:1 for safety, staff by her side. Will continue to monitor.
[2022-08-17] MEDS: Prochlorperazine Edisylate 10 MG/2 ML VIAL IM (09:44)
--- NOTE | 2022-08-17 10:13 | P.CNPS_ITS ---
History of Present Illness Date of Service: 08/17/2022 Chief Complaint: nauseous Reason for Consult: SI Discussed with referring provider: Yes Additional Sources of Information: mother at bedside HPI Narrative: Ms. Aquino is a 22 year-old woman of cannabis and cocaine use, Known to ED through several ED visits due to hyperemesis. Pt self presented this morning with episode of hyperemesis which has now resolved. while receiving medical treatment, pt expressed suicidal ideation. She was tearful when assessed by care team and initial disposicion was inpt psych. However, pt later reported she is not at risk of self harm, that she is anxious and gets very overwhelmed when having hyperemesis episodes and it was in this context that she reported SI. Her mother was by her side who reports pt has hx of depression, trauma per previous records. Pt reports she is on wait list to see outpatient therapist and psychiatrists. BOth mother and pt denied any safety concerns and agreed to follow up with OP providers. Past Psychiatric History: History of treatment in [place]. States that she had a psychiatric provider and therapist. Denies IPLOC, PHP. Past trials: lexapro Medical Evaluation Reviewed: Yes [facility] Medical History Anxiety Cyclical vomiting Seizure Diagnostics Vital Signs (24Hr): Vital Signs - 24 hr 08/16/22 21:48 08/17/22 01:28 08/17/22 10:56 Temperature 99.1 F 98.9 F Pulse Rate 86 100 Respiratory Rate 20 16 16 Blood Pressure 156/86 H 157/99 H Pulse Oximetry 98 96 Oxygen Delivery Method Room Air Room Air BMI result Body Mass Index 34.0 Labs Results: 08/16/22 09:22 08/16/22 09:22 Labs: Laboratory Results - last 48 hr 08/16/22 08/16/22 08/16/22 09:22 09:22 09:22 WBC 23.2 H RBC 5.30 Hgb 14.2 Hct 42.1 MCV 79.4 L MCH 26.8 L MCHC 33.7 RDW 14.2 Plt Count 457 H MPV 9.9 Immature Gran % (Auto) 0.5 H Neut % (Auto) 82.2 H Lymph % (Auto) 11.0 L [place] % (Auto) 5.6 Eos % (Auto) 0.3 Baso % (Auto) 0.4 Lymph # (Auto) 2.6 [place] # (Auto) 1.3 H Eos # (Auto) 0.1 Baso # (Auto) 0.1 Abs Immat Gran (auto) 0.12 H Absolute Neuts (auto) 19.1 H Absolute Nucleated RBC 0.000 Nucleated RBC % (auto) 0.0 Sodium 138 Potassium 3.6 Chloride 101 Carbon Dioxide 20 L Anion Gap 21 H BUN 10 Creatinine 0.71 Estim Creat Clear Calc 119.3 Estimated GFR > 60 Random Glucose 183 H Calcium 10.1 D Magnesium 1.7 Total Bilirubin 2.0 H Direct Bilirubin 0.5 AST 18 ALT 13 Alkaline Phosphatase 86 Total Protein 8.2 H Albumin 4.7 Lipase 11 Beta HCG, Quant < 2 Urine Color Urine Appearance Urine pH Ur Specific [place] Urine Protein Urine Glucose (UA) Urine Ketones Urine Blood Urine Nitrite Ur Leukocyte Esterase Urine RBC Urine WBC Ur Squamous Epith Cells Urine Bacteria Hyaline Casts Urine Opiates Screen Urine Fentanyl Screen Ur Barbiturates Screen Ur Phencyclidine Scrn Ur Amphetamines Screen U Benzodiazepines Scrn Urine Cocaine Screen U Marijuana (THC) Screen COVID-19 (ETHAN) Negative COVID-19 Clin Com See Note 08/16/22 08/16/22 09:23 09:23 WBC RBC Hgb Hct MCV MCH MCHC RDW Plt Count MPV Immature Gran % (Auto) Neut % (Auto) Lymph % (Auto) [place] % (Auto) Eos % (Auto) Baso % (Auto) Lymph # (Auto) [place] # (Auto) Eos # (Auto) Baso # (Auto) Abs Immat Gran (auto) Absolute Neuts (auto) Absolute Nucleated RBC Nucleated RBC % (auto) Sodium Potassium Chloride Carbon Dioxide Anion Gap BUN Creatinine Estim Creat Clear Calc Estimated GFR Random Glucose Calcium Magnesium Total Bilirubin Direct Bilirubin AST ALT Alkaline Phosphatase Total Protein Albumin Lipase Beta HCG, Quant Urine Color Dark Yellow Urine Appearance Clear Urine pH 6.0 Ur Specific [place] 1.025 Urine Protein 30 (1+) H Urine Glucose (UA) Negative Urine Ketones 80 Urine Blood Negative Urine Nitrite Negative Ur Leukocyte Esterase Trace H Urine RBC 0-2 Urine WBC 0-5 Ur Squamous Epith Cells 6-10 Urine Bacteria Trace Hyaline Casts 0-2 Urine Opiates Screen Not Detected Urine Fentanyl Screen Not Detected Ur Barbiturates Screen Not Detected Ur Phencyclidine Scrn Not Detected Ur Amphetamines Screen Not Detected U Benzodiazepines Scrn Not Detected Urine Cocaine Screen Not Detected U Marijuana (THC) Screen POSITIVE H COVID-19 (ETHAN) COVID-19 Clin Com Medications Medications Current Medications Lorazepam (Lorazepam 1 Mg Tablet) 1 mg PO Q4H PRN PRN Reason: Anxiety, agitation Last Admin: 08/17/22 08:29 Dose: 1 mg Omeprazole (Omeprazole 20 Mg Capsule.Dr) 20 mg PO DAILY SHABBIR Last Admin: 08/17/22 08:29 Dose: 20 mg Allergies Allergies Allergy/AdvReac Type Severity Reaction Status Date / Time No Known Allergies Allergy Verified 01/16/22 15:55 Assessment & Plan Assessment & Plan (1) MDD (major depressive disorder), recurrent episode, moderate: Status: Acute Code(s): F33.1 - Major depressive disorder, recurrent, moderate Plan Ms. Aquino is a 22 year-old woman with hx of cannabis and cocaine use. She also has hx of trauma and MDD. She is known to ED through several visits s/s to hyperemesis. Pt reported SI in context of feeling distressed and overwhelmed by emesis episode now resolved. Pt's utox positive for cannabinods. Pt and mother report pt has hx of MDD but denied any imminent safety concern and agree to follow up with OP psych tx. Pt provided list of mental health agencies in the area. \ PLAN 1. No imminent risk of harm to self or others to required inpatient psych level of care. Pt can be discharged home with mother who agrees with discpoision and denies any safety concerns at time of discharged. 2. Pt to follow up with OP care. I spent minutes with the patient and/or on the patient floor today, greater than?50% of which was spent counseling/coordinating care.
[2022-08-17 10:56] VITALS: RESP 16
--- NOTE | 2022-08-17 11:58 | MHC.RECOVRN ---
T/W met w/ pt, pt awake, sitting on bed. T/W and pt discussed harm reduction strategies related to Cannabis use. Pt reports only smokes cannabis flower, purchased from [facility]. Pt reports cannabis is THC strain. Pt reports has had success with decreasing use and then quitting in the past. Pt states plans to decrease over a period of time, then stop. Pt reports nausea, vomitting does not happen with Cannabis use, happens more regularly when not smoking cannabis. Discussed safer use strategies. Pt verbalized understanding. Care Team aware.
== END 2022-08-17 13:28 | disposition home or self-care (01) ==
PROVIDERS: Emergency Medicine; Emergency Provider Emergency Medicine Emergency Medical Services; PCP Nurse Practitioner Family
DX: F33.1 Major depressive disorder, recurrent, moderate (principal); R45.851 Suicidal ideations; R11.15 Cyclical vomiting syndrome unrelated to migraine; R11.2 Nausea with vomiting, unspecified; Z20.822 Contact with and (suspected) exposure to COVID-19; Z79.899 Other long term (current) drug therapy
CPT/HCPCS: 80048; 80076; 80307; 81001; 83690; 83735; 84702; 85025; 87635; 96361; 96372; 96374; 96375; 96376; 99284; 99285; J1200; J2250; J2765

== ENCOUNTER 2022-08-18 12:17 | Emergency (ER) | payer MEDICAID, SELFPAY ==
[2022-08-18 12:32] VITALS: BP 152/102; PULSE 96; RESP 20; TEMP 36.1; O2SAT 100; BMI 30.8
[2022-08-18] MEDS: Ondansetron ODT 4 MG TAB.RAPDIS TRANSLINGU (12:37)
[2022-08-18 12:46] LABS: MANUAL DIFF FLAG NO
[2022-08-18 12:47] LABS: Basophils Absolute Auto 0.1 X10*3/uL (0.0-0.2); Basophils Percent Auto 0.3 % (0-2); Hematocrit 45.5 % (37.0-47.0); Hemoglobin 15.4 g/dl (12.0-16.0); Imm Gran Abs Auto 0.09 X10*3/uL (0.00-0.03); Imm Gran Pct Auto 0.4 % (0.0-0.4); Lymphocytes Absolute Auto 2.2 X10*3/uL (1.2-4.9); Lymphocytes Percent Auto 10.9 % (20-40); Mean Corpuscular HGB Conc 33.8 g/dl (31.0-35.0); Mean Corpuscular Hemoglobin 27.2 pg (27.0-33.0); Mean Corpuscular Volume 80.2 fL (80.0-98.0); Mean Platelet Volume 9.7 fL (9.4-12.3); Monocytes Absolute Auto 1.1 X10*3/uL (0.1-1.2); Monocytes Percent Auto 5.4 % (2-11); Neutrophils Absolute Auto 17.1 x10*3/uL (2.0-8.3); Platelet Count 429 X10*3/uL (160-400); Red Blood Count 5.67 X10*6/uL (4.20-5.50); Red Cell Distribution Width 14.3 % (11.0-16.0); White Blood Count 20.6 X10*3/uL (4.8-10.8)
[2022-08-18 13:07] LABS: Alanine Aminotransferase 16 U/L (0-31); Alkaline Phosphatase 86 U/L (39-117); Anion Gap 19 (12-20); Aspartate Amino Transferase 24 U/L (5-31); Bilirubin Direct 0.5 mg/dL (0.0-0.5); Bilirubin Total 1.6 mg/dL (0.0-1.0); Blood Urea Nitrogen 10 mg/dL (9-16); Calcium 10.2 mg/dL (8.4-10.2); Carbon Dioxide 25 mmol/L (22-29); Chloride 97 mmol/L (96-108); Creatinine Clr Calc Pharmacy 122.7; Estimated Glomerular Filt Rate > 60; Glucose Random 141 mg/dL (60-115); Lipase 9 U/L (8-78); Potassium 3.5 mmol/L (3.3-5.1); Sodium 137 mmol/L (135-145); Total Protein 8.7 g/dL (6.5-8.0)
== END 2022-08-18 20:57 | disposition left against medical advice (07) ==
PROVIDERS: Emergency Provider Emergency Medicine
DX: R10.9 Unspecified abdominal pain (principal); R11.10 Vomiting, unspecified; F12.90 Cannabis use, unspecified, uncomplicated
CPT/HCPCS: 36415; 80048; 80076; 83690; 85025; 99281; 99283

== ENCOUNTER 2022-08-19 03:31 | Emergency (ER) | payer MEDICAID, SELFPAY ==
[2022-08-19 03:54] VITALS: BP 155/93; PULSE 121; RESP 40; TEMP 36.3; O2SAT 98; BMI 30.8
[2022-08-19 03:59] VITALS: BP 121/69; PULSE 119; RESP 29; TEMP 37.1; O2SAT 100
[2022-08-19 04:37] VITALS: RESP 18
--- NOTE | 2022-08-19 04:43 | ED.NAVMDI ---
HPI - Nausea/Vomiting/Diarrhea General Chief complaint: Anxiety Stated complaint: n/v, SoB Time Seen by Provider: 08/19/22 04:38 Source: patient Mode of arrival: ambulatory History of Present Illness HPI Narrative: Patient history of cyclic vomiting syndrome with anxiety been vomiting with increased anxiety 5 days ago got worse in last 2 days similar to that in the past once a month she gets episodes complaining of diffuse upper abdominal pain no fever no chills no diarrhea Related Data Previous Rx's Medication Instructions Recorded lorazepam 1 mg tablet (Ativan) 1 mg PO BID PRN anxiety #20 tabs 08/19/22 ondansetron 4 mg disintegrating 4 mg PO Q6-8H PRN nausea and 08/19/22 tablet vomiting #14 tabs Allergies Allergy/AdvReac Type Severity Reaction Status Date / Time No Known Allergies Allergy Verified 01/16/22 15:55 Review of Systems Review of Systems: Yes all other systems are reviewed and are negative PMFSH Past Medical History Medical History Anxiety Cyclical vomiting Seizure Social History Social History Alcohol intake: unknown Patient Tobacco Use Status: Never used Tobacco Substance Use Type: Marijuana Advance Directives: No service: No Current occupational status: unemployed Physical Exam Vital Signs: Vital Signs: Last Vital Signs Temp 98.8 F 08/19/22 03:59 Pulse 105 H 08/19/22 06:00 Resp 14 08/19/22 06:00 BP 137/85 08/19/22 06:00 Pulse Ox 100 08/19/22 06:00 O2 Del Method 08/19/22 06:00 BMI result Body Mass Index 30.8 Appearance: Alert. Oriented X3. No acute distress. Anxious Eyes: PERRLA, No Nystagmus ENT: Pharynx normal. Oral Mucosa moist Neck: Normal inspection. Neck supple. CVS: Normal heart rate and rhythm. Pulses normal. Respiratory: No respiratory distress. Equal air entry bilateral, no wheezing/rales/rhonchi Abdomen: Soft, diffuse upper abdominal tenderness no rebound tenderness or guarding Bowel sounds are present, no mass palpable, no CVA tenderness Skin: Skin warm and dry. Normal skin color. Normal skin turgor. Extremities: No lower extremity edema. No calf tenderness Neuro: Oriented X 3. No motor deficit. No sensory deficit.No cerebellar signs , cranial nerves II-XII intact MDM - Nausea/Vomiting/Diarrhea MDM Narrative Medical decision making narrative: Patient was seen here on 08/16 for same receive IV fluids and Ativan feeling much better now will discharge patient home patient able to take p.o. fluids Lab Data Attestation: I reviewed the patient's lab results. Discharge Plan Discharge Clinical Impression: Intractable cyclical vomiting with nausea Patient Disposition: Home, Self-Care Instructions: Acute Nausea and Vomiting (ED) Additional Instructions: Drink plenty of fluids take anxiety medication as prescribed along with nausea medication Prescriptions: New lorazepam [Ativan] 1 mg tablet 1 mg PO BID PRN (Reason: anxiety) Qty: 20 0RF ondansetron 4 mg tablet,disintegrating 4 mg PO Q6-8H PRN (Reason: nausea and vomiting) Qty: 14 0RF Interventions: ED Discharge Assessment Last Done: 08/19/22 06:46 Discharge Date/Time: 08/19/22 06:51
[2022-08-19] MEDS: 0.9 % Sodium Chloride 1,000 ML 999 ML IV ×2 (04:56)
[2022-08-19] MEDS: Prochlorperazine Edisylate 10 MG/2 ML VIAL IVPUSH (05:08)
[2022-08-19] MEDS: Midazolam HCl/PF 2 MG/2 ML VIAL 1 MG IVPUSH (05:09)
[2022-08-19 06:00] VITALS: BP 137/85; PULSE 105; RESP 14; O2SAT 100
--- NOTE | 2022-08-19 14:32 | ECG_ITS ---
Test Reason : SOB Blood Pressure : / mmHG Vent. Rate : 114 BPM Atrial Rate : 114 BPM P-R Int : 116 ms QRS Dur : 084 ms QT Int : 332 ms P-R-T Axes : 065 082 -15 degrees QTc Int : 457 ms Sinus tachycardia Cannot rule out Inferior infarct (cited on or before 16-APR-2022) Abnormal ECG When compared with ECG of 01-JUN-2022 14:35, Heart rate has increased Referred By: Rocael Renee Electronically Signed By:CHE ARANDA
== END 2022-08-19 06:51 | disposition home or self-care (01) ==
PROVIDERS: Emergency Provider Internal Medicine
DX: R11.15 Cyclical vomiting syndrome unrelated to migraine (principal); R06.02 Shortness of breath; F12.90 Cannabis use, unspecified, uncomplicated; F41.1 Generalized anxiety disorder; F43.0 Acute stress reaction; Z79.899 Other long term (current) drug therapy
CPT/HCPCS: 93005; 96361; 96374; 96375; 99284; J2250

== ENCOUNTER 2022-10-18 13:06 | Outpatient (REF) | payer OTHER, SELFPAY ==
[2022-10-18 15:44] LABS: Hematocrit 41.1 % (37.0-47.0); Hemoglobin 13.6 g/dl (12.0-16.0); Mean Corpuscular HGB Conc 33.1 g/dl (31.0-35.0); Mean Corpuscular Hemoglobin 27.1 pg (27.0-33.0); Mean Platelet Volume 10.1 fL (9.4-12.3); Platelet Count 350 X10*3/uL (160-400); Red Blood Count 5.01 X10*6/uL (4.20-5.50); Red Cell Distribution Width 13.8 % (11.0-16.0); White Blood Count 9.4 X10*3/uL (4.8-10.8)
[2022-10-18 16:18] LABS: HCG Quantitative < 2 mIU/mL; TSH reflex Free T4 0.51 uIU/mL (0.32-4.0)
[2022-10-19 05:31] LABS: CT PCR NOT DETECTED (Not Detect.); NG PCR NOT DETECTED (Not Detect.)
== END 2022-10-18 13:07 | disposition home or self-care (01) ==
LOC: HO.LNP 13:06
PROVIDERS: PCP Internal Medicine; Visit Provider Obstetrics & Gynecology
DX: N93.9 Abnormal uterine and vaginal bleeding, unspecified (principal); N94.6 Dysmenorrhea, unspecified; R11.15 Cyclical vomiting syndrome unrelated to migraine
CPT/HCPCS: 84443; 84702; 85027; 87491; 87591; 88142; 99202

== ENCOUNTER 2022-11-01 07:29 | Emergency (ER) | payer OTHER, SELFPAY ==
[2022-11-01 07:30] VITALS: BP 156/126; PULSE 107; RESP 16; TEMP 36.9; O2SAT 96; BMI 34.3
[2022-11-01 09:41] VITALS: BP 181/106; PULSE 100; RESP 24; TEMP 36.8; O2SAT 100
[2022-11-01] MEDS: LORazepam 2 MG/ML VIAL IVPUSH (09:51)
[2022-11-01] MEDS: Haloperidol Lactate 5 MG/ML VIAL IM (09:51)
[2022-11-01 10:01] LABS: Basophils Absolute Auto 0.1 X10*3/uL (0.0-0.2); Basophils Percent Auto 0.4 % (0-2); Eosinophils Absolute Auto 0.1 X10*3/uL (0.0-0.4); Eosinophils Percent Auto 0.3 % (0-4); Hematocrit 41.2 % (37.0-47.0); Hemoglobin 13.5 g/dl (12.0-16.0); Imm Gran Abs Auto 0.15 X10*3/uL (0.00-0.03); Imm Gran Pct Auto 0.6 % (0.0-0.4); Lymphocytes Percent Auto 11.6 % (20-40); MANUAL DIFF FLAG SCAN; Mean Corpuscular HGB Conc 32.8 g/dl (31.0-35.0); Mean Corpuscular Hemoglobin 27.1 pg (27.0-33.0); Mean Corpuscular Volume 82.6 fL (80.0-98.0); Monocytes Absolute Auto 1.2 X10*3/uL (0.1-1.2); Monocytes Percent Auto 4.8 % (2-11); Neutrophils Absolute Auto 21.2 x10*3/uL (2.0-8.3); Neutrophils Percent Auto 82.3 % (45-73); Platelet Count 358 X10*3/uL (160-400); Red Blood Count 4.99 X10*6/uL (4.20-5.50); Red Cell Distribution Width 13.9 % (11.0-16.0); SCAN SMEAR FLAG 1; White Blood Count 25.8 X10*3/uL (4.8-10.8)
[2022-11-01] MEDS: 0.9 % Sodium Chloride 1,000 ML 999 ML IV ×2 (10:12→11:33)
[2022-11-01 10:18] LABS: Alanine Aminotransferase 20 U/L (0-31); Albumin Level 4.5 g/dL (3.5-5.0); Alkaline Phosphatase 81 U/L (39-117); Anion Gap 16 (12-20); Aspartate Amino Transferase 17 U/L (5-31); Blood Urea Nitrogen 7 mg/dL (9-16); Calcium 9.6 mg/dL (8.4-10.2); Carbon Dioxide 19 mmol/L (22-29); Chloride 106 mmol/L (96-108); Creatinine Clr Calc Pharmacy 123.9; Estimated Glomerular Filt Rate > 60; Glucose Random 203 mg/dL (60-115); Potassium 3.7 mmol/L (3.3-5.1); Sodium 137 mmol/L (135-145); Total Protein 7.7 g/dL (6.5-8.0)
[2022-11-01 10:20] LABS: HCG Quantitative < 2 mIU/mL
[2022-11-01 10:46] LABS: SLIDE REVIEW VERIFIED
[2022-11-01 11:30] LABS: Bilirubin Total 0.5 mg/dL (0.0-1.0)
[2022-11-01 11:48] VITALS: BP 188/96; PULSE 115; RESP 16; TEMP 36.3; O2SAT 100
--- NOTE | 2022-11-01 13:22 | ED_ITS ---
HPI - General Adult General Chief complaint: Anxiety Stated complaint: panic attack Time Seen by Provider: 11/01/22 08:56 Source: patient Mode of arrival: ambulatory Limitations: no limitations History of Present Illness HPI narrative: 22-year-old female with history of anxiety, major depressive disorder, intractab le cyclic vomiting, and susbtance use presents to the ED severe anxiety and cyclic vomiting. Patient has been seen in the ER multiple times for similar presentation. Patient was seen recently by her primary care provider who states her anxiety causing her symptoms of Jittering and vomiting. Patient still she feels very anxious and jittery. Patient patient denies any chest pain, shortness of breath, fever, abdominal pain, dysuria, hematuria, flank pain or chills. Related Data Home Medications Medication Instructions Recorded Confirmed amitriptyline 10 mg tablet 30 mg PO BEDTIME 10/18/22 escitalopram oxalate 20 mg tablet 20 mg PO DAILY 10/18/22 Previous Rx's Medication Instructions Recorded lorazepam 1 mg tablet (Ativan) 1 mg PO BID PRN anxiety #20 tabs 08/19/22 ondansetron 4 mg disintegrating 4 mg PO Q6-8H PRN nausea and 08/19/22 tablet vomiting #14 tabs L norgest/E estradiol-E estrad 1 tab PO DAILY 84 days #84 ea 10/18/22 0.15 mg-30 mcg (84)/10 mcg(7) tabs,3mos (Seasonique) Allergies Allergy/AdvReac Type Severity Reaction Status Date / Time No Known Allergies Allergy Verified 10/18/22 13:18 Review of Systems Review of Systems: Anxiety, intractable cyclic vomiting. Yes all other systems are reviewed and are negative FOR[facility]LY [facility] Past Medical History Medical History Anxiety Cyclical vomiting Hip fracture requiring operative repair Social History Social History Alcohol intake: never Patient Tobacco Use Status: Never used Tobacco Substance Use Type: Marijuana service: No Current occupational status: unemployed Physical Exam ED Vital Signs: Vital Signs - 24 hr 11/01/22 07:30 11/01/22 09:41 11/01/22 11:48 Temperature 98.5 F 98.2 F 97.3 F Pulse Rate 107 H 100 115 H Respiratory Rate 16 24 H 16 Blood Pressure 156/126 H 181/106 H 188/96 H Pulse Oximetry 96 100 100 Oxygen Delivery Method Room Air Room Air Room Air 11/01/22 14:28 Temperature 97.6 F Pulse Rate 115 H Respiratory Rate 16 Blood Pressure 183/94 H Pulse Oximetry 100 Oxygen Delivery Method Room Air BMI result Body Mass Index 34.3 Const General: cooperative, healthy appearing, comfortable, no acute distress, well developed, alert, awake and Physically active Orientation/consciousness: oriented to person, oriented to place, oriented to time and patient oriented x3 HENMT Head: Yes normal to inspection, Yes No palpable skull fracture present, Yes normocephalic, Yes atraumatic and No abrasion Eyes General: appearance normal, both eyes and all related structures Neck Neck: Yes normal visual inspection, Yes full ROM, Yes no lymphadenopathy, Yes no meningeal signs, Yes trachea midline, Yes supple, No anterior neck swelling and No tender Chest Chest palpation & inspection: normal inspection of the chest and normal palpation of entire chest wall Resp Effort & Inspection: normal respiratory effort and able to speak in complete sentences Auscultation: clear to auscultation bilaterally Cardio Jugular venous distension: no JVD Heart sounds: S1 normal heart sound present and S2 normal heart sound present GI Inspection: Yes normal to inspection and No abdominal wall ecchymosis Palpation (GI): Soft to palpation, not firm, nontender, no guarding and not rigid General: No CVA tenderness and Yes no CVA tenderness Back/Spine/Pelvis Back: no CVA tenderness, No CVA tenderness and No back tenderness Skin General skin exam: no rashes or lesions noted and elasticity normal Neuro General: oriented to person, oriented to place, oriented to time, patient oriented x3, gait normal, moves all extremities, Normal light touch and pain s ensation, no meningeal signs, no focal motor deficits and CN's II-XI intact bilaterally Extrem General: Yes normal to inspection and Yes full ROM Psych Other: Patient anxious and crying and vomiting Appearance: grossly normal, well kempt and not disheveled Course Course Course Narrative: Will do basic labs order Ativan and Haldol and fluids. Reevaluation(s) Reevaluation #1: EKG shows sinus tach. Troponin negative. Patient from the follow-up with psychiatrist and psychotherapist. Patient informed of follow-up with primary care provider. Patient's vital signs due to anxiety. Patient does not have any chest pain or shortness of breath. Not Suspecting any PE. CBC improved after fluids. Patient has known history of elevated white blood cell count due to cyclic vomiting. Time: 16:20 Reevaluation #2: Sinus tach. Reticulated 111. Pr interval 142. QRS 84. QTC 467. Negative STEMI. Repeat Vital signs are on monitor is 163/101 HR 117 and 100%. patient informed to record her blood pressure for follow up wtih PCP Time: 16:23 Medications Administered Discontinued Medications Generic Name Dose Route Start Last Admin Trade Name Freq PRN Reason Stop Dose Admin Haloperidol Lactate 5 mg 11/01/22 09:27 11/01/22 09:51 Haloperidol Lactate 5 Mg/Ml Vial IM 11/01/22 09:28 5 mg STAT STA Administration Sodium Chloride 1,000 mls @ 999 mls/hr 11/01/22 10:07 11/01/22 11:23 Ns IV 11/01/22 11:07 Infused .Q1H1M STA Infusion Sodium Chloride 1,000 mls @ 999 mls/hr 11/01/22 11:30 11/01/22 14:55 Ns IV 11/01/22 12:30 Infused .Q1H1M STA Infusion Lorazepam 2 mg 11/01/22 09:27 11/01/22 09:51 Lorazepam 2 Mg/Ml Vial IVPUSH 11/01/22 09:28 2 mg ONCE ONE Administration Medical Decision Making Medical Decision Making MDM Narrative: Anxiety and cyclic vomitting Lab Data Result Diagrams: 11/01/22 14:25 11/01/22 09:47 Labs: Lab Results 11/01/22 11/01/22 11/01/22 Range/Units 09:47 09:47 14:11 WBC 25.8 H (4.8-10.8) X10*3/uL RBC 4.99 (4.20-5.50) X10*6/uL Hgb 13.5 (12.0-16.0) g/dl Hct 41.2 (37.0-47.0) % MCV 82.6 (80.0-98.0) fL MCH 27.1 (27.0-33.0) pg MCHC 32.8 (31.0-35.0) g/dl RDW 13.9 (11.0-16.0) % Plt Count 358 (160-400) X10*3/uL MPV 10.0 (9.4-12.3) fL Immature Gran % (Auto) 0.6 H (0.0-0.4) % Neut % (Auto) 82.3 H (45-73) % Lymph % (Auto) 11.6 L (20-40) % [place] % (Auto) 4.8 (2-11) % Eos % (Auto) 0.3 (0-4) % Baso % (Auto) 0.4 (0-2) % Lymph # (Auto) 3.0 (1.2-4.9) X10*3/uL [place] # (Auto) 1.2 (0.1-1.2) X10*3/uL Eos # (Auto) 0.1 (0.0-0.4) X10*3/uL Baso # (Auto) 0.1 (0.0-0.2) X10*3/uL Abs Immat Gran (auto) 0.15 H (0.00-0.03) X10*3/uL Absolute Neuts (auto) 21.2 H (2.0-8.3) x10*3/uL Absolute Nucleated RBC 0.000 (0.0-0.012) X10*3/uL Nucleated RBC % (auto) 0.0 (0.0-0.2) /100WBC Smear Tech's Comments VERIFIED Sodium 137 (135-145) mmol/L Potassium 3.7 (3.3-5.1) mmol/L Chloride 106 (96-108) mmol/L Carbon Dioxide 19 L (22-29) mmol/L Anion Gap 16 (12-20) BUN 7 L (9-16) mg/dL Creatinine 0.77 (0.5-1.4) mg/dL Estim Creat Clear Calc 123.9 Estimated GFR > 60 Random Glucose 203 H (60-115) mg/dL Calcium 9.6 (8.4-10.2) mg/dL Total Bilirubin 0.5 (0.0-1.0) mg/dL AST 17 (5-31) U/L ALT 20 (0-31) U/L Alkaline Phosphatase 81 (39-117) U/L Troponin I High Sens (<3.5-17.0) ng/L Total Protein 7.7 (6.5-8.0) g/dL Albumin 4.5 (3.5-5.0) g/dL Beta HCG, Quant < 2 mIU/mL Urine Color Yellow Urine Appearance Clear Urine pH 8.5 (5.0-9.0) Ur Specific [place] 1.020 (1.005-1.025) Urine Protein 30 (1+) H (Neg-Trace) mg/dL Urine Glucose (UA) 100 H (Negative) mg/dL Urine Ketones Trace (Negative) mg/dL Urine Blood Negative (Negative) Urine Nitrite Negative (Negative) Ur Leukocyte Esterase Negative (Negative) Urine RBC 0-2 (0-2) /HPF Urine WBC 0-5 (0-5) /HPF Ur Squamous Epith Cells 0-2 (0-2) /HPF Urine Bacteria None Seen (None Seen) Hyaline Casts 0-2 (0-2) /LPF Urine Opiates Screen (Not Detect) Urine Fentanyl Screen (Not Detect) Ur Barbiturates Screen (Not Detect) Ur Phencyclidine Scrn (Not Detect) Ur Amphetamines Screen (Not Detect) U Benzodiazepines Scrn (Not Detect) Urine Cocaine Screen (Not Detect) U Marijuana (THC) Screen (Not Detect) 11/01/22 11/01/22 11/01/22 Range/Units 14:11 14:25 15:50 WBC 19.1 H (4.8-10.8) X10*3/uL RBC 4.63 (4.20-5.50) X10*6/uL Hgb 12.7 (12.0-16.0) g/dl Hct 38.0 (37.0-47.0) % MCV 82.1 (80.0-98.0) fL MCH 27.4 (27.0-33.0) pg MCHC 33.4 (31.0-35.0) g/dl RDW 13.8 (11.0-16.0) % Plt Count 294 (160-400) X10*3/uL MPV 9.4 (9.4-12.3) fL Immature Gran % (Auto) 0.4 (0.0-0.4) % Neut % (Auto) 92.2 H (45-73) % Lymph % (Auto) 5.5 L (20-40) % [place] % (Auto) 1.6 L (2-11) % Eos % (Auto) 0.0 (0-4) % Baso % (Auto) 0.3 (0-2) % Lymph # (Auto) 1.0 L (1.2-4.9) X10*3/uL [place] # (Auto) 0.3 (0.1-1.2) X10*3/uL Eos # (Auto) 0.0 (0.0-0.4) X10*3/uL Baso # (Auto) 0.1 (0.0-0.2) X10*3/uL Abs Immat Gran (auto) 0.08 H (0.00-0.03) X10*3/uL Absolute Neuts (auto) 17.6 H (2.0-8.3) x10*3/uL Absolute Nucleated RBC 0.000 (0.0-0.012) X10*3/uL Nucleated RBC % (auto) 0.0 (0.0-0.2) /100WBC Smear Tech's Comments Sodium (135-145) mmol/L Potassium (3.3-5.1) mmol/L Chloride (96-108) mmol/L Carbon Dioxide (22-29) mmol/L Anion Gap (12-20) BUN (9-16) mg/dL Creatinine (0.5-1.4) mg/dL Estim Creat Clear Calc Estimated GFR Random Glucose (60-115) mg/dL Calcium (8.4-10.2) mg/dL Total Bilirubin (0.0-1.0) mg/dL AST (5-31) U/L ALT (0-31) U/L Alkaline Phosphatase (39-117) U/L Troponin I High Sens < 3.5 (<3.5-17.0) ng/L Total Protein (6.5-8.0) g/dL Albumin (3.5-5.0) g/dL Beta HCG, Quant mIU/mL Urine Color Urine Appearance Urine pH (5.0-9.0) Ur Specific [place] (1.005-1.025) Urine Protein (Neg-Trace) mg/dL Urine Glucose (UA) (Negative) mg/dL Urine Ketones (Negative) mg/dL Urine Blood (Negative) Urine Nitrite (Negative) Ur Leukocyte Esterase (Negative) Urine RBC (0-2) /HPF Urine WBC (0-5) /HPF Ur Squamous Epith Cells (0-2) /HPF Urine Bacteria (None Seen) Hyaline Casts (0-2) /LPF Urine Opiates Screen Not Detected (Not Detect) Urine Fentanyl Screen Not Detected (Not Detect) Ur Barbiturates Screen Not Detected (Not Detect) Ur Phencyclidine Scrn Not Detected (Not Detect) Ur Amphetamines Screen Not Detected (Not Detect) U Benzodiazepines Scrn Not Detected (Not Detect) Urine Cocaine Screen Not Detected (Not Detect) U Marijuana (THC) Screen POSITIVE H (Not Detect) Discharge Plan Discharge Clinical Impression: Cyclical vomiting, Acute anxiety Patient Disposition: Home, Self-Care Additional Instructions: Please follow-up with your primary care provider, psychiatrist, and therapist. Return to ED for any fever, chills, abdominal pain, nausea, vomiting, chest pain, shortness of breath, leg swelling, calf pain, coughing up blood, or any other concerning symptoms. Prescriptions: No Action lorazepam [Ativan] 1 mg tablet 1 mg PO BID PRN (Reason: anxiety) Qty: 20 0RF ondansetron 4 mg tablet,disintegrating 4 mg PO Q6-8H PRN (Reason: nausea and vomiting) Qty: 14 0RF amitriptyline 10 mg tablet 30 mg PO BEDTIME escitalopram oxalate 20 mg tablet 20 mg PO DAILY L norgest/e.estradiol-e.estrad [Seasonique] 0.15 mg-30 mcg (84)/10 mcg (7) tablets,dose pack,3 month 1 tab PO DAILY 84 Days Qty: 84 0RF Stand Alone Forms: Work/School Release Interventions: ED Discharge Assessment Last Done: 11/01/22 17:09 Discharge Date/Time: 11/01/22 17:10 Print Language: Divehi
[2022-11-01 14:21] LABS: Appearance Urine Clear; Color Urine Yellow; Glucose Urine UA 100 mg/dL (Negative); Leukocyte Esterase Urine Negative (Negative); Nitrite Urine Negative (Negative); PH 8.5 (5.0-9.0); UMIC TRIGGER UACC YES; Urine Blood Negative (Negative); Urine Ketones Trace mg/dL (Negative); Urine Protein 30 (1+) mg/dL (Neg-Trace)
[2022-11-01 14:25] LABS: Bacteria Urine None Seen (None Seen); Hyaline Casts Urine 0-2 /LPF (0-2); RBC Urine 0-2 /HPF (0-2); Squamous Epithelial Cell Urine 0-2 /HPF (0-2); WBC Urine 0-5 /HPF (0-5)
[2022-11-01 14:28] VITALS: BP 183/94; PULSE 115; RESP 16; TEMP 36.4; O2SAT 100
[2022-11-01 14:30] LABS: Amphetamine Screen Urine Not Detected (Not Detect); Barbiturates, Urine Not Detected (Not Detect); Benzodiazepines Screen Urine Not Detected (Not Detect); Cannabinoid Screen Urine POSITIVE (Not Detect); Cocaine Screen Urine Not Detected (Not Detect); Fentanyl, urine Not Detected (Not Detect); Opiate Screen Urine Not Detected (Not Detect); Phencyclidine Screen Urine Not Detected (Not Detect)
[2022-11-01 14:31] LABS: Basophils Absolute Auto 0.1 X10*3/uL (0.0-0.2); Basophils Percent Auto 0.3 % (0-2); Hemoglobin 12.7 g/dl (12.0-16.0); Imm Gran Abs Auto 0.08 X10*3/uL (0.00-0.03); Imm Gran Pct Auto 0.4 % (0.0-0.4); Lymphocytes Percent Auto 5.5 % (20-40); Mean Corpuscular HGB Conc 33.4 g/dl (31.0-35.0); Mean Corpuscular Hemoglobin 27.4 pg (27.0-33.0); Mean Corpuscular Volume 82.1 fL (80.0-98.0); Mean Platelet Volume 9.4 fL (9.4-12.3); Monocytes Absolute Auto 0.3 X10*3/uL (0.1-1.2); Monocytes Percent Auto 1.6 % (2-11); Neutrophils Absolute Auto 17.6 x10*3/uL (2.0-8.3); Neutrophils Percent Auto 92.2 % (45-73); Platelet Count 294 X10*3/uL (160-400); Red Blood Count 4.63 X10*6/uL (4.20-5.50); Red Cell Distribution Width 13.8 % (11.0-16.0); SCAN SMEAR FLAG 1; White Blood Count 19.1 X10*3/uL (4.8-10.8)
[2022-11-01 14:51] LABS: MANUAL DIFF FLAG SCAN
--- NOTE | 2022-11-01 14:55 | ECG_ITS ---
Test Reason : hypertension Blood Pressure : / mmHG Vent. Rate : 111 BPM Atrial Rate : 111 BPM P-R Int : 142 ms QRS Dur : 084 ms QT Int : 344 ms P-R-T Axes : 049 069 001 degrees QTc Int : 467 ms Sinus tachycardia Possible Left atrial enlargement Possible Inferior infarct (cited on or before 16-APR-2022) Abnormal ECG When compared with ECG of 19-AUG-2022 03:47, No significant change was found Referred By: Shravan Salguero Electronically Signed By:Orion Ortiz
[2022-11-01 16:17] LABS: Troponin-I High Sensitivity < 3.5 ng/L (<3.5-17.0)
== END 2022-11-01 17:10 | disposition home or self-care (01) ==
PROVIDERS: Physician Assistant; Emergency Provider Emergency Medicine Emergency Medical Services; PCP Internal Medicine
DX: F41.9 Anxiety disorder, unspecified (principal); R11.15 Cyclical vomiting syndrome unrelated to migraine; R00.0 Tachycardia, unspecified; F12.90 Cannabis use, unspecified, uncomplicated; Z79.899 Other long term (current) drug therapy
CPT/HCPCS: 36415; 80053; 80307; 81001; 84484; 84702; 85025; 93005; 96361; 96372; 96374; 99285; J2060

== ENCOUNTER 2022-11-02 14:21 | Outpatient (REF) | payer OTHER, SELFPAY | END 2022-11-02 14:22 | disposition home or self-care (01) | LOC: HO.HMGCX 14:21 | PROVIDERS: PCP Internal Medicine; Visit Provider Obstetrics & Gynecology | DX: N93.9 Abnormal uterine and vaginal bleeding, unspecified (principal) | CPT/HCPCS: 76830; 76856 ==

== ENCOUNTER 2022-12-02 14:05 | Outpatient (REF) | payer OTHER, SELFPAY ==
[2022-12-02 14:17] LABS: MANUAL DIFF FLAG NO
[2022-12-02 14:54] LABS: Basophils Absolute Auto 0.1 X10*3/uL (0.0-0.2); Basophils Percent Auto 0.6 % (0-2); Eosinophils Absolute Auto 0.3 X10*3/uL (0.0-0.4); Eosinophils Percent Auto 1.9 % (0-4); Hematocrit 42.1 % (37.0-47.0); Hemoglobin 13.9 g/dl (12.0-16.0); Imm Gran Abs Auto 0.08 X10*3/uL (0.00-0.03); Imm Gran Pct Auto 0.6 % (0.0-0.4); Lymphocytes Absolute Auto 2.9 X10*3/uL (1.2-4.9); Lymphocytes Percent Auto 20.9 % (20-40); Mean Corpuscular Hemoglobin 26.9 pg (27.0-33.0); Mean Corpuscular Volume 81.6 fL (80.0-98.0); Mean Platelet Volume 9.7 fL (9.4-12.3); Monocytes Absolute Auto 0.7 X10*3/uL (0.1-1.2); Monocytes Percent Auto 4.9 % (2-11); Neutrophils Absolute Auto 9.8 x10*3/uL (2.0-8.3); Neutrophils Percent Auto 71.1 % (45-73); Platelet Count 393 X10*3/uL (160-400); Red Blood Count 5.16 X10*6/uL (4.20-5.50); Red Cell Distribution Width 13.9 % (11.0-16.0); White Blood Count 13.7 X10*3/uL (4.8-10.8)
== END 2022-12-02 14:06 | disposition home or self-care (01) ==
LOC: HO.LAB 14:05
PROVIDERS: PCP Internal Medicine; Visit Provider Internal Medicine Medical Oncology
DX: R59.9 Enlarged lymph nodes, unspecified (principal); D72.829 Elevated white blood cell count, unspecified
CPT/HCPCS: 36415; 81206; 81207; 81219; 81270; 81279; 81339; 85025

== ENCOUNTER → 2022-12-05 14:35 | Outpatient (BNVA) | payer OTHER, SELFPAY | PROVIDERS: PCP Internal Medicine; Visit Provider Obstetrics & Gynecology | DX: N93.9 Abnormal uterine and vaginal bleeding, unspecified (principal) | CPT/HCPCS: 99212 ==

== ENCOUNTER 2022-12-27 07:55 | Outpatient (REF) | payer OTHER, SELFPAY ==
--- NOTE | ~2022-12-27 | US_ITS ---
EXAMINATION: US ABDOMEN COMPLETE CLINICAL INFORMATION: Adenopathy, elevated white blood count. COMPARISON: None TECHNIQUE: Real-time imaging of the abdominal viscera. FINDINGS: PANCREAS: Normal. ABDOMINAL AORTA: The proximal, mid, and distal segments are normal in caliber. INFERIOR VENA CAVA: Visualized portions are normal. LIVER: The liver is normal in size. The liver contour is normal. There is diffuse increased liver parenchymal echogenicity, consistent with hepatic steatosis. No focal hepatic lesion. There is no intrahepatic biliary duct dilatation seen. GALLBLADDER: Normal. The gallbladder is physiologically distended without evidence of stones, sludge, polyps, wall thickening or pericholecystic fluid. COMMON BILE DUCT: Normal in caliber measuring 0.3 cm in diameter. RIGHT KIDNEY: Normal. No hydronephrosis. No renal calculi or focal parenchymal lesions. The kidney measures 12.6 cm in maximum dimension. LEFT KIDNEY: Normal. No hydronephrosis. No renal calculi or focal parenchymal lesions. The kidney measures 12.6 cm in maximum dimension. SPLEEN: Normal. The spleen measures 11.4 cm in maximum dimension. FREE FLUID: None. US/US abdomen complete IMPRESSION: Findings consistent with hepatic steatosis. No splenomegaly.
== END 2022-12-27 07:56 | disposition home or self-care (01) ==
LOC: HO.US 07:55
PROVIDERS: Visit Provider Internal Medicine Medical Oncology
DX: D59.9 Acquired hemolytic anemia, unspecified (principal); D72.829 Elevated white blood cell count, unspecified
CPT/HCPCS: 76700

== ENCOUNTER 2023-01-12 13:56 | Outpatient (REF) | payer OTHER, SELFPAY | END 2023-01-12 13:57 | disposition home or self-care (01) | LOC: HO.LAB 13:56 | PROVIDERS: PCP Internal Medicine; Visit Provider Internal Medicine Medical Oncology | DX: D47.1 Chronic myeloproliferative disease (principal) | CPT/HCPCS: 36415; 81479 ==

== ENCOUNTER 2023-01-13 11:05 | Outpatient (REF) | payer OTHER, SELFPAY ==
[2023-01-13 14:46] LABS: Estimated Average Glucose 100 mg/dL; Hemoglobin A1c % 5.1 %
== END 2023-01-13 11:06 | disposition home or self-care (01) ==
LOC: HO.HMGCLDS 11:05
PROVIDERS: Visit Provider Internal Medicine
DX: R53.83 Other fatigue (principal); E11.9 Type 2 diabetes mellitus without complications; Z79.4 Long term (current) use of insulin
CPT/HCPCS: 36415; 83036

== ENCOUNTER 2023-01-28 07:32 | Emergency (ER) | payer OTHER, SELFPAY ==
--- NOTE | ~2023-01-28 | US_ITS ---
EXAMINATION: US OBSTETRICAL CLINICAL INFORMATION: 6 weeks . Vaginal bleeding and pain. Evaluate for ectopic . COMPARISON: Pelvic ultrasound dated 11/02/2022. LMP: 12/14/2022. Gestational age by maternal dates is 6 weeks 3 days. Estimated date of delivery by maternal dates is 09/20/2023. TECHNIQUE: Transabdominal and transvaginal images were obtained. FINDINGS: Within the lower uterine segment there is a small, complex cystic focus measuring up to 0.3 cm which does not have the typical appearance of a gestational sac. No additional intrauterine findings to suggest intrauterine gestation. No endometrial thickening. The endometrium is homogeneous measuring up to 0.5 cm. No myometrial lesion. The right ovary is sonographically unremarkable measuring 3.0 x 2.3 x 1.7 cm with Doppler detectable vascular flow. The left ovary is sonographically unremarkable measuring up to 2.3 x 2.9 x 1.3 cm with Doppler detectable vascular flow. No adnexal lesion. No pelvic free fluid. US/US OB pelvic and transvaginal IMPRESSION: Small, complex cystic focus within the lower uterine segment measuring up to 0.3 cm without typical appearance of a gestational sac. No additional findings to suggest intrauterine gestation. No adnexal lesion or pelvic free fluid to suggest ectopic . Followup serial beta hCG as well as short interval ultrasound in 3-7 days could be considered to help further evaluate if clinically indicated.
[2023-01-28 07:36] VITALS: BP 168/91; PULSE 111; RESP 17; TEMP 36.8; O2SAT 98; BMI 34.9
[2023-01-28 07:56] VITALS: BP 137/79; PULSE 104
[2023-01-28 07:58] VITALS: BP 130/79; PULSE 98
--- NOTE | 2023-01-28 07:59 | ED.FEMALEGU ---
HPI - Female Genitourinary General Chief complaint: Vaginal Bleeding Stated complaint: vaginal bleeding Time Seen by Provider: 01/28/23 07:46 Source: patient Mode of arrival: ambulatory Limitations: no limitations History of Present Illness HPI Narrative: 22-year-old female 6-1/2 weeks by date presented with vaginal bleeding and lower abdominal cramps. Patient declined any trauma to the abdomen. Patient noticed blood when she wiped after urination notice also passing small blood clots earlier this morning. No nausea, no vomiting. Related Data Home Medications Medication Instructions Recorded Confirmed amitriptyline 10 mg tablet 30 mg PO BEDTIME 10/18/22 escitalopram oxalate 20 mg tablet 20 mg PO DAILY 10/18/22 Previous Rx's Medication Instructions Recorded lorazepam 1 mg tablet (Ativan) 1 mg PO BID PRN anxiety #20 tabs 08/19/22 ondansetron 4 mg disintegrating 4 mg PO Q6-8H PRN nausea and 08/19/22 tablet vomiting #14 tabs L norgest/E estradiol-E estrad 1 tab PO DAILY 84 days #84 ea 01/16/23 0.15 mg-30 mcg (84)/10 mcg(7) tabs,3mos (Seasonique) Allergies Allergy/AdvReac Type Severity Reaction Status Date / Time No Known Allergies Allergy Verified 10/18/22 13:18 Review of Systems Review of Systems: All other systems are reviewed and are negative Constitutional: Reports as per HPI and Reports no additional constitutional complaints Eyes: Reports as per HPI and Reports no additional eye complaints Reports system reviewed and no additional complaints, except as documented Cardiovascular: Reports as per HPI and Reports no additional cardiovascular complaints Respiratory: Reports as per HPI and Reports no additional respiratory complaints Gastrointestinal: Reports as per HPI and Reports no additional gastrointestinal complaints Genitourinary: Reports no additional female genitourinary complaints Musculoskeletal: Reports no additional musculoskeletal complaints Skin/Breast: Reports system reviewed and no additional complaints, except as docu Psychiatric: Reports no additional psychiatric complaints Endocrine: Reports no additional endocrine complaints Hematologic/Lymphatic: Reports no additional hematologic/lymphatic complaints Allergic/Immunologic: Reports no additional allergic/immunologic complaints Reports system reviewed and no additional complaints, except as documented and Reports Abnormal speech present PMFSH Past Medical History Medical History Anxiety Cyclical vomiting Hip fracture requiring operative repair Social History Social History Alcohol intake: never Patient Tobacco Use Status: Never used Tobacco Smoked in Last 30 Days: No Use of substances other than those prescribed or required for medical reasons: No Substance Use Type: Marijuana Advance Directives: No Advance Directives Information Provided: No service: No Current occupational status: unemployed Physical Exam Vital Signs: Vital Signs: Last Vital Signs Temp 98.3 F 01/28/23 07:36 Pulse 102 H 01/28/23 08:04 Resp 20 01/28/23 08:04 BP 132/86 01/28/23 08:04 Pulse Ox 96 01/28/23 08:04 O2 Del Method 01/28/23 08:04 BMI result Body Mass Index 34.9 Vital signs have been reviewed as appeared to be correct. Blood pressure normal. Heart rate normal. Respiration rate normal. Temperature normal. Oxygen saturation normal. Appearance: Alert. Oriented X3. No acute distress. Head: Normal external exam. Normocephalic. Atraumatic. No Lopez signs noted. No raccoon eyes noted Eyes: PERRLA. EOMI. Conjunctiva and sclera normal. Eyelids normal. ENT: TM's Normal. Pharynx normal. Uvula midline. Moist mucous membranes. No trismus noted. No drooling noted. No muffled voice noted. Neck: Normal inspection. Neck supple. FROM. No adenopathy. Thyroid Normal. No meningeal signs. No neck mass noted. CVS: Normal heart rate and rhythm. Heart sound normal. No murmurs noted. Pulses normal throughout. Respiratory: No respiratory distress. Painless inspiration. Breath sounds normal. No wheezes/rales/rhonchi noted. Chest nontender. No accessory muscle usage noted or decreased air movement noted. Abdomen: Soft and nontender. Bowel sounds normal in all 4 quadrants. No distention noted. No organomegaly noted. No visible injury noted. Pelvic exam: Deferred for ultrasound. Back: No CVA tenderness. Full range of motion noted. Skin: Skin warm and dry. Normal skin color. Normal skin turgor. No rashes/lesions/lacerations noted. Extremities: No lower extremity edema. Extremities exhibit normal range of motion. Extremities nontender. Neuro: Oriented X 3. Cranial nerve exam: II-XII are grossly intact No motor deficit. No sensory deficit. Reflexes normal. Course Course Course Narrative: with vaginal bleeding, hCG is 157, ultrasound age with possible empty gestational sac, no indication for ectopic . Early versus ectopic versus threatened were discussed with the patient, she made aware that she needs to follow up with her Ob/diesel engineer for repeat hCG in 48 hours and the workup. Medications Administered Discontinued Medications Generic Name Dose Route Start Last Admin Trade Name Freq PRN Reason Stop Dose Admin Sodium Chloride 1,000 mls @ 999 mls/hr 01/28/23 07:47 01/28/23 08:22 Ns IV 01/28/23 08:47 999 mls/hr .Q1H1M ONE Administration Medical Decision Making Differential Diagnosis Differential Diagnoses: The differential diagnosis associated with the presentation includes (Early , threatening , ectopic ) Lab Data MDM Lab Attestation statement: I reviewed the patient's lab results. 01/28/23 08:16 01/28/23 08:16 Labs: Lab Results 01/28/23 01/28/23 01/28/23 Range/Units 07:58 07:58 08:16 WBC 13.0 H (4.8-10.8) X10*3/uL RBC 4.38 (4.20-5.50) X10*6/uL Hgb 12.1 (12.0-16.0) g/dl Hct 37.1 (37.0-47.0) % MCV 84.7 (80.0-98.0) fL MCH 27.6 (27.0-33.0) pg MCHC 32.6 (31.0-35.0) g/dl RDW 14.0 (11.0-16.0) % Plt Count 326 (160-400) X10*3/uL MPV 9.8 (9.4-12.3) fL Immature Gran % (Auto) 0.5 H (0.0-0.4) % Neut % (Auto) 67.9 (45-73) % Lymph % (Auto) 22.0 (20-40) % [place] % (Auto) 7.6 (2-11) % Eos % (Auto) 1.5 (0-4) % Baso % (Auto) 0.5 (0-2) % Lymph # (Auto) 2.9 (1.2-4.9) X10*3/uL [place] # (Auto) 1.0 (0.1-1.2) X10*3/uL Eos # (Auto) 0.2 (0.0-0.4) X10*3/uL Baso # (Auto) 0.1 (0.0-0.2) X10*3/uL Abs Immat Gran (auto) 0.07 H (0.00-0.03) X10*3/uL Absolute Neuts (auto) 8.8 H (2.0-8.3) x10*3/uL Absolute Nucleated RBC 0.000 (0.0-0.012) X10*3/uL Nucleated RBC % (auto) 0.0 (0.0-0.2) /100WBC Sodium (135-145) mmol/L Potassium (3.3-5.1) mmol/L Chloride (96-108) mmol/L Carbon Dioxide (22-29) mmol/L Anion Gap (12-20) BUN (9-16) mg/dL Creatinine (0.5-1.4) mg/dL Estim Creat Clear Calc Estimated GFR Random Glucose (60-115) mg/dL Calcium (8.4-10.2) mg/dL Total Bilirubin (0.0-1.0) mg/dL Direct Bilirubin (0.0-0.5) mg/dL AST (5-31) U/L ALT (0-31) U/L Alkaline Phosphatase (39-117) U/L Total Protein (6.5-8.0) g/dL Albumin (3.5-5.0) g/dL Lipase (8-78) U/L Beta HCG, Quant mIU/mL Urine Color Other A Urine Appearance Hazy Urine pH 8.5 (5.0-9.0) Ur Specific [place] 1.020 (1.005-1.025) Urine Protein 30 (1+) H (Neg-Trace) mg/dL Urine Glucose (UA) Negative (Negative) mg/dL Urine Ketones Negative (Negative) mg/dL Urine Blood Large (3+) H (Negative) Urine Nitrite Negative (Negative) Ur Leukocyte Esterase Small (1+) H (Negative) Urine RBC >20 H (0-2) /HPF Urine WBC 0-5 (0-5) /HPF Ur Squamous Epith Cells 11-20 (0-2) /HPF Other Crystals Present Urine Bacteria Trace (None Seen) Hyaline Casts 0-2 (0-2) /LPF Urine Test POSITIVE H (NEGATIVE) 01/28/23 Range/Units 08:16 WBC (4.8-10.8) X10*3/uL RBC (4.20-5.50) X10*6/uL Hgb (12.0-16.0) g/dl Hct (37.0-47.0) % MCV (80.0-98.0) fL MCH (27.0-33.0) pg MCHC (31.0-35.0) g/dl RDW (11.0-16.0) % Plt Count (160-400) X10*3/uL MPV (9.4-12.3) fL Immature Gran % (Auto) (0.0-0.4) % Neut % (Auto) (45-73) % Lymph % (Auto) (20-40) % [place] % (Auto) (2-11) % Eos % (Auto) (0-4) % Baso % (Auto) (0-2) % Lymph # (Auto) (1.2-4.9) X10*3/uL [place] # (Auto) (0.1-1.2) X10*3/uL Eos # (Auto) (0.0-0.4) X10*3/uL Baso # (Auto) (0.0-0.2) X10*3/uL Abs Immat Gran (auto) (0.00-0.03) X10*3/uL Absolute Neuts (auto) (2.0-8.3) x10*3/uL Absolute Nucleated RBC (0.0-0.012) X10*3/uL Nucleated RBC % (auto) (0.0-0.2) /100WBC Sodium 142 (135-145) mmol/L Potassium 3.2 L (3.3-5.1) mmol/L Chloride 108 (96-108) mmol/L Carbon Dioxide 23 (22-29) mmol/L Anion Gap 14 (12-20) BUN 5 L (9-16) mg/dL Creatinine 0.73 (0.5-1.4) mg/dL Estim Creat Clear Calc 136.8 Estimated GFR > 60 Random Glucose 129 H (60-115) mg/dL Calcium 8.8 D (8.4-10.2) mg/dL Total Bilirubin 1.1 H (0.0-1.0) mg/dL Direct Bilirubin 0.3 (0.0-0.5) mg/dL AST 22 (5-31) U/L ALT 21 (0-31) U/L Alkaline Phosphatase 70 (39-117) U/L Total Protein 6.5 (6.5-8.0) g/dL Albumin 3.8 (3.5-5.0) g/dL Lipase 17 (8-78) U/L Beta HCG, Quant 152 mIU/mL Urine Color Urine Appearance Urine pH (5.0-9.0) Ur Specific [place] (1.005-1.025) Urine Protein (Neg-Trace) mg/dL Urine Glucose (UA) (Negative) mg/dL Urine Ketones (Negative) mg/dL Urine Blood (Negative) Urine Nitrite (Negative) Ur Leukocyte Esterase (Negative) Urine RBC (0-2) /HPF Urine WBC (0-5) /HPF Ur Squamous Epith Cells (0-2) /HPF Other Crystals Urine Bacteria (None Seen) Hyaline Casts (0-2) /LPF Urine Test (NEGATIVE) Independent Interpretation I performed an independent interpretation of an: Ultrasound (Pelvic ultrasound:Small, complex cystic focus within the lower uterine segment measuring up to 0.3 cm without typical appearance of a gestational sac. No additional findings to suggest intrauterine gestation. No adnexal lesion or pelvic free fluid to suggest ectopic . Followup serial be) Radiology Impression Discussion of test interpretation with radiology: I have reviewed the radiologist's reading. Discharge Plan Discharge Clinical Impression: Threatened Patient Disposition: Home, Self-Care Instructions: Threatened Miscarriage (ED) Additional Instructions: Refrain from strenuous activity, no heavy lifting, no bending, no pushing, no sexual intercourse until pain/vaginal bleeding is completely resolved. Follow-up with your Ob/diesel engineer for repeat hCG ( hormone in 2-3 days). Return if increase vaginal bleeding or increases abdominal cramps. Prescriptions: No Action L norgest/e.estradiol-e.estrad [Seasonique] 0.15 mg-30 mcg (84)/10 mcg (7) tablets,dose pack,3 month 1 tab PO DAILY 84 Days Qty: 84 0RF lorazepam [Ativan] 1 mg tablet 1 mg PO BID PRN (Reason: anxiety) Qty: 20 0RF ondansetron 4 mg tablet,disintegrating 4 mg PO Q6-8H PRN (Reason: nausea and vomiting) Qty: 14 0RF amitriptyline 10 mg tablet 30 mg PO BEDTIME escitalopram oxalate 20 mg tablet 20 mg PO DAILY Referrals: Hubre Jason MD [Primary Care Provider] -
[2023-01-28 08:00] VITALS: BP 132/84; PULSE 96
[2023-01-28 08:04] VITALS: BP 132/86; PULSE 102; RESP 20; O2SAT 96
[2023-01-28 08:09] LABS: UPreg QC Valid YES; Urine Pregnancy POSITIVE (NEGATIVE)
[2023-01-28 08:10] LABS: Appearance Urine Hazy; Color Urine Other; Glucose Urine UA Negative (Negative); PH 8.5 (5.0-9.0); Urine Blood Large (3+) (Negative); Urine Protein 30 (1+) mg/dL (Neg-Trace)
[2023-01-28 08:11] LABS: Leukocyte Esterase Urine Small (1+) (Negative); Nitrite Urine Negative (Negative); UMIC TRIGGER UACC YES; Urine Ketones Negative (Negative)
[2023-01-28 08:19] LABS: MANUAL DIFF FLAG NO
[2023-01-28 08:20] LABS: Basophils Absolute Auto 0.1 X10*3/uL (0.0-0.2); Basophils Percent Auto 0.5 % (0-2); Eosinophils Absolute Auto 0.2 X10*3/uL (0.0-0.4); Eosinophils Percent Auto 1.5 % (0-4); Hematocrit 37.1 % (37.0-47.0); Hemoglobin 12.1 g/dl (12.0-16.0); Imm Gran Abs Auto 0.07 X10*3/uL (0.00-0.03); Imm Gran Pct Auto 0.5 % (0.0-0.4); Lymphocytes Absolute Auto 2.9 X10*3/uL (1.2-4.9); Mean Corpuscular HGB Conc 32.6 g/dl (31.0-35.0); Mean Corpuscular Hemoglobin 27.6 pg (27.0-33.0); Mean Corpuscular Volume 84.7 fL (80.0-98.0); Mean Platelet Volume 9.8 fL (9.4-12.3); Monocytes Percent Auto 7.6 % (2-11); Neutrophils Absolute Auto 8.8 x10*3/uL (2.0-8.3); Neutrophils Percent Auto 67.9 % (45-73); Platelet Count 326 X10*3/uL (160-400); Red Blood Count 4.38 X10*6/uL (4.20-5.50)
[2023-01-28 08:21] LABS: Bacteria Urine Trace (None Seen); Hyaline Casts Urine 0-2 /LPF (0-2); Other Crystals Urine Present; RBC Urine >20 /HPF (0-2); UACC Culture Trigger YES; WBC Urine 0-5 /HPF (0-5)
[2023-01-28] MEDS: 0.9 % Sodium Chloride 1,000 ML 999 ML IV (08:22)
[2023-01-28 09:02] LABS: Alanine Aminotransferase 21 U/L (0-31); Albumin Level 3.8 g/dL (3.5-5.0); Alkaline Phosphatase 70 U/L (39-117); Anion Gap 14 (12-20); Aspartate Amino Transferase 22 U/L (5-31); Bilirubin Direct 0.3 mg/dL (0.0-0.5); Bilirubin Total 1.1 mg/dL (0.0-1.0); Blood Urea Nitrogen 5 mg/dL (9-16); Calcium 8.8 mg/dL (8.4-10.2); Carbon Dioxide 23 mmol/L (22-29); Chloride 108 mmol/L (96-108); Creatinine Clr Calc Pharmacy 136.8; Estimated Glomerular Filt Rate > 60; Glucose Random 129 mg/dL (60-115); Lipase 17 U/L (8-78); Potassium 3.2 mmol/L (3.3-5.1); Sodium 142 mmol/L (135-145); Total Protein 6.5 g/dL (6.5-8.0)
[2023-01-28 09:04] LABS: HCG Quantitative 152 mIU/mL
[2023-01-28] MEDS: Potassium Chloride Packet 20 MEQ PACKET 40 MEQ PO (10:01)
== END 2023-01-28 10:05 | disposition home or self-care (01) ==
PROVIDERS: Emergency Provider Emergency Medicine; PCP Internal Medicine
DX: O20.0 Threatened abortion (principal); O20.9 Hemorrhage in early pregnancy, unspecified; Z3A.01 Less than 8 weeks gestation of pregnancy
CPT/HCPCS: 36415; 76801; 76817; 80048; 80076; 81001; 81025; 83690; 84702; 85025; 87086; 99284

== ENCOUNTER 2023-01-30 14:32 | Outpatient (REF) | payer OTHER, SELFPAY ==
[2023-01-30 16:49] LABS: HCG Quantitative 62 mIU/mL
== END 2023-01-30 14:33 | disposition home or self-care (01) ==
LOC: HO.HMGCLDS 14:32
PROVIDERS: PCP Internal Medicine; Visit Provider Internal Medicine
DX: N91.2 Amenorrhea, unspecified (principal)
CPT/HCPCS: 36415; 84702

== ENCOUNTER → 2023-02-17 08:46 | Outpatient (BNVA) | payer OTHER, SELFPAY | PROVIDERS: PCP Internal Medicine; Visit Provider Internal Medicine Endocrinology, Diabetes & Metabolism | DX: R73.9 Hyperglycemia, unspecified (principal) | CPT/HCPCS: 99202 ==

== ENCOUNTER 2023-02-22 09:07 | Outpatient (REF) | payer OTHER, SELFPAY ==
[2023-02-22 10:42] LABS: Potassium Urine Random 35.4 mmol/L
[2023-02-22 10:54] LABS: Anion Gap 13 (12-20); Blood Urea Nitrogen 8 mg/dL (9-16); Calcium 9.2 mg/dL (8.4-10.2); Carbon Dioxide 24 mmol/L (22-29); Chloride 105 mmol/L (96-108); Estimated Glomerular Filt Rate > 60; Phosphorus 2.8 mg/dL (2.7-4.5); Potassium 4.1 mmol/L (3.3-5.1); Sodium 138 mmol/L (135-145)
[2023-02-22 10:59] LABS: Osmolality, Serum 289 mosm/kg (281-305)
[2023-02-22 10:59] LABS: Osmolality Urine 334 mosm/kg (373-1093)
[2023-02-24 14:58] LABS: Calcium (PTHI) 9.4 mg/dL (8.6-10.2); PTHI 25 pg/mL (16-77)
== END 2023-02-22 09:08 | disposition home or self-care (01) ==
LOC: HO.LAB 09:07
PROVIDERS: PCP Internal Medicine Medical Oncology; Visit Provider Internal Medicine Nephrology
DX: Z13.89 Encounter for screening for other disorder (principal); E87.6 Hypokalemia
CPT/HCPCS: 36415; 80051; 82088; 82310; 82565; 83735; 83930; 83935; 83970; 84100; 84133; 84520

== ENCOUNTER → 2023-02-23 10:44 | Outpatient (BNVA) | payer OTHER, SELFPAY | PROVIDERS: PCP Internal Medicine Medical Oncology; Visit Provider Dietitian, Registered | DX: R73.9 Hyperglycemia, unspecified (principal); Z71.3 Dietary counseling and surveillance | CPT/HCPCS: 97802 ==

== ENCOUNTER 2023-04-02 21:20 | Emergency (ER) | payer OTHER, SELFPAY ==
--- NOTE | ~2023-04-02 | CT_ITS ---
EXAMINATION: CT HEAD WITHOUT CONTRAST CLINICAL INFORMATION: Altered mental status. COMPARISON: None available. TECHNIQUE: Contiguous axial imaging was performed from the skull base to vertex without intravenous administration of contrast. This CT examination was performed using dose optimization techniques as appropriate, variously including the following: *Automated exposure control *Adjustment of mA and/or kV according to patient size (this includes techniques or standardized protocols for targeted exams where dose is matched to indication/reason for exam; i.e. extremities or head) *Use of iterative reconstruction technique DLP: 1325 mGy-cm FINDINGS: There is no evidence of acute intracranial hemorrhage or territorial infarction. No abnormal mass effect or midline shift is seen. Hall to white matter differentiation is well preserved. No extra-axial fluid collections are identified. No hydrocephalus. No significant volume loss. There is no abnormal attenuation within the brain parenchyma. No acute osseous or soft tissue abnormality. The mastoid air cells and visualized portions of the paranasal sinuses are well aerated. CT/CT head/brain wo IV con IMPRESSION: No acute intracranial pathology.
--- NOTE | 2023-04-02 21:27 | ED_ITS ---
HPI - Nausea/Vomiting/Diarrhea General Chief complaint: Seizure Stated complaint: N/V Time Seen by Provider: 04/02/23 21:25 Source: EMS Mode of arrival: EMS Limitations: altered mental status History of Present Illness HPI Narrative: Patient history of major depression cyclic vomiting cocaine abuse disorder brought by EMS for vomiting episodes started earlier today patient talking to the EMS earlier while transporting patient patient became unconscious with muscle spasm , clenching her teeth and increased spasm of all 4 extremities no tonic clonic seizure activities noticed no incontinence EMS not aware of any head injury even with muscle spasm patient was able to say that she does not drink Related Data Home Medications Medication Instructions Recorded Confirmed escitalopram oxalate 20 mg tablet 20 mg PO DAILY 10/18/22 04/03/23 Previous Rx's Medication Instructions Recorded lorazepam 1 mg tablet (Ativan) 1 mg PO BID PRN anxiety #20 tabs 08/19/22 Allergies Allergy/AdvReac Type Severity Reaction Status Date / Time No Known Allergies Allergy Verified 04/03/23 00:35 Review of Systems Review of Systems: Yes all other systems are reviewed and are negative [facility] Past Medical History Medical History Anxiety Cyclical vomiting Hip fracture requiring operative repair Hyperglycemia Surgical History History of hip surgery Social History Social History Alcohol intake: unknown Patient Tobacco Use Status: Never used Tobacco Smoked in Last 30 Days: Yes Substance Use Type: Marijuana Advance Directives: No Advance Directives Information Provided: No service: No Current occupational status: unemployed Physical Exam Vital Signs: Vital Signs: Last Vital Signs Temp 98.9 F 04/02/23 21:30 Pulse 111 H 04/03/23 00:19 Resp 14 04/03/23 00:19 BP 160/98 H 04/03/23 00:19 Pulse Ox 100 04/03/23 00:19 O2 Del Method Room Air 04/03/23 00:00 BMI result Body Mass Index 34.5 Appearance: Increased tone of her mouth and all extremities able to speak saying that she does not drink Eyes: PERRLA, No Nystagmus HEENT: Pharynx normal. Oral Mucosa moist ATNC Neck: Normal inspection. Neck supple. CVS: Normal heart rate and rhythm. Pulses normal. Respiratory: No respiratory distress. Equal air entry bilateral, no wheezing/rales/rhonchi Abdomen: Soft and nontender. Bowel sounds are present, Skin: Skin warm and dry. Normal skin color. Normal skin turgor. Extremities: No lower extremity edema. No calf tenderness, carpopedal spasm Neuro: Obtunded with increased muscle tone moving all 4 extremities. Medications Administered Discontinued Medications Generic Name Dose Route Start Last Admin Trade Name Freq PRN Reason Stop Dose Admin Diphenhydramine HCl 50 mg 04/02/23 23:44 04/02/23 23:48 Diphenhydramine Hcl 50 Mg/Ml Vial IVPUSH 04/02/23 23:45 50 mg ONCE ONE Administration Famotidine 20 mg 04/02/23 21:49 04/02/23 22:15 Famotidine/Pf 20 Mg/2 Ml Vial IVPUSH 04/02/23 21:50 20 mg ONCE ONE Administration Sodium Chloride 1,000 mls @ 999 mls/hr 04/02/23 21:30 04/02/23 23:00 Ns IV 04/02/23 22:30 Infused .Q1H1M ONE Infusion Magnesium Sulfate 2 gm in 50 mls @ 100 mls/hr 04/02/23 22:46 04/02/23 23:34 Magnesium Sulfate/H2o IV 04/02/23 23:15 Infused ONCE ONE Infusion Lorazepam 2 mg 04/02/23 21:30 04/02/23 21:40 Lorazepam 2 Mg/Ml Vial IM 04/02/23 21:31 2 mg STAT STA Administration Lorazepam 1 mg 04/02/23 21:35 04/02/23 21:40 Lorazepam 2 Mg/Ml Vial IVPUSH 04/02/23 21:36 1 mg ONCE ONE Administration Lorazepam 2 mg 04/03/23 00:08 04/03/23 00:13 Lorazepam 2 Mg/Ml Vial IVPUSH 04/03/23 00:09 2 mg ONCE ONE Administration Nicotine 21 mg 04/03/23 00:50 04/03/23 01:12 Nicotine 21 Mg Patch.Td24 TRANSDERMA 04/03/23 00:51 21 mg ONCE ONE Administration Ondansetron HCl 4 mg 04/02/23 21:30 04/02/23 21:44 Ondansetron Hcl 4 Mg/2 Ml Vial IVPUSH 04/02/23 21:31 4 mg ONCE ONE Administration Medical Decision Making Medical Decision Making [facility] Narrative: Patient with history of substance abuse says only THC with cyclic vomiting syndrome with anxiety and depression patient acting strangely in the ER drug screen shows only THC head CT was negative labs show leukocytosis without any abdominal tenderness likely leukemoid reaction from dehydration. Lactic acid level was normal blood culture was done UA was negative. patient at this time is sleeping after medications will re-evaluate patient in the a.m. before discharge patient signed out to Dr. Moody for disposition Differential Diagnosis Overdose/sepsis/cyclic vomiting syndrome/metabolic acidosis Lab Data [facility] Lab Attestation statement: I reviewed the patient's lab results. 04/02/23 21:59 04/02/23 21:59 Labs: Lab Results 04/02/23 04/02/23 04/02/23 Range/Units 21:36 21:59 21:59 WBC 31.6 H* (4.8-10.8) X10*3/uL RBC 5.02 (4.20-5.50) X10*6/uL Hgb 13.4 (12.0-16.0) g/dl Hct 38.6 (37.0-47.0) % MCV 76.9 L (80.0-98.0) fL MCH 26.7 L (27.0-33.0) pg MCHC 34.7 (31.0-35.0) g/dl RDW 13.3 (11.0-16.0) % Plt Count 409 H D (160-400) X10*3/uL MPV 9.8 (9.4-12.3) fL Immature Gran % (Auto) 0.7 H (0.0-0.4) % Neut % (Auto) 86.7 H (45-73) % Lymph % (Auto) 6.8 L (20-40) % [place] % (Auto) 5.6 (2-11) % Eos % (Auto) 0.0 (0-4) % Baso % (Auto) 0.2 (0-2) % Lymph # (Auto) 2.2 (1.2-4.9) X10*3/uL [place] # (Auto) 1.8 H (0.1-1.2) X10*3/uL Eos # (Auto) 0.0 (0.0-0.4) X10*3/uL Baso # (Auto) 0.1 (0.0-0.2) X10*3/uL Abs Immat Gran (auto) 0.22 H (0.00-0.03) X10*3/uL Absolute Neuts (auto) 27.4 H (2.0-8.3) x10*3/uL Absolute Nucleated RBC 0.000 (0.0-0.012) X10*3/uL Nucleated RBC % (auto) 0.0 (0.0-0.2) /100WBC Smear Tech's Comments VERIFIED PT 12.8 (10.0-13.1) SEC INR 1.1 (0.9-1.1) Sodium (135-145) mmol/L Potassium (3.3-5.1) mmol/L Chloride (96-108) mmol/L Carbon Dioxide (22-29) mmol/L Anion Gap (12-20) BUN (9-16) mg/dL Creatinine (0.5-1.4) mg/dL Estim Creat Clear Calc Estimated GFR POC Glucose 147 H (60-115) mg/dL Random Glucose (60-115) mg/dL Lactic Acid (0.5-2.0) mmol/L Calcium (8.4-10.2) mg/dL Magnesium (1.6-2.6) mg/dL Total Bilirubin (0.0-1.0) mg/dL AST (5-31) U/L ALT (0-31) U/L Alkaline Phosphatase (39-117) U/L Total Protein (6.5-8.0) g/dL Albumin (3.5-5.0) g/dL Lipase (8-78) U/L Urine Color Urine Appearance Urine pH (5.0-9.0) Ur Specific [place] (1.005-1.025) Urine Protein (Neg-Trace) mg/dL Urine Glucose (UA) (Negative) mg/dL Urine Ketones (Negative) mg/dL Urine Blood (Negative) Urine Nitrite (Negative) Ur Leukocyte Esterase (Negative) Urine RBC (0-2) /HPF Urine WBC (0-5) /HPF Ur Squamous Epith Cells (0-2) /HPF Urine Bacteria (None Seen) Hyaline Casts (0-2) /LPF Urine Test (NEGATIVE) Urine Opiates Screen (Not Detect) Urine Fentanyl Screen (Not Detect) Ur Barbiturates Screen (Not Detect) Ur Phencyclidine Scrn (Not Detect) Ur Amphetamines Screen (Not Detect) U Benzodiazepines Scrn (Not Detect) Urine Cocaine Screen (Not Detect) U Marijuana (THC) Screen (Not Detect) 04/02/23 04/02/23 04/02/23 Range/Units 21:59 22:40 23:30 WBC (4.8-10.8) X10*3/uL RBC (4.20-5.50) X10*6/uL Hgb (12.0-16.0) g/dl Hct (37.0-47.0) % MCV (80.0-98.0) fL MCH (27.0-33.0) pg MCHC (31.0-35.0) g/dl RDW (11.0-16.0) % Plt Count (160-400) X10*3/uL MPV (9.4-12.3) fL Immature Gran % (Auto) (0.0-0.4) % Neut % (Auto) (45-73) % Lymph % (Auto) (20-40) % [place] % (Auto) (2-11) % Eos % (Auto) (0-4) % Baso % (Auto) (0-2) % Lymph # (Auto) (1.2-4.9) X10*3/uL [place] # (Auto) (0.1-1.2) X10*3/uL Eos # (Auto) (0.0-0.4) X10*3/uL Baso # (Auto) (0.0-0.2) X10*3/uL Abs Immat Gran (auto) (0.00-0.03) X10*3/uL Absolute Neuts (auto) (2.0-8.3) x10*3/uL Absolute Nucleated RBC (0.0-0.012) X10*3/uL Nucleated RBC % (auto) (0.0-0.2) /100WBC Smear Tech's Comments PT (10.0-13.1) SEC INR (0.9-1.1) Sodium 138 (135-145) mmol/L Potassium 3.5 (3.3-5.1) mmol/L Chloride 105 (96-108) mmol/L Carbon Dioxide 17 L (22-29) mmol/L Anion Gap 20 (12-20) BUN 11 (9-16) mg/dL Creatinine 0.76 (0.5-1.4) mg/dL Estim Creat Clear Calc 130.5 Estimated GFR > 60 POC Glucose (60-115) mg/dL Random Glucose 122 H (60-115) mg/dL Lactic Acid 1.4 (0.5-2.0) mmol/L Calcium 9.7 (8.4-10.2) mg/dL Magnesium 1.3 L* (1.6-2.6) mg/dL Total Bilirubin 0.8 (0.0-1.0) mg/dL AST 18 (5-31) U/L ALT 14 (0-31) U/L Alkaline Phosphatase 102 (39-117) U/L Total Protein 8.0 (6.5-8.0) g/dL Albumin 4.6 (3.5-5.0) g/dL Lipase 16 (8-78) U/L Urine Color Urine Appearance Urine pH (5.0-9.0) Ur Specific [place] (1.005-1.025) Urine Protein (Neg-Trace) mg/dL Urine Glucose (UA) (Negative) mg/dL Urine Ketones (Negative) mg/dL Urine Blood (Negative) Urine Nitrite (Negative) Ur Leukocyte Esterase (Negative) Urine RBC (0-2) /HPF Urine WBC (0-5) /HPF Ur Squamous Epith Cells (0-2) /HPF Urine Bacteria (None Seen) Hyaline Casts (0-2) /LPF Urine Test (NEGATIVE) Urine Opiates Screen Not Detected (Not Detect) Urine Fentanyl Screen Not Detected (Not Detect) Ur Barbiturates Screen Not Detected (Not Detect) Ur Phencyclidine Scrn Not Detected (Not Detect) Ur Amphetamines Screen Not Detected (Not Detect) U Benzodiazepines Scrn Not Detected (Not Detect) Urine Cocaine Screen Not Detected (Not Detect) U Marijuana (THC) Screen POSITIVE H (Not Detect) 04/02/23 04/02/23 Range/Units 23:30 23:30 WBC (4.8-10.8) X10*3/uL RBC (4.20-5.50) X10*6/uL Hgb (12.0-16.0) g/dl Hct (37.0-47.0) % MCV (80.0-98.0) fL MCH (27.0-33.0) pg MCHC (31.0-35.0) g/dl RDW (11.0-16.0) % Plt Count (160-400) X10*3/uL MPV (9.4-12.3) fL Immature Gran % (Auto) (0.0-0.4) % Neut % (Auto) (45-73) % Lymph % (Auto) (20-40) % [place] % (Auto) (2-11) % Eos % (Auto) (0-4) % Baso % (Auto) (0-2) % Lymph # (Auto) (1.2-4.9) X10*3/uL [place] # (Auto) (0.1-1.2) X10*3/uL Eos # (Auto) (0.0-0.4) X10*3/uL Baso # (Auto) (0.0-0.2) X10*3/uL Abs Immat Gran (auto) (0.00-0.03) X10*3/uL Absolute Neuts (auto) (2.0-8.3) x10*3/uL Absolute Nucleated RBC (0.0-0.012) X10*3/uL Nucleated RBC % (auto) (0.0-0.2) /100WBC Smear Tech's Comments PT (10.0-13.1) SEC INR (0.9-1.1) Sodium (135-145) mmol/L Potassium (3.3-5.1) mmol/L Chloride (96-108) mmol/L Carbon Dioxide (22-29) mmol/L Anion Gap (12-20) BUN (9-16) mg/dL Creatinine (0.5-1.4) mg/dL Estim Creat Clear Calc Estimated GFR POC Glucose (60-115) mg/dL Random Glucose (60-115) mg/dL Lactic Acid (0.5-2.0) mmol/L Calcium (8.4-10.2) mg/dL Magnesium (1.6-2.6) mg/dL Total Bilirubin (0.0-1.0) mg/dL AST (5-31) U/L ALT (0-31) U/L Alkaline Phosphatase (39-117) U/L Total Protein (6.5-8.0) g/dL Albumin (3.5-5.0) g/dL Lipase (8-78) U/L Urine Color Yellow Urine Appearance Cloudy Urine pH 6.5 (5.0-9.0) Ur Specific [place] >= 1.030 H (1.005-1.025) Urine Protein 300 (3+) H (Neg-Trace) mg/dL Urine Glucose (UA) Negative (Negative) mg/dL Urine Ketones >=160 (Negative) mg/dL Urine Blood Negative (Negative) Urine Nitrite Negative (Negative) Ur Leukocyte Esterase Negative (Negative) Urine RBC 3-5 H (0-2) /HPF Urine WBC 0-5 (0-5) /HPF Ur Squamous Epith Cells 3-5 (0-2) /HPF Urine Bacteria None Seen (None Seen) Hyaline Casts 11-20 (0-2) /LPF Urine Test NEGATIVE (NEGATIVE) Urine Opiates Screen (Not Detect) Urine Fentanyl Screen (Not Detect) Ur Barbiturates Screen (Not Detect) Ur Phencyclidine Scrn (Not Detect) Ur Amphetamines Screen (Not Detect) U Benzodiazepines Scrn (Not Detect) Urine Cocaine Screen (Not Detect) U Marijuana (THC) Screen (Not Detect) Independent Interpretation I performed an independent interpretation of an: EKG Interpretation: Sinus tachycardia heart rate 114 beats per minute normal interval normal axis no acute ischemic changes Discharge Plan Discharge Clinical Impression: Intractable cyclical vomiting with nausea, Anxiety and depression, Substance use disorder Patient Disposition: Still a Patient Prescriptions: No Action lorazepam [Ativan] 1 mg tablet 1 mg PO BID PRN (Reason: anxiety) Qty: 20 0RF escitalopram oxalate 20 mg tablet 20 mg PO DAILY
[2023-04-02 21:30] VITALS: BP 159/111; PULSE 105; RESP 19; TEMP 37.2; O2SAT 100; BMI 34.5
--- NOTE | 2023-04-02 21:30 | ECG_ITS ---
Test Reason : sz Blood Pressure : / mmHG Vent. Rate : 114 BPM Atrial Rate : 114 BPM P-R Int : 126 ms QRS Dur : 086 ms QT Int : 344 ms P-R-T Axes : 071 085 045 degrees QTc Int : 474 ms Sinus tachycardia Otherwise normal ECG When compared with ECG of 01-NOV-2022 15:27, T wave inversion no longer evident in Inferior leads Referred By: Rocael Renee Electronically Signed By:HERMINIA SALCEDO
--- NOTE | 2023-04-02 21:30 | PC.NURSE ---
Addendum entered by Isadora Bullock 04/03/23 01:39: @[id number] Bateman Original Note: 2 mg ativan IM administered for seizure upon pt's arrival to [facility] ED, IV access obtained by EMS in pt's room as pt's change in chief complaint (n/v/abd pain to seizure) changed upon arrival
[2023-04-02] MEDS: LORazepam 2 MG/ML VIAL 1 MG IVPUSH (21:40)
[2023-04-02] MEDS: LORazepam 2 MG/ML VIAL IM (21:40)
--- NOTE | 2023-04-02 21:40 | PC.NURSE ---
pt initially came in for vomiting, however upon arrival at [facility] seizure like symptoms occurred IV line access obtained by EMS ativan 2mg IM to L deltoid and [address] push per [address] Bateman administered pt unresponsive at time of arrival and bilat arms clenched and mouth clenched
[2023-04-02] MEDS: 0.9 % Sodium Chloride 1,000 ML 999 ML IV (21:41)
[2023-04-02] MEDS: ondansetron HCL 4 MG/2 ML VIAL IVPUSH (21:44)
[2023-04-02 21:57] LABS: Glucose, Whole Blood 147 mg/dL (60-115)
--- NOTE | 2023-04-02 22:05 | PC.NURSE ---
pt able to answer questions appropriately mouth clench has improved pt able to express needs
[2023-04-02] MEDS: Famotidine/PF 20 MG/2 ML VIAL IVPUSH (22:15)
[2023-04-02 22:18] LABS: Basophils Absolute Auto 0.1 X10*3/uL (0.0-0.2); Basophils Percent Auto 0.2 % (0-2); Hematocrit 38.6 % (37.0-47.0); Hemoglobin 13.4 g/dl (12.0-16.0); Imm Gran Abs Auto 0.22 X10*3/uL (0.00-0.03); Imm Gran Pct Auto 0.7 % (0.0-0.4); Lymphocytes Absolute Auto 2.2 X10*3/uL (1.2-4.9); Lymphocytes Percent Auto 6.8 % (20-40); MANUAL DIFF FLAG SCAN; Mean Corpuscular HGB Conc 34.7 g/dl (31.0-35.0); Mean Corpuscular Hemoglobin 26.7 pg (27.0-33.0); Mean Corpuscular Volume 76.9 fL (80.0-98.0); Mean Platelet Volume 9.8 fL (9.4-12.3); Monocytes Absolute Auto 1.8 X10*3/uL (0.1-1.2); Monocytes Percent Auto 5.6 % (2-11); Neutrophils Absolute Auto 27.4 x10*3/uL (2.0-8.3); Neutrophils Percent Auto 86.7 % (45-73); Platelet Count 409 X10*3/uL (160-400); Red Blood Count 5.02 X10*6/uL (4.20-5.50); Red Cell Distribution Width 13.3 % (11.0-16.0); SCAN SMEAR FLAG 1
[2023-04-02 22:24] LABS: INTERNATIONAL NORM RATIO 1.1 (0.9-1.1); Prothrombin Time 12.8 SEC (10.0-13.1); White Blood Count 31.6 X10*3/uL (4.8-10.8)
[2023-04-02 22:41] LABS: SLIDE REVIEW VERIFIED
[2023-04-02 22:47] LABS: Alanine Aminotransferase 14 U/L (0-31); Albumin Level 4.6 g/dL (3.5-5.0); Alkaline Phosphatase 102 U/L (39-117); Anion Gap 20 (12-20); Aspartate Amino Transferase 18 U/L (5-31); Bilirubin Total 0.8 mg/dL (0.0-1.0); Blood Urea Nitrogen 11 mg/dL (9-16); Calcium 9.7 mg/dL (8.4-10.2); Carbon Dioxide 17 mmol/L (22-29); Chloride 105 mmol/L (96-108); Creatinine Clr Calc Pharmacy 130.5; Estimated Glomerular Filt Rate > 60; Glucose Random 122 mg/dL (60-115); Lipase 16 U/L (8-78); Magnesium 1.3 mg/dL (1.6-2.6); Potassium 3.5 mmol/L (3.3-5.1); Sodium 138 mmol/L (135-145)
[2023-04-02] MEDS: Magnesium Sulfate/H2O 2 GM/50 ML PIGGYBACK IV (22:51)
[2023-04-02 22:54] LABS: Lactic Acid 1.4 mmol/L (0.5-2.0)
[2023-04-02 23:38] LABS: Appearance Urine Cloudy; Color Urine Yellow; Glucose Urine UA Negative (Negative); Leukocyte Esterase Urine Negative (Negative); Nitrite Urine Negative (Negative); PH 6.5 (5.0-9.0); Specific Gravity - Urine >= 1.030 (1.005-1.025); UMIC TRIGGER UACC YES; Urine Blood Negative (Negative); Urine Ketones >=160 mg/dL (Negative); Urine Protein 300 (3+) mg/dL (Neg-Trace)
[2023-04-02 23:48] LABS: Amphetamine Screen Urine Not Detected (Not Detect); Barbiturates, Urine Not Detected (Not Detect); Benzodiazepines Screen Urine Not Detected (Not Detect); Cannabinoid Screen Urine POSITIVE (Not Detect); Cocaine Screen Urine Not Detected (Not Detect); Fentanyl, urine Not Detected (Not Detect); Opiate Screen Urine Not Detected (Not Detect); Phencyclidine Screen Urine Not Detected (Not Detect)
[2023-04-02] MEDS: diphenhydrAMINE HCL 50 MG/ML VIAL IVPUSH (23:48)
[2023-04-02 23:50] LABS: UPreg QC Valid YES; Urine Pregnancy NEGATIVE (NEGATIVE)
[2023-04-02 23:52] LABS: Bacteria Urine None Seen (None Seen); WBC Urine 0-5 /HPF (0-5)
[2023-04-03] VITALS: BP 159/105; PULSE 115; RESP 14; O2SAT 99
[2023-04-03] MEDS: LORazepam 2 MG/ML VIAL IVPUSH (00:13)
[2023-04-03 00:19] VITALS: BP 160/98; PULSE 111; RESP 14; O2SAT 100
[2023-04-03] MEDS: Nicotine 21 MG PATCH.TD24 TRANSDERMA (00:56)
[2023-04-03] MEDS: 0.9 % Sodium Chloride 1,000 ML 999 ML IV (02:06)
[2023-04-03 04:26] VITALS: BP 120/60; PULSE 97; RESP 15; TEMP 36.7; O2SAT 100
--- NOTE | 2023-04-03 06:26 | PC.NURSE ---
Pt SI when EMS called this nurse just went over events with pt and she stated when she called she was going to use a family health nurse practitioner to harm herself, but called EMS instead pt states she no longer feels like harming herself, that she just wants her pain to go away
--- NOTE | 2023-04-03 06:29 | PC.NURSE ---
security called to remove pt's vape from her room as she was using it and was informed that she could not use vape within the facility pt however, used the vape again and security called
--- NOTE | 2023-04-03 06:30 | PC.NURSE ---
pt yelling repeatedly, I can't do this anymore. I don't want to do this anymore.
[2023-04-03] MEDS: Prochlorperazine Edisylate 10 MG/2 ML VIAL IVPUSH (06:45)
[2023-04-03] MEDS: 0.9 % Sodium Chloride 1,000 ML 999 ML IVCONT (06:46)
[2023-04-03 07:39] VITALS: BP 144/91; PULSE 104; RESP 26; TEMP 36.9; O2SAT 100
--- NOTE | 2023-04-03 09:21 | MHC.RECOVRN ---
Attempted to meet with pt in ED11 after consult placed to CARE Team for substance use. Pt laying in bed, asleep, wakes briefly to touch. Pt continually falls asleep and is unable to engage in conversation. Will return when pt more awake.
[2023-04-03 09:48] LABS: MANUAL DIFF FLAG NO
[2023-04-03 09:50] LABS: Basophils Absolute Auto 0.1 X10*3/uL (0.0-0.2); Basophils Percent Auto 0.3 % (0-2); Eosinophils Percent Auto 0.1 % (0-4); Hematocrit 33.2 % (37.0-47.0); Imm Gran Pct Auto 0.5 % (0.0-0.4); Lymphocytes Percent Auto 15.4 % (20-40); Mean Corpuscular HGB Conc 33.1 g/dl (31.0-35.0); Mean Corpuscular Hemoglobin 26.6 pg (27.0-33.0); Mean Corpuscular Volume 80.2 fL (80.0-98.0); Mean Platelet Volume 9.6 fL (9.4-12.3); Monocytes Absolute Auto 1.2 X10*3/uL (0.1-1.2); Monocytes Percent Auto 6.2 % (2-11); Neutrophils Percent Auto 77.5 % (45-73); Platelet Count 288 X10*3/uL (160-400); Red Blood Count 4.14 X10*6/uL (4.20-5.50); Red Cell Distribution Width 13.7 % (11.0-16.0); White Blood Count 19.4 X10*3/uL (4.8-10.8)
--- NOTE | 2023-04-03 11:31 | MHC.RECOVRN ---
Met with pt in ED11 to follow up regarding substance use. Pt tearful, reports smoking marijuana, approx 1 gram daily. Reports hx medical admissions due to cyclic vomiting syndrome. Pt frustrated with current circumstances, states Why me? What did I do in this world to deserve this? Pt denies SI at this time, reports she occasionally feels that way out of anger. Pt does not currently have outpatient psychiatric providers. Discussed outpatient options with pt, including recovery coaching and PHP/IOP. Pt is interested in PHP as she feels her mental health needs to be addressed as well as her substance use. Provided pt with PHP and RC information. T/w also made PHP dept sandfill operator aware pt will be calling to schedule intake and provided pts phone number. ED provider and RN aware.
[2023-04-03 11:56] VITALS: BP 125/72; PULSE 97; RESP 16; TEMP 36.1; O2SAT 98
== END 2023-04-03 12:04 | disposition home or self-care (01) ==
PROVIDERS: Emergency Medicine; Emergency Provider Internal Medicine; PCP Internal Medicine
DX: R56.9 Unspecified convulsions (principal); R41.82 Altered mental status, unspecified; F33.1 Major depressive disorder, recurrent, moderate; R00.0 Tachycardia, unspecified; M62.838 Other muscle spasm; R11.15 Cyclical vomiting syndrome unrelated to migraine; F12.99 Cannabis use, unspecified with unspecified cannabis-induced disorder; Z79.899 Other long term (current) drug therapy
CPT/HCPCS: 36415; 70450; 80053; 80307; 81001; 81025; 82947; 83605; 83690; 83735; 85025; 85610; 87040; 93005; 96361; 96365; 96375; 99285; J1200; J2060; J2405; J3475

== ENCOUNTER 2023-04-12 20:16 | Emergency (ER) | payer OTHER, SELFPAY ==
--- NOTE | ~2023-04-12 | US_ITS ---
EXAMINATION: US VENOUS ULTRASOUND WITH DOPPLER LOWER EXTREMITY, BILATERAL CLINICAL INFORMATION: Question PE, rule out DVT COMPARISON: None available. TECHNIQUE: Ultrasound of the deep veins is performed from the hip to the calf with compression sonography and color and pulse Doppler assessment. Spectral analysis with color-flow imaging is performed. FINDINGS: RIGHT: There is normal venous compression and respiratory variation and augmented flow. The visualized common femoral vein, superficial femoral vein, profunda femoral vein, popliteal vein, and the trifurcation region shows no evidence of deep venous thrombosis. There is no significant popliteal fossa cyst. LEFT: There is normal venous compression and respiratory variation and augmented flow. The visualized common femoral vein, superficial femoral vein, profunda femoral vein, popliteal vein, and the trifurcation region shows no evidence of deep venous thrombosis. There is no significant popliteal fossa cyst. If the patient's symptoms persist, followup ultrasound in 5 days 7 days might be of value to exclude proximal propagation from a non-visualized calf vein. US/US venous duplex LE BI IMPRESSION: No DVT demonstrated in the bilateral lower extremities.
--- NOTE | ~2023-04-12 | CT_ITS ---
EXAMINATION: CT ANGIOGRAM OF THE CHEST WITH AND WITHOUT CONTRAST (CT PULMONARY ANGIOGRAM FOR PE) CLINICAL INFORMATION: Reason for Exam chest pain COMPARISON: None available. TECHNIQUE: Prior to contrast administration, noncontrast localization images were obtained. Subsequently, multidetector volumetric imaging was performed from the thoracic inlet to below the diaphragms following the administration of 65 mL Omnipaque 350 intravenous contrast. No contrast reaction reported Sagittal, coronal, and MIP oblique sagittal reformatted images were obtained on the CT workstation, uploaded to PACS, and reviewed. This CT examination was performed using dose optimization techniques as appropriate, variously including the following: *Automated exposure control *Adjustment of mA and/or kV according to patient size (this includes techniques or standardized protocols for targeted exams where dose is matched to indication/reason for exam; i.e. extremities or head) *Use of iterative reconstruction technique Total exam dose-length product 513 mGy-cm FINDINGS: QUALITY OF STUDY/CONTRAST BOLUS: Unsatisfactory. There is just as much contrast in the aorta as the pulmonary artery system. In addition the patient's body habitus limits evaluation due to artifact. Given that I cannot exclude filling defect within the left upper lobe segmental artery. Image 155 of series 7. There is also a questionable filling defect on image 239 but this is equivocal. The thoracic inlet is within normal limits. Partially visualized upper abdominal structures unremarkable. Centrally no significant coronary calcium is seen. There is no bulky central adenopathy. Imaging the lung horner. Right lung; No significant infiltrate or effusion. Some mild dependent atelectasis is noted. Left lung; No significant infiltrate or effusion. Mild dependent atelectasis. There is no bowing of the septum. There is no reflux into the hepatic veins. CT/CT angio chest PE protocol IMPRESSION: This exam is limited from bolus as well as patient body habitus and mild motion. Given this I cannot exclude some small filling defects in segmental vessels described on the left and therefore small PE cannot be excluded. There is no significant infiltrate or effusion. This critical result was discussed with Dr. Rafita Cowart at 12:52 AM on 04/13/2023 and it was ascertained that the content and urgency of the report was understood at the time of direct communication.
--- NOTE | ~2023-04-12 | CT_ITS ---
EXAMINATION: CT HEAD WITHOUT CONTRAST CLINICAL INFORMATION: Trauma COMPARISON: 04/03/2023 TECHNIQUE: Contiguous axial imaging was performed from the skull base to vertex without intravenous administration of contrast. This CT examination was performed using dose optimization techniques as appropriate, variously including the following: *Automated exposure control *Adjustment of mA and/or kV according to patient size (this includes techniques or standardized protocols for targeted exams where dose is matched to indication/reason for exam; i.e. extremities or head) *Use of iterative reconstruction technique DLP: 694 mGy-cm FINDINGS: There is no evidence of acute intracranial hemorrhage or territorial infarction. No abnormal mass-effect or midline shift is seen. Hall to white matter differentiation is well preserved. No extra-axial fluid collections are identified. The ventricles are normal in size. There is no abnormal attenuation within the brain parenchyma. The osseous structures and soft tissues are normal. The mastoid air cells and visualized portions of the paranasal sinuses are well-aerated. CT/CT head/brain wo IV con IMPRESSION: No acute intracranial pathology.
[2023-04-12 20:22] VITALS: BP 150/100; BP 198/119; PULSE 126; PULSE 160; RESP 20; TEMP 37.6; O2SAT 100; O2SAT 99; BMI 34.3
--- NOTE | 2023-04-12 20:40 | PC.NURSE ---
pt anxiouse, ran out of her ativan 1 mg po. pt has bruising to her face. forehead and left side [place] provider made aware.
[2023-04-12] MEDS: LORazepam 1 MG TABLET PO (20:43)
--- NOTE | 2023-04-12 21:07 | ECG_ITS ---
Test Reason : ANXIETY Blood Pressure : / mmHG Vent. Rate : 125 BPM Atrial Rate : 125 BPM P-R Int : 116 ms QRS Dur : 078 ms QT Int : 322 ms P-R-T Axes : 082 095 020 degrees QTc Int : 464 ms Sinus tachycardia Right atrial enlargement Rightward axis Pulmonary disease pattern Nonspecific ST abnormality Abnormal ECG When compared with ECG of 02-APR-2023 21:41, ST now depressed in Inferior leads Referred By: Generic ED Physician Electronically Signed By:CHRISTA STRATTON MD
--- NOTE | 2023-04-12 21:14 | PC.NURSE ---
pt very anxiouse provider at bedside, pt tearful, bruising over her body provider aware. ativan iv ordered. pt states her bruising is self inflicted to try to get her anxiety away. father in waiting room at this time.
[2023-04-12 21:24] LABS: MANUAL DIFF FLAG NO
[2023-04-12 21:25] LABS: Basophils Absolute Auto 0.1 X10*3/uL (0.0-0.2); Basophils Percent Auto 0.5 % (0-2); Eosinophils Absolute Auto 0.1 X10*3/uL (0.0-0.4); Eosinophils Percent Auto 0.2 % (0-4); Hematocrit 40.4 % (37.0-47.0); Hemoglobin 13.7 g/dl (12.0-16.0); Imm Gran Abs Auto 0.13 X10*3/uL (0.00-0.03); Imm Gran Pct Auto 0.5 % (0.0-0.4); Lymphocytes Absolute Auto 4.1 X10*3/uL (1.2-4.9); Lymphocytes Percent Auto 16.7 % (20-40); Mean Corpuscular HGB Conc 33.9 g/dl (31.0-35.0); Mean Corpuscular Hemoglobin 26.6 pg (27.0-33.0); Mean Corpuscular Volume 78.3 fL (80.0-98.0); Mean Platelet Volume 9.9 fL (9.4-12.3); Monocytes Absolute Auto 2.4 X10*3/uL (0.1-1.2); Monocytes Percent Auto 9.6 % (2-11); Neutrophils Absolute Auto 17.9 x10*3/uL (2.0-8.3); Neutrophils Percent Auto 72.5 % (45-73); Platelet Count 489 X10*3/uL (160-400); Red Blood Count 5.16 X10*6/uL (4.20-5.50); Red Cell Distribution Width 13.8 % (11.0-16.0); SCAN SMEAR FLAG 1; White Blood Count 24.7 X10*3/uL (4.8-10.8)
[2023-04-12] MEDS: LORazepam 2 MG/ML VIAL 1 MG IVPUSH (21:29)
[2023-04-12] MEDS: 0.9 % Sodium Chloride 1,000 ML 999 ML IV (21:30)
[2023-04-12 21:32] VITALS: BP 178/112; PULSE 115; RESP 17; TEMP 37.8; O2SAT 100
[2023-04-12 21:33] LABS: D Dimer High Sensitivity 422 NG/ML
[2023-04-12 21:34] VITALS: BP 178/112; PULSE 110; RESP 15; TEMP 37.8
--- NOTE | 2023-04-12 21:36 | ED_ITS ---
HPI - General Adult General Chief complaint: Anxiety Stated complaint: ANXIETY Time Seen by Provider: 04/12/23 20:39 Source: patient, family, RN notes reviewed and old records reviewed Mode of arrival: EMS Limitations: no limitations History of Present Illness HPI narrative: This 22-year-old female with past medical history significant for hyperglycemia, anxiety, substance use disorder, severe vomiting presents for evaluation of ?panic attacks. ? Patient presents by ambulance for severe anxiety. She reports that she has felt this way since 03/12 this morning She states that she usually takes Ativan for her anxiety but she ran out 4 days ago The patient's father states that when the patient has severe anxiety the patient self harms by hitting herself or throwing herself on the floor The patient has bruises to her head, left shoulder and both arms The patient is very adamant that there is no domestic violence or any kind of physical abuse. She initially reported that the injuries were from a fence that fell on her while she was trying to fix the She then later admitted that they were self-inflicted I ?throwing myself against the wall. ? Patient was observed hitting herself in the chest in the emergency room Related Data Home Medications Medication Instructions Recorded Confirmed escitalopram oxalate 20 mg tablet 20 mg PO DAILY 10/18/22 04/03/23 Previous Rx's Medication Instructions Recorded lorazepam 1 mg tablet (Ativan) 1 mg PO BID PRN anxiety #20 tabs 08/19/22 Allergies Allergy/AdvReac Type Severity Reaction Status Date / Time No Known Allergies Allergy Verified 04/03/23 00:35 Review of Systems Constitutional: Constitutional: Denies body ache(s), Denies fever(s) and Denies headache(s) ENT: Denies headache(s) Cardiovascular: Cardiovascular: Reports chest pain and Reports dyspnea Respiratory: Respiratory: Denies cough and Reports dyspnea Gastrointestinal: Gastrointestinal: Denies abdominal pain, Denies nausea and Denies vomiting Integumentary/Breasts: Skin/Breast: Reports unusual bruising Neurologic: Denies headache(s) Psychiatric: Psychiatric: Reports anxiety PMFSH Past Medical History Medical History Anxiety Cyclical vomiting Hip fracture requiring operative repair Hyperglycemia Surgical History History of hip surgery Social History Social History Alcohol intake: never Patient Tobacco Use Status: Never used Tobacco Smoked in Last 30 Days: No Use of substances other than those prescribed or required for medical reasons: Yes Substance Use Type: Marijuana Substance Use Frequency: Chronic Longstanding Advance Directives: No Advance Directives Information Provided: No service: No Current occupational status: unemployed Physical Exam ED Vital Signs: Vital Signs - 24 hr 04/12/23 20:22 04/12/23 21:32 04/12/23 21:34 Temperature 99.6 F 100.0 F 100.0 F Pulse Rate 126 H 115 H 110 H Respiratory Rate 20 17 15 Blood Pressure 198/119 H 178/112 H 178/112 H Pulse Oximetry 100 100 Oxygen Delivery Method Room Air Room Air Room Air 04/12/23 22:00 04/13/23 00:16 04/13/23 01:52 Temperature 98.9 F 98.8 F 98.0 F Pulse Rate 111 H 101 H 96 Respiratory Rate 18 15 16 Blood Pressure 121/99 H 150/93 H 164/105 H Pulse Oximetry 98 100 98 Oxygen Delivery Method Room Air Room Air Room Air BMI result Body Mass Index 34.3 Const Other: Multiple bruises, areas of ecchymosis most notably the left shoulder, forehead, bilateral upper arms. No bruising to the chest, back or abdomen General: alert and awake Nutritional Appearance: well nourished Orientation/consciousness: patient oriented x3 Eyes Eyelids: Yes eyelids normal Conjunctivae: conjunctivae normal Sclerae: sclerae normal Corneas: corneas normal Pupils: Equal, round and reactive pupils present EOM: EOMs intact bilaterally Neck Neck: Yes full ROM Resp Effort & Inspection: normal respiratory effort, able to speak in complete sentences, no audible wheezes and not labored Auscultation: clear to auscultation bilaterally Cardio Rate: regular rate Rhythm: regular rhythm GI Inspection: No distended Palpation (GI): Soft to palpation, not firm, nontender, no guarding and not rigid Auscultation: normoactive bowel sounds Skin General skin exam: no rashes or lesions noted and elasticity normal Neuro General: patient oriented x3 Cranial nerves: Yes CN's II-XII intact bilaterally, Yes Equal, round and reactive pupils present and Yes Bilaterally intact EOM present Extrem Other: Moving all extremities well without any obvious deformities Psych Other: Patient is extremely anxious, fidgeting Affect: Anxious affect present Judgement: Poor judgement present (Psych) Course Reevaluation(s) Reevaluation #1: Received call from tele radiology that he could not rule out small acute left- sided PE. He noted in his report and on the phone that the exam was limited due to contrast bolus an artifact of motion and body habitus. He does not see any definitive PEs. The patient has a negative troponin. There is no heart strain, patient is not hypoxic. Given the patient has significant bruising to her head, face, extremities I do not feel that it is appropriate to treat potential PEs with anticoagulation as the patient is a high bleeding risk. I think it is more appropriate to re-scanned the patient in 1 week. I discussed this with my attending, Dr Renee who agrees with plan. I discussed this with the patient who verbalizes understanding Time: 01:00 Reevaluation #2: Will get ultrasound of the lower extremities to help evaluate for venous thromboembolism. If negative, he can persist with current plan of re-scanned the patient's chest in 1 week. If the patient does have PEs in either lower extremity the patient likely require admission for anticoagulation and 1-1. Patient signed out to overnight staff Time: 02:25 Medications Administered Discontinued Medications Generic Name Dose Route Start Last Admin Trade Name Freq PRN Reason Stop Dose Admin Diphenhydramine HCl 50 mg 04/12/23 21:57 04/12/23 22:39 Diphenhydramine Hcl 50 Mg/Ml Vial IVPUSH 04/12/23 21:58 50 mg ONCE ONE Administration Haloperidol Lactate 5 mg 04/12/23 23:37 04/12/23 23:38 Haloperidol Lactate 5 Mg/Ml Vial IVPUSH 04/12/23 23:38 5 mg STAT STA Administration Sodium Chloride 1,000 mls @ 999 mls/hr 04/12/23 21:15 04/12/23 23:02 Ns IV 04/12/23 22:15 Infused .Q1H1M SHABBIR Infusion Iohexol 65 ml 04/13/23 00:17 04/13/23 00:18 Iohexol 350 Mg/Ml 100 Ml Infus..Btl IV 04/13/23 00:18 65 ml ONCE ONE Administration Lorazepam 1 mg 04/12/23 20:39 04/12/23 20:43 Lorazepam 1 Mg Tablet PO 04/12/23 20:40 1 mg ONCE ONE Administration Lorazepam 1 mg 04/12/23 21:11 04/12/23 21:29 Lorazepam 2 Mg/Ml Vial IVPUSH 04/12/23 21:12 1 mg STAT STA Administration Ondansetron HCl 4 mg 04/12/23 21:57 04/12/23 22:39 Ondansetron Hcl 4 Mg/2 Ml Vial IVPUSH 04/12/23 21:58 4 mg ONCE ONE Administration Medical Decision Making Medical Decision Making [facility] Narrative: 22 of female presents for evaluation of chest pain which she attributes to anxiety attack. Her heart rate is regular, sinus at 120. EKG confirms sinus tachycardia. Will check basic labs including troponin. D-dimer was elevated, so on a CTA given the chest pain, shortness of breath and tachycardia. Of note, shortly after I evaluated the patient I was called back into the room as the patient was exhibiting seizure-like activity. She was still exhibiting purposeful movements. Her body was shaking. This lasted for about 15 seconds and she immediately woke up and was answering questions with no postictal state. I doubt this was a true seizure. However prolactin was added on. I had ordered Ativan 1 mg IV prior to this episode. That was given shortly afterwards. The patient is very adamant that there is no evidence of domestic violence and she states that she is safe at home. Her father explain to nursing staff that the patient does have a history of hitting herself when extremely anxious. Apparently the patient's boyfriend recently asked for some time apart and the patient's cousin is getting in these are to triggers for the patient's increasing Differential Diagnosis Anxiety Psychosis Depression PE ACS Lab Data 04/12/23 21:19 04/12/23 21:19 Labs: Lab Results 04/12/23 04/12/23 04/12/23 Range/Units 21:19 21:19 21:19 WBC 24.7 H (4.8-10.8) X10*3/uL RBC 5.16 D (4.20-5.50) X10*6/uL Hgb 13.7 D (12.0-16.0) g/dl Hct 40.4 D (37.0-47.0) % MCV 78.3 L (80.0-98.0) fL MCH 26.6 L (27.0-33.0) pg MCHC 33.9 (31.0-35.0) g/dl RDW 13.8 (11.0-16.0) % Plt Count 489 H D (160-400) X10*3/uL MPV 9.9 (9.4-12.3) fL Immature Gran % (Auto) 0.5 H (0.0-0.4) % Neut % (Auto) 72.5 (45-73) % Lymph % (Auto) 16.7 L (20-40) % [place] % (Auto) 9.6 (2-11) % Eos % (Auto) 0.2 (0-4) % Baso % (Auto) 0.5 (0-2) % Lymph # (Auto) 4.1 (1.2-4.9) X10*3/uL [place] # (Auto) 2.4 H (0.1-1.2) X10*3/uL Eos # (Auto) 0.1 (0.0-0.4) X10*3/uL Baso # (Auto) 0.1 (0.0-0.2) X10*3/uL Abs Immat Gran (auto) 0.13 H (0.00-0.03) X10*3/uL Absolute Neuts (auto) 17.9 H (2.0-8.3) x10*3/uL Absolute Nucleated RBC 0.000 (0.0-0.012) X10*3/uL Nucleated RBC % (auto) 0.0 (0.0-0.2) /100WBC D-Dimer High Sensitivty 422 NG/ML Sodium 141 (135-145) mmol/L Potassium 3.3 (3.3-5.1) mmol/L Chloride 103 (96-108) mmol/L Carbon Dioxide 21 L (22-29) mmol/L Anion Gap 20 (12-20) BUN 10 (9-16) mg/dL Creatinine 0.81 (0.5-1.4) mg/dL Estim Creat Clear Calc 122.0 Estimated GFR > 60 Random Glucose 159 H (60-115) mg/dL Calcium 10.0 (8.4-10.2) mg/dL Magnesium 1.9 (1.6-2.6) mg/dL Total Bilirubin 1.4 H (0.0-1.0) mg/dL AST 18 (5-31) U/L ALT 19 (0-31) U/L Alkaline Phosphatase 86 (39-117) U/L Troponin I High Sens (<3.5-17.0) ng/L Total Protein 8.0 (6.5-8.0) g/dL Albumin 4.5 (3.5-5.0) g/dL Lipase 13 (8-78) U/L Beta HCG, Quant < 2 mIU/mL Salicylates < 5.0 L (15-30) mg/dL Acetaminophen < 17 (<30) mcg/mL 04/12/23 Range/Units 21:19 WBC (4.8-10.8) X10*3/uL RBC (4.20-5.50) X10*6/uL Hgb (12.0-16.0) g/dl Hct (37.0-47.0) % MCV (80.0-98.0) fL MCH (27.0-33.0) pg MCHC (31.0-35.0) g/dl RDW (11.0-16.0) % Plt Count (160-400) X10*3/uL MPV (9.4-12.3) fL Immature Gran % (Auto) (0.0-0.4) % Neut % (Auto) (45-73) % Lymph % (Auto) (20-40) % [place] % (Auto) (2-11) % Eos % (Auto) (0-4) % Baso % (Auto) (0-2) % Lymph # (Auto) (1.2-4.9) X10*3/uL [place] # (Auto) (0.1-1.2) X10*3/uL Eos # (Auto) (0.0-0.4) X10*3/uL Baso # (Auto) (0.0-0.2) X10*3/uL Abs Immat Gran (auto) (0.00-0.03) X10*3/uL Absolute Neuts (auto) (2.0-8.3) x10*3/uL Absolute Nucleated RBC (0.0-0.012) X10*3/uL Nucleated RBC % (auto) (0.0-0.2) /100WBC D-Dimer High Sensitivty NG/ML Sodium (135-145) mmol/L Potassium (3.3-5.1) mmol/L Chloride (96-108) mmol/L Carbon Dioxide (22-29) mmol/L Anion Gap (12-20) BUN (9-16) mg/dL Creatinine (0.5-1.4) mg/dL Estim Creat Clear Calc Estimated GFR Random Glucose (60-115) mg/dL Calcium (8.4-10.2) mg/dL Magnesium (1.6-2.6) mg/dL Total Bilirubin (0.0-1.0) mg/dL AST (5-31) U/L ALT (0-31) U/L Alkaline Phosphatase (39-117) U/L Troponin I High Sens < 2.7 (<3.5-17.0) ng/L Total Protein (6.5-8.0) g/dL Albumin (3.5-5.0) g/dL Lipase (8-78) U/L Beta HCG, Quant mIU/mL Salicylates (15-30) mg/dL Acetaminophen (<30) mcg/mL Discharge Plan Discharge Clinical Impression: Anxiety, Intentional self-harm by blunt object Patient Disposition: Still a Patient Additional Instructions: Your CT scan of your chest was limited for several reasons including motion artifact. You need to have a repeat CT scan of your chest and 1-2 weeks to make sure you do not have any blood clots in your lungs Return to the ER sooner if you have cough, shortness of breath Prescriptions: No Action lorazepam [Ativan] 1 mg tablet 1 mg PO BID PRN (Reason: anxiety) Qty: 20 0RF escitalopram oxalate 20 mg tablet 20 mg PO DAILY
[2023-04-12 21:46] LABS: Alanine Aminotransferase 19 U/L (0-31); Albumin Level 4.5 g/dL (3.5-5.0); Alkaline Phosphatase 86 U/L (39-117); Anion Gap 20 (12-20); Aspartate Amino Transferase 18 U/L (5-31); Bilirubin Total 1.4 mg/dL (0.0-1.0); Blood Urea Nitrogen 10 mg/dL (9-16); Carbon Dioxide 21 mmol/L (22-29); Chloride 103 mmol/L (96-108); Estimated Glomerular Filt Rate > 60; Glucose Random 159 mg/dL (60-115); Lipase 13 U/L (8-78); Magnesium 1.9 mg/dL (1.6-2.6); Potassium 3.3 mmol/L (3.3-5.1); Sodium 141 mmol/L (135-145)
[2023-04-12 21:48] LABS: HCG Quantitative < 2 mIU/mL; Troponin-I High Sensitivity < 2.7 ng/L (<3.5-17.0)
--- NOTE | 2023-04-12 21:50 | PC.NURSE ---
father at bedside states that pt outbursts and panic attacks several times per week, with last ocurring yesterday. pt had recent stay at [place], and father stated that pt was taken off medications for anxiety by PCP.
--- NOTE | 2023-04-12 21:53 | PC.NURSE ---
THIS RN OVERRODE IV ATIVAN, UNAWARE OF EXISTING ORDER. 2MG WITHDRAWN FROM [facility], 1MG ADMINISTERED. BEATRIZ RN WITNESS TO WASTE 1MG ATIVAN. HUMAN RESOURCES BENEFITS MANAGER AWARE.
[2023-04-12 22:00] VITALS: BP 121/99; PULSE 111; RESP 18; TEMP 37.2; O2SAT 98
--- NOTE | 2023-04-12 22:16 | PC.NURSE ---
MIKAYLA Christopher pulled IV Ativan Med as ordered, this senior medical writer witnessed waist of 1 mg.
[2023-04-12] MEDS: ondansetron HCL 4 MG/2 ML VIAL IVPUSH (22:39)
[2023-04-12] MEDS: diphenhydrAMINE HCL 50 MG/ML VIAL IVPUSH (22:39)
[2023-04-12] MEDS: Haloperidol Lactate 5 MG/ML VIAL IVPUSH (23:38)
[2023-04-12 23:52] LABS: Acetaminophen LAB < 17 mcg/mL (<30); Salicylate < 5.0 mg/dL (15-30)
[2023-04-13 00:16] VITALS: BP 150/93; PULSE 101; RESP 15; TEMP 37.1; O2SAT 100
--- NOTE | 2023-04-13 00:17 | MHC.EDTECH ---
PT JUST CAME BACK FROM CT SCAN ,VITALS SIGN TAKEN ,PT IS RESTING QUIETLY IN BED ,PT FATHER AT BEDSIDE .
[2023-04-13] MEDS: iohexoL 350 MG/ML 100 ML INFUS..BTL 65 ML IV (00:18)
[2023-04-13 01:52] VITALS: BP 164/105; PULSE 96; RESP 16; TEMP 36.7; O2SAT 98
--- NOTE | 2023-04-13 02:11 | MHC.EDTECH ---
0200 rounding done ,vitals sign taken ,covid swab collected and sent to lab ,pt is sleeping ,no issues .
--- NOTE | 2023-04-13 02:32 | MHC.EDTECH ---
pt urine sample collected and sent to lab .
[2023-04-13 02:45] LABS: Amphetamine Screen Urine Not Detected (Not Detect); Barbiturates, Urine Not Detected (Not Detect); Benzodiazepines Screen Urine POSITIVE (Not Detect); Cannabinoid Screen Urine POSITIVE (Not Detect); Cocaine Screen Urine Not Detected (Not Detect); Fentanyl, urine Not Detected (Not Detect); Opiate Screen Urine Not Detected (Not Detect); Phencyclidine Screen Urine Not Detected (Not Detect)
[2023-04-13 03:20] LABS: COVID-19 Test Negative (Negative); IDNOW Serial# 08D9AD1C
[2023-04-13 03:22] LABS: Appearance Urine Clear; Color Urine Yellow; Glucose Urine UA Negative (Negative); Leukocyte Esterase Urine Negative (Negative); Nitrite Urine Negative (Negative); Specific Gravity - Urine >= 1.030 (1.005-1.025); UMIC TRIGGER UACC YES; Urine Blood Negative (Negative); Urine Ketones 80 mg/dL (Negative); Urine Protein 30 (1+) mg/dL (Neg-Trace)
[2023-04-13 03:50] LABS: Ethanol < 10 mg/dL
[2023-04-13 03:58] LABS: Bacteria Urine Trace (None Seen); Hyaline Casts Urine 0-2 /LPF (0-2); RBC Urine 0-2 /HPF (0-2); WBC Urine 0-5 /HPF (0-5)
[2023-04-13 04:00] VITALS: BP 163/83; PULSE 90; RESP 20; TEMP 36.6; O2SAT 97
--- NOTE | 2023-04-13 04:27 | MHC.EDTECH ---
0400 ROUNDING DONE ,VITALS SIGN TAKEN ,PT SLEEPING .
[2023-04-13 06:00] VITALS: BP 126/77; PULSE 113; RESP 16; TEMP 36.8; O2SAT 97
--- NOTE | 2023-04-13 06:00 | MHC.EDTECH ---
0600 rounding done ,vitals sign taken ,pt drank 3 orange juice and a can of thomas carl .
--- NOTE | 2023-04-13 06:51 | PC.NURSE ---
pt had one limited episode of vomiting after drinking thomas carl and orange juice. back to bed at this time.
[2023-04-13 07:54] VITALS: BP 145/97; PULSE 103; RESP 14; TEMP 36.8; O2SAT 100
--- NOTE | 2023-04-13 08:35 | PC.NURSE ---
care team at bedside
--- NOTE | 2023-04-13 08:45 | MHC.CARE ---
patient seen by CARE team, will be referred to PHP. Patient declines offer of an inpatient admission. Discussed php with patient and her father and will refer her today.
--- NOTE | 2023-04-13 08:53 | PC.NURSE ---
pt ambulating to and from bathroom w steady gait, making phone calls, calm and cooperative. tolerating po at this time without emesis. father at bedside.
--- NOTE | 2023-04-13 14:06 | MHC.CARE ---
Referral was faxed to [facility]. Fax -----confirmed.
[2023-04-15 07:44] LABS: Prolactin 17.2 ng/mL
--- NOTE | 2023-04-17 13:57 | MHC.CARE ---
@ 9:11 spoke with Alejandra at [facility] who stated she attempted to reach Pt but has not been able to yet and plans to try again today.
== END 2023-04-13 10:12 | disposition home or self-care (01) ==
PROVIDERS: Physician Assistant; Emergency Provider Internal Medicine; PCP Internal Medicine
DX: F41.9 Anxiety disorder, unspecified (principal); S00.93XA Contusion of unspecified part of head, initial encounter; S40.012A Contusion of left shoulder, initial encounter; S00.83XA Contusion of other part of head, initial encounter; S40.022A Contusion of left upper arm, initial encounter; S40.021A Contusion of right upper arm, initial encounter; X79.XXXA Intentional self-harm by blunt object, initial encounter; R00.0 Tachycardia, unspecified; Y93.9 Activity, unspecified; Y92.039 Unspecified place in apartment as the place of occurrence of the external cause; Y99.9 Unspecified external cause status; Z79.899 Other long term (current) drug therapy
CPT/HCPCS: 36415; 70450; 71275; 80053; 80143; 80179; 80307; 81001; 83690; 83735; 84146; 84484; 84702; 85025; 85379; 87635; 93005; 93970; 96361; 96374; 96375; 99285; J1200; J2060; J2405; Q9967; S9485

== ENCOUNTER 2023-04-18 14:09 | Outpatient (REF) | payer OTHER, SELFPAY ==
--- NOTE | ~2023-04-18 | XR_ITS ---
EXAMINATION: XR HAND, LEFT CLINICAL INFORMATION: Pain COMPARISON: None available. TECHNIQUE: PA, lateral, and oblique views of the left hand. Dedicated navicular view FINDINGS: The bones are intact. No fracture. Alignment is anatomic. Joint spaces are maintained. No erosions or soft tissue calcifications. XR/XR hand LT min 3V IMPRESSION: No bony abnormality.
== END 2023-04-18 14:10 | disposition home or self-care (01) ==
LOC: HO.HMGCX 14:09
PROVIDERS: PCP Internal Medicine; Visit Provider Internal Medicine
DX: M79.642 Pain in left hand (principal)
CPT/HCPCS: 73130

== ENCOUNTER → 2023-04-19 10:36 | Outpatient (BNVA) | payer OTHER, SELFPAY | PROVIDERS: PCP Internal Medicine; Visit Provider Dietitian, Registered | DX: E66.9 Obesity, unspecified (principal); Z68.34 Body mass index [BMI] 34.0-34.9, adult; R73.9 Hyperglycemia, unspecified; Z71.3 Dietary counseling and surveillance | CPT/HCPCS: 97803 ==

== ENCOUNTER 2023-09-06 13:28 | Outpatient (AMB) | payer OTHER, SELFPAY ==
[2023-09-06 13:33] VITALS: BMI 36.0
--- NOTE | 2023-09-06 13:33 | A.OFFVIS_ITS ---
Intake VS Expanded 09/06/23 13:33 Height 5 ft 5 in Weight 216 lb 4.375 oz BMI 36.0 Intake Visit Reasons: Hyperglycemia Allergies No Known Allergies Allergy (Verified 04/03/23 00:35) HPI Nutrition Presentation Details Pt presents for MNT f/u for hyperglycemia, not dm diagnosis Pt reports she quit smoking marijuana 6 m ago Pt reports doing well and blood sugars are in good control. Pt report she utilizes a glucometer which she did not bring today, but reports bg ranging from 80-90s at any time. Pt reports she is 4 months MICHAEL 02/17/2024 pt reports following with [facility] in [place], [place] reports having a follow up on _--October 04, 2023 Pt reports she is choosing fruit 2-3 times a day in place of pastries and is working on following healthy plate method Has 3 meals/day B: pancakes iwth bananas or raising bran cereal iwth milk L: sandw (turkey,cheese) and glass of milk and a cookie D: onion tomato and mehta peppers with meat/chicken , rice, water no soda has chocolate milk 2-3 times/d Pt reports taking a vitamin denies having diarrheas, vomiting physical activity: walking 30 minutes daily ETOH/SMoking: denies PICA: denies [id number].Jeor Equation Height 5 ft 5 in Weight 216 lb Resting Metabolic Rate 1731.57 Calculated Activity Level Sedentary Calories Needed to Maintain Weight 2077.88 Diagnosis Nutrition problem #1 overweight/obesity (17 wks preg) As related to (etiology) #1 diagnosis As evidenced by (sign/symptom) #1 high BMI Most Recent Diabetes Results: Creatinine 0.81 mg/dL (0.5-1.4) 04/12/23 Blood Urea Nitrogen 10 mg/dL (9-16) 04/12/23 Sodium 141 mmol/L (135-145) 04/12/23 Potassium 3.3 mmol/L (3.3-5.1) 04/12/23 Chloride 103 mmol/L (96-108) 04/12/23 Carbon Dioxide 21 mmol/L (22-29) L 04/12/23 Calcium 10.0 mg/dL (8.4-10.2) 04/12/23 AST 18 U/L (5-31) 04/12/23 ALT 19 U/L (0-31) 04/12/23 Total Protein 8.0 g/dL (6.5-8.0) 04/12/23 Albumin 4.5 g/dL (3.5-5.0) 04/12/23 PFSH Medical History Anxiety Cyclical vomiting Hip fracture requiring operative repair Hyperglycemia Surgical History History of hip surgery Social History Alcohol intake: never Patient Tobacco Use Status: Never used Tobacco Substance Use Type: Marijuana service: No Current occupational status: unemployed Female Reproductive History Menstrual Age of Menarche: 11 Assessment & Plan Assessment & Plan (1) Hyperglycemia: Comment: Pt reports she is with MICHAEL of 02/17/2024 Code(s): R73.9 - Hyperglycemia, unspecified Plan: Pt is 17.3 wks gestation with wt at 216 lbs Pre gravid wt 206 lbs Pt has gained 10 lbs in 17.3 wks Pt reports taking vitamins Recommended weight gain : less than 15 lbs throughout wt: 98 kg Est kcal needs as per MSJ: 6177-0466 (40% carb, 30% protein/fat) Est fluid needs as per 25-30 ml/d: 2454 - 2940 Est prot per day as per 1 g/kg bw: 98 Recommend fiber intake : 8-10 g per day and gradually increase to 25-28 g per day for women and 35-38 g for men or as tolerated Recommend sodium intake per day : less than 2000 mg Educated patient on: ( R = reviewed V = verbalizes understanding N/R = needs review N/A = not applicable * Food sources of carbohydrate, adequate serving sizes and its role in various health conditions: R V * Differences between complex carbohydrates a simple carbohydrates, role of fiber in diet: R V * Differences between types of fats and role in diet (mono on saturated fat fatty acids, saturated fatty acids, trans fats): R * Food sources of sodium in salt and healthy modifications for heart health in kidney health: R * Vitamins and minerals: R V * Healthy plate method concept: R V * Physical activity: Benefits a precaution: R V * Dietary prevention of Hyperglycemia: R V Patient Instructions: Reduce on high fat foods, choose lean protein sources of foods- see list of choices Include 3 serving of low fat dairy foods (yogurt, low fat milk , low fat dairy, include other sources of calcium: spinach, chickpeas,beans, okra, david seeds include omega 3 source of foods in the diet ( seeds, fish at least twice a week 6oz/ week) Keep hydrated by having water with meals, dilute juices with water Continue taking vitamin Coding Level of Care Code Nutr Indiv Subseq (54484) Diagnoses Hyperglycemia R73.9 Time Spent (min) 30
[2023-09-12 22:09] VITALS: BMI 35.9
== END 2023-09-06 13:55 | disposition home or self-care (01) ==
PROVIDERS: PCP Internal Medicine; Visit Provider Dietitian, Registered
DX: R73.9 Hyperglycemia, unspecified (principal)

== ENCOUNTER → 2023-09-06 13:28 | Outpatient (BNVA) | payer OTHER, SELFPAY | PROVIDERS: PCP Internal Medicine; Visit Provider Dietitian, Registered | DX: R73.9 Hyperglycemia, unspecified (principal) | CPT/HCPCS: 97803 ==

== ENCOUNTER 2023-10-27 09:50 | Outpatient (AMB) | payer OTHER, SELFPAY ==
[2023-10-27 10:35] VITALS: BP 118/70; PULSE 96; O2SAT 99; BMI 35.0
--- NOTE | 2023-10-27 10:35 | MHC.PC.OV ---
Vital Signs 10/27/23 10:35 Height 5 ft 5 in Weight 210 lb 2 oz BMI 35.0 BP 118/70 Blood Pressure Location Rt brachial Position Sitting Pulse 96 Pulse Source Pulse Oximeter Pulse Oximetry (%) 99 Oxygen Delivery Method Room Air Intake Visit Reasons: [employer]INTAINER-Anxienty/Cannabinoid Hyperemesis Syndrome Intake Note: Pt is here to Est care Allergies No Known Allergies Allergy (Verified 10/27/23 10:59) Medication List - Last Reconciled 10/27/23 by Cookie Nettles MD aspirin (Adult Low Dose Aspirin) 81 mg PO DAILY escitalopram oxalate 5 mg PO DAILY PNV no.[id number] acid 28 mg iron- 800 mcg tabs PO Tobacco use date assessed: 10/27/23 Dental Screening Dental Screen Date: 10/27/23 Did you have a dental visit in the last 12 months?: Yes Did you have a dental problem in the last 6 months where you did not have access to dental care?: No Was dental information given to patient?: Patient has dentist HPI STEM [employer]INTAINER-Anxienty/Cannabinoid Hyperemesis Syndrome HPI Details 23-year-old lady, new to practice, here to establish care with new PCP. At present 6 months . She has generalized anxiety disorder with depression, currently on escitalopram 5 mg once daily, with anxiety depression better, is currently trying to wean herself off escitalopram. She has been seen by Hematology, Dr. Red for unexplained elevation in white blood cell count and this has been attributed to her smoking marijuana. She has stopped smoking marijuana for at least 6 months now and feels much better. She also had episodes of severe vomiting which again was attributed to her heavy marijuana use. This has now resolved after stopping recreational drug use. Has been elevated blood sugar levels, but no history of diabetes mellitus. Currently being followed by cash applications associate [facility] Medical History (Updated 12/09/23 @ 08:34 by Cookie Nettles MD) Hx of thrombocytosis Hx of leukocytosis COVID-19 Hyperglycemia Hip fracture requiring operative repair Cyclical vomiting Anxiety Surgical History History of hip surgery Social History Housing: Apartment Alcohol intake: never Patient Tobacco Use Status: Never used Tobacco e-Cigarette/Vaping Use: Former Use Second Hand Smoke Exposure: No Substance Use Type: Marijuana service: No Current occupational status: unemployed Cognitive needs: No Hearing needs: No Vision needs: No Female Reproductive History Menstrual Age of Menarche: 11 Other: Currently Questionnaire PHQ-9 Over the last 2 weeks, how often have you been bothered by any of the following problems? 1. Little interest or pleasure in doing things: not at all 2. Feeling down, depressed, or hopeless: not at all 3. Trouble falling or staying asleep, or sleeping too much: several days 4. Feeling tired or having little energy: nearly every day 5. Poor appetite or overeating: several days 6. Feeling bad about yourself - or that you are a failure or have let yourself or your family down: not at all 7. Trouble concentrating on things, such as reading the newspaper or watching television: not at all 8. Moving or speaking so slowly that other people could have noticed. Or the opposite - being so fidgety or restless that you have been moving around a lot more than usual: not at all 9. Thoughts that you would be better off or of hurting yourself in some way: not at all Total score: 5 Depression Screening Interpretation: Positive (Wanting to wean herself off escitalopram) Depression Screening Follow-up: Existing condition, In treatment and Other Depression Screening Done: Yes Source: Developed by Drs. Jr Gates, Jaimie Parr, Bong Martel and colleagues, with an educational riddhi from [employer]. Thrive Questionnaire Date Thrive assessed: 10/27/23 I am a: Patient What is your living situation today?: I have a steady place to live Within the past 12 months, did the food you bought not last and you didn't have the money to get more?: Often true Within the past 12 months, did you worry whether your food would run out before you got money to buy more?: Often true Do you have trouble paying for medicines?: No Do you have trouble getting transportation to medical appointments?: No Do you have trouble paying your heating and electricity bill?: No Do you have trouble taking care of your child, family member or friend?: No Do you have trouble with day-to-day activities such as bathing, preparing meals, shopping, managing finances, etc.?: No Are you currently unemployed and looking for a job?: I choose not to answer this question Are you interested in more education?: I choose not to answer this question Please select the resources that you would like help with: Food Currently or been in a relationship where the following occur: I choose not to answer this question AUDIT C Alcohol Use Questionnaire (AUDIT-C) 1. How often do you have a drink containing alcohol?: Never 2. How many drinks containing alcohol do you have on a typical day when you are drinking?: 1 or 2 3. How often do you have six or more drinks on one occasion?: Never Total Score: 0 AKASH-7 AMB Questionnaire AKASH-7 Date AKASH - 7 assessed: 10/27/23 Feeling nervous, anxious, or on edge: 0 = Not at all Not being able to stop or control worryin = Several days Worrying too much about different things: 1 = Several days Trouble relaxin = Not at all Being so restless that it is hard to sit still: 0 = Not at all Becoming easily annoyed or irritable: 1 = Several days Feeling afraid as if something awful might happen: 1 = Several days Total AKASH-7 score (0-4 normal; 5-9 mild; 10-14 moderate; 15-21 severe): 4 Source: Developed by Drs. Jr Gates, Jaimie Parr, Bong Martel and colleagues, with an educational riddhi from [employer]. AKASH-7 Assessment Billing AKASH-7 Assessment Tool: AKASH-7 Assessment 16123 Review of Systems Const Denies body aches, Denies fatigue, Denies fever(s), Denies headache(s) and Denies weakness Eyes Denies change in vision ENT Denies dizziness, Denies headache(s) and Denies nasal congestion Card Denies chest pain, Denies lightheadedness, Denies palpitations and Denies dyspnea Resp Denies cough and Denies dyspnea GI Denies abdominal pain, Denies change in bowel habits and Denies heartburn Denies hematuria, Denies urinary frequency and Denies dysuria Musc Reports no additional complaints Skin/Breast Denies breast pain, Denies breast mass and Denies rash Neuro Denies dizziness, Denies headache(s) and Denies weakness Psych Reports no additional complaints Endo Denies fatigue, Denies polydipsia, Denies polyuria and Denies palpitations Jitendra/Lymph Reports no additional complaints Aller/Immun Denies seasonal rhinorrhea Physical exam (Primary Care) Vital Signs: Last Vital Signs Pulse 96 10/27/23 10:35 BP 118/70 10/27/23 10:35 Pulse Ox 99 10/27/23 10:35 Oxygen Delivery Method Room Air 10/27/23 10:35 BMI result Body Mass Index 35.0 Tobacco/Smoking Status: Tobacco use Status Tobacco use date assessed 10/27/23 10/27/23 10:42 Patient Tobacco Use Status Never used Tobacco 10/27/23 10:35 e-Cigarette/Vaping Use Former Use 10/27/23 10:42 PHQ-9: PHQ-9 Score PHQ-9: Total score 5 10/27/23 11:17 Depression Screening Interpretation: Positive (Wanting to wean herself off escitalopram) Depression Screening Follow-up: Existing condition, In treatment and Other Thrive Assessment: Date of Thrive Assessment Date Thrive assessed 10/27/23 10/27/23 10:49 Currently or been in a relationship where the following occur: I choose not to answer this question Const General: comfortable, no acute distress and alert Orientation/consciousness: patient oriented x3 HENMT Ears: external ears normal General nose exam: Normal external nose present Mouth: Normal oral and palatal mucosa present, oropharynx normal and moist mucous membranes Eyes General: appearance normal, both eyes and all related structures Conjunctivae: conjunctivae normal Sclerae: sclerae normal Pupils: Equal, round and reactive pupils present EOM: EOMs intact bilaterally Neck Neck: Yes full ROM, Yes no lymphadenopathy and Yes supple Resp Effort & Inspection: normal respiratory effort and able to speak in complete sentences Auscultation: clear to auscultation bilaterally Cardio Rate: regular rate Rhythm: regular rhythm Heart sounds: S1 normal heart sound present and S2 normal heart sound present GI Palpation (GI): Soft to palpation, nontender and no masses Auscultation: normal bowel sounds Back/Spine/Pelvis Back: No back tenderness Skin General skin exam: no rashes or lesions noted Neuro General: patient oriented x3, gait normal, tone normal, moves all extremities, Normal light touch and pain sensation and no focal motor deficits Cranial nerves: Yes CN's II-XII intact bilaterally and Yes Equal, round and reactive pupils present Cognition (Neuro): normal cognition Extrem General: Yes full ROM, Yes no joint enlargement, Yes no clubbing, cyanosis or edema and Yes no calf tenderness Psych Appearance: grossly normal and well kempt Mental Status: mental status grossly normal Speech and movement: Normal speech and movement present Affect: normal affect Attitude: cooperative Thought process: Normal thought process present Thought content: Normal thought content present, suicidality and no homicidality Assessment and Plan Assessment & Plan (1) Hyperglycemia: Comment: Pt reports she is with EDC of 02/17/2024 Code(s): R73.9 - Hyperglycemia, unspecified Plan: She has been seen and evaluated by endocrine, and seen by cash applications associate will check again another fasting sugar, electrolytes, and hemoglobin A1c. (2) Anxiety and depression: Code(s): F41.9 - Anxiety disorder, unspecified; F32.A - Depression, unspecified Plan: Patient states that she has stopped having any anxiety attacks ever since she stopped smoking marijuana. Is currently weaning off escitalopram, now down to just 5 mg once a day for the last 2 weeks. Advised to decrease it further to 5 mg every other day for 1 week, and then decrease it to 5 mg every 2 days for the 2nd week and then 5 mg every 3 days for the 3rd week, then discontinue (3) Hx of thrombocytosis: Code(s): Z86.2 - Personal history of diseases of the blood and blood-forming organs and certain disorders involving the immune mechanism Plan: Ordered CBC with platelet. Reminded patient that she does have an appointment to follow-up with Dr. Red in December 2023 (4) Hx of leukocytosis: Code(s): Z86.2 - Personal history of diseases of the blood and blood-forming organs and certain disorders involving the immune mechanism Plan: Ordered CBC with differential, reminded to keep appointment with Dr. Red for follow-up in December 2023. Orders: Orders Vitamin D 25-OH Total 10/27/23 R73.9 - Hyperglycemia, unspecified, F41.9 - Anxiety disorder, unspecified, F32.A - Depression, unspecified, Z86.2 - Personal history of diseases of the blood and blood-forming organs and certain disorders involving the immune mechanism Complete Blood Count Auto Diff 10/27/23 R73.9 - Hyperglycemia, unspecified, F41.9 - Anxiety disorder, unspecified, F32.A - Depression, unspecified, Z86.2 - Personal history of diseases of the blood and blood-forming organs and certain disorders involving the immune mechanism Comprehensive [place]. Panel Fast 10/27/23 R73.9 - Hyperglycemia, unspecified, F41.9 - Anxiety disorder, unspecified, F32.A - Depression, unspecified, Z86.2 - Personal history of diseases of the blood and blood-forming organs and certain disorders involving the immune mechanism Hemoglobin A1c 10/27/23 R73.9 - Hyperglycemia, unspecified, F41.9 - Anxiety disorder, unspecified, F32.A - Depression, unspecified, Z86.2 - Personal history of diseases of the blood and blood-forming organs and certain disorders involving the immune mechanism Vitamin B12 and Folate 10/27/23 R73.9 - Hyperglycemia, unspecified, F41.9 - Anxiety disorder, unspecified, F32.A - Depression, unspecified, Z86.2 - Personal history of diseases of the blood and blood-forming organs and certain disorders involving the immune mechanism Coding Level of Care Code New Pt Level 3 (47834) Diagnoses Hyperglycemia R73.9 Anxiety and depression F41.9; F32.A Hx of thrombocytosis Z86.2 Hx of leukocytosis Z86.2 Additional Codes AKASH-7 Assessment Billing - AKASH-7 Assessment Tool: AKASH-7 Assessment 78432 ([id number])
== END 2023-10-27 15:30 | disposition home or self-care (01) ==
PROVIDERS: PCP Internal Medicine; Visit Provider Internal Medicine
DX: R73.9 Hyperglycemia, unspecified (principal); F41.9 Anxiety disorder, unspecified; F32.A Depression, unspecified; Z86.2 Personal history of diseases of the blood and blood-forming organs and certain disorders involving the immune mechanism
CPT/HCPCS: 96127; 99203

== ENCOUNTER 2023-10-27 11:16 | Outpatient (REF) | payer OTHER, SELFPAY ==
[2023-10-27 13:28] LABS: MANUAL DIFF FLAG NO
[2023-10-27 13:38] LABS: Basophils Absolute Auto 0.1 X10*3/uL (0.0-0.2); Basophils Percent Auto 0.4 % (0-2); Eosinophils Absolute Auto 0.2 X10*3/uL (0.0-0.4); Eosinophils Percent Auto 1.4 % (0-4); Hematocrit 36.6 % (37.0-47.0); Hemoglobin 12.3 g/dl (12.0-16.0); Imm Gran Pct Auto 0.8 % (0.0-0.4); Lymphocytes Absolute Auto 2.8 X10*3/uL (1.2-4.9); Lymphocytes Percent Auto 22.4 % (20-40); Mean Corpuscular HGB Conc 33.6 g/dl (31.0-35.0); Mean Corpuscular Hemoglobin 29.1 pg (27.0-33.0); Mean Corpuscular Volume 86.7 fL (80.0-98.0); Mean Platelet Volume 10.5 fL (9.4-12.3); Monocytes Absolute Auto 0.8 X10*3/uL (0.1-1.2); Monocytes Percent Auto 6.6 % (2-11); Neutrophils Absolute Auto 8.6 x10*3/uL (2.0-8.3); Neutrophils Percent Auto 68.4 % (45-73); Platelet Count 278 X10*3/uL (160-400); Red Blood Count 4.22 X10*6/uL (4.20-5.50); Red Cell Distribution Width 14.6 % (11.0-16.0); White Blood Count 12.5 X10*3/uL (4.8-10.8)
[2023-10-27 13:55] LABS: Estimated Average Glucose 88 mg/dL; Hemoglobin A1c % 4.7 % (<6.0)
[2023-10-27 14:10] LABS: Alanine Aminotransferase 9 U/L (0-31); Albumin Level 3.5 g/dL (3.5-5.0); Alkaline Phosphatase 86 U/L (39-117); Anion Gap 13 (12-20); Aspartate Amino Transferase 11 U/L (5-31); Bilirubin Total 0.2 mg/dL (0.0-1.0); Blood Urea Nitrogen 7 mg/dL (9-16); Calcium 9.4 mg/dL (8.4-10.2); Carbon Dioxide 24 mmol/L (22-29); Chloride 105 mmol/L (96-108); Estimated Glomerular Filt Rate > 60; Glucose Fasting 83 mg/dL (60-99); Potassium 3.9 mmol/L (3.3-5.1); Sodium 138 mmol/L (135-145); Total Protein 7.3 g/dL (6.5-8.0)
[2023-10-27 14:28] LABS: Vitamin D 25-OH Total 63.4 ng/mL (>30)
[2023-10-27 14:37] LABS: Folate 10.2 ng/mL (> or = 4.0); Vitamin B12 627 pg/mL (200-900)
== END 2023-10-27 11:17 | disposition home or self-care (01) ==
LOC: HO.HMGCLDS 11:16
PROVIDERS: PCP Internal Medicine; Visit Provider Internal Medicine
DX: R73.9 Hyperglycemia, unspecified (principal); F41.9 Anxiety disorder, unspecified; F32.A Depression, unspecified; Z86.2 Personal history of diseases of the blood and blood-forming organs and certain disorders involving the immune mechanism
CPT/HCPCS: 36415; 80053; 82306; 82607; 82746; 83036; 85025

== ENCOUNTER 2023-11-15 11:30 | Outpatient (AMB) | payer OTHER, SELFPAY ==
--- NOTE | 2023-11-15 11:36 | A.OFFVIS_ITS ---
Intake VS Expanded 11/15/23 11:37 Height 5 ft 5 in Weight 210 lb 12.191 oz BMI 35.1 Intake Visit Reasons: hyperglycemia/CONFIRMED Allergies No Known Allergies Allergy (Verified 10/27/23 10:59) HPI Nutrition Presentation Details Pt presents for MNT for hyperglycemia f/u . Pt reports she is and sees OB in [place], [place] MICHAEL 02/17/2024 She brings a glucometer which she bought and monitors once a day and bg are ranging from 80-112, fasting or after meals. Pt reports having symptoms of nausea and vomiting in the morning and is only able to tolerate crackers (saltine crackers) Pt reports she was told she has Cannabinoid Hyperemesis Syndrome. Pt reports she stopped smoking over 6 months ago 11 am : dry cereal or crackers 3-4 pm : fruits or soup ( chicken noodle s or tomato with crackers 7 pm: rice beans, chicken or beef, wate r veggie platters with broccoli/cheese/faye tomatoes oryogurts reports taking a daily vitamins has not signed up for [facility] Most Recent Diabetes Results: Creatinine 0.60 mg/dL (0.5-1.4) 10/27/23 Blood Urea Nitrogen 7 mg/dL (9-16) L 10/27/23 Sodium 138 mmol/L (135-145) 10/27/23 Potassium 3.9 mmol/L (3.3-5.1) 10/27/23 Chloride 105 mmol/L (96-108) 10/27/23 Carbon Dioxide 24 mmol/L (22-29) 10/27/23 Calcium 9.4 mg/dL (8.4-10.2) 10/27/23 AST 11 U/L (5-31) 10/27/23 ALT 9 U/L (0-31) 10/27/23 Total Protein 7.3 g/dL (6.5-8.0) 10/27/23 Albumin 3.5 g/dL (3.5-5.0) 10/27/23 [facility] Medical History (Updated 10/27/23 @ 11:10 by Cookie Nettles MD) Hx of thrombocytosis Hx of leukocytosis COVID-19 Hyperglycemia Hip fracture requiring operative repair Cyclical vomiting Anxiety Surgical History History of hip surgery Social History Housing: Apartment Alcohol intake: never Patient Tobacco Use Status: Never used Tobacco e-Cigarette/Vaping Use: Former Use Second Hand Smoke Exposure: No Substance Use Type: Marijuana service: No Current occupational status: unemployed Cognitive needs: No Hearing needs: No Vision needs: No Female Reproductive History Menstrual Age of Menarche: 11 Assessment & Plan Assessment & Plan (1) Hyperglycemia: Comment: Pt reports she is with MICHAEL of 02/17/2024 Code(s): R73.9 - Hyperglycemia, unspecified Plan: Pt is 23 wks gestation with wt at 211 lbs Pre gravid wt 206 lbs Pt has gained a total of 11 lbs in 23 wks Pt reports taking vitamins Recommended weight gain : less than 15 lbs throughout wt: 98 kg Est kcal needs as per MSJ: 6833-8178 (40% carb, 30% protein/fat) Est fluid needs as per 25-30 ml/d: 2454 - 2940 Est prot per day as per 1 g/kg bw: 98 Recommend fiber intake : 8-10 g per day and gradually increase to 25-28 g per day for women and 35-38 g for men or as tolerated Recommend sodium intake per day : less than 2000 mg Educated patient on: ( R = reviewed V = verbalizes understanding N/R = needs review N/A = not applicable * Food sources of carbohydrate, adequate serving sizes and its role in various h ealth conditions: R V * Differences between complex carbohydrates a simple carbohydrates, role of fiber in diet: R V * Differences between types of fats and role in diet (mono on saturated fat fatty acids, saturated fatty acids, trans fats): R , V * Food sources of sodium in salt and healthy modifications for heart health in kidney health: R , V * Vitamins and minerals: R V * Healthy plate method concept: R V * Physical activity: Benefits a precaution: R V * Dietary prevention of Hyperglycemia: R V * including lean protein foods : R, V Patient Instructions: Include protein in your meals and snacks ( Example add eggs to the soup, accompany fruit with low sodium cottage cheese, have a glucerna shake in between meals ) Choose dry cereals (fortified with vitamin/minerals ) in place of crackers if feeling nauseous Coding Level of Care Code Nutr Indiv Subseq (53304) Diagnoses Hyperglycemia R73.9 Time Spent (min) 30
[2023-11-15 11:37] VITALS: BMI 35.1
== END 2023-11-15 12:07 | disposition home or self-care (01) ==
PROVIDERS: PCP Internal Medicine; Visit Provider Dietitian, Registered
DX: R73.9 Hyperglycemia, unspecified (principal)

== ENCOUNTER → 2023-11-15 11:30 | Outpatient (BNVA) | payer OTHER, SELFPAY | PROVIDERS: PCP Internal Medicine; Visit Provider Dietitian, Registered | DX: R73.9 Hyperglycemia, unspecified (principal) | CPT/HCPCS: 97803 ==

== ENCOUNTER 2024-10-28 13:25 | Outpatient (AMB) | payer OTHER, SELFPAY ==
[2024-10-28 13:28] VITALS: BP 132/90; PULSE 92; O2SAT 98; BMI 39.3
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
== END 2024-10-28 14:22 | disposition home or self-care (01) ==
PROVIDERS: PCP Internal Medicine; Visit Provider Internal Medicine
DX: Z00.01 Encounter for general adult medical examination with abnormal findings (principal); Z71.89 Other specified counseling; E66.812 Obesity, class 2; E66.09 Other obesity due to excess calories; Z68.39 Body mass index [BMI] 39.0-39.9, adult

== ENCOUNTER → 2024-10-28 13:25 | Outpatient (BNVA) | payer OTHER, SELFPAY | PROVIDERS: PCP Internal Medicine; Visit Provider Internal Medicine | DX: Z00.01 Encounter for general adult medical examination with abnormal findings (principal); E66.812 Obesity, class 2; F32.A Depression, unspecified; Z68.39 Body mass index [BMI] 39.0-39.9, adult; Z86.2 Personal history of diseases of the blood and blood-forming organs and certain disorders involving the immune mechanism; Z71.89 Other specified counseling | CPT/HCPCS: 96127; 99395 ==

== ENCOUNTER 2024-12-27 10:20 | Outpatient (REF) | payer OTHER, SELFPAY ==
--- OUTSIDE RECORDS SUMMARY | 2024-12-27 11:10 | XMS_ITS | Clinical Summary ---
Author Organization [employer] Address [address] [place] [address] Care Team Providers Care Manager Commercial Name Role Phone Unavailable Primary Care Provider Unavailabl e Social History Tobacco Use Types Packs/Day Years Used Date Smoking Tobacco: Never Assessed Comments Unknown Sex and Gender Information Value Date Recorded Sex Assigned at Female 06/01/2023 3:51 PM EDT Legal Sex Female 6:23 PM EDT Gender Identity Female 09/09/2022 6:23 PM EDT Sexual Orientation Straight 09/09/2022 6: 23 PM EDT Last Filed Vital Signs Vital Sign Reading Time Taken Comments Blood Pressure 138/100 08/18/2022 12:10 AM EDT Pulse 128 08/18/2022 12:10 AM EDT Temperature - - Respiratory Rate - - Oxygen Saturation 99% 01/20/2022 8:25 AM EST Inhaled Oxygen Concentration - - Weight 86.9 kg (191 lb 9.6 oz) 08/18/2022 12:10 AM EDT Height 167.6 cm (5' 6 ) 08/18/2022 12:10 AM EDT Body Mass Index 30.92 08/18/2022 12:10 AM EDT Plan of Treatment Health Maintenance Due Date Last Done Comments Depression Screening 1999 Alcohol/Substance Use Screening 2011 Tobacco Screening 2011 Family Planning (PISQ) 2014 Hepatitis B Vaccines (1 of 3 - 19+ 3-dose series) 2018 Pap Smear 2020 COVID-19 Vaccine (2023-2 5 season) 2024 03/03/2021, 02/03/2021 Influenza Vaccine (#1) 2024 3, 09/23/2020, 09/14/2019 DTaP/Tdap/Td Vaccines (2 - T d or Tdap) 12/12/2033 12/12/2023 Zoster Vaccines (1 of 2) 2049 RSV Patients and Patients Aged 60 years or older (1 - 1-dose 75+ series) 2074 HPV Vaccines Completed 12/30/2016, 01/07/2016, 08/29/2013 HIB Vaccines Aged Out No longer eligi ble based on patient's age to complete this topic Hepatitis A Vaccines Aged Out No long er eligible based on patient's age to complete this topic IPV Vaccines Aged Out No longer eligi ble based on patient's age to complete this topic Meningococcal Vaccine Aged Out No beverly neli eligible based on patient's age to complete this topic Pneumococcal Vaccine: Pediatrics (0 to 5 Years) and At-Risk Patients (6 to 49) Years) Aged Out No longer eligible b ased on patient's age to complete this topic RSV under 20 months Aged Out No longe r eligible based on patient's age to complete this topic Rotavirus Vaccines Aged Out No longer eligible based on patient's age to complete this topic
--- OUTSIDE RECORDS SUMMARY | 2024-12-27 11:10 | XMS_ITS | Encounter Summary ---
[place] [address] Care Team Providers Care Education Research Analyst Name Role Phone Andree Gonsales APRN Primary Care Provider [phone] Reason for Visit * Reason Onset Date Comments Medication Refill 12/09/2019 Encounter Details Date Type Department Care Team (Late st Contact Info) Description 12/09/2019 [place] [address] Rajiv Huynh APRN [facility] [place] [address] Cyclical vomiting with nausea Social History Tobacco Use Types Packs/Day Years Used Date Smoking Tobacco: Light Smoker Cigarettes Last attempted t o quit: 01/07/2019 Smokeless Tobacco: Never Alcohol Use Standard Drinks/Week Comments No 0 (1 standard drink = 0.6 oz pur e alcohol) Sex and Gender Information Value Date Recorded Sex Assigned at Female 01/15/2022 10:34 AM EST Gender Identity Female 01/15/2022 10:34 AM EST Sexual Orientation Straight 01/15/2022 10 :34 AM EST documented as of this encounter Plan of Treatment Not on file documented as of this encounter Visit Diagnoses Diagnosis Cyclical vomiting with nausea documented in this encounter Care Teams Education Research Analyst Relationship Specialty Start Date End Date Andree Gonsales APRN [address] [facility] [address] [place] [address] PCP - General Family Medicine 02/01/21 documented as of this encounter
--- OUTSIDE RECORDS SUMMARY | 2024-12-27 11:10 | XMS_ITS | Encounter Summary ---
[place] [address] Care Team Providers Care Cold Rolling Supervisor Name Role Phone Andree Gonsales APRN Primary Care Provider [phone] Reason for Visit * Reason Onset Date Comments Medication Refill 09/30/2019 Encounter Details Date Type Department Care Team (Late st Contact Info) Description 09/30/2019 Ref[place] [address] Rajiv Huynh APRN [facility] [place] [address] Cyclical vomiting with nausea Social History Tobacco [...] nausea documented in this encounter Care Teams Cold Rolling Supervisor Relationship Specialty Start Date End Date Andree Gonsales APRN [address] [facility] [address] [place] [address] PCP - General Family Medicine 02/01/21 documented as of this encounter
--- OUTSIDE RECORDS SUMMARY | 2024-12-27 11:10 | XMS_ITS | Encounter Summary ---
Author Organization [facility] Address [address], [place] [address] Care Team Providers Care Yard Truck Driver Name Role Phone Sarah Martin Primary Care Provider [phone] Sarah Martin Unavailable [phone] Reason for Visit * Reason Comments Med Refill Encounter Details Date Type Department Care Team (Late st Contact Info) Description 11/17/2022 Refill [facility] [address] [place] [address] Faustino Baker MD [address] [place] [address] Social History Tobacco Use Types Packs/Day Years Used Date Smoking Tobacco: Never Assessed Comments Unknown Sex and Gender Information Value Date Recorded Sex Assigned at Female 06/01/2023 3:51 PM EDT Legal Sex Female 6:23 PM EDT Gender Identity Female 09/09/2022 6:23 PM EDT Sexual Orientation Straight 09/09/2022 6: 23 PM EDT documented as of this encounter Plan of Treatment Not on file documented as of this encounter Visit Diagnoses Not on filedocumented in this encounter Care Teams Yard Truck Driver Relationship Specialty Start Date End Date Sarah Martin FNP PCP - General Family Medicine 09/09/22 06/04/24 Sarah Martin FNP Family Medicine 09/09/22 06/04/24 documented as of this encounter
--- OUTSIDE RECORDS SUMMARY | 2024-12-27 11:11 | XMS_ITS | Clinical Summary ---
Author Organization [facility] Address [address] [facility] [place] [address] Care Team Providers Care Whiskey Proof Reader Name Role Phone Andree Gonsales APRN Primary Care Provider [phone]- [phone] Allergies No known active allergies Medications Medication Sig Dispensed Refills Start Date End Date Status amitriptyline (ELAVIL) 75 mg TabletIndications:Cy clical vomiting with nausea Take 1 tablet by mouth nightly. 90 tablet 3 10/08/2019 Active Ferrous Fumarate 324 mg (106 mg iron) Tablet Take 324 mg by mouth daily. 10/13/2020 Active busPIRone (Buspar) 10 mg Tablet Take 10 mg by mouth 2 times daily. Active Multivitamin Women 50 Plus 8 mg iron-400 mcg-300 mcg Tablet 01/19/2021 Active hydrOXYzine (Atarax) 25 mg Tablet Take 25 mg by mouth every 8 hours as needed. 12/05/2020 Active gabapentin (Neurontin) 300 mg Capsule Take 1 capsule by mouth 3 times daily. 90 capsule 03/24/2021 Active sertraline (Zoloft) 50 mg Tablet Take 1 tablet by mouth daily. 14 tablet 03/25/2021 Active polyethylene glycoL (Miralax) 17 gram Powder in Packet Take 17 g by mouth 2 times daily. 14 each 03/24/2021 Active ondansetron ODT (Zofran-ODT) 4 mg Tablet, Rapid Dissolve Take 1 tablet by mouth every 8 hours as needed for Nausea. 15 tablet 03/24/2021 Active acetaminophen (Tylenol) 500 mg Tablet Take 2 tablets by mouth every 8 hours. Continue the Tylenol around the clock for 10 days after surgery, (04/01/2021). Then may take if needed per package insert. Do not take more than 3,000 mg of Tylenol in 24 hours. 60 tablet 03/24/2021 Active Vitamin B-2 100 mg Tablet Take 100 mg by mouth daily. 05/14/2021 Active traZODone (Desyrel) 50 mg Tablet Take 50 mg by mouth nightly as needed. 03/30/2021 Active Active Problems Problem Noted Date Diagnosed Date Tachycardia 03/25/2021 Traumatic compression fracture of T12 thoracic v ertebra 03/24/2021 Concussion 03/24/2021 Postoperative anemia due to acute blood loss 09/2021 Status post ORIF R posterior wall acetabular fracture-dislocation w/ Dr. Wright (03/22/21) 03/22/2021 Trauma 03/18/2021 Dizziness 01/11/2021 Migraine headache 01/11/2021 Nausea and vomiting 01/11/2021 Assessment & Plan (02/01/2021 1:54 PM EDT): The patient has been dealing with this condition for 6 years, currently her symptoms are well managed. She had an EGD and a work up for her gallbladder in 2018 which was normal. Since she has no impending symptoms and complaints, we agree that there is no changes currently to be made and no further testing. She is using gabapentin and amitriptyline for management and feels that these are both controlling her symptoms well. Plan: Continue current plan Make appointment for new or worsening symptoms Follow up in 1 year or sooner as clinically indicated AKASH (generalized anxiety disorder) Cyclic vomiting syndrome Immunizations Name Administration Dates Next Due Covid-19 Monovalent (Moderna Spikevax) 12yrs+ (5521-6912) 09/25/2021,03/03/2021,02/03/2021 Tdap (Adacel, Boostrix) 03/19/2021 Social History Tobacco Use Types Packs/Day Years Used Date Smoking Tobacco: Former Cigarettes Smokeless Tobacco: Never Comments:e-cigarette Alcohol Use Standard Drinks/Week Comments Yes 0 (1 standard drink = 0.6 oz pur e alcohol) Sex and Gender Information Value Date Recorded Sex Assigned at Female 01/15/2022 10:34 AM EST Gender Identity Female 01/15/2022 10:34 AM EST Sexual Orientation Straight 01/15/2022 10 :34 AM EST Last Filed Vital Signs Vital Sign Reading Time Taken Comments Blood Pressure 156/110 04/14/2022 7:06 PM EDT Pulse 113 04/14/2022 7:06 PM EDT Temperature 35.6 ??C (96 ??F) 04/14/2022 1:35 PM EDT Respiratory Rate 28 04/14/2022 7:06 PM EDT Oxygen Saturation 99% 04/14/2022 7:06 PM EDT Inhaled Oxygen Concentration - - Weight 88.5 kg (195 lb) 06/11/2021 1:10 PM EDT Height 165.1 cm (5' 5 ) 06/11/2021 1:10 PM EDT Body Mass Index 32.45 06/11/2021 1:10 PM EDT Plan of Treatment Health Maintenance Due Date Last Done Comments Chlamydia Screening 2014 HPV vaccine (1 - 3-dose series) 2014 HIV screen 2017 Hepatitis C Screening 2017 Hepatitis B vaccine (0-59 yrs) (1) 2018 PAP Smear 2020 Covid-19 Vaccine (4 - 2023-2 5 season) 2024 09/25/2021, 03/03/2021, 02/03/2021 Influenza (Flu) vaccine (1 o f 1 - Influenza standard series) 07/14/2024 Tetanus/Diphtheria/Pertussis Vaccines (2 - Td or Tdap) 03/19/2031 03/19/2021 Medical Devices Implanted Type Area Drop Tester Device Identifier Shelf Expiration Date Model / Serial / Lot Screw 3.5x28mm Jaylon Lck Ft Ss Axsos ([id number]) (Autoreq) - [id number] Implanted:Qty : 1 on 03/22/2021 by Rosibel Wright MD at [facility] IMPLANTS Right: Pelvis [employer] - ADELINA [id number] / / Screw 3.5x34mm Jaylon Lck Ft Ss Axsos ([id number]) (Autoreq) - [id number] Implanted:Qty : 1 on 03/22/2021 by Rosibel Wright MD at [facility] IMPLANTS Right: Pelvis [employer] - ADELINA [id number] / / Screw 3.5x36mm Jaylon Lck Ft Ss Axsos ([id number]) (Autoreq) - [id number] Implanted:Qty : 1 on 03/22/2021 by Rosibel Wright MD at [facility] IMPLANTS Right: Pelvis [employer] - ADELINA [id number] / / Screw 3.5x38mm Jaylon Lck Ft Ss Axsos ([id number]) (Autoreq) - [id number] Implanted:Qty : 1 on 03/22/2021 by Rosibel Wright MD at [facility] IMPLANTS Right: Pelvis [employer] - ADELINA [id number] / / Screw 3.5x50mm Jaylon Lck Ft Ss Axsos ([id number]) (Autoreq) - [id number] Implanted:Qty : 1 on 03/22/2021 by Rosibel Wright MD at [facility] IMPLANTS Right: Pelvis [employer]A [id number] / / Plate 2.7mm [place] 10 Hole Lck Variax ([id number]) (Autoreq) - [id number] Implanted:Qty : 1 on 03/22/2021 by Rosibel Wright MD at [facility] IMPLANTS Right: Pelvis [employer] - [employer]DE[employer]A [id number] / / Screw 2.7x14mm Nlck Ft Ti Variax ([id number]) (Autoreq) - [id number] Implanted:Qty : 1 on 03/22/2021 by Rosibel Wright MD at [facility] IMPLANTS Right: Pelvis [employer]A [id number] / / Screw 2.7x26mm Nlck Ft Ti Variax ([id number]) (Autoreq) - [id number] Implanted:Qty : 2 on 03/22/2021 by Rosibel Wright MD at [facility] IMPLANTS Right: Pelvis [employer] - [employer]A [id number] / / Screw 2.7x28mm Nlck Ft Ti Variax ([id number]) (Autoreq) - [id number] Implanted:Qty : 3 on 03/22/2021 by Rosibel Wright MD at [facility] IMPLANTS Right: Pelvis [employer] - [employer]DE[employer]A [id number] / / Screw 2.7x30mm Nlck Ft Ti Variax ([id number]) (Autoreq) - [id number] Implanted:Qty : 4 on 03/22/2021 by Rosibel Wright MD at [facility] IMPLANTS Right: Pelvis [employer] - [employer]A [id number] / / Screw 2.7x34mm Nlck Ft Ti Variax ([id number]) (Autoreq) - [id number] Implanted:Qty : 1 on 03/22/2021 by Rosibel rWight MD at [facility] IMPLANTS Right: Pelvis [employer] - [employer]A [id number] / / Screw 2.7x36mm Nlck Ft Ti Variax ([id number]) (Autoreq) - [id number] Implanted:Qty : 1 on 03/22/2021 by Rosibel Wright MD at [facility] IMPLANTS Right: Pelvis [employer] - [employer]A [id number] / / Plate 90.5mm Straight 6 Hole Ss Roshni ([id number]) (Autoreq) - [id number] Implanted:Qty : 1 on 03/22/2021 by Rosibel Wright MD at [facility] IMPLANTS Right: Pelvis [employer] - [employer]A [id number] / / Explanted Type Area Drop Tester Device Identifier Shelf Expiration Date Model / Serial / Lot Pin Half Ext Fix [id number] Self Drilling Self Tapping Ss ([id number]) (Autoreq) - [id number] Explanted:Qty : 1 on 03/22/2021 at [facility] IMPLANTS Right: Pelvis [employer] - [employer] 07/13/2025 [id number] / / [id number] Screw 2.7x28mm Nlck Ft Ti Variax ([id number]) (Autoreq) - [id number] Explanted:Qty : 1 on 03/22/2021 at [facility] IMPLANTS Right: Pelvis [employer] - [employer]A [id number] / / Screw 2.7x34mm Nlck Ft Ti Variax ([id number]) (Autoreq) - [id number] Explanted:Qty : 1 on 03/22/2021 at [facility] IMPLANTS Right: Pelvis [employer] - [employer]A [id number] / / Screw 2.7x36mm Nlck Ft Ti Variax ([id number]) (Autoreq) - [id number] Explanted:Qty : 1 on 03/22/2021 at [facility] IMPLANTS Right: Pelvis [employer] - [employer]DELINA [id number] / / Screw 2.7x32mm Nlck Ft Ti Variax ([id number]) (Autoreq) - [id number] Explanted:Qty : 1 on 03/22/2021 at [facility] IMPLANTS Pelvis [employer] - ADELINA [id number] / / Advance Directives * Attempt Cardiopulmonary Resuscitation - Inpatient (Latest Code Status on File) Date Activated Date Inactivated Comments 03/18/2021 11:52 AM 03/25/2021 8:55 PM Question Answer Comments Code Status decision made by: Patient Care Teams Whiskey Proof Reader Relationship Specialty Start Date End Date Andree Gonsales, DATA REVIEWER [address] [address] PCP - General Family Medicine 02/01/21
--- OUTSIDE RECORDS SUMMARY | 2024-12-27 11:11 | XMS_ITS | Encounter Summary ---
[place] [address] Care Team Providers Care Acute Care Physical Therapist Name Role Phone Andree Gonsales APRN Primary Care Provider [phone] Reason for Visit * Reason Onset Date Comments Medication Refill 10/01/2019 Encounter Details Date Type Department Care Team (Late st Contact Info) Description 10/01/2019 Refill [place] [address] Rajiv Huynh APRN [facility] [place] [address] Cyclical vomiting with nausea Social History Tobacco [...] nausea documented in this encounter Care Teams Acute Care Physical Therapist Relationship Specialty Start Date End Date Andree Gonsales APRN [address] [facility] [address] [place] [address] PCP - General Family Medicine 02/01/21 documented as of this encounter
--- OUTSIDE RECORDS SUMMARY | 2024-12-27 11:11 | XMS_ITS | Clinical Summary ---
Author Organization [facility] Address [address] [place] [address] Phone Care Team Providers Care Pet Sitting Name Role Phone Jr Red MD Primary Care Provider [phone] Allergies No known active allergies Medications LORazepam (ATIVAN) 1 MG tablet Take 1 mg by mouth every night Active amitriptyline (ELAVIL) 10 MG tablet Take 30 mg by mouth every night Active escitalopram (LEXAPRO) 10 MG tablet Take 25 mg by mouth 1 (one) time each day Active Active Problems Problem Noted Date Diagnosed Date Hypokalemia 02/20/2023 Hypocapnia 02/20/2023 Type 2 diabetes mellitus with hyperglycemia 02/11 Resolved Problems Problem Noted Date Diagnosed Date Resolved Date Ex-smoker 02/21/2023 02/21/2023 Hyperglycemia 02/21/2023 02/21/2023 Leukocytosis 02/21/2023 02/21/2023 Obesity 02/21/2023 02/21/2023 Old healed fracture of bone 02/21/2023 02/21/2023 Splenomegaly 02/21/2023 02/21/2023 Thrombocytosis 02/21/2023 02/21/2023 Type 2 diabetes mellitus without complication 02/22/20 23 02/21/2023 Family History Medical History Relation Comments Diabetes Brother Hypertension Mother Kidney disease Mother Relation Status Comments Brother Father Alive Mother Alive Social History Tobacco Use Types Packs/Day Years Used Date Smoking Tobacco: Former Cigarettes Smokeless Tobacco: Never Tobacco Cessation:Counseling Given: Not Answered Alcohol Use Standard Drinks/Week Comments Not Currently 0 (1 standard drink = 0.6 oz pur e alcohol) Comments Unknown Sex and Gender Information Value Date Recorded Sex Assigned at Not on file Legal Sex Female 12:56 PM EDT Gender Identity Not on file Sexual Orientation Not on file Last Filed Vital Signs Vital Sign Reading Time Taken Comments Blood Pressure 110/72 02/21/2023 11:01 AM EDT Pulse 102 02/21/2023 11:01 AM EDT Temperature - - Respiratory Rate - - Oxygen Saturation - - Inhaled Oxygen Concentration - - Weight 94.2 kg (207 lb 9.6 oz) 02/21/2023 11:01 AM EDT Height - - Body Mass Index - - Plan of Treatment Health Maintenance Due Date Last Done Comments Pneumococcal Vaccine: Pediat rics (0 to 5 Years) and At-Risk Patients (6 to 64 Years) (1 of 2 - PCV) 2005 Hepatitis B Vaccine (1 of 3 - 19+ 3-dose series) 05/20 Diabetes: Hemoglobin A1C 02/20/2023 Diabetes: Ophthalmology Exam 02/20/2023 Diabetes: Pedal Pulse Checked 02/20/2023 Diabetes: Sensory Foot Exam 02/20/2023 Diabetes: Visual Foot Exam 02/20/2023 Influenza Vaccine (#1) 2024 Insurance [facility] MEDICAID [facility] MEDICAID Care Teams Pet Sitting Relationship Special[place] [address] [place] [id number] PCP - General Internal Medicine 02/13/23
[2024-12-27 13:12] LABS: MANUAL DIFF FLAG NO
[2024-12-27 13:22] LABS: Basophils Absolute Auto 0.1 X10*3/uL (0.0-0.2); Eosinophils Absolute Auto 0.3 X10*3/uL (0.0-0.4); Eosinophils Percent Auto 3.6 % (0-4); Hematocrit 43.4 % (37.0-47.0); Imm Gran Abs Auto 0.04 X10*3/uL (0.00-0.03); Imm Gran Pct Auto 0.5 % (0.0-0.4); Lymphocytes Percent Auto 22.2 % (20-40); Mean Corpuscular HGB Conc 32.3 g/dl (31.0-35.0); Mean Corpuscular Hemoglobin 25.9 pg (27.0-33.0); Mean Corpuscular Volume 80.4 fL (80.0-98.0); Mean Platelet Volume 10.5 fL (9.4-12.3); Monocytes Absolute Auto 0.7 X10*3/uL (0.1-1.2); Monocytes Percent Auto 8.1 % (2-11); Neutrophils Absolute Auto 5.7 x10*3/uL (2.0-8.3); Neutrophils Percent Auto 64.6 % (45-73); Platelet Count 326 X10*3/uL (160-400); Red Cell Distribution Width 13.6 % (11.0-16.0); White Blood Count 8.8 X10*3/uL (4.8-10.8)
[2024-12-27 13:49] LABS: Alanine Aminotransferase 37 U/L (0-31); Anion Gap 12 (12-20); Aspartate Amino Transferase 30 U/L (5-31); Blood Urea Nitrogen 9 mg/dL (9-16); Calcium 9.2 mg/dL (8.4-10.2); Carbon Dioxide 21 mmol/L (22-29); Chloride 107 mmol/L (96-108); Cholesterol 164 mg/dL (<200); Estimated Glomerular Filt Rate > 60; Glucose Fasting 98 mg/dL (60-99); HDL Cholesterol 38 mg/dL (>40); LDL Cholesterol Calculated 101 mg/dL (<100); Potassium 3.7 mmol/L (3.3-5.1); Sodium 136 mmol/L (135-145); Triglycerides 127 mg/dL (<150)
[2024-12-27 14:07] LABS: TSH reflex Free T4 1.08 uIU/mL (0.32-4.0); Vitamin D 25-OH Total 23.3 ng/mL (>30)
== END 2024-12-27 10:21 | disposition home or self-care (01) ==
LOC: HO.HMGCLDS 10:20
PROVIDERS: PCP Internal Medicine; Visit Provider Internal Medicine
DX: Z00.01 Encounter for general adult medical examination with abnormal findings (principal); Z71.89 Other specified counseling; E66.9 Obesity, unspecified; Z13.1 Encounter for screening for diabetes mellitus; Z13.220 Encounter for screening for lipoid disorders; F32.A Depression, unspecified; F41.9 Anxiety disorder, unspecified; R73.9 Hyperglycemia, unspecified; Z86.2 Personal history of diseases of the blood and blood-forming organs and certain disorders involving the immune mechanism
CPT/HCPCS: 36415; 80048; 80061; 82306; 84443; 84450; 84460; 85025

== ENCOUNTER 2025-06-26 15:43 | Outpatient (AMB) | payer OTHER, SELFPAY ==
[2025-06-26 15:48] VITALS: BP 118/86; PULSE 90; RESP 15; TEMP 36.8; O2SAT 98; BMI 39.6
--- NOTE | 2025-06-26 15:48 | A.OFFPC_ITS ---
Vital Signs 06/26/25 15:48 Height 5 ft 5 in Weight 238 lb BMI 39.6 BP 118/86 Blood Pressure Location Lt brachial Position Sitting Respiration 15 Pulse 90 Pulse Source Pulse Oximeter Temp 98.3 F Temp Source Oral Pulse Oximetry (%) 98 Intake Visit Reasons: wgt loss option Intake Note: Pt is here today to discuss wgt loss option Allergies No Known Allergies Allergy (Verified 06/26/25 16:21) Medication List - Last Reconciled 06/26/25 by Cookie Nettles MD No Known Home Meds Tobacco use date assessed: 06/26/25 Dental Screening Dental Screen Date: 06/26/25 Did you have a dental visit in the last 12 months?: No Did you have a dental problem in the last 6 months where you did not have access to dental care?: No Was dental information given to patient?: Patient has dentist HPI wgt loss option HPI Details - The patient is a 25-year-old female pr esenting with weight loss concerns. - She has struggled with weight issues s jalil her teenage years, with her lowest weight being 165 pounds during a period of frequent illness associated with Cannabinoid Hyperemesis Syndrome, which resolved after she stopped smoking marijuana - She denies any current medical issues, including hypertension or hypercholesterolemia, and reports normalized platelet counts after smoking cessation. - The patient has a history of vitamin D deficiency, managed with vitamin D3 supplementation, and reports heartburn managed with omeprazole. [facility] Medical History (Updated 06/29/25 @ 17:19 by Cookie Nettles MD) Obesity (BMI 30-39.9) Hx of thrombocytosis Hx of leukocytosis COVID-19 Hyperglycemia Hip fracture requiring operative repair Anxiety Surgical History History of hip surgery Family History (Updated 06/29/25 @ 17:19 by Cookie Nettles MD) Other Obesity Social History Housing: Apartment Alcohol intake: never Patient Tobacco Use Status: Never used Tobacco e-Cigarette/Vaping Use: Currently Using Second Hand Smoke Exposure: No Substance Use Type: Marijuana service: No Current occupational status: unemployed Cognitive needs: No Hearing needs: No Vision needs: No Female Reproductive History Menstrual Age of Menarche: 11 Questionnaire PHQ-9 Over the last 2 weeks, how often have you been bothered by any of the following problems? 1. Little interest or pleasure in doing things: several days 2. Feeling down, depressed, or hopeless: not at all 3. Trouble falling or staying asleep, or sleeping too much: more than half the days 4. Feeling tired or having little energy: several days 5. Poor appetite or overeating: more than half the days 6. Feeling bad about yourself - or that you are a failure or have let yourself or your family down: not at all 7. Trouble concentrating on things, such as reading the newspaper or watching television: not at all 8. Moving or speaking so slowly that other people could have noticed. Or the opposite - being so fidgety or restless that you have been moving around a lot more than usual: not at all 9. Thoughts that you would be better off or of hurting yourself in some way: not at all Total score: 6 Depression Screening Interpretation: Negative Depression Screening Done: Yes 74030 - PHQ-9 Billing: Yes Source: Developed by Drs. Jr Gates, Jaimie Parr, Bong Martel and colleagues, with an educational riddhi from [employer]. Thrive Questionnaire Date Thrive assessed: 06/26/25 I am a: Patient What is your living situation today?: I have a steady place to live Within the past 12 months, did the food you bought not last and you didn't have the money to get more?: Never true Within the past 12 months, did you worry whether your food would run out before you got money to buy more?: Never true Do you have trouble paying for medicines?: No Do you have trouble getting transportation to medical appointments?: No Do you have trouble paying your heating and electricity bill?: No Do you have trouble taking care of your child, family member or friend?: No Do you have trouble with day-to-day activities such as bathing, preparing meals, shopping, managing finances, etc.?: No Are you currently unemployed and looking for a job?: I choose not to answer this question Are you interested in more education?: I choose not to answer this question Please select the resources that you would like help with: None Currently or been in a relationship where the following occur: No concerns reported THRIVE Score: 0 AUDIT C Alcohol Use Questionnaire (AUDIT-C) 1. How often do you have a drink containing alcohol?: Monthly or less 2. How many drinks containing alcohol do you have on a typical day when you are drinking?: 3 or 4 3. How often do you have six or more drinks on one occasion?: Less than monthly Total Score: 3 Score Reviewed/Action Taken: Yes AKASH-7 AMB Questionnaire AKASH-7 Date AKASH - 7 assessed: 06/26/25 Feeling nervous, anxious, or on edge: 0 = Not at all Not being able to stop or control worryin = Not at all Worrying too much about different things: 0 = Not at all Trouble relaxin = Not at all Being so restless that it is hard to sit still: 0 = Not at all Becoming easily annoyed or irritable: 0 = Not at all Feeling afraid as if something awful might happen: 0 = Not at all Total AKASH-7 score (0-4 normal; 5-9 mild; 10-14 moderate; 15-21 severe): 0 Source: Developed by Drs. Jr Gates, Jaimie Parr, Bong Martel and colleagues, with an educational riddhi from [employer]. AKASH-7 Assessment Billing AKASH-7 Assessment Tool: AKASH-7 Assessment 52552 Review of Systems Const All systems reviewed & are unremarkable except as noted in HPI and below Physical exam (Primary Care) Vital Signs: Last Vital Signs Temp 98.3 F 06/26/25 15:48 Pulse 90 06/26/25 15:48 Resp 15 06/26/25 15:48 BP 118/86 06/26/25 15:48 Pulse Ox 98 06/26/25 15:48 BMI result Body Mass Index 39.6 Tobacco/Smoking Status: Tobacco use Status Tobacco use date assessed 06/26/25 06/26/25 15:55 Patient Tobacco Use Status Never used Tobacco 06/26/25 15:55 e-Cigarette/Vaping Use Currently Using 06/26/25 15:55 PHQ-9: PHQ-9 Score PHQ-9: Total score 6 06/26/25 16:29 Depression Screening Interpretation: Negative Thrive Assessment: Date of Thrive Assessment Date Thrive assessed 06/26/25 06/26/25 15:55 Currently or been in a relationship where the following occur: No concerns reported Const General: comfortable and no acute distress Nutritional Appearance: obese morbidly obese Orientation/consciousness: patient oriented x3 HENMT Ears: external ears normal General nose exam: Normal external nose present Mouth: Normal oral and palatal mucosa present, oropharynx normal and moist mucous membranes Eyes General: appearance normal, both eyes and all related structures Neck Neck: Yes full ROM, Yes no lymphadenopathy and Yes supple Resp Effort & Inspection: normal respiratory effort and able to speak in complete sentences Auscultation: clear to auscultation bilaterally Cardio Rate: regular rate Rhythm: regular rhythm Heart sounds: S1 normal heart sound present and S2 normal heart sound present GI Palpation (GI): Soft to palpation, nontender and no masses Auscultation: normal bowel sounds General: Yes deferred (currently sees OBGYN in [facility]) Back/Spine/Pelvis Back: No back tenderness Skin General skin exam: no rashes or lesions noted Neuro General: patient oriented x3, gait normal, tone normal, moves all extremities, Normal light touch and pain sensation and no focal motor deficits Cranial nerves: Yes CN's II-XII intact bilaterally Cognition (Neuro): normal cognition Extrem General: Yes full ROM, Yes no joint enlargement, Yes no clubbing, cyanosis or edema and Yes no calf tenderness Psych Appearance: grossly normal and well kempt Mental Status: mental status grossly normal Speech and movement: Normal speech and movement present Affect: normal affect Attitude: cooperative Thought process: Normal thought process present Thought content: Normal thought content present, suicidality and no homicidality Coding Level of Care Code Est Pt Level 4 (06100) Diagnoses Obesity (BMI 30-39.9) E66.9 Additional Codes AKASH-7 Assessment Billing - AKASH-7 Assessment Tool: AKASH-7 Assessment 36978 ([id number]) PHQ-9 - 97995 - PHQ-9 Billing: Yes ([id number]) Assessment & Plan Assessment & Plan (1) Obesity (BMI 30-39.9): Code(s): E66.9 - Obesity, unspecified Category: Medical Plan: The patient will start phentermine at 15 mg to assist with weight loss, with a follow-up in one month to evaluate effectiveness and adjust the dose if needed. She should adhere to a diet and exercise plan to aid weight management and avoid foods that exacerbate heartburn, such as tomato sauce and greasy foods. Continued vitamin D supplementation is recommended to manage her deficiency, and she should see a vault manager for additional dietary advice. Patient was informed and verbally consented to the use of an ambient scribe for clinic note documentation during this visit. Medications: New phentermine must administer 2 hours after breakfast 15 mg PO DAILY 30 caps 0RF
--- OUTSIDE RECORDS SUMMARY | 2025-06-26 16:00 | XMS_ITS | Clinical Summary ---
Author Organization [employer] Address [address] [place] [address] Care Team Providers Care Pet Stylist Name Role Phone Unavailable Primary Care Provider [...] Date Last Done Comments Depression Screening 1999 Disability Screening 1999 Alcohol/Substance Use Screening 2011 Tobacco Screening 2011 Family Planning (PISQ) 2014 Hepatitis B Vaccines (1 of 3 - 19+ 3-dose series) 2018 Pap Smear 2020 COVID-19 Vaccine (2023-2 5 season) 2024 03/03/2021, 02/03/2021 Influenza Vaccine (#1) 2025 3, 09/23/2020, 09/14/2019 DTaP/Tdap/Td Vaccines (2 - [...] patient's age to complete this topic Meningococcal B Vaccine Aged Out No l onger eligible based on patient's age to complete this topic Meningococcal Vaccine Aged Out No beverly neli eligible based on patient's age to complete this topic Pneumococcal Vaccine: Pediatrics (0 to 5 Years) and At-Risk Patients (6 to 49) Years Aged Out No longer eligible b ased on patient's age to complete this topic RSV under 20 months Aged Out No longe r eligible based on patient's age to complete this topic Rotavirus Vaccines Aged Out No longer eligible based on patient's age to complete this topic
--- OUTSIDE RECORDS SUMMARY | 2025-06-26 16:00 | XMS_ITS | Encounter Summary ---
Author Organization [facility] [place] [address] Care Team Providers Care Legend Maker Name Role Phone Andree Gonsales APRN Primary Care Provider [phone] Reason for Visit * Reason Onset Date Comments Medication Refill 12/09/2019 Encounter Details Date Type Department Care Team (Late st Contact Info) Description 12/09/2019 Ref[place] [address] Rajiv Huynh APRN [facility] [place]STR[place] [address] Cyclical vomiting with nausea Social History Tobacco Use Types Packs/Day Years Used Date Smoking Tobacco: Light Smoker Cigarettes Last attempted t o quit: 01/07/2019 Smokeless Tobacco: Never Alcohol Use Standard Drinks/Week Comments No 0 (1 standard drink = 0.6 oz pur e alcohol) Comments Unknown Sex and Gender Information Value Date Recorded Sex Assigned at Female 01/15/2022 10:34 AM EST Legal Sex Female 11:33 PM EDT Gender Identity Female 01/15/2022 10:34 AM EST Sexual Orientation Straight 01/15/2022 10 :34 AM EST documented as of this encounter Plan of Treatment Not on file documented as of this encounter Visit Diagnoses Diagnosis Cyclical vomiting with nausea documented in this encounter Care Teams Legend Maker Relationship Specialty Start Date End Date Gonsales, Andree M, SOLVENT STATION ATTENDANT [address] [address] PCP - General Family Medicine 02/01/21 documented as of this encounter
--- OUTSIDE RECORDS SUMMARY | 2025-06-26 16:00 | XMS_ITS | Clinical Summary ---
Author Organization [facility] Address [address] [place] [address] Phone Care Team Providers Care Solution Director Name Role Phone Jr Red MD Primary Care Provider [phone] Allergies No known active allergies Medications LORazepam [...] Health Maintenance Due Date Last Done Comments Hepatitis B Vaccine (1 of 3 - 19+ 3-dose series) 05/20 Pneumococcal Vaccine: Peds ( 0 to 5 Years) and At-Risk Patients (6 to 49 Years) (1 of 2 - PCV) 2018 Diabetes: Hemoglobin A1C 02/20/2023 Diabetes: Ophthalmology Exam 02/20/2023 Diabetes: Pedal Pulse Checked 02/20/2023 Diabetes: Sensory Foot Exam 02/20/2023 Diabetes: Visual Foot Exam 02/20/2023 Influenza Vaccine (#1) 2025 Insurance [facility] Medicaid Care Teams Solution Director Relationship Special[place] [address] [address] [place] [address] PCP - General Internal Medicine 02/13/23
== END 2025-06-26 16:44 | disposition home or self-care (01) ==
LOC: HO.HMCC 15:44
PROVIDERS: PCP Internal Medicine; Visit Provider Internal Medicine
DX: E66.9 Obesity, unspecified (principal); Z68.39 Body mass index [BMI] 39.0-39.9, adult

== ENCOUNTER → 2025-06-26 15:43 | Outpatient (BNVA) | payer OTHER, SELFPAY | PROVIDERS: PCP Internal Medicine; Visit Provider Internal Medicine | DX: E66.9 Obesity, unspecified (principal); E55.9 Vitamin D deficiency, unspecified; Z68.39 Body mass index [BMI] 39.0-39.9, adult | CPT/HCPCS: 96127; 99212 ==

== ENCOUNTER 2025-08-07 14:43 | Outpatient (AMB) | payer OTHER, SELFPAY ==
[2025-08-07 14:54] VITALS: BP 120/90; PULSE 111; RESP 15; O2SAT 98; BMI 39.8
--- NOTE | 2025-08-07 14:54 | MHC.PC.OV ---
Vital Signs 08/07/25 14:54 Height 5 ft 5 in Weight 239 lb BMI 39.8 BP 120/90 H Blood Pressure Location Rt brachial Position Sitting Respiration 15 Pulse 111 H Pulse Source Pulse Oximeter Pulse Oximetry (%) 98 Oxygen Delivery Method Room Air Intake Visit Reasons: 1 month f/up Intake Note: Pt is here today for her 1mo. f/u Toxicologist Required: No Allergies phentermine Adverse Reaction (Verified 08/07/25 15:28) dizziness and nausea Medication List - Last Reconciled 08/07/25 by Cookie Nettles MD No Known Home Meds Tobacco use date assessed: 08/07/25 Dental Screening Dental Screen Date: 06/26/25 HPI 1 month f/up HPI Details 25-year-old lady here today for follow-up on her regards to her weight. Has tried phentermine, but had to stop taking it as she developed nausea lightheadedness and chest tightness when she took it . She has been trying to lose weight on her own with adhering to healthy eating habits, has met with a burlapper already and regular exercise, to no avail.. [facility] Medical History (Updated 08/07/25 @ 15:43 by Cookie Nettles MD) Fatty liver disease, nonalcoholic Obesity (BMI 30-39.9) Hx of thrombocytosis Hx of leukocytosis COVID-19 Hyperglycemia Hip fracture requiring operative repair Anxiety Surgical History History of hip surgery Family History Other Obesity Social History Housing: Apartment Alcohol intake: never Patient Tobacco Use Status: Never used Tobacco e-Cigarette/Vaping Use: Currently Using Second Hand Smoke Exposure: No Substance Use Type: Marijuana service: No Current occupational status: unemployed Cognitive needs: No Hearing needs: No Vision needs: No Female Reproductive History Menstrual Age of Menarche: 11 Questionnaire PHQ-9 Over the last 2 weeks, how often have you been bothered by any of the following problems? 1. Little interest or pleasure in doing things: several days 2. Feeling down, depressed, or hopeless: not at all 3. Trouble falling or staying asleep, or sleeping too much: more than half the days 4. Feeling tired or having little energy: several days 5. Poor appetite or overeating: more than half the days 6. Feeling bad about yourself - or that you are a failure or have let yourself or your family down: not at all 7. Trouble concentrating on things, such as reading the newspaper or watching television: not at all 8. Moving or speaking so slowly that other people could have noticed. Or the opposite - being so fidgety or restless that you have been moving around a lot more than usual: not at all 9. Thoughts that you would be better off or of hurting yourself in some way: not at all Total score: 6 Depression Screening Interpretation: Negative Depression Screening Done: Yes Source: Developed by Drs. Jr Gates, Jaimie Parr, Bong Martel and colleagues, with an educational riddhi from [employer]. Thrive Questionnaire Date Thrive assessed: 06/26/25 I am a: Patient What is your living situation today?: I have a steady place to live Within the past 12 months, did the food you bought not last and you didn't have the money to get more?: Never true Within the past 12 months, did you worry whether your food would run out before you got money to buy more?: Never true Do you have trouble paying for medicines?: No Do you have trouble getting transportation to medical appointments?: No Do you have trouble paying your heating and electricity bill?: No Do you have trouble taking care of your child, family member or friend?: No Do you have trouble with day-to-day activities such as bathing, preparing meals, shopping, managing finances, etc.?: No Are you currently unemployed and looking for a job?: I choose not to answer this question Are you interested in more education?: I choose not to answer this question Please select the resources that you would like help with: None Currently or been in a relationship where the following occur: No concerns reported THRIVE Score: 0 AUDIT C Alcohol Use Questionnaire (AUDIT-C) 1. How often do you have a drink containing alcohol?: Monthly or less 2. How many drinks containing alcohol do you have on a typical day when you are drinking?: 3 or 4 3. How often do you have six or more drinks on one occasion?: Less than monthly Total Score: 3 AKASH-7 AMB Questionnaire AKASH-7 Date AKASH - 7 assessed: 06/26/25 Feeling nervous, anxious, or on edge: 0 = Not at all Not being able to stop or control worryin = Not at all Worrying too much about different things: 0 = Not at all Trouble relaxin = Not at all Being so restless that it is hard to sit still: 0 = Not at all Becoming easily annoyed or irritable: 0 = Not at all Feeling afraid as if something awful might happen: 0 = Not at all Total AKASH-7 score (0-4 normal; 5-9 mild; 10-14 moderate; 15-21 severe): 0 Source: Developed by Drs. Jr Gates, Jaimie Parr, Bong Martel and colleagues, with an educational riddhi from [employer]. Review of Systems Const All systems reviewed & are unremarkable except as noted in HPI and below Physical exam (Primary Care) Vital Signs: Last Vital Signs Pulse 111 H 08/07/25 14:54 Resp 15 08/07/25 14:54 BP 120/90 H 08/07/25 14:54 Pulse Ox 98 08/07/25 14:54 Oxygen Delivery Method Room Air 08/07/25 14:54 BMI result Body Mass Index 39.8 Tobacco/Smoking Status: Tobacco use Status Tobacco use date assessed 08/07/25 08/07/25 15:02 Patient Tobacco Use Status Never used Tobacco 08/07/25 14:58 e-Cigarette/Vaping Use Currently Using 08/07/25 14:58 PHQ-9: PHQ-9 Score PHQ-9: Total score 6 08/07/25 15:28 Depression Screening Interpretation: Negative Thrive Assessment: Date of Thrive Assessment Date Thrive assessed 06/26/25 08/07/25 14:58 Currently or been in a relationship where the following occur: No concerns reported Const General: comfortable and no acute distress Nutritional Appearance: obese morbidly obese Orientation/consciousness: patient oriented x3 HENMT Ears: external ears normal General nose exam: Normal external nose present Mouth: Normal oral and palatal mucosa present, oropharynx normal and moist mucous membranes Neck Neck: Yes full ROM, Yes no lymphadenopathy and Yes supple Resp Effort & Inspection: normal respiratory effort and able to speak in complete sentences Auscultation: clear to auscultation bilaterally Cardio Rate: regular rate Rhythm: regular rhythm Heart sounds: S1 normal heart sound present and S2 normal heart sound present GI Palpation (GI): Soft to palpation, nontender and no masses Auscultation: normal bowel sounds Back/Spine/Pelvis Back: No back tenderness Skin General skin exam: no rashes or lesions noted Neuro General: patient oriented x3, gait normal, tone normal, moves all extremities, Normal light touch and pain sensation and no focal motor deficits Cranial nerves: Yes CN's II-XII intact bilaterally Cognition (Neuro): normal cognition Extrem General: Yes full ROM, Yes no joint enlargement, Yes no clubbing, cyanosis or edema and Yes no calf tenderness Psych Appearance: grossly normal and well kempt Mental Status: mental status grossly normal Speech and movement: Normal speech and movement present Affect: normal affect Coding Level of Care Code Est Pt Level 4 (66253) Diagnoses Obesity (BMI 30-39.9) E66.9 Fatty liver disease, nonalcoholic K76.0 Assessment & Plan Assessment & Plan (1) Obesity (BMI 30-39.9): Code(s): E66.9 - Obesity, unspecified Category: Medical Plan: Unable to tolerate phentermine, has fatty liver disease as evidenced on ultrasound. Will try on Zepbound 2.5 mg injected subcutaneously once a week. Discussed proper administration of the medication, possible side effects that she may encounter. Advised to have a bland diet on the day that she gives herself her injection to avoid possible abdominal cramping and bloating. Will see her back for follow-up in 4 weeks after starting Zepbound. (2) Fatty liver disease, nonalcoholic: Code(s): K76.0 - Fatty (change of) liver, not elsewhere classified Category: Medical Plan: Patient unable to tolerate phentermine, adherence to healthy eating habit low in cholesterol, and getting regular exercise strongly recommended Medications: New Zepbound (tirzepatide (weight loss)) for 4 weeks 2.5 mg (0.5 mL) subcut QWEEK 2 mL 1RF NS E66.9 - Obesity, unspecified, K76.0 - Fatty (change of) liver, not elsewhere classified Zepbound (tirzepatide (weight loss)) for 4 weeks 2.5 mg (0.5 mL) subcut QWEEK 2 mL 1RF NS E66.9 - Obesity, unspecified, K76.0 - Fatty (change of) liver, not elsewhere classified
--- OUTSIDE RECORDS SUMMARY | 2025-08-07 19:02 | XMS_ITS | Encounter Summary ---
Author Organization [employer] Address [address] [place] [address] Care Team Providers Care Ceramic Mold Designer Name Role Phone Sarah Martin Primary Care Provider [phone] Sarah Martin Unavailable [phone] Reason for Visit * Reason Comments Med Refill Encounter Details Date Type Department Care Team (Late st Contact Info) Description 11/17/2022 Refill [facility] [address] [place] [address] Faustino Baker MD [address] [place] [address] Social History Tobacco Use Types Packs/Day Years [...] on filedocumented in this encounter Care Teams Ceramic Mold Designer Relationship Specialty Start Date End Date Sarah Martin FNP PCP - General Family Medicine 09/09/22 06/04/24 Sarah Martin FNP Family Medicine 09/09/22 06/04/24 documented as of this encounter
--- OUTSIDE RECORDS SUMMARY | 2025-08-07 19:02 | XMS_ITS | Clinical Summary ---
Author Organization [facility] Address [facility] [place] [address] Care Team Providers Care Software Developer Name Role Phone Andree Gonsales APRN Primary Care Provider [phone] Allergies No known active allergies Medications amitriptyline (ELAVIL) 75 mg TabletIndicatio ns:Cyclical vomiting with nausea Take 1 tablet by [...] (generalized anxiety disorder) Cyclic vomiting syndrome Immunizations Immunization Administration Dates Next Due Covid-19 Monovalent (Moderna Spikevax) 12yrs+ (3687-1882) 09/25/2021,03/03/2021,02/03/2021 Tdap (Adacel, Boostrix) 03/19/2021 Social History [...] 113 04/14/2022 7:06 PM EDT Temperature 35.6 C (96 F) 04/14/2022 1:35 PM EDT Respiratory Rate 28 04/14/2022 7:06 PM EDT Oxygen Saturation 99% 04/14/2022 7:06 PM EDT Inhaled Oxygen Concentration - - Weight 88.5 kg (195 lb) 06/11/2021 1:10 PM EDT Height 165.1 cm (5' 5 ) 06/11/2021 1:10 PM EDT Body Mass Index 32.45 06/11/2021 1:10 PM EDT Plan of Treatment Health Maintenance Due Date Last Done Comments HPV vaccine (1 - 3-dose series) 2014 HIV screen 2017 Hepatitis C Screening 2017 Hepatitis B vaccine (0-59 yr s) and Risk (1) 2018 PAP Smear 2020 Covid-19 Vaccine (4 - 2024-2 6 season) 2025 09/25/2021, 03/03/2021, 02/03/2021 Influenza (Flu) vaccine (1 o f 1 - Influenza standard series) 07/14/2025 Tetanus/Diphtheria/Pertussis Vaccines (2 - Td or Tdap) 03/19/2031 03/19/2021 Medical Devices Implanted Type Area Staker Surveying Device Identifier Shelf Expiration Date Model / Serial / Lot Screw 3.5x28mm Jaylon Lck Ft Ss Axsos ([id number]) (Autoreq) - [id number] Implanted:Qty : 1 on 03/22/2021 by Rosibel Wright MD at [facility] IMPLANTS Right: Pelvis [employer] - ADELINA [id number] / / Screw 3.5x34mm Jaylon Lck Ft Ss Axsos ([id number]) (Autoreq) - [id number] Implanted:Qty : 1 on 03/22/2021 by Rosibel Wright MD at [facility] IMPLANTS Right: Pelvis [employer]DE[employer]A [id number] / / Screw 3.5x36mm Jaylon Lck Ft Ss Axsos ([id number]) (Autoreq) - [id number] Implanted:Qty : 1 on 03/22/2021 by Rosibel Wright MD at [facility] IMPLANTS Right: Pelvis [employer]A [id number] / / Screw 3.5x38mm Jaylon Lck Ft Ss Axsos ([id number]) (Autoreq) - [id number] Implanted:Qty : 1 on 03/22/2021 by Rosibel Wright MD at [facility] IMPLANTS Right: Pelvis [employer] - [employer]A [id number] / / Screw 3.5x50mm Jaylon Lck Ft Ss Axsos ([id number]) ([employer]oreq) - [id number] Implanted:Qty : 1 on 03/22/2021 by Rosibel Wright MD at [facility] IMPLANTS Right: Pelvis [employer]A [id number] / / Plate 2.7mm [place] 10 Hole Lck Variax ([id number]) (Autoreq) - [id number] Implanted:Qty : 1 on 03/22/2021 by Rosibel Wright MD at [facility] IMPLANTS Right: Pelvis [employer] - [employer]A [id number] / / Screw 2.7x14mm Nlck Ft Ti Variax ([id number]) (Autoreq) - [id number] Implanted:Qty : 1 on 03/22/2021 by Rosibel Wright MD at [facility] IMPLANTS Right: Pelvis [employer] [id number] / / Screw 2.7x26mm Nlck Ft Ti Variax ([id number]) (Autoreq) - [id number] Implanted:Qty : 2 on 03/22/2021 by Rosibel Wright MD at [facility] IMPLANTS Right: Pelvis [employer] - [employer]A [id number] / / Screw 2.7x28mm Nlck Ft Ti Variax ([id number]) (Autoreq) - [id number] Implanted:Qty : 3 on 03/22/2021 by Rosibel Wright MD at [facility] IMPLANTS Right: Pelvis [employer] - [employer]DE[employer]A [id number] / / Screw 2.7x30mm Nlck Ft Ti Variax ([id number]) (Autoreq) - [id number] Implanted:Qty : 4 on 03/22/2021 by Rosibel Wright MD at [facility] IMPLANTS Right: Pelvis [employer] - [employer]A [id number] / / Screw 2.7x34mm Nlck Ft Ti Variax ([id number]) (Autoreq) - [id number] Implanted:Qty : 1 on 03/22/2021 by Rosibel Wright MD at [facility] IMPLANTS Right: Pelvis [employer] - [employer]A [id number] / / Screw 2.7x36mm Nlck Ft Ti Variax ([id number]) (Autoreq) - [id number] Implanted:Qty : 1 on 03/22/2021 by Rosibel Wright MD at [facility] IMPLANTS Right: Pelvis [employer] - [employer]A [id number] / / Plate 90.5mm Straight 6 Hole Ss Roshni ([id number]) (Autoreq) - [id number] Implanted:Qty : 1 on 03/22/2021 by Rosibel Wright MD at [facility] IMPLANTS Right: Pelvis [employer] - [employer]A [id number] / / Explanted Type Area Staker Surveying Device Identifier Shelf Expiration Date Model / Serial / Lot Pin Half Ext Fix [id number] Self Drilling Self Tapping Ss ([id number]) (Autoreq) - [id number] Explanted:Qty : 1 on 03/22/2021 at [facility] IMPLANTS Right: Pelvis [employer] - [employer] 07/13/2025 [id number] [id number] / / [id number] Screw 2.7x28mm Nlck Ft Ti Variax ([id number]) (Autoreq) - [id number] Explanted:Qty : 1 on 03/22/2021 at [facility] IMPLANTS Right: Pelvis [employer] [id number] / / Screw 2.7x34mm Nlck Ft Ti Variax ([id number]) (Autoreq) - [id number] Explanted:Qty : 1 on 03/22/2021 at [facility] IMPLANTS Right: Pelvis [employer] - [employer] [id number] / / Screw 2.7x36mm Nlck Ft Ti Variax ([id number]) (Autoreq) - [id number] Explanted:Qty : 1 on 03/22/2021 at [facility] IMPLANTS Right: Pelvis [employer] - [employer]A [id number] / / Screw 2.7x32mm Nlck Ft Ti Variax ([id number]) (Autoreq) - [id number] Explanted:Qty : 1 on 03/22/2021 at [facility] IMPLANTS Pelvis [employer] - [employer]LINA [id number] / / Insurance [place] MEDICAID [place] [facility] MEDICAID Advance Directives * Attempt Cardiopulmonary Resuscitation - Inpatient (Latest Code Status on File) Date Activated Date Inactivated Comments 03/18/2021 11:52 AM 03/25/2021 8:55 PM Question Answer Comments Code Status decision made by: Patient Care Teams Software Developer Relationship Specialty Start Date End Date Andree Gonsales, GOODS LAYER [address] [address] PCP - General Family Medicine 02/01/21
--- OUTSIDE RECORDS SUMMARY | 2025-08-07 19:02 | XMS_ITS | Encounter Summary ---
Author Organization [facility] [place] [address] Care Team Providers Care Heating And Ventilating Drafter Name Role Phone Andree Gonsales APRN Primary Care Provider [phone] Reason for Visit * Reason Onset Date Comments Medication Refill 10/01/2019 Encounter Details Date Type Department Care Team (Late st Contact Info) Description 10/01/2019 [place] [address] Rajiv Huynh APRN [facility] [place] [address] Cyclical vomiting with nausea Social History Tobacco [...] nausea documented in this encounter Care Teams Heating And Ventilating Drafter Relationship Specialty Start Date End Date Gonsales, Andree M, VICE PRESIDENT DIGITAL STRATEGIST [address] [address] PCP - General Family Medicine 02/01/21 documented as of this encounter
--- OUTSIDE RECORDS SUMMARY | 2025-08-07 19:02 | XMS_ITS | Encounter Summary ---
Author Organization [facility] [place] [address] Care Team Providers Care Title I Teacher Name Role Phone Andree Gonsales APRN Primary Care Provider [phone] Reason for Visit * Reason Onset Date Comments Medication Refill 09/30/2019 Encounter Details Date Type Department Care Team (Late st Contact Info) Description 09/30/2019 Refill [place] [address] Raijv Huynh APRN [facility] [place] [address] Cyclical vomiting with nausea Social History Tobacco [...] nausea documented in this encounter Care Teams Title I Teacher Relationship Specialty Start Date End Date Gonsales, Andree M, TRAFFIC SERGEANT [address] [address] PCP - General Family Medicine 02/01/21 documented as of this encounter
--- OUTSIDE RECORDS SUMMARY | 2025-08-07 19:02 | XMS_ITS | Clinical Summary ---
Author Organization [facility] Address [address] [place] [address] Phone Care Team Providers Care Line Walker Name Role Phone Jr Red MD Primary Care Provider [phone] Allergies No known active allergies Medications LORazepam [...] Exam 02/20/2023 Influenza Vaccine (#1) 2025 Insurance [facility] Medicaid Care Teams Line Walker Relationship Special[place] [address] [address] [place] [address] PCP - General Internal Medicine 02/13/23
--- OUTSIDE RECORDS SUMMARY | 2025-08-07 19:02 | XMS_ITS | Clinical Summary ---
Author Organization [employer] Address [address] [facility] [address] [place] [address] Care Team Providers Care Human Resources Analyst Name Role Phone Unavailable Primary Care Provider [...] series) 2018 Pap Smear 2020 COVID-19 Vaccine (2024-2 6 season) 2025 03/03/2021, 02/03/2021 Influenza Vaccine (#1) 2025 3, [...]
--- OUTSIDE RECORDS SUMMARY | 2025-08-07 19:02 | XMS_ITS | Encounter Summary ---
Author Organization [facility] [place] [address] Care Team Providers Care Credit Collector Name Role Phone Andree Gonsales APRN Primary Care Provider [phone] Reason for Visit * Reason Onset Date Comments Medication Refill 12/09/2019 Encounter Details Date Type Department Care Team (Late st Contact Info) Description 12/09/2019 Ref[place] [address] Rajiv Huynh APRN [facility] [place] [address] Cyclical vomiting with nausea Social History Tobacco [...] nausea documented in this encounter Care Teams Credit Collector Relationship Specialty Start Date End Date Gonsales, Andree M, QUESTIONED DOCUMENTS EXAMINER [address] [address] PCP - General Family Medicine 02/01/21 documented as of this encounter
== END 2025-08-07 15:47 | disposition home or self-care (01) ==
LOC: HO.HMCC 14:44
PROVIDERS: PCP Internal Medicine; Visit Provider Internal Medicine
DX: K76.0 Fatty (change of) liver, not elsewhere classified (principal); E66.9 Obesity, unspecified; Z68.39 Body mass index [BMI] 39.0-39.9, adult

== ENCOUNTER → 2025-08-07 14:43 | Outpatient (BNVA) | payer OTHER, SELFPAY | PROVIDERS: PCP Internal Medicine; Visit Provider Internal Medicine | DX: E66.9 Obesity, unspecified (principal); Z68.39 Body mass index [BMI] 39.0-39.9, adult; K76.0 Fatty (change of) liver, not elsewhere classified; Z13.31 Encounter for screening for depression | CPT/HCPCS: 99212 ==

== ENCOUNTER → 2025-08-15 13:26 | Outpatient (BNVA) | payer OTHER, SELFPAY | PROVIDERS: PCP Internal Medicine | DX: Z71.3 Dietary counseling and surveillance (principal) | CPT/HCPCS: 99211 ==